=== PATIENT | female | born 1985 | race Hispanic/Latino ===

== ENCOUNTER → 2019-12-07 07:37 | Outpatient (CLI) | payer OTHER, SELFPAY ==
--- NOTE | 2019-12-07 | DI.MRI.S_ITS ---
PROCEDURE: MR FOOT RT WO/W CON INDICATIONS: Pain in right foot TECHNIQUE: Noncontrast sagittal T1 spin echo and T2 fast spin echo with fat saturation, long-axis T1 spin echo and T2 fast spin echo with fat saturation; short-axis T1 spin echo, proton density fast spin echo, and T2 fast spin echo with fat saturation through the forefoot. Post-contrast short axis, long axis, and sagittal T1 spin echo with fat saturation through the forefoot. COMPARISON: [facility] [place], CR, XR FOOT 3+ VIEWS RIGHT, 03/18/2019, 8:30. FINDINGS: Image quality: There is mild inhomogeneous fat saturation. Bones and joints: No bone marrow contusions or fractures. No evidence of metatarsal stress reaction or stress fractures. No definite intraosseous mass lesions or abnormal enhancement with evaluation slightly limited by inhomogeneous fat saturation. The sesamoid bones appear in expected positions, without internal edema. No metatarsophalangeal joint degeneration. Soft tissues: There is mild soft tissue swelling laterally in the great toe without definite associated abnormal enhancement. No corresponding discrete mass or fluid collection identified. The visualized plantar foot muscles demonstrate normal signal and bulk. Visualized flexor and extensor tendons appear intact, without tenosynovitis. The distal insertions of the peroneus brevis and longus tendons appear intact. The principal Lisfranc ligament appears intact. No soft tissue ganglion cysts. There is trace intermetatarsal bursal fluid within the 1st through 3rd metatarsal interspaces. Sagittal images demonstrate no evidence for plantar plate tears. IMPRESSION: 1. Soft tissue swelling demonstrated laterally in the great toe in the area of clinical concern without definite corresponding abnormal enhancement or discrete mass identified. Recommend clinical follow-up. Dictated by: Abdon Oliva M.D. on 12/07/2019 at 13:29 Approved by: Abdon Oliva M.D. on 12/07/2019 at 13:51
== END ==
PROVIDERS: Referring Provider Podiatrist; Visit Provider Podiatrist
DX: M79.671 Pain in right foot (principal); M79.89 Other specified soft tissue disorders
CPT/HCPCS: 73720; A9579

== ENCOUNTER → 2020-12-02 08:43 | Outpatient (CLI) | payer OTHER, SELFPAY ==
--- NOTE | 2020-12-02 | DI.MRI.S_ITS ---
PROCEDURE: MR PELVIS WO CON INDICATIONS: Pelvic and perineal pain TECHNIQUE: Noncontrast coronal and axial T1 spin echo and STIR through the bony pelvis. COMPARISON: None. FINDINGS: Image quality: Excellent. Bones: Bone marrow of the pelvic ring, sacrum, and proximal femurs show normal signal throughout. No intraosseous lesions or fractures identified. The visualized lower lumbar spine appears normally aligned. Tendons: The gluteus medius and minimus tendons appear intact, without associated muscle atrophy. The nearby proximal iliotibial band also appears intact. The iliopsoas tendon appears intact, without adjacent bursal fluid collections or evidence for impingement syndrome. The origin of the hamstring tendon is intact at the ischial tuberosity, as well as the associated sacrotuberous ligament. The straight and reflected heads of the rectus femoris muscle origin appear intact, as well as the conjoint tendon. Soft tissues: Visualized muscles demonstrate normal bulk and internal signal. No joint effusions. No free pelvic fluid. Bladder wall thickness is normal. Genitourinary structures and bowel loops appear normal where visualized. IMPRESSION: No visible explanation for pelvic and perineal pain. Dictated by: Marianne Stewart M.D. on 12/04/2020 at 10:08 Approved by: Marianne Stewart M.D. on 12/04/2020 at 10:12
== END ==
DX: M54.5 Low back pain (principal); R10.2 Pelvic and perineal pain
CPT/HCPCS: 72195

== ENCOUNTER → 2021-03-29 15:56 | Outpatient (CLI) | payer OTHER, SELFPAY ==
--- NOTE | 2021-03-29 | DI.MRI.S_ITS ---
PROCEDURE: MR HEAD/BRAIN WO/W CON INDICATIONS: STRUCTURAL CHANGE TECHNIQUE: Noncontrast axial T1 spin echo, axial T2 fast spin echo, sagittal and axial FLAIR, coronal T2 fast spin echo, axial gradient echo, axial diffusion and ADC through the brain. After the administration of contrast, axial and coronal 3D VIBE or T1 spin echo with fat saturation through the brain. COMPARISON: None. FINDINGS: Image quality: Excellent. CSF Spaces: Basal cisterns are patent. No extra-axial fluid collections. Ventricles are normal in size and shape. 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 Midline structures are otherwise normal in appearance. No brain parenchymal FLAIR signal abnormality. No abnormal intracranial susceptibility or enhancement. No restricted diffusion. The major intracranial vascular flow-related signal voids are maintained. No mass effect or midline shift. Skull and face: Calvarial marrow is normal in signal. Orbits appear normal. Sinuses: Sinuses and mastoids appear clear. IMPRESSION: Essentially unremarkable MRI of the brain with no significant intracranial abnormality. An approximately 7 millimeter pineal gland cyst is of highly unlikely clinical significance. Dictated by: Jeremy Tirado M.D. on 03/29/2021 at 18:47 Approved by: Jeremy Tirado M.D. on 03/29/2021 at 18:53
== END ==
DX: R41.3 Other amnesia (principal); E34.9 Endocrine disorder, unspecified
CPT/HCPCS: 70553; A9579

== ENCOUNTER → 2021-04-27 16:32 | Outpatient (CLI) | payer OTHER, SELFPAY ==
--- NOTE | 2021-04-27 16:33 | DI.MRI.S_ITS ---
PROCEDURE: MR LUMBAR SPINE WO CON INDICATIONS: Low back pain, unspecified TECHNIQUE: Noncontrast sagittal T1 spin echo and T2 fast echo, sagittal STIR, axial T1 and T2 fast spin echo through the lumbar spine. In cases with scoliosis, additional coronal T2 fast spin echo may be performed. COMPARISON: [facility] [place], CR, XR LUMBAR SPINE WITH OBLIQUES PLUS FLEXION EXTENSION, 04/10/2021, 13:03. FINDINGS: Image quality: This examination is limited by involuntary motion artifact. Alignment and Curvature: There is normal bony alignment. Bone Marrow: Marrow is of normal overall signal. Scattered foci are seen, which are hyperintense on T1-weighted and T2-weighted imaging, which are most consistent with benign vertebral body hemangiomas. No acute vertebral body compression fractures. Spinal Cord: Conus medullaris terminates at the L1 level. Visualized cord demonstrates normal signal and size. Paraspinous Soft Tissues: No paravertebral masses. T12-L1: Normal appearance. L1-L2: Normal appearance. L2-L3: Normal appearance. L3-L4: Normal appearance. L4-L5: Normal appearance. L5-S1: Mild loss of disc height is seen. Loss of disc signal is seen. Mild generalized disc bulge is seen. Mild facet joint hypertrophy is seen. There is mild left-sided and no right-sided neural foraminal narrowing. The central canal is widely patent. IMPRESSION: Mild focal L5-S1 degenerative change is seen, with mild left-sided neural foraminal narrowing. Dictated by: Farhat Coyle M.D. on 04/27/2021 at 16:48 Approved by: Farhat Coyle M.D. on 04/27/2021 at 16:50
== END ==
PROVIDERS: Referring Provider Physical Medicine & Rehabilitation Pain Medicine; Visit Provider Physical Medicine & Rehabilitation Pain Medicine
DX: M48.07 Spinal stenosis, lumbosacral region (principal); M47.817 Spondylosis without myelopathy or radiculopathy, lumbosacral region; M54.50 Low back pain, unspecified
CPT/HCPCS: 72148

== ENCOUNTER 2023-01-21 07:30 | Outpatient (RCR) | payer OTHER, SELFPAY ==
--- NOTE | 2021-11-15 18:29 | PT.OIE ---
Current Diagnoses Unspecified temporomandibular joint disorder, unspecified side (11/15/21) Cervicalgia (11/15/21) Muscle weakness (generalized) (11/15/21) Abnormal posture (11/15/21) Visit Care Team Role Provider Type Abdon Pickard MD Attending Provider Non-Staff Primary Care Provider Referring Provider Specialty: Medical Address: [facility] [address], [place], [address] Email: Physical Therapy Initial Evaluation PT-OP-A Visit Information Start: 11/14/21 17:51 Freq: Status: Active Protocol: Document 11/15/21 16:04 [facility] (Rec: 11/15/21 17:19 [facility] [id number]) Out-Patient Physical Therapy Visit Information Visit Information Visit Type Initial Evaluation Visit Start Time 16:06 Visit Stop Time 16:51 Total Visit Minutes 45 Visit Number 1 Number of TOOLROOM CHECKER Visits 0 PT-OP-B Current Condition Start: 11/14/21 17:51 Freq: Status: Active Protocol: Document 11/15/21 16:04 [facility] (Rec: 11/15/21 17:19 [facility] [id number]) Current Condition History of Current Condition Onset Date 6 months Current Complaints B jaw pain History of Current Condition Jaw pain started about 6 months ago. when it first started it felt like I had been chewing gum allt he day prior. thought she may be clenching. She got a mouthguard after a couple months for night but does not feel like it has made a difference. Neck pain has been crhornic, but no injury. Denies LEAVITT except occasionally and they go away. denies dizziness or lightheadness. Mouth xray done recently and everything looked fine. Pt saw specialist in [place] and she suspects this is just muscular. Denies clicking in jaw. Pt was told to avoid hard to chew and crunchy foods and is most of the time following this. She can feel it more w/ those foods. Tried heat and it feels good but doesn't give relief. Gets ringing in ears and feels like ear is stuffy ( thinks both but notices it more in R). Evry couple weeks she gets the ringing and it only lasts about 5-10 min. Ear feeling stuffy is more often than the ringing. Pt is going to PT for LB. She has tingling in upper back sometimes when just sitting down and with walking. Her neck pain has been persistant. She has had some cervical xray but does not recall anything on it. Pt does have referral for sleep study. Pt feels like she has to sleep okay. She wakes up 1- 2x/night and will get up to go to the bathroom. When seh wakes, she doesn't feel rested , feels exhausted by the end of the day, and feels tense when she awakes. Treatment Goals Patient/Caregiver Goals Dec tightness PT-OP-C Subjective Start: 11/14/21 17:51 Freq: Status: Active Protocol: Document 11/15/21 16:04 [facility] (Rec: 11/15/21 17:19 [facility] [id number]) OP-PT Pain Assessment Location jaw Pain Location Details B jaw Intensity 2 Scale Used Numeric (0 - 10) Description- Other tired; like i Just chewed on taffy for an hr all the time Frequency Constant Pain Aggravating Factors Chewing PT-OP-F Manual Assessment Start: 11/14/21 17:51 Freq: Status: Active Protocol: Document 11/15/21 16:04 [facility] (Rec: 11/15/21 17:19 [facility] [id number]) Manual Assessments Soft Tissue Assessment Soft Tissue Mobility Assessment tightness thoughout jaw, neck & tspine mm R>L w/tenderness Joint Mobility Assessment Joint Mobility Assessment Post shear on R w/closing, ant shear on L before R w/opeing PT-OP-J Posture/Palpation/Skin Start: 11/14/21 17:51 Freq: Status: Active Protocol: Document 11/15/21 16:04 [facility] (Rec: 11/15/21 17:19 [facility] [id number]) Posture Evaluation Comments Posture Comments slight head SB L, fwd rounded shoulders B, inc kyphosis, OA ext slight PT-OP-K Range of Motion Start: 11/14/21 17:51 Freq: Status: Active Protocol: Document 11/15/21 16:04 [facility] (Rec: 11/15/21 17:19 [facility] [id number]) Cervical Spine Range of Motion Cervical Spine Active Degrees Flexion 54 Extension 61 Rotation Left 42 Rotation Right 49 Lateral Flexion Left 40 Lateral Flexion Right 35 Comments pain w/ext & crepitis; tightness w/SB & rot TMJ Range of Motion Jaw Openning Jaw Openning (mm) 35 Comments Comments R side natan post w/close; WNL deviation, no pain PT-OP-L Special Tests Start: 11/14/21 17:51 Freq: Status: Active Protocol: Document 11/15/21 16:04 [facility] (Rec: 11/15/21 17:19 [facility] [id number]) Special Tests Cervical Spine Special Tests Vertebral Artery Test Results neg Spurling's Test Test Results neg Alar Ligament Test Results neg PT-OP-M Strength Start: 11/14/21 17:51 Freq: Status: Active Protocol: Document 11/15/21 16:04 [facility] (Rec: 11/15/21 17:19 [facility] [id number]) Cervical Spine Strength Cervical Spine Manual Muscle Testing Comments chin tuck hold supine:1 sec PT-OP-T Assessment and Plan Start: 11/14/21 17:51 Freq: Status: Active Protocol: Document 11/15/21 16:04 [facility] (Rec: 11/15/21 17:19 [facility] [id number]) Physical Therapy Assessment Rehab Potential Rehabilitation Potential Good Evaluation Complexity Number of Personal Factors/Comorbidities 3 or More Number of Body Systems Impaired 4 or More Clinical Presentation at Evaluation Evolving Impairments Impairments Activity Tolerance,Functional Activities,Functional Mobility ,Pain,Posture,ROM,Soft Tissue Mobility,Strength Goals ROM Short Term Goal (STG) Pt will have full cervical ROM w/o pain to dec pressure on jaw. STG Duration 01/15 Fpc Goal (LTG) Pt will have full jaw opening to 40mm w/o feeling of tightness LTG Duration 02/15 eating Fpc Goal (LTG) Pt will report no tightness or discomfort w/eating and be able to eat all foods. LTG Duration 02/15/22 jaw pain Short Term Goal (STG) Pt will report jaw pain being more intermittent rather than constant tightness STG Duration 01/04/22 Bottle Filler Goal (LTG) Pt will report no jaw tightness or discomfort more than 1x/week LTG Duration 02/15/22 Assessment Summary Assessment Pt presents w/B jaw pain w/ significant tightness of jaw closing mm and has cervical dysfunction along w/postural impairment and noted sleep difficulty. All these other issues are likely causing further jaw pain and making her jaw pain worse. Pt has improper resting position of jaw and tongue position in mouth. She has weak cervical stability and limited cervical ROM which will place tension onto the jaw and likely inc this pain. Pt would beneift from PT to work on cervical, upper thoracic and jaw mobility in order to dec jaw tightnes and discomfort. Physical Therapy Plan Frequency and Duration Frequency of Treatment 1-2x/week Duration of Treatment 3 months Plan of Care Start Date 11/15/21 Plan of Care End Date 02/15/22 Therapeutic Interventions Therapeutic Interventions Home Exercise Program,Joint Mobilizations,Manual Therapy, Neuromuscular Re-education, Orthotic/Prosthetic Management ,Patient/Caregiver Education, Self-Care/Home Management,Soft Tissue Mobilization,Taping, Therapeutic Activities, Therapeutic Exercises Modalities Cold Pack/Ice Massage,Hot Packs Next Visit Focus/Plan Next Note Type Treatment Note Next Visit Plan wall posture, rocabado exercises, manual to jaw & neck for mobility [id number]
--- NOTE | 2021-11-15 18:29 | PT.OPPOC ---
Physical, Occupational & Speech Therapy At [facility] Current Diagnoses Unspecified temporomandibular joint disorder, unspecified side (11/15/21) Cervicalgia (11/15/21) Muscle weakness (generalized) (11/15/21) Abnormal posture (11/15/21) Visit Care Team Role Provider Type Abdon Pickard MD Attending Provider Non-Staff Primary Care Provider Referring Provider Specialty: Medical Address: [facility] [address], [place], [address] Email: Plan Of Care PT-OP-T Assessment and Plan Start: 11/14/21 17:51 Freq: Status: Active Protocol: Document 11/15/21 16:04 [facility] (Rec: 11/15/21 17:19 [facility] [id number]) Physical Therapy Assessment Rehab Potential Rehabilitation Potential Good Evaluation Complexity Number of Personal Factors/Comorbidities 3 or More Number of Body Systems Impaired 4 or More Clinical Presentation at Evaluation Evolving Impairments Impairments Activity Tolerance,Functional Activities,Functional Mobility ,Pain,Posture,ROM,Soft Tissue Mobility,Strength Goals ROM Short Term Goal (STG) Pt will have full cervical ROM w/o pain to dec pressure on jaw. STG Duration 01/15 Early Childhood Education Worker Goal (LTG) Pt will have full jaw opening to 40mm w/o feeling of tightness LTG Duration 02/15 eating Prison Goal (LTG) Pt will report no tightness or discomfort w/eating and be able to eat all foods. LTG Duration 02/15/22 jaw pain Short Term Goal (STG) Pt will report jaw pain being more intermittent rather than constant tightness STG Duration 01/04/22 Early Childhood Education Worker Goal (LTG) Pt will report no jaw tightness or discomfort more than 1x/week LTG Duration 02/15/22 Assessment Summary Assessment Pt presents w/B jaw pain w/ significant tightness of jaw closing mm and has cervical dysfunction along w/postural impairment and noted sleep difficulty. All these other issues are likely causing further jaw pain and making her jaw pain worse. Pt has improper resting position of jaw and tongue position in mouth. She has weak cervical stability and limited cervical ROM which will place tension onto the jaw and likely inc this pain. Pt would beneift from PT to work on cervical, upper thoracic and jaw mobility in order to dec jaw tightnes and discomfort. Physical Therapy Plan Frequency and Duration Frequency of Treatment 1-2x/week Duration of Treatment 3 months Plan of Care Start Date 11/15/21 Plan of Care End Date 02/15/22 Therapeutic Interventions Therapeutic Interventions Home Exercise Program,Joint Mobilizations,Manual Therapy, Neuromuscular Re-education, Orthotic/Prosthetic Management ,Patient/Caregiver Education, Self-Care/Home Management,Soft Tissue Mobilization,Taping, Therapeutic Activities, Therapeutic Exercises Modalities Cold Pack/Ice Massage,Hot Packs Next Visit Focus/Plan Next Note Type Treatment Note Next Visit Plan wall posture, rocabado exercises, manual to jaw & neck for mobility Plan of Care Dates Plan of Care Start Date 11/15/21 Plan of Care End Date 02/15/22 Electronically Signed by: Grace Michel, PT 11/15/21 [id number] If you are in agreement with this Plan of Care, please return a signed and dated copy. I have reviewed this Plan of Care and certify that the skilled therapy services above are required to meet the patient?s needs. Physician Signature Date Printed Name and Credentials Clinical Instructor Signature Printed Name and Credentials
--- NOTE | 2021-11-22 17:42 | PT.OTN ---
Current Diagnoses Unspecified temporomandibular joint disorder, unspecified side (11/22/21) Cervicalgia (11/22/21) Muscle weakness (generalized) (11/22/21) Abnormal posture (11/22/21) Physical Therapy Treatment Note PT-OP-A Visit Information Start: 11/14/21 17:51 Freq: Status: Active Protocol: Document 11/22/21 16:03 [facility] (Rec: 11/22/21 17:42 [facility] [id number]) Out-Patient Physical Therapy Visit Information Visit Information Visit Type Treatment Note Visit Start Time 16:05 Visit Stop Time 16:55 Total Visit Minutes 50 Visit Number 2/ Number of TUNGSTEN TENDER Visits 0 PT-OP-B Current Condition Start: 11/14/21 17:51 Freq: Status: Active Protocol: Document 11/15/21 16:04 [facility] (Rec: 11/15/21 17:19 [facility] [id number]) Current Condition History of Current Condition Onset Date 6 months Current Complaints B jaw pain History of Current Condition Jaw pain started about 6 months ago. when it first started it felt like I had been chewing gum allt he day prior. MD thought she may be clenching. She got a mouthguard after a couple months for night but does not feel like it has made a difference. Neck pain has been crhornic, but no injury. Denies LEAVITT except occasionally and they go away. denies dizziness or lightheadness. Mouth xray done recently and everything looked fine. Pt saw specialist in [place] and she suspects this is just muscular. Denies clicking in jaw. Pt was told to avoid hard to chew and crunchy foods and is most of the time following this. She can feel it more w/ those foods. Tried heat and it feels good but doesn't give relief. Gets ringing in ears and feels like ear is stuffy ( thinks both but notices it more in R). Evry couple weeks she gets the ringing and it only lasts about 5-10 min. Ear feeling stuffy is more often than the ringing. Pt is going to PT for LB. She has tingling in upper back sometimes when just sitting down and with walking. Her neck pain has been persistant. She has had some cervical xray but does not recall anything on it. Pt does have referral for sleep study. Pt feels like she has to sleep okay. She wakes up 1- 2x/night and will get up to go to the bathroom. When seh wakes, she doesn't feel rested , feels exhausted by the end of the day, and feels tense when she awakes. Treatment Goals Patient/Caregiver Goals Dec tightness PT-OP-C Subjective Start: 11/14/21 17:51 Freq: Status: Active Protocol: Document 11/22/21 16:03 [facility] (Rec: 11/22/21 17:42 [facility] [id number]) OP-PT Subjective Patient Comments Patient Comments Pt reports a lot of upper back and neck and jaw discomfort startign friday afternoon and was every day but today. She did not work today where she did work the other days. PT-OP-F Manual Assessment Start: 11/14/21 17:51 Freq: Status: Active Protocol: Document 11/15/21 16:04 [facility] (Rec: 11/15/21 17:19 [facility] [id number]) Manual Assessments Soft Tissue Assessment Soft Tissue Mobility Assessment tightness thoughout jaw, neck & tspine mm R>L w/tenderness Joint Mobility Assessment Joint Mobility Assessment Post shear on R w/closing, ant shear on L before R w/opeing PT-OP-J Posture/Palpation/Skin Start: 11/14/21 17:51 Freq: Status: Active Protocol: Document 11/15/21 16:04 [facility] (Rec: 11/15/21 17:19 [facility] [id number]) Posture Evaluation Comments Posture Comments slight head SB L, fwd rounded shoulders B, inc kyphosis, OA ext slight PT-OP-K Range of Motion Start: 11/14/21 17:51 Freq: Status: Active Protocol: Document 11/15/21 16:04 [facility] (Rec: 11/15/21 17:19 [facility] [id number]) Cervical Spine Range of Motion Cervical Spine Active Degrees Flexion 54 Extension 61 Rotation Left 42 Rotation Right 49 Lateral Flexion Left 40 Lateral Flexion Right 35 Comments pain w/ext & crepitis; tightness w/SB & rot TMJ Range of Motion Jaw Openning Jaw Openning (mm) 35 Comments Comments R side natan post w/close; WNL deviation, no pain PT-OP-L Special Tests Start: 11/14/21 17:51 Freq: Status: Active Protocol: Document 11/15/21 16:04 [facility] (Rec: 11/15/21 17:19 [facility] [id number]) Special Tests Cervical Spine Special Tests Vertebral Artery Test Results neg Spurling's Test Test Results neg Alar Ligament Test Results neg PT-OP-M Strength Start: 11/14/21 17:51 Freq: Status: Active Protocol: Document 11/15/21 16:04 [facility] (Rec: 11/15/21 17:19 [facility] [id number]) Cervical Spine Strength Cervical Spine Manual Muscle Testing Comments chin tuck hold supine:1 sec PT-OP-Q Treatments Start: 11/14/21 17:51 Freq: Status: Active Protocol: Document 11/22/21 16:03 [facility] (Rec: 11/22/21 17:42 [facility] [id number]) Therapeutic Exercises Supine Exercises foam roll Supine Exercise Name //:shoulder flex, Habd, abd; perpendicular rolling under scap region Side bilateral Reps/Minutes 10 ea Sitting Exercises rocabado 6x6 Sitting Exercise Name per handout Side bilateral Standing Exercises wall posture Standing Exercise Name w/90/90 Habd Side bilateral Reps/Minutes 8 Manual Therapy Treatment Soft Tissue Mobilization cervical Body Location R SCM cranially Mobilization Type Rolling Intensity/Depth Moderate Body Position Supine jaw Body Location R>L masseter, temporalis Mobilization Type Rolling,Strumming Intensity/Depth Moderate Body Position Supine Joint Mobilizations cervical Comments C1 transverse L FM PT-OP-T Assessment and Plan Start: 11/14/21 17:51 Freq: Status: Active Protocol: Document 11/22/21 16:03 [facility] (Rec: 11/22/21 17:42 [facility] [id number]) Physical Therapy Assessment Goals ROM Short Term Goal (STG) Pt will have full cervical ROM w/o pain to dec pressure on jaw. STG Duration 01/15 Skilled Nursing Goal (LTG) Pt will have full jaw opening to 40mm w/o feeling of tightness LTG Duration 02/15 eating Tower Switch Operator Goal (LTG) Pt will report no tightness or discomfort w/eating and be able to eat all foods. LTG Duration 02/15/22 jaw pain Short Term Goal (STG) Pt will report jaw pain being more intermittent rather than constant tightness STG Duration 01/04/22 Tower Switch Operator Goal (LTG) Pt will report no jaw tightness or discomfort more than 1x/week LTG Duration 02/15/22 Assessment Summary Assessment Pt did well with exercises but does note LB tightness when doingw all roll ups. She has tightness B but R>L and likely creating a significant amount of her pain d/t mm tension. It did improve w/manual treatment. Physical Therapy Plan Frequency and Duration Frequency of Treatment 1-2x/week Duration of Treatment 3 months Plan of Care Start Date 11/15/21 Plan of Care End Date 02/15/22 Next Visit Focus/Plan Next Note Type Treatment Note Next Visit Plan review exercises & manual for jaw and neck mobility
--- NOTE | 2021-11-29 18:25 | PT.OTN ---
Current Diagnoses Unspecified temporomandibular joint disorder, unspecified side (11/29/21) Cervicalgia (11/29/21) Muscle weakness (generalized) (11/29/21) Abnormal posture (11/29/21) Physical Therapy Treatment Note PT-OP-A Visit Information Start: 11/14/21 17:51 Freq: Status: Active Protocol: Document 11/29/21 16:07 [facility] (Rec: 11/29/21 18:25 [facility] [id number]) Out-Patient Physical Therapy Visit Information Visit Information Visit Type Treatment Note Visit Start Time 16:05 Visit Stop Time 16:55 Total Visit Minutes 50 Visit Number 3/[address] ADMINISTRATIVE ENGINEER Vis[address] 0 PT-OP-B Current Condition Start: 11/14/21 17:51 Freq: Status: Active Protocol: Document 11/15/21 16:04 [facility] (Rec: 11/15/21 17:19 [facility] [id number]) Current Condition History of Current Condition Onset Date 6 months Current Complaints B jaw pain History of Current Condition Jaw pain started about 6 months ago. when it first started it felt like I had been chewing gum allt he day prior. MD thought she may be clenching. She got a mouthguard after a couple months for night but does not feel like it has made a difference. Neck pain has been crhornic, but no injury. Denies LEAVITT except occasionally and they go away. denies dizziness or lightheadness. Mouth xray done recently and everything looked fine. Pt saw specialist in [place] and she suspects this is just muscular. Denies clicking in jaw. Pt was told to avoid hard to chew and crunchy foods and is most of the time following this. She can feel it more w/ those foods. Tried heat and it feels good but doesn't give relief. Gets ringing in ears and feels like ear is stuffy ( thinks both but notices it more in R). Evry couple weeks she gets the ringing and it only lasts about 5-10 min. Ear feeling stuffy is more often than the ringing. Pt is going to PT for LB. She has tingling in upper back sometimes when just sitting down and with walking. Her neck pain has been persistant. She has had some cervical xray but does not recall anything on it. Pt does have referral for sleep study. Pt feels like she has to sleep okay. She wakes up 1- 2x/night and will get up to go to the bathroom. When seh wakes, she doesn't feel rested , feels exhausted by the end of the day, and feels tense when she awakes. Treatment Goals Patient/Caregiver Goals Dec tightness PT-OP-C Subjective Start: 11/14/21 17:51 Freq: Status: Active Protocol: Document 11/29/21 16:07 [facility] (Rec: 11/29/21 18:25 [facility] [id number]) OP-PT Subjective Patient Comments Patient Comments Pt reprots tension in head like she is about to get a LEAVITT but not getting a LEAVITT in past week. Unsure if it is the exercises. PT-OP-F Manual Assessment Start: 11/14/21 17:51 Freq: Status: Active Protocol: Document 11/15/21 16:04 [facility] (Rec: 11/15/21 17:19 [facility] [id number]) Manual Assessments Soft Tissue Assessment Soft Tissue Mobility Assessment tightness thoughout jaw, neck & tspine mm R>L w/tenderness Joint Mobility Assessment Joint Mobility Assessment Post shear on R w/closing, ant shear on L before R w/opeing PT-OP-J Posture/Palpation/Skin Start: 11/14/21 17:51 Freq: Status: Active Protocol: Document 11/15/21 16:04 [facility] (Rec: 11/15/21 17:19 [facility] [id number]) Posture Evaluation Comments Posture Comments slight head SB L, fwd rounded shoulders B, inc kyphosis, OA ext slight PT-OP-K Range of Motion Start: 11/14/21 17:51 Freq: Status: Active Protocol: Document 11/15/21 16:04 [facility] (Rec: 11/15/21 17:19 [facility] [id number]) Cervical Spine Range of Motion Cervical Spine Active Degrees Flexion 54 Extension 61 Rotation Left 42 Rotation Right 49 Lateral Flexion Left 40 Lateral Flexion Right 35 Comments pain w/ext & crepitis; tightness w/SB & rot TMJ Range of Motion Jaw Openning Jaw Openning (mm) 35 Comments Comments R side natan post w/close; WNL deviation, no pain PT-OP-L Special Tests Start: 11/14/21 17:51 Freq: Status: Active Protocol: Document 11/15/21 16:04 [facility] (Rec: 11/15/21 17:19 [facility] [id number]) Special Tests Cervical Spine Special Tests Vertebral Artery Test Results neg Spurling's Test Test Results neg Alar Ligament Test Results neg PT-OP-M Strength Start: 11/14/21 17:51 Freq: Status: Active Protocol: Document 11/15/21 16:04 [facility] (Rec: 11/15/21 17:19 [facility] [id number]) Cervical Spine Strength Cervical Spine Manual Muscle Testing Comments chin tuck hold supine:1 sec PT-OP-Q Treatments Start: 11/14/21 17:51 Freq: Status: Active Protocol: Document 11/29/21 16:07 [facility] (Rec: 11/29/21 18:25 [facility] [id number]) Therapeutic Exercises Supine Exercises foam roll Supine Exercise Name //:shoulder flex, Habd, abd; perpendicular rolling under scap region Side bilateral Reps/Minutes 8 ea Sitting Exercises rocabado 6x6 Sitting Exercise Name breathing, jaw opening w/ tongue on soft palette, scap retract, cervical ret Side bilateral Comments only those 4 exercises Standing Exercises wall posture Standing Exercise Name w/90/90 Habd Side bilateral Reps/Minutes 8 Manual Therapy Treatment Soft Tissue Mobilization cervical Body Location R SCM cranially Mobilization Type Rolling Intensity/Depth Moderate Body Position Supine jaw Body Location R>L masseter, temporalis Mobilization Type Rolling,Strumming Intensity/Depth Moderate Body Position Supine Joint Mobilizations cervical Comments C1 & 2 transverse R FM PT-OP-R Modalities Start: 11/14/21 17:51 Freq: Status: Active Protocol: Document 11/29/21 16:07 [facility] (Rec: 11/29/21 18:25 [facility] [id number]) Hot Pack/Cold Pack Treatment Cold Pack Location cervical and jaw Patient Position Hooklying Treatment Duration (minutes) 10 PT-OP-T Assessment and Plan Start: 11/14/21 17:51 Freq: Status: Active Protocol: Document 11/29/21 16:07 [facility] (Rec: 11/29/21 18:25 [facility] [id number]) Physical Therapy Assessment Goals ROM Short Term Goal (STG) Pt will have full cervical ROM w/o pain to dec pressure on jaw. STG Duration 01/15 Head Of Housekeeping Goal (LTG) Pt will have full jaw opening to 40mm w/o feeling of tightness LTG Duration 02/15 eating Residential Goal (LTG) Pt will report no tightness or discomfort w/eating and be able to eat all foods. LTG Duration 02/15/22 jaw pain Short Term Goal (STG) Pt will report jaw pain being more intermittent rather than constant tightness STG Duration 01/04/22 Residential Goal (LTG) Pt will report no jaw tightness or discomfort more than 1x/week LTG Duration 02/15/22 Assessment Summary Assessment Pt edu to slowly dec exercises one at a time to see if it is causing inc head tension if the paired down exercises still cause head pain. Pt had imrpoved upper cervical positioning after manual but has signficiant guarding and tension aroudn jaw and neck likely leading to her current pain/discomfort. Physical Therapy Plan Frequency and Duration Frequency of Treatment 1-2x/week Duration of Treatment 3 months Plan of Care Start Date 11/15/21 Plan of Care End Date 02/15/22 Next Visit Focus/Plan Next Note Type Treatment Note Next Visit Plan review exercises & manual for jaw and neck mobility
--- NOTE | 2021-12-06 17:36 | PT.OTN ---
Current Diagnoses Unspecified temporomandibular joint disorder, unspecified side (12/06/21) Cervicalgia (12/06/21) Muscle weakness (generalized) (12/06/21) Abnormal posture (12/06/21) Physical Therapy Treatment Note PT-OP-A Visit Information Start: 11/14/21 17:51 Freq: Status: Active Protocol: Document 12/06/21 14:31 [facility] (Rec: 12/06/21 17:35 [facility] [id number]) Out-Patient Physical Therapy Visit Information Visit Information Visit Type Treatment Note Visit Start Time 16:04 Visit Stop Time 16:49 Total Visit Minutes 45 Visit Number 4/ Number of WEARING APPAREL PRESSER Visits 0 PT-OP-B Current Condition Start: 11/14/21 17:51 Freq: Status: Active Protocol: Document 11/15/21 16:04 [facility] (Rec: 11/15/21 17:19 [facility] [id number]) Current Condition History of Current Condition Onset Date 6 months Current Complaints B jaw pain History of Current Condition Jaw pain started about 6 months ago. when it first started it felt like I had been chewing gum allt he day prior. MD thought she may be clenching. She got a mouthguard after a couple months for night but does not feel like it has made a difference. Neck pain has been crhornic, but no injury. Denies LEAVITT except occasionally and they go away. denies dizziness or lightheadness. Mouth xray done recently and everything looked fine. Pt saw specialist in [place] and she suspects this is just muscular. Denies clicking in jaw. Pt was told to avoid hard to chew and crunchy foods and is most of the time following this. She can feel it more w/ those foods. Tried heat and it feels good but doesn't give relief. Gets ringing in ears and feels like ear is stuffy ( thinks both but notices it more in R). Evry couple weeks she gets the ringing and it only lasts about 5-10 min. Ear feeling stuffy is more often than the ringing. Pt is going to PT for LB. She has tingling in upper back sometimes when just sitting down and with walking. Her neck pain has been persistant. She has had some cervical xray but does not recall anything on it. Pt does have referral for sleep study. Pt feels like she has to sleep okay. She wakes up 1- 2x/night and will get up to go to the bathroom. When seh wakes, she doesn't feel rested , feels exhausted by the end of the day, and feels tense when she awakes. Treatment Goals Patient/Caregiver Goals Dec tightness PT-OP-C Subjective Start: 11/14/21 17:51 Freq: Status: Active Protocol: Document 12/06/21 14:31 [facility] (Rec: 12/06/21 17:35 [facility] [id number]) OP-PT Subjective Patient Comments Patient Comments Pt reprots she feels like last session helped w/mobility PT-OP-F Manual Assessment Start: 11/14/21 17:51 Freq: Status: Active Protocol: Document 11/15/21 16:04 [facility] (Rec: 11/15/21 17:19 [facility] [id number]) Manual Assessments Soft Tissue Assessment Soft Tissue Mobility Assessment tightness thoughout jaw, neck & tspine mm R>L w/tenderness Joint Mobility Assessment Joint Mobility Assessment Post shear on R w/closing, ant shear on L before R w/opeing PT-OP-J Posture/Palpation/Skin Start: 11/14/21 17:51 Freq: Status: Active Protocol: Document 11/15/21 16:04 [facility] (Rec: 11/15/21 17:19 [facility] [id number]) Posture Evaluation Comments Posture Comments slight head SB L, fwd rounded shoulders B, inc kyphosis, OA ext slight PT-OP-K Range of Motion Start: 11/14/21 17:51 Freq: Status: Active Protocol: Document 11/15/21 16:04 [facility] (Rec: 11/15/21 17:19 [facility] [id number]) Cervical Spine Range of Motion Cervical Spine Active Degrees Flexion 54 Extension 61 Rotation Left 42 Rotation Right 49 Lateral Flexion Left 40 Lateral Flexion Right 35 Comments pain w/ext & crepitis; tightness w/SB & rot TMJ Range of Motion Jaw Openning Jaw Openning (mm) 35 Comments Comments R side natan post w/close; WNL deviation, no pain PT-OP-L Special Tests Start: 11/14/21 17:51 Freq: Status: Active Protocol: Document 11/15/21 16:04 [facility] (Rec: 11/15/21 17:19 [facility] [id number]) Special Tests Cervical Spine Special Tests Vertebral Artery Test Results neg Spurling's Test Test Results neg Alar Ligament Test Results neg PT-OP-M Strength Start: 11/14/21 17:51 Freq: Status: Active Protocol: Document 11/15/21 16:04 [facility] (Rec: 11/15/21 17:19 [facility] [id number]) Cervical Spine Strength Cervical Spine Manual Muscle Testing Comments chin tuck hold supine:1 sec PT-OP-Q Treatments Start: 11/14/21 17:51 Freq: Status: Active Protocol: Document 12/06/21 14:31 [facility] (Rec: 12/06/21 17:35 [facility] [id number]) Manual Therapy Treatment Soft Tissue Mobilization cervical Body Location R SCM & Scalenes Mobilization Type Rolling Intensity/Depth Moderate Body Position Supine jaw Body Location R>L masseter, temporalis, inf & post jaw Mobilization Type Rolling,Strumming Intensity/Depth Moderate Body Position Supine Joint Mobilizations thoracic Comments T1-2 transverse R FM jaw Joint B distraction FM Self-Care/Home Management Treatment Education Other Education discussed cont just limited rocabado exercises, foam roll and wall posture, discussed doorway pec stretcha nd edu on open book for tspine/pec mobility w/less pain PT-OP-R Modalities Start: 11/14/21 17:51 Freq: Status: Active Protocol: Document 11/29/21 16:07 [facility] (Rec: 11/29/21 18:25 [facility] [id number]) Hot Pack/Cold Pack Treatment Cold Pack Location cervical and jaw Patient Position Hooklying Treatment Duration (minutes) 10 PT-OP-T Assessment and Plan Start: 11/14/21 17:51 Freq: Status: Active Protocol: Document 12/06/21 14:31 [facility] (Rec: 12/06/21 17:35 [facility] [id number]) Physical Therapy Assessment Goals ROM Short Term Goal (STG) Pt will have full cervical ROM w/o pain to dec pressure on jaw. STG Duration 01/15 Penitentiary Goal (LTG) Pt will have full jaw opening to 40mm w/o feeling of tightness LTG Duration 02/15 eating Green Marketing Specialist Goal (LTG) Pt will report no tightness or discomfort w/eating and be able to eat all foods. LTG Duration 02/15/22 jaw pain Short Term Goal (STG) Pt will report jaw pain being more intermittent rather than constant tightness STG Duration 01/04/22 Penitentiary Goal (LTG) Pt will report no jaw tightness or discomfort more than 1x/week LTG Duration 02/15/22 Assessment Summary Assessment Dec pain w/left rotation after manual and improved jaw opening. Discussed alt ways to open up chest for improved posture for jaw as foam roll can be painful for pt. Physical Therapy Plan Frequency and Duration Frequency of Treatment 1-2x/week Duration of Treatment 3 months Plan of Care Start Date 11/15/21 Plan of Care End Date 02/15/22 Next Visit Focus/Plan Next Note Type Treatment Note Next Visit Plan advance cervical stability as able, manual for jaw/neck mobility
--- NOTE | 2021-12-12 17:47 | PT.OTN ---
Current Diagnoses Unspecified temporomandibular joint disorder, unspecified side (12/12/21) Cervicalgia (12/12/21) Muscle weakness (generalized) (12/12/21) Abnormal posture (12/12/21) Physical Therapy Treatment Note PT-OP-A Visit Information Start: 11/14/21 17:51 Freq: Status: Active Protocol: Document 12/12/21 16:02 [facility] (Rec: 12/12/21 17:47 [facility] [id number]) Out-Patient Physical Therapy Visit Information Visit Information Visit Type Treatment Note Visit Start Time 16:05 Visit Stop Time 16:55 Total Visit Minutes 50 Visit Number 08/17 Number of NEWSPAPER MANAGING EDITOR Visits 0 PT-OP-B Current Condition Start: 11/14/21 17:51 Freq: Status: Active Protocol: Document 11/15/21 16:04 [facility] (Rec: 11/15/21 17:19 [facility] [id number]) Current Condition History of Current Condition Onset Date 6 months Current Complaints B jaw pain History of Current Condition Jaw pain started about 6 months ago. when it first started it felt like I had been chewing gum allt he day prior. MD thought she may be clenching. She got a mouthguard after a couple months for night but does not feel like it has made a difference. Neck pain has been crhornic, but no injury. Denies LEAVITT except occasionally and they go away. denies dizziness or lightheadness. Mouth xray done recently and everything looked fine. Pt saw specialist in [place] and she suspects this is just muscular. Denies clicking in jaw. Pt was told to avoid hard to chew and crunchy foods and is most of the time following this. She can feel it more w/ those foods. Tried heat and it feels good but doesn't give relief. Gets ringing in ears and feels like ear is stuffy ( thinks both but notices it more in R). Evry couple weeks she gets the ringing and it only lasts about 5-10 min. Ear feeling stuffy is more often than the ringing. Pt is going to PT for LB. She has tingling in upper back sometimes when just sitting down and with walking. Her neck pain has been persistant. She has had some cervical xray but does not recall anything on it. Pt does have referral for sleep study. Pt feels like she has to sleep okay. She wakes up 1- 2x/night and will get up to go to the bathroom. When seh wakes, she doesn't feel rested , feels exhausted by the end of the day, and feels tense when she awakes. Treatment Goals Patient/Caregiver Goals Dec tightness PT-OP-C Subjective Start: 11/14/21 17:51 Freq: Status: Active Protocol: Document 12/12/21 16:02 [facility] (Rec: 12/12/21 17:47 [facility] [id number]) OP-PT Subjective Patient Comments Patient Comments Pt reprots she feels like she tries to get into good head position for her jaw and then gets tingling and pian in back PT-OP-F Manual Assessment Start: 11/14/21 17:51 Freq: Status: Active Protocol: Document 11/15/21 16:04 [facility] (Rec: 11/15/21 17:19 [facility] [id number]) Manual Assessments Soft Tissue Assessment Soft Tissue Mobility Assessment tightness thoughout jaw, neck & tspine mm R>L w/tenderness Joint Mobility Assessment Joint Mobility Assessment Post shear on R w/closing, ant shear on L before R w/opeing PT-OP-J Posture/Palpation/Skin Start: 11/14/21 17:51 Freq: Status: Active Protocol: Document 11/15/21 16:04 [facility] (Rec: 11/15/21 17:19 [facility] [id number]) Posture Evaluation Comments Posture Comments slight head SB L, fwd rounded shoulders B, inc kyphosis, OA ext slight PT-OP-K Range of Motion Start: 11/14/21 17:51 Freq: Status: Active Protocol: Document 11/15/21 16:04 [facility] (Rec: 11/15/21 17:19 [facility] [id number]) Cervical Spine Range of Motion Cervical Spine Active Degrees Flexion 54 Extension 61 Rotation Left 42 Rotation Right 49 Lateral Flexion Left 40 Lateral Flexion Right 35 Comments pain w/ext & crepitis; tightness w/SB & rot TMJ Range of Motion Jaw Openning Jaw Openning (mm) 35 Comments Comments R side natan post w/close; WNL deviation, no pain PT-OP-L Special Tests Start: 11/14/21 17:51 Freq: Status: Active Protocol: Document 11/15/21 16:04 [facility] (Rec: 11/15/21 17:19 [facility] [id number]) Special Tests Cervical Spine Special Tests Vertebral Artery Test Results neg Spurling's Test Test Results neg Alar Ligament Test Results neg PT-OP-M Strength Start: 11/14/21 17:51 Freq: Status: Active Protocol: Document 11/15/21 16:04 [facility] (Rec: 11/15/21 17:19 [facility] [id number]) Cervical Spine Strength Cervical Spine Manual Muscle Testing Comments chin tuck hold supine:1 sec PT-OP-Q Treatments Start: 11/14/21 17:51 Freq: Status: Active Protocol: Document 12/12/21 16:02 [facility] (Rec: 12/12/21 17:47 [facility] [id number]) Manual Therapy Treatment Soft Tissue Mobilization intraoral Body Location B ptyergoids Mobilization Type Sustained Pressure cervical Body Location R SCM & Scalenes Mobilization Type Rolling Intensity/Depth Moderate Body Position Supine jaw Body Location R>L masseter, temporalis, inf & post jaw Mobilization Type Rolling,Strumming Intensity/Depth Moderate Body Position Supine Joint Mobilizations thoracic Comments T1-3 transverse R FM PA T 5-8 FM PT-OP-R Modalities Start: 11/14/21 17:51 Freq: Status: Active Protocol: Document 12/12/21 16:02 [facility] (Rec: 12/12/21 17:47 [facility] [id number]) Hot Pack/Cold Pack Treatment Cold Pack Location cervical and jaw Patient Position Hooklying Treatment Duration (minutes) 10 PT-OP-T Assessment and Plan Start: 11/14/21 17:51 Freq: Status: Active Protocol: Document 12/12/21 16:02 [facility] (Rec: 12/12/21 17:47 [facility] [id number]) Physical Therapy Assessment Goals ROM Short Term Goal (STG) Pt will have full cervical ROM w/o pain to dec pressure on jaw. STG Duration 01/15 Halfway Goal (LTG) Pt will have full jaw opening to 40mm w/o feeling of tightness LTG Duration 02/15 eating Halfway Goal (LTG) Pt will report no tightness or discomfort w/eating and be able to eat all foods. LTG Duration 02/15/22 jaw pain Short Term Goal (STG) Pt will report jaw pain being more intermittent rather than constant tightness STG Duration 01/04/22 Halfway Goal (LTG) Pt will report no jaw tightness or discomfort more than 1x/week LTG Duration 02/15/22 Physical Therapy Plan Frequency and Duration Frequency of Treatment 1-2x/week Duration of Treatment 3 months Plan of Care Start Date 11/15/21 Plan of Care End Date 02/15/22 Next Visit Focus/Plan Next Note Type Treatment Note Next Visit Plan advance cervical stability as able, manual for jaw/neck mobility
--- NOTE | 2021-12-20 17:57 | PT.OTN ---
Current Diagnoses Unspecified temporomandibular joint disorder, unspecified side (12/20/21) Cervicalgia (12/20/21) Muscle weakness (generalized) (12/20/21) Abnormal posture (12/20/21) Physical Therapy Treatment Note PT-OP-A Visit Information Start: 11/14/21 17:51 Freq: Status: Active Protocol: Document 12/20/21 15:34 [facility] (Rec: 12/20/21 17:57 [facility] [id number]) Out-Patient Physical Therapy Visit Information Visit Information Visit Type Treatment Note Visit Start Time 16:54 Visit Stop Time 17:44 Total Visit Minutes 50 Visit Number 09/17 Number of HEAD OF DRAMA Visits 0 PT-OP-B Current Condition Start: 11/14/21 17:51 Freq: Status: Active Protocol: Document 11/15/21 16:04 [facility] (Rec: 11/15/21 17:19 [facility] [id number]) Current Condition History of Current Condition Onset Date 6 months Current Complaints B jaw pain History of Current Condition Jaw pain started about 6 months ago. when it first started it felt like I had been chewing gum allt he day prior. MD thought she may be clenching. She got a mouthguard after a couple months for night but does not feel like it has made a difference. Neck pain has been crhornic, but no injury. Denies LEAVITT except occasionally and they go away. denies dizziness or lightheadness. Mouth xray done recently and everything looked fine. Pt saw specialist in [place] and she suspects this is just muscular. Denies clicking in jaw. Pt was told to avoid hard to chew and crunchy foods and is most of the time following this. She can feel it more w/ those foods. Tried heat and it feels good but doesn't give relief. Gets ringing in ears and feels like ear is stuffy ( thinks both but notices it more in R). Evry couple weeks she gets the ringing and it only lasts about 5-10 min. Ear feeling stuffy is more often than the ringing. Pt is going to PT for LB. She has tingling in upper back sometimes when just sitting down and with walking. Her neck pain has been persistant. She has had some cervical xray but does not recall anything on it. Pt does have referral for sleep study. Pt feels like she has to sleep okay. She wakes up 1- 2x/night and will get up to go to the bathroom. When seh wakes, she doesn't feel rested , feels exhausted by the end of the day, and feels tense when she awakes. Treatment Goals Patient/Caregiver Goals Dec tightness PT-OP-C Subjective Start: 11/14/21 17:51 Freq: Status: Active Protocol: Document 12/20/21 15:34 [facility] (Rec: 12/20/21 17:57 [facility] [id number]) OP-PT Subjective Patient Comments Patient Comments Pt reports Jaw is feeling better. Points to behind her jaw on L noting pain there and neck PT-OP-F Manual Assessment Start: 11/14/21 17:51 Freq: Status: Active Protocol: Document 11/15/21 16:04 [facility] (Rec: 11/15/21 17:19 [facility] [id number]) Manual Assessments Soft Tissue Assessment Soft Tissue Mobility Assessment tightness thoughout jaw, neck & tspine mm R>L w/tenderness Joint Mobility Assessment Joint Mobility Assessment Post shear on R w/closing, ant shear on L before R w/opeing PT-OP-J Posture/Palpation/Skin Start: 11/14/21 17:51 Freq: Status: Active Protocol: Document 11/15/21 16:04 [facility] (Rec: 11/15/21 17:19 [facility] [id number]) Posture Evaluation Comments Posture Comments slight head SB L, fwd rounded shoulders B, inc kyphosis, OA ext slight PT-OP-K Range of Motion Start: 11/14/21 17:51 Freq: Status: Active Protocol: Document 11/15/21 16:04 [facility] (Rec: 11/15/21 17:19 [facility] [id number]) Cervical Spine Range of Motion Cervical Spine Active Degrees Flexion 54 Extension 61 Rotation Left 42 Rotation Right 49 Lateral Flexion Left 40 Lateral Flexion Right 35 Comments pain w/ext & crepitis; tightness w/SB & rot TMJ Range of Motion Jaw Openning Jaw Openning (mm) 35 Comments Comments R side natan post w/close; WNL deviation, no pain PT-OP-L Special Tests Start: 11/14/21 17:51 Freq: Status: Active Protocol: Document 11/15/21 16:04 [facility] (Rec: 11/15/21 17:19 [facility] [id number]) Special Tests Cervical Spine Special Tests Vertebral Artery Test Results neg Spurling's Test Test Results neg Alar Ligament Test Results neg PT-OP-M Strength Start: 11/14/21 17:51 Freq: Status: Active Protocol: Document 11/15/21 16:04 [facility] (Rec: 11/15/21 17:19 [facility] [id number]) Cervical Spine Strength Cervical Spine Manual Muscle Testing Comments chin tuck hold supine:1 sec PT-OP-Q Treatments Start: 11/14/21 17:51 Freq: Status: Active Protocol: Document 12/20/21 15:34 [facility] (Rec: 12/20/21 17:57 [facility] [id number]) Manual Therapy Treatment Soft Tissue Mobilization cervical Body Location R SCM & Scalenes, SO, paraspinals Mobilization Type Rolling Intensity/Depth Moderate Body Position Supine jaw Body Location R>L masseter, temporalis, inf & post jaw Mobilization Type Rolling,Strumming Intensity/Depth Moderate Body Position Supine Joint Mobilizations cervical Comments C2 transverse R and UAP L FM C3 transverse R PT-OP-R Modalities Start: 11/14/21 17:51 Freq: Status: Active Protocol: Document 12/20/21 15:34 [facility] (Rec: 12/20/21 17:57 [facility] [id number]) Hot Pack/Cold Pack Treatment Cold Pack Location cervical and jaw Patient Position Hooklying Treatment Duration (minutes) 10 PT-OP-T Assessment and Plan Start: 11/14/21 17:51 Freq: Status: Active Protocol: Document 12/20/21 15:34 [facility] (Rec: 12/20/21 17:57 [facility] [id number]) Physical Therapy Assessment Goals ROM Short Term Goal (STG) Pt will have full cervical ROM w/o pain to dec pressure on jaw. STG Duration 01/15 Longterm Goal (LTG) Pt will have full jaw opening to 40mm w/o feeling of tightness LTG Duration 02/15 eating Longterm Goal (LTG) Pt will report no tightness or discomfort w/eating and be able to eat all foods. LTG Duration 02/15/22 jaw pain Short Term Goal (STG) Pt will report jaw pain being more intermittent rather than constant tightness STG Duration 01/04/22 Longterm Goal (LTG) Pt will report no jaw tightness or discomfort more than 1x/week LTG Duration 02/15/22 Assessment Summary Assessment Pt had improved soft tissue mobility of jaw mm today but has signficiant C2 dysfunctiont hat improved partially w/treatment today. it is likely creating referral to her jaw pain. Physical Therapy Plan Frequency and Duration Frequency of Treatment 1-2x/week Duration of Treatment 3 months Plan of Care Start Date 11/15/21 Plan of Care End Date 02/15/22 Next Visit Focus/Plan Next Note Type Treatment Note Next Visit Plan advance postural stability as able to improve jaw position and imrove mm tension, manual for jaw/neck mobility
--- NOTE | 2021-12-25 17:07 | PT.OTN ---
Current Diagnoses Unspecified temporomandibular joint disorder, unspecified side (12/25/21) Cervicalgia (12/25/21) Muscle weakness (generalized) (12/25/21) Abnormal posture (12/25/21) Physical Therapy Treatment Note PT-OP-A Visit Information Start: 11/14/21 17:51 Freq: Status: Active Protocol: Document 12/25/21 10:07 [facility] (Rec: 12/25/21 17:07 [facility] [id number]) Out-Patient Physical Therapy Visit Information Visit Information Visit Type Treatment Note Visit Start Time 10:33 Visit Stop Time 11:14 Total Visit Minutes 41 Visit Number 10/17 Number of RN ENTEROSTOMAL Visits 0 PT-OP-B Current Condition Start: 11/14/21 17:51 Freq: Status: Active Protocol: Document 11/15/21 16:04 [facility] (Rec: 11/15/21 17:19 [facility] [id number]) Current Condition History of Current Condition Onset Date 6 months Current Complaints B jaw pain History of Current Condition Jaw pain started about 6 months ago. when it first started it felt like I had been chewing gum allt he day prior. MD thought she may be clenching. She got a mouthguard after a couple months for night but does not feel like it has made a difference. Neck pain has been crhornic, but no injury. Denies LEAVITT except occasionally and they go away. denies dizziness or lightheadness. Mouth xray done recently and everything looked fine. Pt saw specialist in [place] and she suspects this is just muscular. Denies clicking in jaw. Pt was told to avoid hard to chew and crunchy foods and is most of the time following this. She can feel it more w/ those foods. Tried heat and it feels good but doesn't give relief. Gets ringing in ears and feels like ear is stuffy ( thinks both but notices it more in R). Evry couple weeks she gets the ringing and it only lasts about 5-10 min. Ear feeling stuffy is more often than the ringing. Pt is going to PT for LB. She has tingling in upper back sometimes when just sitting down and with walking. Her neck pain has been persistant. She has had some cervical xray but does not recall anything on it. Pt does have referral for sleep study. Pt feels like she has to sleep okay. She wakes up 1- 2x/night and will get up to go to the bathroom. When seh wakes, she doesn't feel rested , feels exhausted by the end of the day, and feels tense when she awakes. Treatment Goals Patient/Caregiver Goals Dec tightness PT-OP-C Subjective Start: 11/14/21 17:51 Freq: Status: Active Protocol: Document 12/25/21 10:07 [facility] (Rec: 12/25/21 17:07 [facility] [id number]) OP-PT Subjective Patient Comments Patient Comments Pt reports jaw has been feeling less tight but she still does notice clenchinga nd tightness. PT-OP-F Manual Assessment Start: 11/14/21 17:51 Freq: Status: Active Protocol: Document 11/15/21 16:04 [facility] (Rec: 11/15/21 17:19 [facility] [id number]) Manual Assessments Soft Tissue Assessment Soft Tissue Mobility Assessment tightness thoughout jaw, neck & tspine mm R>L w/tenderness Joint Mobility Assessment Joint Mobility Assessment Post shear on R w/closing, ant shear on L before R w/opeing PT-OP-J Posture/Palpation/Skin Start: 11/14/21 17:51 Freq: Status: Active Protocol: Document 11/15/21 16:04 [facility] (Rec: 11/15/21 17:19 [facility] [id number]) Posture Evaluation Comments Posture Comments slight head SB L, fwd rounded shoulders B, inc kyphosis, OA ext slight PT-OP-K Range of Motion Start: 11/14/21 17:51 Freq: Status: Active Protocol: Document 11/15/21 16:04 [facility] (Rec: 11/15/21 17:19 [facility] [id number]) Cervical Spine Range of Motion Cervical Spine Active Degrees Flexion 54 Extension 61 Rotation Left 42 Rotation Right 49 Lateral Flexion Left 40 Lateral Flexion Right 35 Comments pain w/ext & crepitis; tightness w/SB & rot TMJ Range of Motion Jaw Openning Jaw Openning (mm) 35 Comments Comments R side natan post w/close; WNL deviation, no pain PT-OP-L Special Tests Start: 11/14/21 17:51 Freq: Status: Active Protocol: Document 11/15/21 16:04 [facility] (Rec: 11/15/21 17:19 [facility] [id number]) Special Tests Cervical Spine Special Tests Vertebral Artery Test Results neg Spurling's Test Test Results neg Alar Ligament Test Results neg PT-OP-M Strength Start: 11/14/21 17:51 Freq: Status: Active Protocol: Document 11/15/21 16:04 [facility] (Rec: 11/15/21 17:19 [facility] [id number]) Cervical Spine Strength Cervical Spine Manual Muscle Testing Comments chin tuck hold supine:1 sec PT-OP-Q Treatments Start: 11/14/21 17:51 Freq: Status: Active Protocol: Document 12/25/21 10:07 [facility] (Rec: 12/25/21 17:07 [facility] [id number]) Manual Therapy Treatment Soft Tissue Mobilization intraoral Body Location B ptyergoids &masseter Mobilization Type Sustained Pressure cervical Body Location R SCM & Scalenes, paraspinals Mobilization Type Rolling Intensity/Depth Moderate Body Position Supine jaw Body Location R>L masseter, temporalis, inf & post jaw Mobilization Type Rolling,Strumming Intensity/Depth Moderate Body Position Supine Joint Mobilizations thoracic Comments PA T1-3 transverse R T1-3 jaw Joint B distraction FM PT-OP-R Modalities Start: 11/14/21 17:51 Freq: Status: Active Protocol: Document 12/20/21 15:34 [facility] (Rec: 12/20/21 17:57 [facility] [id number]) Hot Pack/Cold Pack Treatment Cold Pack Location cervical and jaw Patient Position Hooklying Treatment Duration (minutes) 10 PT-OP-T Assessment and Plan Start: 11/14/21 17:51 Freq: Status: Active Protocol: Document 12/25/21 10:07 [facility] (Rec: 12/25/21 17:07 [facility] [id number]) Physical Therapy Assessment Goals ROM Short Term Goal (STG) Pt will have full cervical ROM w/o pain to dec pressure on jaw. STG Duration 01/15 Ict Project Manager Goal (LTG) Pt will have full jaw opening to 40mm w/o feeling of tightness LTG Duration 02/15 eating [facility] Goal (LTG) Pt will report no tightness or discomfort w/eating and be able to eat all foods. LTG Duration 02/15/22 jaw pain Short Term Goal (STG) Pt will report jaw pain being more intermittent rather than constant tightness STG Duration 01/04/22 [facility] Goal (LTG) Pt will report no jaw tightness or discomfort more than 1x/week LTG Duration 02/15/22 Assessment Summary Assessment Avoided upper cervical region d/t tenderness noted since last session. Improved cerivcal rotation to L after manual treatment and improved mobility to get head into more neutral position. Physical Therapy Plan Frequency and Duration Frequency of Treatment 1-2x/week Duration of Treatment 3 months Plan of Care Start Date 11/15/21 Plan of Care End Date 02/15/22 Next Visit Focus/Plan Next Note Type Treatment Note Next Visit Plan advance postural stability as able to improve jaw position and imrove mm tension, manual for jaw/neck mobility
--- NOTE | 2022-01-02 14:30 | PT.OTN ---
Current Diagnoses Unspecified temporomandibular joint disorder, unspecified side (01/02/22) Cervicalgia (01/02/22) Muscle weakness (generalized) (01/02/22) Abnormal posture (01/02/22) Physical Therapy Treatment Note PT-OP-A Visit Information Start: 11/14/21 17:51 Freq: Status: Active Protocol: Document 01/02/22 13:48 SP (Rec: 01/02/22 14:33 SP [id number]) Out-Patient Physical Therapy Visit Information Visit Information Visit Type Treatment Note Visit Start Time 13:48 Visit Stop Time 14:30 Total Visit Minutes 42 Visit Number 11/[address] TECHNOLOGIST Visits 1 PT-OP-B Current Condition Start: 11/14/21 17:51 Freq: Status: Active Protocol: Document 11/15/21 16:04 [facility] (Rec: 11/15/21 17:19 [facility] [id number]) Current Condition History of Current Condition Onset Date 6 months Current Complaints B jaw pain History of Current Condition Jaw pain started about 6 months ago. when it first started it felt like I had been chewing gum allt he day prior. MD thought she may be clenching. She got a mouthguard after a couple months for night but does not feel like it has made a difference. Neck pain has been crhornic, but no injury. Denies LEAVITT except occasionally and they go away. denies dizziness or lightheadness. Mouth xray done recently and everything looked fine. Pt saw specialist in [place] and she suspects this is just muscular. Denies clicking in jaw. Pt was told to avoid hard to chew and crunchy foods and is most of the time following this. She can feel it more w/ those foods. Tried heat and it feels good but doesn't give relief. Gets ringing in ears and feels like ear is stuffy ( thinks both but notices it more in R). Evry couple weeks she gets the ringing and it only lasts about 5-10 min. Ear feeling stuffy is more often than the ringing. Pt is going to PT for LB. She has tingling in upper back sometimes when just sitting down and with walking. Her neck pain has been persistant. She has had some cervical xray but does not recall anything on it. Pt does have referral for sleep study. Pt feels like she has to sleep okay. She wakes up 1- 2x/night and will get up to go to the bathroom. When seh wakes, she doesn't feel rested , feels exhausted by the end of the day, and feels tense when she awakes. Treatment Goals Patient/Caregiver Goals Dec tightness PT-OP-C Subjective Start: 11/14/21 17:51 Freq: Status: Active Protocol: Document 01/02/22 13:48 SP (Rec: 01/02/22 14:33 SP [id number]) OP-PT Subjective Patient Comments Patient Comments Pt reported just now recovering and just soreness in posterior L neck since manual 2 weeks ago. Jaw isn't as painful. Patient Reported Progress Improving PT-OP-F Manual Assessment Start: 11/14/21 17:51 Freq: Status: Active Protocol: Document 11/15/21 16:04 [facility] (Rec: 11/15/21 17:19 [facility] [id number]) Manual Assessments Soft Tissue Assessment Soft Tissue Mobility Assessment tightness thoughout jaw, neck & tspine mm R>L w/tenderness Joint Mobility Assessment Joint Mobility Assessment Post shear on R w/closing, ant shear on L before R w/opeing PT-OP-J Posture/Palpation/Skin Start: 11/14/21 17:51 Freq: Status: Active Protocol: Document 11/15/21 16:04 [facility] (Rec: 11/15/21 17:19 [facility] [id number]) Posture Evaluation Comments Posture Comments slight head SB L, fwd rounded shoulders B, inc kyphosis, OA ext slight PT-OP-K Range of Motion Start: 11/14/21 17:51 Freq: Status: Active Protocol: Document 11/15/21 16:04 [facility] (Rec: 11/15/21 17:19 [facility] [id number]) Cervical Spine Range of Motion Cervical Spine Active Degrees Flexion 54 Extension 61 Rotation Left 42 Rotation Right 49 Lateral Flexion Left 40 Lateral Flexion Right 35 Comments pain w/ext & crepitis; tightness w/SB & rot TMJ Range of Motion Jaw Openning Jaw Openning (mm) 35 Comments Comments R side natan post w/close; WNL deviation, no pain PT-OP-L Special Tests Start: 11/14/21 17:51 Freq: Status: Active Protocol: Document 11/15/21 16:04 [facility] (Rec: 11/15/21 17:19 [facility] [id number]) Special Tests Cervical Spine Special Tests Vertebral Artery Test Results neg Spurling's Test Test Results neg Alar Ligament Test Results neg PT-OP-M Strength Start: 11/14/21 17:51 Freq: Status: Active Protocol: Document 11/15/21 16:04 [facility] (Rec: 11/15/21 17:19 [facility] [id number]) Cervical Spine Strength Cervical Spine Manual Muscle Testing Comments chin tuck hold supine:1 sec PT-OP-Q Treatments Start: 11/14/21 17:51 Freq: Status: Active Protocol: Document 01/02/22 13:48 SP (Rec: 01/02/22 14:33 SP [id number]) Therapeutic Exercises Supine Exercises foam roll Supine Exercise Name //:shoulder flex, Habd, abd; perpendicular rolling under scap region Side bilateral Equipment Used discussed AROM, gentle fluid movement Reps/Minutes 8 ea Comments verbal discussion Sitting Exercises rocabado 6x6 Sitting Exercise Name breathing, jaw opening w/ tongue on soft palette, scap retract, cervical ret Side bilateral Resistance AROM and gentle pressure Equipment Used use mirror for self feedback Reps/Minutes cued touch tongue on roof mouth lightly Comments only those 4 exercises Standing Exercises wall posture Standing Exercise Name w/90/90 Habd, discussed continue Side bilateral Reps/Minutes 8 Manual Therapy Treatment Soft Tissue Mobilization intraoral Body Location R.L ptyergoids &masseter Mobilization Type Sustained Pressure Intensity/Depth Superficial Body Position Hooklying Comments manual and instruction on self application with fingers in/ outside cervical Body Location R>L SCM & Scalenes, paraspinals Mobilization Type Myofascial Release,Sustained Pressure Intensity/Depth Superficial Body Position Supine Comments manual jaw Body Location R>L masseter, temporalis, inf & post jaw Mobilization Type Rolling,Strumming Intensity/Depth Moderate Body Position Supine Comments manual and instruction self application PT-OP-R Modalities Start: 11/14/21 17:51 Freq: Status: Active Protocol: Document 12/20/21 15:34 [facility] (Rec: 12/20/21 17:57 [facility] [id number]) Hot Pack/Cold Pack Treatment Cold Pack Location cervical and jaw Patient Position Hooklying Treatment Duration (minutes) 10 PT-OP-T Assessment and Plan Start: 11/14/21 17:51 Freq: Status: Active Protocol: Document 01/02/22 13:48 SP (Rec: 01/02/22 14:33 SP [id number]) Physical Therapy Assessment Goals ROM Short Term Goal (STG) Pt will have full cervical ROM w/o pain to dec pressure on jaw. STG Duration 01/15 Nursing Home Goal (LTG) Pt will have full jaw opening to 40mm w/o feeling of tightness LTG Duration 02/15 eating Drywall Foreman Goal (LTG) Pt will report no tightness or discomfort w/eating and be able to eat all foods. LTG Duration 02/15/22 jaw pain Short Term Goal (STG) Pt will report jaw pain being more intermittent rather than constant tightness STG Duration 01/04/22 Nursing Home Goal (LTG) Pt will report no jaw tightness or discomfort more than 1x/week LTG Duration 02/15/22 Assessment Summary Assessment Pt good tolerance to gentle light pressure MFR and manual stretches over cervical this tx. Pt sensitive to intraoral STMs, adjusted pressure and sustained vs pincer knead and awareness of self application at home for carryover decrease tension. Use mirror for self corrections with HEP beneficial today. Discussed having partner view alignment neck with HEP for awareness of neutral spine/jaw, verbalized good strategy. Physical Therapy Plan Frequency and Duration Frequency of Treatment 1-2x/week Duration of treatment (weeks) 12 Plan of Care Start Date 11/15/21 Plan of Care End Date 02/15/22 Therapeutic Interventions Therapeutic Interventions Home Exercise Program,Joint Mobilizations,Manual Therapy, Neuromuscular Re-education, Orthotic/Prosthetic Management ,Patient/Caregiver Education, Self-Care/Home Management,Soft Tissue Mobilization,Taping, Therapeutic Activities, Therapeutic Exercises Modalities Cold Pack/Ice Massage,Hot Packs Next Visit Focus/Plan Next Note Type Treatment Note Next Visit Plan Review HEP, check if performing self STMs POC: advance postural stability as able to improve jaw position and imrove mm tension, manual for jaw/neck mobility
--- NOTE | 2022-01-23 15:18 | PT.OTRE ---
Current Diagnoses Unspecified temporomandibular joint disorder, unspecified side (01/23/22) Other specified dorsopathies, cervicothoracic region (01/23/22) Cervicalgia (01/23/22) Muscle weakness (generalized) (01/23/22) Abnormal posture (01/23/22) Visit Care Team Role Provider Type Abdon Pickard MD Attending Provider Non-Staff Primary Care Provider Referring Provider Specialty: Medical Address: [facility] [address], [place], [address] Email: Physical Therapy Re-Evaluation PT-OP-A Visit Information Start: 11/14/21 17:51 Freq: Status: Active Protocol: Document 01/23/22 13:50 [facility] (Rec: 01/23/22 15:18 [facility] [id number]) Out-Patient Physical Therapy Visit Information Visit Information Visit Type Re-Evaluation Visit Start Time 14:45 Visit Stop Time 15:15 Total Visit Minutes 30 Visit Number 9 Number of HEPATOLOGIST Visits 0 PT-OP-B Current Condition Start: 11/14/21 17:51 Freq: Status: Active Protocol: Document 01/23/22 13:50 [facility] (Rec: 01/23/22 15:18 [facility] [id number]) Current Condition History of Current Condition Onset Date 6 months/1 year Current Complaints B jaw pain/cervical& thoracic pain History of Current Condition Re-eval: Pt reports neck and thoracic pain started about 1 year ago and she would ntoice that 5-10 min into walking, she starts to get tingling in shoulder blades. Fwd flex stretch feels like it should help but it doesn't. Once it starts, there is no way ot stop it besides lay down. This has kept her from hiking. Neck pain is more feels so tight that she feels like her ROM is limited. ITs been better since started working on jaw. It always feels like she needs to move her neck but doing the motion doesn't really help. It feels like she wants to pop it but that doesn't really help either. She gets things that feels like golf balls along neck. IE:Jaw pain started about 6 months ago. when it first started it felt like I had been chewing gum allt he day prior. MD thought she may be clenching. She got a mouthguard after a couple months for night but does not feel like it has made a difference. Neck pain has been crhornic, but no injury. Denies LEAVITT except occasionally and they go away. denies dizziness or lightheadness. Mouth xray done recently and everything looked fine. Pt saw specialist in [place] and she suspects this is just muscular. Denies clicking in jaw. Pt was told to avoid hard to chew and crunchy foods and is most of the time following this. She can feel it more w/ those foods. Tried heat and it feels good but doesn't give relief. Gets ringing in ears and feels like ear is stuffy ( thinks both but notices it more in R). Evry couple weeks she gets the ringing and it only lasts about 5-10 min. Ear feeling stuffy is more often than the ringing. Pt is going to PT for LB. She has tingling in upper back sometimes when just sitting down and with walking. Her neck pain has been persistant. She has had some cervical xray but does not recall anything on it. Pt does have referral for sleep study. Pt feels like she has to sleep okay. She wakes up 1- 2x/night and will get up to go to the bathroom. When seh wakes, she doesn't feel rested , feels exhausted by the end of the day, and feels tense when she awakes. Treatment Goals Patient/Caregiver Goals get back to hiking and long walks w/o tingling pain in back, improve neck range and improve comfort, PT-OP-C Subjective Start: 11/14/21 17:51 Freq: Status: Active Protocol: Document 01/23/22 13:50 [facility] (Rec: 01/23/22 15:18 [facility] [id number]) OP-PT Pain Assessment Location upper back Pain Location Details between scaps and on scaps Intensity 6 Scale Used Numeric (0 - 10) Description Tingling Description- Other waves and patterns Frequency Intermittent Pain Duration lasts until lays or sits w/ back support Pain Aggravating Factors Standing,Walking Other Pain Alleviating Factors laying down or sitting w/back support neck Pain Location Details B post neck Description Tightness Description- Other golf ball on neck Frequency Intermittent Pain Duration constant tightness w/golf ball feeling intermittent and stays for days Other Pain Aggravating Factors stress, turning driving,unsure other Pain Alleviating Factors Cold,Heat PT-OP-F Manual Assessment Start: 11/14/21 17:51 Freq: Status: Active Protocol: Document 01/23/22 13:50 [facility] (Rec: 01/23/22 15:18 [facility] [id number]) Manual Assessments Soft Tissue Assessment Soft Tissue Mobility Assessment tightness thoughout jaw, neck & tspine mm L>R w/tenderness ( PT-OP-J Posture/Palpation/Skin Start: 11/14/21 17:51 Freq: Status: Active Protocol: Document 01/23/22 13:50 [facility] (Rec: 01/23/22 15:18 [facility] [id number]) Posture Evaluation [facility] Postural Classification System [place] Postural Classifications Posterior/Anterior Vertebral Compression Test 1 Elbow Flexion Test 2 Lumbar Protective Mechanism Left AP 0 Lumbar Protective Mechanism Right AP 1 Lumbar Protective Mechanism Left PA 1 Lumbar Protective Mechanism Right PA 0 Comments Posture Comments slight head SB L, fwd rounded shoulders B, inc kyphosis, OA ext slight; L scap further elevated & abd & fwd tilt PT-OP-K Range of Motion Start: 11/14/21 17:51 Freq: Status: Active Protocol: Document 01/23/22 13:50 [facility] (Rec: 01/23/22 15:18 [facility] [id number]) Cervical Spine Range of Motion Cervical Spine Active Degrees Flexion 55 Extension 70 Rotation Left 54 Rotation Right 56 Lateral Flexion Left 35 Lateral Flexion Right 41 Comments tightness w/SB R & flex; Thoraicc rotaiton R: 55 L: 60 TMJ Range of Motion Jaw Openning Jaw Openning (mm) 36 PT-OP-L Special Tests Start: 11/14/21 17:51 Freq: Status: Active Protocol: Document 11/15/21 16:04 [facility] (Rec: 11/15/21 17:19 [facility] [id number]) Special Tests Cervical Spine Special Tests Vertebral Artery Test Results neg Spurling's Test Test Results neg Alar Ligament Test Results neg PT-OP-M Strength Start: 11/14/21 17:51 Freq: Status: Active Protocol: Document 01/23/22 13:50 [facility] (Rec: 01/23/22 15:18 [facility] [id number]) Cervical Spine Strength Cervical Spine Manual Muscle Testing Flexion (C1-2) 3+ Fair+ Extension 5 Normal Rotation Left 4 Good Rotation Right 4+ Good+ Lateral Flexion Left (C3) 5 Normal Lateral Flexion Right (C3) 5 Normal Comments 3 sec in axial elongation hold Shoulder Strength Shoulder Manual Muscle Testing Right Flexion 5 Normal Extension 5 Normal Abduction (C5) 5 Normal External Rotation 5 Normal Internal Rotation 5 Normal Left Flexion 5 Normal Extension 5 Normal Abduction (C5) 5 Normal External Rotation 5 Normal Internal Rotation 5 Normal PT-OP-Q Treatments Start: 11/14/21 17:51 Freq: Status: Active Protocol: Document 01/23/22 13:50 [facility] (Rec: 01/23/22 15:18 [facility] [id number]) Manual Therapy Treatment Soft Tissue Mobilization cervical Body Location SO & SCM R>L Mobilization Type Sustained Pressure Intensity/Depth Moderate Body Position Supine PT-OP-R Modalities Start: 11/14/21 17:51 Freq: Status: Active Protocol: Document 12/20/21 15:34 [facility] (Rec: 12/20/21 17:57 [facility] [id number]) Hot Pack/Cold Pack Treatment Cold Pack Location cervical and jaw Patient Position Hooklying Treatment Duration (minutes) 10 PT-OP-T Assessment and Plan Start: 11/14/21 17:51 Freq: Status: Active Protocol: Document 01/23/22 13:50 [facility] (Rec: 01/23/22 15:18 [facility] [id number]) Physical Therapy Assessment Rehab Potential Rehabilitation Potential Good Goals activity Mcfp Goal (LTG) Pt will report being able to return to long walks w/no more than 1/10 pain in neck and/or thoraic region. LTG Duration 04/16/22 ROM Short Term Goal (STG) Pt will have full cervical ROM w/o pain to dec pressure on jaw. 01/23 STG Duration 03/07 Electrician Deck Goal (LTG) Pt will have full jaw opening to 40mm w/o feeling of tightness 01/23-tension LTG Duration 04/16 eating Mcfp Goal (LTG) Pt will report no tightness or discomfort w/eating and be able to eat all foods. 01/23-chewy and hard to break through things she feels tired LTG Duration 04/16/22 jaw pain Short Term Goal (STG) Pt will report jaw pain being more intermittent rather than constant tightness STG Duration achieved Electrician Deck Goal (LTG) Pt will report no jaw tightness or discomfort more than 1x/week 01/23-more intermittent now LTG Duration 04/16/22 Assessment Summary Assessment Pt presents w/new referral for cervicothoracic pain which has been chronic for her and affects her ability to do her typical activities including walking. Due her posture related to this pain, her head is more fwd and has some OA ext which creates inc tension on the jaw and likely inc that pain.S he would benefit from PT work on her jaw and cervicothoracic region. Physical Therapy Plan Frequency and Duration Frequency of Treatment 1-2x/week Duration of treatment (weeks) 12 Plan of Care Start Date 01/23/22 Plan of Care End Date 04/17/22 Therapeutic Interventions Therapeutic Interventions Home Exercise Program,Joint Mobilizations,Manual Therapy, Neuromuscular Re-education, Orthotic/Prosthetic Management ,Patient/Caregiver Education, Self-Care/Home Management,Soft Tissue Mobilization,Taping, Therapeutic Activities, Therapeutic Exercises Modalities Cold Pack/Ice Massage,Hot Packs,Traction- Mechanical, Ultrasound Next Visit Focus/Plan Next Note Type Treatment Note Next Visit Plan work on upper thoracic and cervical & ribacage mobility
--- NOTE | 2022-01-23 15:18 | PT.OPPOC ---
Physical, Occupational & Speech Therapy At [facility] Current Diagnoses Unspecified temporomandibular joint disorder, unspecified side (01/23/22) Other specified dorsopathies, cervicothoracic region (01/23/22) Cervicalgia (01/23/22) Muscle weakness (generalized) (01/23/22) Abnormal posture (01/23/22) Visit Care Team Role Provider Type Abdon Pickard MD Attending Provider Non-Staff Primary Care Provider Referring Provider Specialty: Medical Address: [facility] [address], [place], [address] Email: Plan Of Care PT-OP-T Assessment and Plan Start: 11/14/21 17:51 Freq: Status: Active Protocol: Document 01/23/22 13:50 [facility] (Rec: 01/23/22 15:18 [facility] [id number]) Physical Therapy Assessment Rehab Potential Rehabilitation Potential Good Goals activity Forder Operator Goal (LTG) Pt will report being able to return to long walks w/no more than 1/10 pain in neck and/or thoraic region. LTG Duration 04/16/22 ROM Short Term Goal (STG) Pt will have full cervical ROM w/o pain to dec pressure on jaw. 01/23 STG Duration 03/07 [facility] Goal (LTG) Pt will have full jaw opening to 40mm w/o feeling of tightness 01/23-tension LTG Duration 04/16 eating Forder Operator Goal (LTG) Pt will report no tightness or discomfort w/eating and be able to eat all foods. 01/23-chewy and hard to break through things she feels tired LTG Duration 04/16/22 jaw pain Short Term Goal (STG) Pt will report jaw pain being more intermittent rather than constant tightness STG Duration achieved Forder Operator Goal (LTG) Pt will report no jaw tightness or discomfort more than 1x/week 01/23-more intermittent now LTG Duration 04/16/22 Assessment Summary Assessment Pt presents w/new referral for cervicothoracic pain which has been chronic for her and affects her ability to do her typical activities including walking. Due her posture related to this pain, her head is more fwd and has some OA ext which creates inc tension on the jaw and likely inc that pain.S he would benefit from PT work on her jaw and cervicothoracic region. Physical Therapy Plan Frequency and Duration Frequency of Treatment 1-2x/week Duration of treatment (weeks) 12 Plan of Care Start Date 01/23/22 Plan of Care End Date 04/17/22 Therapeutic Interventions Therapeutic Interventions Home Exercise Program,Joint Mobilizations,Manual Therapy, Neuromuscular Re-education, Orthotic/Prosthetic Management ,Patient/Caregiver Education, Self-Care/Home Management,Soft Tissue Mobilization,Taping, Therapeutic Activities, Therapeutic Exercises Modalities Cold Pack/Ice Massage,Hot Packs,Traction- Mechanical, Ultrasound Next Visit Focus/Plan Next Note Type Treatment Note Next Visit Plan work on upper thoracic and cervical & ribacage mobility Plan of Care Dates Plan of Care Start Date 01/23/22 Plan of Care End Date 04/17/22 Electronically Signed by: Grace Michel, PT 01/23/22 6848 If you are in agreement with this Plan of Care, please return a signed and dated copy. I have reviewed this Plan of Care and certify that the skilled therapy services above are required to meet the patient?s needs. Physician Signature Date Printed Name and Credentials Clinical Instructor Signature Printed Name and Credentials
--- NOTE | 2022-01-31 18:01 | PT.OTN ---
Current Diagnoses Unspecified temporomandibular joint disorder, unspecified side (01/31/22) Other specified dorsopathies, cervicothoracic region (01/31/22) Cervicalgia (01/31/22) Muscle weakness (generalized) (01/31/22) Abnormal posture (01/31/22) Physical Therapy Treatment Note PT-OP-A Visit Information Start: 11/14/21 17:51 Freq: Status: Active Protocol: Document 01/31/22 18:00 [facility] (Rec: 01/31/22 18:00 [facility] [id number]) Out-Patient Physical Therapy Visit Information Visit Information Visit Type Treatment Note Visit Start Time 15:21 Visit Stop Time 16:11 Total Visit Minutes 50 Visit Number 10 Number of CULINARY ARTIST Visits 0 PT-OP-B Current Condition Start: 11/14/21 17:51 Freq: Status: Active Protocol: Document 01/23/22 13:50 [facility] (Rec: 01/23/22 15:18 [facility] [id number]) Current Condition History of Current Condition Onset Date 6 months/1 year Current Complaints B jaw pain/cervical& thoracic pain History of Current Condition Re-eval: Pt reports neck and thoracic pain started about 1 year ago and she would ntoice that 5-10 min into walking, she starts to get tingling in shoulder blades. Fwd flex stretch feels like it should help but it doesn't. Once it starts, there is no way ot stop it besides lay down. This has kept her from hiking. Neck pain is more feels so tight that she feels like her ROM is limited. ITs been better since started working on jaw. It always feels like she needs to move her neck but doing the motion doesn't really help. It feels like she wants to pop it but that doesn't really help either. She gets things that feels like golf balls along neck. IE:Jaw pain started about 6 months ago. when it first started it felt like I had been chewing gum allt he day prior. thought she may be clenching. She got a mouthguard after a couple months for night but does not feel like it has made a difference. Neck pain has been crhornic, but no injury. Denies LEAVITT except occasionally and they go away. denies dizziness or lightheadness. Mouth xray done recently and everything looked fine. Pt saw specialist in [place] and she suspects this is just muscular. Denies clicking in jaw. Pt was told to avoid hard to chew and crunchy foods and is most of the time following this. She can feel it more w/ those foods. Tried heat and it feels good but doesn't give relief. Gets ringing in ears and feels like ear is stuffy ( thinks both but notices it more in R). Evry couple weeks she gets the ringing and it only lasts about 5-10 min. Ear feeling stuffy is more often than the ringing. Pt is going to PT for LB. She has tingling in upper back sometimes when just sitting down and with walking. Her neck pain has been persistant. She has had some cervical xray but does not recall anything on it. Pt does have referral for sleep study. Pt feels like she has to sleep okay. She wakes up 1- 2x/night and will get up to go to the bathroom. When seh wakes, she doesn't feel rested , feels exhausted by the end of the day, and feels tense when she awakes. Treatment Goals Patient/Caregiver Goals get back to hiking and long walks w/o tingling pain in back, improve neck range and improve comfort, PT-OP-C Subjective Start: 11/14/21 17:51 Freq: Status: Active Protocol: Document 01/31/22 18:00 [facility] (Rec: 01/31/22 18:00 [facility] [id number]) OP-PT Subjective Patient Comments Patient Comments pt reports her LB PT gave her some postural exercises w/ tband that she started PT-OP-F Manual Assessment Start: 11/14/21 17:51 Freq: Status: Active Protocol: Document 01/23/22 13:50 [facility] (Rec: 01/23/22 15:18 [facility] [id number]) Manual Assessments Soft Tissue Assessment Soft Tissue Mobility Assessment tightness thoughout jaw, neck & tspine mm L>R w/tenderness ( PT-OP-J Posture/Palpation/Skin Start: 11/14/21 17:51 Freq: Status: Active Protocol: Document 01/23/22 13:50 [facility] (Rec: 01/23/22 15:18 [facility] [id number]) Posture Evaluation [place] Postural Classification System [facility] Postural Classifications Posterior/Anterior Vertebral Compression Test 1 Elbow Flexion Test 2 Lumbar Protective Mechanism Left AP 0 Lumbar Protective Mechanism Right AP 1 Lumbar Protective Mechanism Left PA 1 Lumbar Protective Mechanism Right PA 0 Comments Posture Comments slight head SB L, fwd rounded shoulders B, inc kyphosis, OA ext slight; L scap further elevated & abd & fwd tilt PT-OP-K Range of Motion Start: 11/14/21 17:51 Freq: Status: Active Protocol: Document 01/23/22 13:50 [facility] (Rec: 01/23/22 15:18 [facility] [id number]) Cervical Spine Range of Motion Cervical Spine Active Degrees Flexion 55 Extension 70 Rotation Left 54 Rotation Right 56 Lateral Flexion Left 35 Lateral Flexion Right 41 Comments tightness w/SB R & flex; Thoraicc rotaiton R: 55 L: 60 TMJ Range of Motion Jaw Openning Jaw Openning (mm) 36 PT-OP-L Special Tests Start: 11/14/21 17:51 Freq: Status: Active Protocol: Document 11/15/21 16:04 [facility] (Rec: 11/15/21 17:19 [facility] [id number]) Special Tests Cervical Spine Special Tests Vertebral Artery Test Results neg Spurling's Test Test Results neg Alar Ligament Test Results neg PT-OP-M Strength Start: 11/14/21 17:51 Freq: Status: Active Protocol: Document 01/23/22 13:50 [facility] (Rec: 01/23/22 15:18 [facility] [id number]) Cervical Spine Strength Cervical Spine Manual Muscle Testing Flexion (C1-2) 3+ Fair+ Extension 5 Normal Rotation Left 4 Good Rotation Right 4+ Good+ Lateral Flexion Left (C3) 5 Normal Lateral Flexion Right (C3) 5 Normal Comments 3 sec in axial elongation hold Shoulder Strength Shoulder Manual Muscle Testing Right Flexion 5 Normal Extension 5 Normal Abduction (C5) 5 Normal External Rotation 5 Normal Internal Rotation 5 Normal Left Flexion 5 Normal Extension 5 Normal Abduction (C5) 5 Normal External Rotation 5 Normal Internal Rotation 5 Normal PT-OP-Q Treatments Start: 11/14/21 17:51 Freq: Status: Active Protocol: Document 01/31/22 18:00 [facility] (Rec: 01/31/22 18:00 [facility] [id number]) Therapeutic Exercises Prone Exercises ER Prone Exercise Name 90/90 Side bilateral Reps/Minutes 8 Comments over tball scaption Side bilateral Reps/Minutes 5 Comments stopped d/t L unable to do well Habd Prone Exercise Name over ball Side bilateral Equipment Used 3lb Reps/Minutes 8 Sidelying Exercises open book Side bilateral Reps/Minutes 5 Comments tried arm circles but open book better Manual Therapy Treatment Soft Tissue Mobilization tspine Body Location L tspine paraspinals, rhomboids Mobilization Type Rolling,Strumming Intensity/Depth Moderate Body Position Sidelying cervical Body Location SO & UT, LS, scalenes L>R Mobilization Type Sustained Pressure Intensity/Depth Moderate Comments supine & R SL Joint Mobilizations rib Joint L first rib caudal ant FM AC Joint L gapping FM PT-OP-R Modalities Start: 11/14/21 17:51 Freq: Status: Active Protocol: Document 01/31/22 18:00 [facility] (Rec: 01/31/22 18:00 [facility] [id number]) Hot Pack/Cold Pack Treatment Cold Pack Location cervical & thoracic Patient Position Supine Treatment Duration (minutes) 10 PT-OP-T Assessment and Plan Start: 11/14/21 17:51 Freq: Status: Active Protocol: Document 01/31/22 18:00 [facility] (Rec: 01/31/22 18:00 [facility] [id number]) Physical Therapy Assessment Goals activity Usp Goal (LTG) Pt will report being able to return to long walks w/no more than 1/10 pain in neck and/or thoraic region. LTG Duration 04/16/22 ROM Short Term Goal (STG) Pt will have full cervical ROM w/o pain to dec pressure on jaw. 01/23 STG Duration 03/07 Usp Goal (LTG) Pt will have full jaw opening to 40mm w/o feeling of tightness 01/23-tension LTG Duration 04/16 eating Usp Goal (LTG) Pt will report no tightness or discomfort w/eating and be able to eat all foods. 01/23-chewy and hard to break through things she feels tired LTG Duration 04/16/22 jaw pain Short Term Goal (STG) Pt will report jaw pain being more intermittent rather than constant tightness STG Duration achieved Usp Goal (LTG) Pt will report no jaw tightness or discomfort more than 1x/week 01/23-more intermittent now LTG Duration 04/16/22 Assessment Summary Assessment Ptw as unable to do scaption w /o significant Ut activiation instead of use of LT and mid trap L>R so held. She has more L sided scap tightness which likely affects her thoracic and neck pain. Improved sacp mobility w/manual treatment. Physical Therapy Plan Frequency and Duration Frequency of Treatment 1-2x/week Duration of treatment (weeks) 12 Plan of Care Start Date 01/23/22 Plan of Care End Date 04/17/22 Next Visit Focus/Plan Next Note Type Treatment Note Next Visit Plan work on upper thoracic and cervical & ribacage mobility
--- NOTE | 2022-02-11 18:26 | PT.OTN ---
Current Diagnoses Unspecified temporomandibular joint disorder, unspecified side (02/11/22) Other specified dorsopathies, cervicothoracic region (02/11/22) Cervicalgia (02/11/22) Muscle weakness (generalized) (02/11/22) Abnormal posture (02/11/22) Physical Therapy Treatment Note PT-OP-A Visit Information Start: 11/14/21 17:51 Freq: Status: Active Protocol: Document 02/11/22 15:25 [facility] (Rec: 02/11/22 18:26 [facility] [id number]) Out-Patient Physical Therapy Visit Information Visit Information Visit Type Treatment Note Visit Start Time 15:24 Visit Stop Time 16:09 Total Visit Minutes 45 Visit Number 11 Number of BEEF SELECTOR Visits 0 PT-OP-B Current Condition Start: 11/14/21 17:51 Freq: Status: Active Protocol: Document 01/23/22 13:50 [facility] (Rec: 01/23/22 15:18 [facility] [id number]) Current Condition History of Current Condition Onset Date 6 months/1 year Current Complaints B jaw pain/cervical& thoracic pain History of Current Condition Re-eval: Pt reports neck and thoracic pain started about 1 year ago and she would ntoice that 5-10 min into walking, she starts to get tingling in shoulder blades. Fwd flex stretch feels like it should help but it doesn't. Once it starts, there is no way ot stop it besides lay down. This has kept her from hiking. Neck pain is more feels so tight that she feels like her ROM is limited. ITs been better since started working on jaw. It always feels like she needs to move her neck but doing the motion doesn't really help. It feels like she wants to pop it but that doesn't really help either. She gets things that feels like golf balls along neck. IE:Jaw pain started about 6 months ago. when it first started it felt like I had been chewing gum allt he day prior. thought she may be clenching. She got a mouthguard after a couple months for night but does not feel like it has made a difference. Neck pain has been crhornic, but no injury. Denies LEAVITT except occasionally and they go away. denies dizziness or lightheadness. Mouth xray done recently and everything looked fine. Pt saw specialist in [place] and she suspects this is just muscular. Denies clicking in jaw. Pt was told to avoid hard to chew and crunchy foods and is most of the time following this. She can feel it more w/ those foods. Tried heat and it feels good but doesn't give relief. Gets ringing in ears and feels like ear is stuffy ( thinks both but notices it more in R). Evry couple weeks she gets the ringing and it only lasts about 5-10 min. Ear feeling stuffy is more often than the ringing. Pt is going to PT for LB. She has tingling in upper back sometimes when just sitting down and with walking. Her neck pain has been persistant. She has had some cervical xray but does not recall anything on it. Pt does have referral for sleep study. Pt feels like she has to sleep okay. She wakes up 1- 2x/night and will get up to go to the bathroom. When seh wakes, she doesn't feel rested , feels exhausted by the end of the day, and feels tense when she awakes. Treatment Goals Patient/Caregiver Goals get back to hiking and long walks w/o tingling pain in back, improve neck range and improve comfort, PT-OP-C Subjective Start: 11/14/21 17:51 Freq: Status: Active Protocol: Document 02/11/22 15:25 [facility] (Rec: 02/11/22 18:26 [facility] [id number]) OP-PT Subjective Patient Comments Patient Comments Last couple days she has been getting more of the tingling and neck is feeling really sore. wonders if it is from the exercises, PT-OP-F Manual Assessment Start: 11/14/21 17:51 Freq: Status: Active Protocol: Document 01/23/22 13:50 [facility] (Rec: 01/23/22 15:18 [facility] [id number]) Manual Assessments Soft Tissue Assessment Soft Tissue Mobility Assessment tightness thoughout jaw, neck & tspine mm L>R w/tenderness ( PT-OP-J Posture/Palpation/Skin Start: 11/14/21 17:51 Freq: Status: Active Protocol: Document 01/23/22 13:50 [facility] (Rec: 01/23/22 15:18 [facility] [id number]) Posture Evaluation [facility] Postural Classification System [facility] Postural Classifications Posterior/Anterior Vertebral Compression Test 1 Elbow Flexion Test 2 Lumbar Protective Mechanism Left AP 0 Lumbar Protective Mechanism Right AP 1 Lumbar Protective Mechanism Left PA 1 Lumbar Protective Mechanism Right PA 0 Comments Posture Comments slight head SB L, fwd rounded shoulders B, inc kyphosis, OA ext slight; L scap further elevated & abd & fwd tilt PT-OP-K Range of Motion Start: 11/14/21 17:51 Freq: Status: Active Protocol: Document 01/23/22 13:50 [facility] (Rec: 01/23/22 15:18 [facility] [id number]) Cervical Spine Range of Motion Cervical Spine Active Degrees Flexion 55 Extension 70 Rotation Left 54 Rotation Right 56 Lateral Flexion Left 35 Lateral Flexion Right 41 Comments tightness w/SB R & flex; Thoraicc rotaiton R: 55 L: 60 TMJ Range of Motion Jaw Openning Jaw Openning (mm) 36 PT-OP-L Special Tests Start: 11/14/21 17:51 Freq: Status: Active Protocol: Document 11/15/21 16:04 [facility] (Rec: 11/15/21 17:19 [facility] [id number]) Special Tests Cervical Spine Special Tests Vertebral Artery Test Results neg Spurling's Test Test Results neg Alar Ligament Test Results neg PT-OP-M Strength Start: 11/14/21 17:51 Freq: Status: Active Protocol: Document 01/23/22 13:50 [facility] (Rec: 01/23/22 15:18 [facility] [id number]) Cervical Spine Strength Cervical Spine Manual Muscle Testing Flexion (C1-2) 3+ Fair+ Extension 5 Normal Rotation Left 4 Good Rotation Right 4+ Good+ Lateral Flexion Left (C3) 5 Normal Lateral Flexion Right (C3) 5 Normal Comments 3 sec in axial elongation hold Shoulder Strength Shoulder Manual Muscle Testing Right Flexion 5 Normal Extension 5 Normal Abduction (C5) 5 Normal External Rotation 5 Normal Internal Rotation 5 Normal Left Flexion 5 Normal Extension 5 Normal Abduction (C5) 5 Normal External Rotation 5 Normal Internal Rotation 5 Normal PT-OP-Q Treatments Start: 11/14/21 17:51 Freq: Status: Active Protocol: Document 02/11/22 15:25 [facility] (Rec: 02/11/22 18:26 [facility] [id number]) Therapeutic Exercises Supine Exercises axial elongation Side bilateral Reps/Minutes 5sec x4 reverse plank Side bilateral Reps/Minutes 15sec Comments dc d/t form Prone Exercises ER Prone Exercise Name 90/90 Side bilateral Reps/Minutes 8 Comments over tball scaption Side bilateral Reps/Minutes 5 Habd Prone Exercise Name over ball Side bilateral Reps/Minutes 12 Comments cues for L scap more than R Therapeutic Activity Therapeutic Activity posture Comments seated posture w/neutralizing LB and thoracic and setting scap -improved VCT from 04/11-08/09 Neuro Re-Education Treatment Other Activities PNF Comments 1. attempted working on exaggerated gait w/scap & pelvis motions but pt unable to balance and get good ant elevation of pelvis and work on scap 2. ant dep R scap rhythimic initiation progressed to sustained hold and COI 3.post dep R scap rhythimic initiation progressed to sustained hold and COI 4. mass flex R susatined holds progressed to COI PT-OP-R Modalities Start: 11/14/21 17:51 Freq: Status: Active Protocol: Document 01/31/22 18:00 [facility] (Rec: 01/31/22 18:00 [facility] [id number]) Hot Pack/Cold Pack Treatment Cold Pack Location cervical & thoracic Patient Position Supine Treatment Duration (minutes) 10 PT-OP-T Assessment and Plan Start: 11/14/21 17:51 Freq: Status: Active Protocol: Document 02/11/22 15:25 [facility] (Rec: 02/11/22 18:26 [facility] [id number]) Physical Therapy Assessment Goals activity Fund Director Goal (LTG) Pt will report being able to return to long walks w/no more than 1/10 pain in neck and/or thoraic region. LTG Duration 04/16/22 ROM Short Term Goal (STG) Pt will have full cervical ROM w/o pain to dec pressure on jaw. 01/23 STG Duration 03/07 Fund Director Goal (LTG) Pt will have full jaw opening to 40mm w/o feeling of tightness 01/23-tension LTG Duration 04/16 eating Fund Director Goal (LTG) Pt will report no tightness or discomfort w/eating and be able to eat all foods. 01/23-chewy and hard to break through things she feels tired LTG Duration 04/16/22 jaw pain Short Term Goal (STG) Pt will report jaw pain being more intermittent rather than constant tightness STG Duration achieved Halfway Goal (LTG) Pt will report no jaw tightness or discomfort more than 1x/week 01/23-more intermittent now LTG Duration 04/16/22 Assessment Summary Assessment Pt did well with excericses w/ cues but the reverse plank seh was doing for other PT, pt unable to keep neck neutral so DC that exercise. Pt does need more cues for L scap. Imporvd posture w/cues Physical Therapy Plan Frequency and Duration Frequency of Treatment 1-2x/week Duration of treatment (weeks) 12 Plan of Care Start Date 01/23/22 Plan of Care End Date 04/17/22 Next Visit Focus/Plan Next Note Type Treatment Note Next Visit Plan work on upper thoracic and cervical & ribacage mobility
--- NOTE | 2022-03-06 15:22 | PT.OTN ---
Current Diagnoses Unspecified temporomandibular joint disorder, unspecified side (03/06/22) Other specified dorsopathies, cervicothoracic region (03/06/22) Cervicalgia (03/06/22) Muscle weakness (generalized) (03/06/22) Abnormal posture (03/06/22) Physical Therapy Treatment Note PT-OP-A Visit Information Start: 11/14/21 17:51 Freq: Status: Active Protocol: Document 03/06/22 14:32 TS (Rec: 03/06/22 15:57 TS [id number]) Out-Patient Physical Therapy Visit Information Visit Information Visit Type Treatment Note Visit Note SPTA Turner lead treatment, under the supervision and direction of TRINITY Nova. Visit Start Time 14:32 Visit Stop Time 15:22 Total Visit Minutes 50 Visit Number 12 Number of DRIVER'S LICENSE EXAMINER Visits 1 PT-OP-B Current Condition Start: 11/14/21 17:51 Freq: Status: Active Protocol: Document 01/23/22 13:50 [facility] (Rec: 01/23/22 15:18 [facility] [id number]) Current Condition History of Current Condition Onset Date 6 months/1 year Current Complaints B jaw pain/cervical& thoracic pain History of Current Condition Re-eval: Pt reports neck and thoracic pain started about 1 year ago and she would ntoice that 5-10 min into walking, she starts to get tingling in shoulder blades. Fwd flex stretch feels like it should help but it doesn't. Once it starts, there is no way ot stop it besides lay down. This has kept her from hiking. Neck pain is more feels so tight that she feels like her ROM is limited. ITs been better since started working on jaw. It always feels like she needs to move her neck but doing the motion doesn't really help. It feels like she wants to pop it but that doesn't really help either. She gets things that feels like golf balls along neck. IE:Jaw pain started about 6 months ago. when it first started it felt like I had been chewing gum allt he day prior. thought she may be clenching. She got a mouthguard after a couple months for night but does not feel like it has made a difference. Neck pain has been crhornic, but no injury. Denies LEAVITT except occasionally and they go away. denies dizziness or lightheadness. Mouth xray done recently and everything looked fine. Pt saw specialist in [place] and she suspects this is just muscular. Denies clicking in jaw. Pt was told to avoid hard to chew and crunchy foods and is most of the time following this. She can feel it more w/ those foods. Tried heat and it feels good but doesn't give relief. Gets ringing in ears and feels like ear is stuffy ( thinks both but notices it more in R). Evry couple weeks she gets the ringing and it only lasts about 5-10 min. Ear feeling stuffy is more often than the ringing. Pt is going to PT for LB. She has tingling in upper back sometimes when just sitting down and with walking. Her neck pain has been persistant. She has had some cervical xray but does not recall anything on it. Pt does have referral for sleep study. Pt feels like she has to sleep okay. She wakes up 1- 2x/night and will get up to go to the bathroom. When seh wakes, she doesn't feel rested , feels exhausted by the end of the day, and feels tense when she awakes. Treatment Goals Patient/Caregiver Goals get back to hiking and long walks w/o tingling pain in back, improve neck range and improve comfort, PT-OP-C Subjective Start: 11/14/21 17:51 Freq: Status: Active Protocol: Document 03/06/22 14:32 TS (Rec: 03/06/22 15:57 TS [id number]) OP-PT Subjective Patient Comments Patient Comments Pt reports neck is stiff all the time, feels her ROM is fine. PT-OP-F Manual Assessment Start: 11/14/21 17:51 Freq: Status: Active Protocol: Document 01/23/22 13:50 [facility] (Rec: 01/23/22 15:18 [facility] [id number]) Manual Assessments Soft Tissue Assessment Soft Tissue Mobility Assessment tightness thoughout jaw, neck & tspine mm L>R w/tenderness ( PT-OP-J Posture/Palpation/Skin Start: 11/14/21 17:51 Freq: Status: Active Protocol: Document 01/23/22 13:50 [facility] (Rec: 01/23/22 15:18 [facility] [id number]) Posture Evaluation [facility] Postural Classification System [facility] Postural Classifications Posterior/Anterior Vertebral Compression Test 1 Elbow Flexion Test 2 Lumbar Protective Mechanism Left AP 0 Lumbar Protective Mechanism Right AP 1 Lumbar Protective Mechanism Left PA 1 Lumbar Protective Mechanism Right PA 0 Comments Posture Comments slight head SB L, fwd rounded shoulders B, inc kyphosis, OA ext slight; L scap further elevated & abd & fwd tilt PT-OP-K Range of Motion Start: 11/14/21 17:51 Freq: Status: Active Protocol: Document 01/23/22 13:50 [facility] (Rec: 01/23/22 15:18 [facility] [id number]) Cervical Spine Range of Motion Cervical Spine Active Degrees Flexion 55 Extension 70 Rotation Left 54 Rotation Right 56 Lateral Flexion Left 35 Lateral Flexion Right 41 Comments tightness w/SB R & flex; Thoraicc rotaiton R: 55 L: 60 TMJ Range of Motion Jaw Openning Jaw Openning (mm) 36 PT-OP-L Special Tests Start: 11/14/21 17:51 Freq: Status: Active Protocol: Document 11/15/21 16:04 [facility] (Rec: 11/15/21 17:19 [facility] [id number]) Special Tests Cervical Spine Special Tests Vertebral Artery Test Results neg Spurling's Test Test Results neg Alar Ligament Test Results neg PT-OP-M Strength Start: 11/14/21 17:51 Freq: Status: Active Protocol: Document 01/23/22 13:50 [facility] (Rec: 01/23/22 15:18 [facility] [id number]) Cervical Spine Strength Cervical Spine Manual Muscle Testing Flexion (C1-2) 3+ Fair+ Extension 5 Normal Rotation Left 4 Good Rotation Right 4+ Good+ Lateral Flexion Left (C3) 5 Normal Lateral Flexion Right (C3) 5 Normal Comments 3 sec in axial elongation hold Shoulder Strength Shoulder Manual Muscle Testing Right Flexion 5 Normal Extension 5 Normal Abduction (C5) 5 Normal External Rotation 5 Normal Internal Rotation 5 Normal Left Flexion 5 Normal Extension 5 Normal Abduction (C5) 5 Normal External Rotation 5 Normal Internal Rotation 5 Normal PT-OP-Q Treatments Start: 11/14/21 17:51 Freq: Status: Active Protocol: Document 03/06/22 14:32 TS (Rec: 03/06/22 15:57 TS [id number]) Therapeutic Exercises Supine Exercises Cervical Flex ISO Reps/Minutes 1x10 Comments ~4-6sec hold each Thoracic Ext Supine Exercise Name Foam roller Equipment Used Foam roller Reps/Minutes 1x30 Comments [place] good, good carryover from previous treatment Cervical rotation Supine Exercise Name AROM, Head nods Side bilateral Reps/Minutes 1x10 Comments Pt able to lift head off table during rotation Sidelying Exercises Side Plank Sidelying Exercise Name Modified, elbow and knee Side right Reps/Minutes 2x20 Comments Good L stretch with head lower to ground, isometric hold to neutral. Sitting Exercises Self STM Sitting Exercise Name Theracane, levator, UT, MWM: HTs, head nods Side right Equipment Used theracane Reps/Minutes 2' Comments Pt feels some relief Standing Exercises Cervical ISO Standing Exercise Name Added to HEP, cervical flex, sidebend Reps/Minutes 1x5 5sec hold Comments Cues for posture, feet positioning Manual Therapy Treatment Soft Tissue Mobilization cervical Body Location SO & UT, LS, scalenes L&R Mobilization Type Oscillations,Sustained Pressure Intensity/Depth Moderate Body Position Hooklying Comments Pt tight on R UT/levator, pt reports feeling some relief in tightness. Self-Care/Home Management Treatment Education Other Education Instructed pt in self-stm of R posterior neck with theracane , pin and stretch. PT-OP-R Modalities Start: 11/14/21 17:51 Freq: Status: Active Protocol: Document 01/31/22 18:00 [facility] (Rec: 01/31/22 18:00 [facility] [id number]) Hot Pack/Cold Pack Treatment Cold Pack Location cervical & thoracic Patient Position Supine Treatment Duration (minutes) 10 PT-OP-T Assessment and Plan Start: 11/14/21 17:51 Freq: Status: Active Protocol: Document 03/06/22 14:32 TS (Rec: 03/06/22 15:57 TS [id number]) Physical Therapy Assessment Goals activity Mule Developer Goal (LTG) Pt will report being able to return to long walks w/no more than 1/10 pain in neck and/or thoraic region. LTG Duration 04/16/22 ROM Short Term Goal (STG) Pt will have full cervical ROM w/o pain to dec pressure on jaw. 01/23 STG Duration 03/07 Group Home Goal (LTG) Pt will have full jaw opening to 40mm w/o feeling of tightness 01/23-tension LTG Duration 04/16 eating Mule Developer Goal (LTG) Pt will report no tightness or discomfort w/eating and be able to eat all foods. 01/23-chewy and hard to break through things she feels tired LTG Duration 04/16/22 jaw pain Short Term Goal (STG) Pt will report jaw pain being more intermittent rather than constant tightness STG Duration achieved Group Home Goal (LTG) Pt will report no jaw tightness or discomfort more than 1x/week 01/23-more intermittent now LTG Duration 04/16/22 Assessment Summary Assessment Pt reported some relief in posterior neck with STM but continues to have some tightness. Pt didn't report any tingling in hands with ex today but can occur at home with HEP. Pt maintained good neutral head posture throughout treatment, was able to maintain 4-6 secs during cervical flex iso off table. Pt will continue to benefit from continued intervention to improve tightness and strength in cervical and thoracic region for decreased pain during running and work activities. Physical Therapy Plan Frequency and Duration Frequency of Treatment 1-2x/week Duration of treatment (weeks) 12 Plan of Care Start Date 01/23/22 Plan of Care End Date 04/17/22 Therapeutic Interventions Therapeutic Interventions Home Exercise Program,Joint Mobilizations,Manual Therapy, Neuromuscular Re-education, Orthotic/Prosthetic Management ,Patient/Caregiver Education, Self-Care/Home Management,Soft Tissue Mobilization,Taping, Therapeutic Activities, Therapeutic Exercises Modalities Cold Pack/Ice Massage,Hot Packs,Traction- Mechanical, Ultrasound Next Visit Focus/Plan Next Note Type Treatment Note Next Visit Plan Look at condensing HEP. Assess cervical iso with ball, continue cervical strengthening, STM to reduce tighness in posterior neck.
--- NOTE | 2022-03-13 14:24 | PT.OTN ---
Current Diagnoses Unspecified temporomandibular joint disorder, unspecified side (03/13/22) Other specified dorsopathies, cervicothoracic region (03/13/22) Cervicalgia (03/13/22) Muscle weakness (generalized) (03/13/22) Abnormal posture (03/13/22) Physical Therapy Treatment Note PT-OP-A Visit Information Start: 11/14/21 17:51 Freq: Status: Active Protocol: Document 03/13/22 13:00 [facility] (Rec: 03/13/22 14:24 [facility] [id number]) Out-Patient Physical Therapy Visit Information Visit Information Visit Type Treatment Note Visit Start Time 13:01 Visit Stop Time 13:44 Total Visit Minutes 43 Visit Number 13 Number of CLINICAL EXERCISE PHYSIOLOGIST Visits 0 PT-OP-B Current Condition Start: 11/14/21 17:51 Freq: Status: Active Protocol: Document 01/23/22 13:50 [facility] (Rec: 01/23/22 15:18 [facility] [id number]) Current Condition History of Current Condition Onset Date 6 months/1 year Current Complaints B jaw pain/cervical& thoracic pain History of Current Condition Re-eval: Pt reports neck and thoracic pain started about 1 year ago and she would ntoice that 5-10 min into walking, she starts to get tingling in shoulder blades. Fwd flex stretch feels like it should help but it doesn't. Once it starts, there is no way ot stop it besides lay down. This has kept her from hiking. Neck pain is more feels so tight that she feels like her ROM is limited. ITs been better since started working on jaw. It always feels like she needs to move her neck but doing the motion doesn't really help. It feels like she wants to pop it but that doesn't really help either. She gets things that feels like golf balls along neck. IE:Jaw pain started about 6 months ago. when it first started it felt like I had been chewing gum allt he day prior. thought she may be clenching. She got a mouthguard after a couple months for night but does not feel like it has made a difference. Neck pain has been crhornic, but no injury. Denies LEAVITT except occasionally and they go away. denies dizziness or lightheadness. Mouth xray done recently and everything looked fine. Pt saw specialist in [place] and she suspects this is just muscular. Denies clicking in jaw. Pt was told to avoid hard to chew and crunchy foods and is most of the time following this. She can feel it more w/ those foods. Tried heat and it feels good but doesn't give relief. Gets ringing in ears and feels like ear is stuffy ( thinks both but notices it more in R). Evry couple weeks she gets the ringing and it only lasts about 5-10 min. Ear feeling stuffy is more often than the ringing. Pt is going to PT for LB. She has tingling in upper back sometimes when just sitting down and with walking. Her neck pain has been persistant. She has had some cervical xray but does not recall anything on it. Pt does have referral for sleep study. Pt feels like she has to sleep okay. She wakes up 1- 2x/night and will get up to go to the bathroom. When seh wakes, she doesn't feel rested , feels exhausted by the end of the day, and feels tense when she awakes. Treatment Goals Patient/Caregiver Goals get back to hiking and long walks w/o tingling pain in back, improve neck range and improve comfort, PT-OP-C Subjective Start: 11/14/21 17:51 Freq: Status: Active Protocol: Document 03/13/22 13:00 [facility] (Rec: 03/13/22 14:24 [facility] [id number]) OP-PT Subjective Patient Comments Patient Comments Pt reports jaw has been doing good. She wakes up occ clenching and has to relax her jaw but overall feels good. she did try to run a little and noted okay feeling in thoracic spine but gets a pain in L cervical region that she is concered about. Notes she isn't getting as much tingling in tspine. Wants to go over exercsies because seh is spending about 45 min a day on PT exercises. PT-OP-F Manual Assessment Start: 11/14/21 17:51 Freq: Status: Active Protocol: Document 01/23/22 13:50 [facility] (Rec: 01/23/22 15:18 [facility] [id number]) Manual Assessments Soft Tissue Assessment Soft Tissue Mobility Assessment tightness thoughout jaw, neck & tspine mm L>R w/tenderness ( PT-OP-J Posture/Palpation/Skin Start: 11/14/21 17:51 Freq: Status: Active Protocol: Document 01/23/22 13:50 [facility] (Rec: 01/23/22 15:18 [facility] [id number]) Posture Evaluation [facility] Postural Classification System [facility] Postural Classifications Posterior/Anterior Vertebral Compression Test 1 Elbow Flexion Test 2 Lumbar Protective Mechanism Left AP 0 Lumbar Protective Mechanism Right AP 1 Lumbar Protective Mechanism Left PA 1 Lumbar Protective Mechanism Right PA 0 Comments Posture Comments slight head SB L, fwd rounded shoulders B, inc kyphosis, OA ext slight; L scap further elevated & abd & fwd tilt PT-OP-K Range of Motion Start: 11/14/21 17:51 Freq: Status: Active Protocol: Document 01/23/22 13:50 [facility] (Rec: 01/23/22 15:18 [facility] [id number]) Cervical Spine Range of Motion Cervical Spine Active Degrees Flexion 55 Extension 70 Rotation Left 54 Rotation Right 56 Lateral Flexion Left 35 Lateral Flexion Right 41 Comments tightness w/SB R & flex; Thoraicc rotaiton R: 55 L: 60 TMJ Range of Motion Jaw Openning Jaw Openning (mm) 36 PT-OP-L Special Tests Start: 11/14/21 17:51 Freq: Status: Active Protocol: Document 11/15/21 16:04 [facility] (Rec: 11/15/21 17:19 [facility] [id number]) Special Tests Cervical Spine Special Tests Vertebral Artery Test Results neg Spurling's Test Test Results neg Alar Ligament Test Results neg PT-OP-M Strength Start: 11/14/21 17:51 Freq: Status: Active Protocol: Document 01/23/22 13:50 [facility] (Rec: 01/23/22 15:18 [facility] [id number]) Cervical Spine Strength Cervical Spine Manual Muscle Testing Flexion (C1-2) 3+ Fair+ Extension 5 Normal Rotation Left 4 Good Rotation Right 4+ Good+ Lateral Flexion Left (C3) 5 Normal Lateral Flexion Right (C3) 5 Normal Comments 3 sec in axial elongation hold Shoulder Strength Shoulder Manual Muscle Testing Right Flexion 5 Normal Extension 5 Normal Abduction (C5) 5 Normal External Rotation 5 Normal Internal Rotation 5 Normal Left Flexion 5 Normal Extension 5 Normal Abduction (C5) 5 Normal External Rotation 5 Normal Internal Rotation 5 Normal PT-OP-Q Treatments Start: 11/14/21 17:51 Freq: Status: Active Protocol: Document 03/13/22 13:00 [facility] (Rec: 03/13/22 14:24 [facility] [id number]) Manual Therapy Treatment Soft Tissue Mobilization tspine Body Location R thoracolumbar fascia & lats & ES Mobilization Type Rolling,Strumming Intensity/Depth Moderate Body Position Sidelying cervical Body Location post cervical Comments dycem pull w/flex Joint Mobilizations rib Comments 1st cadual fm thoracic Comments T7-11 transverse L FM [id number] L FM Self-Care/Home Management Treatment Education Other Education discussion of exercises: edu to cont foam roll and only do what is needed for reps to loosen up; cont wall posture, axial elongation, thread the needle and planks a couple times a week for this PT; discussion of progress and areas to still focus; edu she can do what she wants for workouts provided it doesn't inc pain. PT-OP-R Modalities Start: 11/14/21 17:51 Freq: Status: Active Protocol: Document 01/31/22 18:00 [facility] (Rec: 01/31/22 18:00 [facility] [id number]) Hot Pack/Cold Pack Treatment Cold Pack Location cervical & thoracic Patient Position Supine Treatment Duration (minutes) 10 PT-OP-T Assessment and Plan Start: 11/14/21 17:51 Freq: Status: Active Protocol: Document 03/13/22 13:00 [facility] (Rec: 03/13/22 14:24 [facility] [id number]) Physical Therapy Assessment Goals activity Career Placement Specialist Goal (LTG) Pt will report being able to return to long walks w/no more than 1/10 pain in neck and/or thoraic region. LTG Duration 04/16/22 ROM Short Term Goal (STG) Pt will have full cervical ROM w/o pain to dec pressure on jaw. 01/23 STG Duration 03/07 Career Placement Specialist Goal (LTG) Pt will have full jaw opening to 40mm w/o feeling of tightness 01/23-tension LTG Duration 04/16 eating Career Placement Specialist Goal (LTG) Pt will report no tightness or discomfort w/eating and be able to eat all foods. 01/23-chewy and hard to break through things she feels tired LTG Duration 04/16/22 jaw pain Short Term Goal (STG) Pt will report jaw pain being more intermittent rather than constant tightness STG Duration achieved Half-Way Goal (LTG) Pt will report no jaw tightness or discomfort more than 1x/week 01/23-more intermittent now LTG Duration 04/16/22 Assessment Summary Assessment Pt had improved R thoracic rotation w/manual treatment. She has significant thoracic stiffness still which likey affects cervical stiffness along w/mm tightness of cervical region which likely cont to give pt feeling of tightness. Physical Therapy Plan Frequency and Duration Frequency of Treatment 1-2x/week Duration of treatment (weeks) 12 Plan of Care Start Date 01/23/22 Plan of Care End Date 04/17/22 Next Visit Focus/Plan Next Note Type Treatment Note Next Visit Plan STM and joint mobs to thoracic and ribcage to imrpove neck tightness; work on diaphram and work on ant ribcage mobility
--- NOTE | 2022-03-19 17:15 | PT.OTN ---
Current Diagnoses Unspecified temporomandibular joint disorder, unspecified side (03/19/22) Other specified dorsopathies, cervicothoracic region (03/19/22) Cervicalgia (03/19/22) Muscle weakness (generalized) (03/19/22) Abnormal posture (03/19/22) Physical Therapy Treatment Note PT-OP-A Visit Information Start: 11/14/21 17:51 Freq: Status: Active Protocol: Document 03/19/22 15:12 [facility] (Rec: 03/19/22 15:32 [facility] [id number]) Out-Patient Physical Therapy Visit Information Visit Information Visit Type Treatment Note Visit Start Time 15:17 Visit Stop Time 16:15 Total Visit Minutes 58 Visit Number 14 Number of ASSET PROTECTION AGENT Visits 0 PT-OP-B Current Condition Start: 11/14/21 17:51 Freq: Status: Active Protocol: Document 01/23/22 13:50 [facility] (Rec: 01/23/22 15:18 [facility] [id number]) Current Condition History of Current Condition Onset Date 6 months/1 year Current Complaints B jaw pain/cervical& thoracic pain History of Current Condition Re-eval: Pt reports neck and thoracic pain started about 1 year ago and she would ntoice that 5-10 min into walking, she starts to get tingling in shoulder blades. Fwd flex stretch feels like it should help but it doesn't. Once it starts, there is no way ot stop it besides lay down. This has kept her from hiking. Neck pain is more feels so tight that she feels like her ROM is limited. ITs been better since started working on jaw. It always feels like she needs to move her neck but doing the motion doesn't really help. It feels like she wants to pop it but that doesn't really help either. She gets things that feels like golf balls along neck. IE:Jaw pain started about 6 months ago. when it first started it felt like I had been chewing gum allt he day prior. thought she may be clenching. She got a mouthguard after a couple months for night but does not feel like it has made a difference. Neck pain has been crhornic, but no injury. Denies LEAVITT except occasionally and they go away. denies dizziness or lightheadness. Mouth xray done recently and everything looked fine. Pt saw specialist in [place] and she suspects this is just muscular. Denies clicking in jaw. Pt was told to avoid hard to chew and crunchy foods and is most of the time following this. She can feel it more w/ those foods. Tried heat and it feels good but doesn't give relief. Gets ringing in ears and feels like ear is stuffy ( thinks both but notices it more in R). Evry couple weeks she gets the ringing and it only lasts about 5-10 min. Ear feeling stuffy is more often than the ringing. Pt is going to PT for LB. She has tingling in upper back sometimes when just sitting down and with walking. Her neck pain has been persistant. She has had some cervical xray but does not recall anything on it. Pt does have referral for sleep study. Pt feels like she has to sleep okay. She wakes up 1- 2x/night and will get up to go to the bathroom. When seh wakes, she doesn't feel rested , feels exhausted by the end of the day, and feels tense when she awakes. Treatment Goals Patient/Caregiver Goals get back to hiking and long walks w/o tingling pain in back, improve neck range and improve comfort, PT-OP-C Subjective Start: 11/14/21 17:51 Freq: Status: Active Protocol: Document 03/19/22 15:12 [facility] (Rec: 03/19/22 15:32 [facility] [id number]) OP-PT Subjective Patient Comments Patient Comments Pt reports tingling started the other day when walking w/ and stoppe dd/t this. LEAVITT started as she walked in in post and lat occiput PT-OP-F Manual Assessment Start: 11/14/21 17:51 Freq: Status: Active Protocol: Document 01/23/22 13:50 [facility] (Rec: 01/23/22 15:18 [facility] [id number]) Manual Assessments Soft Tissue Assessment Soft Tissue Mobility Assessment tightness thoughout jaw, neck & tspine mm L>R w/tenderness ( PT-OP-J Posture/Palpation/Skin Start: 11/14/21 17:51 Freq: Status: Active Protocol: Document 03/19/22 15:32 [facility] (Rec: 03/19/22 15:41 [facility] [id number]) Posture Evaluation [facility] Postural Classification System Vertebral Compression Test 2 Elbow Flexion Test 1 PT-OP-K Range of Motion Start: 11/14/21 17:51 Freq: Status: Active Protocol: Document 03/19/22 15:32 [facility] (Rec: 03/19/22 15:40 [facility] [id number]) Cervical Spine Range of Motion Cervical Spine Active Degrees Flexion 64 Extension 69 Rotation Left 57 Rotation Right 56 Lateral Flexion Left 28 Lateral Flexion Right 46 Comments stiff feeling w/L SB & L rot& ext, 35 R rotation tspine; L 61 TMJ Range of Motion Jaw Openning Jaw Openning (mm) 36 PT-OP-L Special Tests Start: 11/14/21 17:51 Freq: Status: Active Protocol: Document 11/15/21 16:04 [facility] (Rec: 11/15/21 17:19 [facility] [id number]) Special Tests Cervical Spine Special Tests Vertebral Artery Test Results neg Spurling's Test Test Results neg Alar Ligament Test Results neg PT-OP-M Strength Start: 11/14/21 17:51 Freq: Status: Active Protocol: Document 03/19/22 15:32 [facility] (Rec: 03/19/22 15:40 [facility] [id number]) Cervical Spine Strength Cervical Spine Manual Muscle Testing Flexion (C1-2) 4- Good- Extension 5 Normal Rotation Left 4+ Good+ Rotation Right 5 Normal Lateral Flexion Left (C3) 4 Good Lateral Flexion Right (C3) 5 Normal Comments 4 sec in axial elongation hold -feels it in her jaw Shoulder Strength Shoulder Manual Muscle Testing Right Flexion 5 Normal Extension 5 Normal Abduction (C5) 5 Normal Adduction 5 Normal External Rotation 5 Normal Internal Rotation 5 Normal Horizontal Abduction 5 Normal Horizontal Adduction 5 Normal Left Flexion 5 Normal Extension 5 Normal Abduction (C5) 5 Normal Adduction 5 Normal External Rotation 5 Normal Internal Rotation 5 Normal Horizontal Abduction 4+ Good+ Horizontal Adduction 5 Normal Comments pain Habd PT-OP-Q Treatments Start: 11/14/21 17:51 Freq: Status: Active Protocol: Document 03/19/22 15:12 [facility] (Rec: 03/19/22 15:32 [facility] [id number]) Manual Therapy Treatment Soft Tissue Mobilization cervical Body Location post cervical paraspinals & L> R UT & LS, SO Mobilization Type Rolling,Strumming Intensity/Depth Moderate Body Position Standing Joint Mobilizations rib Joint 1st caudal Self-Care/Home Management Treatment Education Other Education BP 102/64 PT-OP-R Modalities Start: 11/14/21 17:51 Freq: Status: Active Protocol: Document 03/19/22 15:32 [facility] (Rec: 03/19/22 17:07 [facility] [id number]) Hot Pack/Cold Pack Treatment Hot Pack Location cervical Patient Position Hooklying Treatment Duration (minutes) 15 PT-OP-T Assessment and Plan Start: 11/14/21 17:51 Freq: Status: Active Protocol: Document 03/19/22 15:12 [facility] (Rec: 03/19/22 15:32 [facility] [id number]) Physical Therapy Assessment Goals pain Impairment neck pain and tightness that is constant that is at a 2/10 at all the time w/o relief Psychiatric Nurse Practitioner Goal (LTG) Pt will report no constant neck pain or tightness at least 5/7 days a week LTG Duration 06/11/22 static activity Impairment pain starts after 10 min of standing -3/10 and if stand longer it can get to a 4/10- describes as really uncomfortable-standing at attention/parade rest Psychiatric Nurse Practitioner Goal (LTG) Pt will be able to stand at attention or parade rest and at home for extended tiem as needed without inc pain greater than 1/10 LTG Duration 06/11/22 activity Psychiatric Nurse Practitioner Goal (LTG) Pt will report being able to return to long walks w/no more than 1/10 pain in neck and/or thoraic region. 03/19-1.5-2 miles now LTG Duration 06/11/22 ROM Short Term Goal (STG) Pt will have full cervical ROM w/o pain to dec pressure on jaw and improve ability to drive and do typical activities requiring neck motion. 01/23 03/19*-improved ROM but still tight and causes neck pain STG Duration 05/08/22 Halfway Goal (LTG) Pt will have full jaw opening to 40mm w/o feeling of tightness 01/23-tension 03/19-feels okay but still limited LTG Duration 06/11 eating Halfway Goal (LTG) Pt will report no tightness or discomfort w/eating and be able to eat all foods. 01/23-chewy and hard to break through things she feels tired LTG Duration achieved jaw pain Short Term Goal (STG) Pt will report jaw pain being more intermittent rather than constant tightness STG Duration achieved Psychiatric Nurse Practitioner Goal (LTG) Pt will report no jaw tightness or discomfort more than 1x/week 01/23-more intermittent now LTG Duration achieved -occ gets tired or tight Assessment Summary Assessment Pt has made great progresss and is not noticing much tension or pain related to jaw anymore. She has dec pain in cervical and thoracic region and is resuming workouts and exercise but is still limited d/t pain. She still have signficiant restrictions in back and neck region that likely contribute to this and improves w/manual treatemnt. Cont PT to work on this and dec pain in neck and thoracic w/activity. pt noted some lightheadedness upon coming in and BP was 102/64 but improved w/drinking water and did not note lightheadedness at end of treatment Physical Therapy Plan Frequency and Duration Frequency of Treatment 1-2x/week Duration of treatment (weeks) 12 Plan of Care Start Date 03/19/22 Plan of Care End Date 06/11/22 Therapeutic Interventions Therapeutic Interventions Home Exercise Program,Joint Mobilizations,Manual Therapy, Neuromuscular Re-education, Orthotic/Prosthetic Management ,Patient/Caregiver Education, Self-Care/Home Management,Soft Tissue Mobilization,Taping, Therapeutic Activities, Therapeutic Exercises Modalities Cold Pack/Ice Massage,Electric Stimulation,Hot Packs, Infrared Therapy,Traction- Mechanical,Ultrasound Next Visit Focus/Plan Next Note Type Treatment Note Next Visit Plan STM and joint mobs to thoracic and ribcage to imrpove neck tightness; work on diaphram and work on ant ribcage mobility
--- NOTE | 2022-03-19 17:15 | PT.OPPOC ---
Physical, Occupational & Speech Therapy At [facility] Current Diagnoses Unspecified temporomandibular joint disorder, unspecified side (03/19/22) Other specified dorsopathies, cervicothoracic region (03/19/22) Cervicalgia (03/19/22) Muscle weakness (generalized) (03/19/22) Abnormal posture (03/19/22) Visit Care Team Role Provider Type Abdon Pickard MD Attending Provider Non-Staff Primary Care Provider Referring Provider Specialty: Medical Address: [facility] [address], [place], [address] Email: Plan Of Care PT-OP-T Assessment and Plan Start: 11/14/21 17:51 Freq: Status: Active Protocol: Document 03/19/22 15:12 [facility] (Rec: 03/19/22 15:32 [facility] [id number]) Physical Therapy Assessment Goals pain Impairment neck pain and tightness that is constant that is at a 2/10 at all the time w/o relief Long-Term Goal (LTG) Pt will report no constant neck pain or tightness at least 5/7 days a week LTG Duration 06/11/22 static activity Impairment pain starts after 10 min of standing -/10 and if stand longer it can get to a 4/10- describes as really uncomfortable-standing at attention/parade rest Psychiatry Physician Goal (LTG) Pt will be able to stand at attention or parade rest and at home for extended tiem as needed without inc pain greater than 1/10 LTG Duration 06/11/22 activity Psychiatry Physician Goal (LTG) Pt will report being able to return to long walks w/no more than 1/10 pain in neck and/or thoraic region. 03/19-1.5-2 miles now LTG Duration 06/11/22 ROM Short Term Goal (STG) Pt will have full cervical ROM w/o pain to dec pressure on jaw and improve ability to drive and do typical activities requiring neck motion. 01/23 03/19*-improved ROM but still tight and causes neck pain STG Duration 05/08/22 Psychiatry Physician Goal (LTG) Pt will have full jaw opening to 40mm w/o feeling of tightness 01/23-tension 03/19-feels okay but still limited LTG Duration 3/ eating Long-Term Goal (LTG) Pt will report no tightness or discomfort w/eating and be able to eat all foods. 01/23-chewy and hard to break through things she feels tired LTG Duration achieved jaw pain Short Term Goal (STG) Pt will report jaw pain being more intermittent rather than constant tightness STG Duration achieved Long-Term Goal (LTG) Pt will report no jaw tightness or discomfort more than 1x/week 01/23-more intermittent now LTG Duration achieved -occ gets tired or tight Assessment Summary Assessment Pt has made great progresss and is not noticing much tension or pain related to jaw anymore. She has dec pain in cervical and thoracic region and is resuming workouts and exercise but is still limited d/t pain. She still have signficiant restrictions in back and neck region that likely contribute to this and improves w/manual treatemnt. Cont PT to work on this and dec pain in neck and thoracic w/activity. pt noted some lightheadedness upon coming in and BP was 102/64 but improved w/drinking water and did not note lightheadedness at end of treatment Physical Therapy Plan Frequency and Duration Frequency of Treatment 1-2x/week Duration of treatment (weeks) 12 Plan of Care Start Date 03/19/22 Plan of Care End Date 06/11/22 Therapeutic Interventions Therapeutic Interventions Home Exercise Program,Joint Mobilizations,Manual Therapy, Neuromuscular Re-education, Orthotic/Prosthetic Management ,Patient/Caregiver Education, Self-Care/Home Management,Soft Tissue Mobilization,Taping, Therapeutic Activities, Therapeutic Exercises Modalities Cold Pack/Ice Massage,Electric Stimulation,Hot Packs, Infrared Therapy,Traction- Mechanical,Ultrasound Next Visit Focus/Plan Next Note Type Treatment Note Next Visit Plan STM and joint mobs to thoracic and ribcage to imrpove neck tightness; work on diaphram and work on ant ribcage mobility Plan of Care Dates Plan of Care Start Date 03/19/22 Plan of Care End Date 06/11/22 Electronically Signed by: Grace Michel, PT 03/19/22 8150 If you are in agreement with this Plan of Care, please return a signed and dated copy. I have reviewed this Plan of Care and certify that the skilled therapy services above are required to meet the patient?s needs. Physician Signature Date Printed Name and Credentials Clinical Instructor Signature Printed Name and Credentials
--- NOTE | 2022-03-28 13:12 | PT.OTN ---
Current Diagnoses Unspecified temporomandibular joint disorder, unspecified side (03/28/22) Other specified dorsopathies, cervicothoracic region (03/28/22) Cervicalgia (03/28/22) Muscle weakness (generalized) (03/28/22) Abnormal posture (03/28/22) Physical Therapy Treatment Note PT-OP-A Visit Information Start: 11/14/21 17:51 Freq: Status: Active Protocol: Document 03/28/22 08:23 [facility] (Rec: 03/28/22 13:12 [facility] [id number]) Out-Patient Physical Therapy Visit Information Visit Information Visit Type Treatment Note Visit Start Time 08:22 Visit Stop Time 09:01 Total Visit Minutes 39 Visit Number 15 Number of SERVICE OBSERVER CHIEF Visits 0 PT-OP-B Current Condition Start: 11/14/21 17:51 Freq: Status: Active Protocol: Document 01/23/22 13:50 [facility] (Rec: 01/23/22 15:18 [facility] [id number]) Current Condition History of Current Condition Onset Date 6 months/1 year Current Complaints B jaw pain/cervical& thoracic pain History of Current Condition Re-eval: Pt reports neck and thoracic pain started about 1 year ago and she would ntoice that 5-10 min into walking, she starts to get tingling in shoulder blades. Fwd flex stretch feels like it should help but it doesn't. Once it starts, there is no way ot stop it besides lay down. This has kept her from hiking. Neck pain is more feels so tight that she feels like her ROM is limited. ITs been better since started working on jaw. It always feels like she needs to move her neck but doing the motion doesn't really help. It feels like she wants to pop it but that doesn't really help either. She gets things that feels like golf balls along neck. IE:Jaw pain started about 6 months ago. when it first started it felt like I had been chewing gum allt he day prior. thought she may be clenching. She got a mouthguard after a couple months for night but does not feel like it has made a difference. Neck pain has been crhornic, but no injury. Denies LEAVITT except occasionally and they go away. denies dizziness or lightheadness. Mouth xray done recently and everything looked fine. Pt saw specialist in [place] and she suspects this is just muscular. Denies clicking in jaw. Pt was told to avoid hard to chew and crunchy foods and is most of the time following this. She can feel it more w/ those foods. Tried heat and it feels good but doesn't give relief. Gets ringing in ears and feels like ear is stuffy ( thinks both but notices it more in R). Evry couple weeks she gets the ringing and it only lasts about 5-10 min. Ear feeling stuffy is more often than the ringing. Pt is going to PT for LB. She has tingling in upper back sometimes when just sitting down and with walking. Her neck pain has been persistant. She has had some cervical xray but does not recall anything on it. Pt does have referral for sleep study. Pt feels like she has to sleep okay. She wakes up 1- 2x/night and will get up to go to the bathroom. When seh wakes, she doesn't feel rested , feels exhausted by the end of the day, and feels tense when she awakes. Treatment Goals Patient/Caregiver Goals get back to hiking and long walks w/o tingling pain in back, improve neck range and improve comfort, PT-OP-C Subjective Start: 11/14/21 17:51 Freq: Status: Active Protocol: Document 03/28/22 08:23 [facility] (Rec: 03/28/22 13:12 [facility] [id number]) OP-PT Subjective Patient Comments Patient Comments Pt reprots she is sore in her back. PT-OP-F Manual Assessment Start: 11/14/21 17:51 Freq: Status: Active Protocol: Document 01/23/22 13:50 [facility] (Rec: 01/23/22 15:18 [facility] [id number]) Manual Assessments Soft Tissue Assessment Soft Tissue Mobility Assessment tightness thoughout jaw, neck & tspine mm L>R w/tenderness ( PT-OP-J Posture/Palpation/Skin Start: 11/14/21 17:51 Freq: Status: Active Protocol: Document 03/19/22 15:32 [facility] (Rec: 03/19/22 15:41 [facility] [id number]) Posture Evaluation Tyler Postural Classification System Vertebral Compression Test 2 Elbow Flexion Test 1 PT-OP-K Range of Motion Start: 11/14/21 17:51 Freq: Status: Active Protocol: Document 03/19/22 15:32 [facility] (Rec: 03/19/22 15:40 [facility] [id number]) Cervical Spine Range of Motion Cervical Spine Active Degrees Flexion 64 Extension 69 Rotation Left 57 Rotation Right 56 Lateral Flexion Left 28 Lateral Flexion Right 46 Comments stiff feeling w/L SB & L rot& ext, 35 R rotation tspine; L 61 TMJ Range of Motion Jaw Openning Jaw Openning (mm) 36 PT-OP-L Special Tests Start: 11/14/21 17:51 Freq: Status: Active Protocol: Document 11/15/21 16:04 [facility] (Rec: 11/15/21 17:19 [facility] [id number]) Special Tests Cervical Spine Special Tests Vertebral Artery Test Results neg Spurling's Test Test Results neg Alar Ligament Test Results neg PT-OP-M Strength Start: 11/14/21 17:51 Freq: Status: Active Protocol: Document 03/19/22 15:32 [facility] (Rec: 03/19/22 15:40 [facility] [id number]) Cervical Spine Strength Cervical Spine Manual Muscle Testing Flexion (C1-2) 4- Good- Extension 5 Normal Rotation Left 4+ Good+ Rotation Right 5 Normal Lateral Flexion Left (C3) 4 Good Lateral Flexion Right (C3) 5 Normal Comments 4 sec in axial elongation hold -feels it in her jaw Shoulder Strength Shoulder Manual Muscle Testing Right Flexion 5 Normal Extension 5 Normal Abduction (C5) 5 Normal Adduction 5 Normal External Rotation 5 Normal Internal Rotation 5 Normal Horizontal Abduction 5 Normal Horizontal Adduction 5 Normal Left Flexion 5 Normal Extension 5 Normal Abduction (C5) 5 Normal Adduction 5 Normal External Rotation 5 Normal Internal Rotation 5 Normal Horizontal Abduction 4+ Good+ Horizontal Adduction 5 Normal Comments pain Habd PT-OP-Q Treatments Start: 11/14/21 17:51 Freq: Status: Active Protocol: Document 03/28/22 08:23 [facility] (Rec: 03/28/22 13:12 [facility] [id number]) Manual Therapy Treatment Soft Tissue Mobilization cervical Body Location post cervical paraspinals &B UT & LS,R scalenes & SCM Mobilization Type Rolling,Strumming Intensity/Depth Moderate Body Position Supine Joint Mobilizations rib Joint 1st caudal L thoracic Comments T 2 &3 transverse L FM; T1 transverse R FM; T 1& 2 PA FM cervical Comments C2, C6, C7 transverse R FM PT-OP-R Modalities Start: 11/14/21 17:51 Freq: Status: Active Protocol: Document 03/19/22 15:12 [facility] (Rec: 03/19/22 17:07 [facility] [id number]) Hot Pack/Cold Pack Treatment Hot Pack Location cervical Patient Position Hooklying Treatment Duration (minutes) 15 PT-OP-T Assessment and Plan Start: 11/14/21 17:51 Freq: Status: Active Protocol: Document 03/28/22 08:23 [facility] (Rec: 03/28/22 13:12 [facility] [id number]) Physical Therapy Assessment Goals pain Impairment neck pain and tightness that is constant that is at a 2/10 at all the time w/o relief Long-Term Goal (LTG) Pt will report no constant neck pain or tightness at least 5/7 days a week LTG Duration 06/11/22 static activity Impairment pain starts after 10 min of standing -3/10 and if stand longer it can get to a 4/10- describes as really uncomfortable-standing at attention/parade rest Long-Term Goal (LTG) Pt will be able to stand at attention or parade rest and at home for extended tiem as needed without inc pain greater than 1/10 LTG Duration 06/11/22 activity Long-Term Goal (LTG) Pt will report being able to return to long walks w/no more than 1/10 pain in neck and/or thoraic region. 03/19-1.5-2 miles now LTG Duration 06/11/22 ROM Short Term Goal (STG) Pt will have full cervical ROM w/o pain to dec pressure on jaw and improve ability to drive and do typical activities requiring neck motion. 01/23 03/19*-improved ROM but still tight and causes neck pain STG Duration 05/08/22 Long-Term Goal (LTG) Pt will have full jaw opening to 40mm w/o feeling of tightness 01/23-tension 03/19-feels okay but still limited LTG Duration 06/11 eating Hospitality Manager Goal (LTG) Pt will report no tightness or discomfort w/eating and be able to eat all foods. 01/23-chewy and hard to break through things she feels tired LTG Duration achieved jaw pain Short Term Goal (STG) Pt will report jaw pain being more intermittent rather than constant tightness STG Duration achieved Hospitality Manager Goal (LTG) Pt will report no jaw tightness or discomfort more than 1x/week 01/23-more intermittent now LTG Duration achieved -occ gets tired or tight Assessment Summary Assessment Pt did well with manual and had improved R thoracic rotation, L cervical SB and B cervical rotation w/less discomfort. Given to go ice pack as she is sore after manual Physical Therapy Plan Frequency and Duration Frequency of Treatment 1-2x/week Duration of treatment (weeks) 12 Plan of Care Start Date 03/19/22 Plan of Care End Date 06/11/22 Next Visit Focus/Plan Next Note Type Treatment Note Next Visit Plan STM and joint mobs to thoracic and ribcage to imrpove neck tightness; work on diaphram and work on ant ribcage mobility
--- NOTE | 2022-04-03 18:17 | PT.OTN ---
Current Diagnoses Unspecified temporomandibular joint disorder, unspecified side (04/03/22) Other specified dorsopathies, cervicothoracic region (04/03/22) Cervicalgia (04/03/22) Muscle weakness (generalized) (04/03/22) Abnormal posture (04/03/22) Physical Therapy Treatment Note PT-OP-A Visit Information Start: 11/14/21 17:51 Freq: Status: Active Protocol: Document 04/03/22 16:03 [facility] (Rec: 04/03/22 18:17 [facility] [id number]) Out-Patient Physical Therapy Visit Information Visit Information Visit Type Treatment Note Visit Start Time 16:06 Visit Stop Time 16:50 Total Visit Minutes 44 Visit Number 16 Number of DIRECTOR AGENCY & STRATEGIC PARTNERSHIPS Visits 0 PT-OP-B Current Condition Start: 11/14/21 17:51 Freq: Status: Active Protocol: Document 01/23/22 13:50 [facility] (Rec: 01/23/22 15:18 [facility] [id number]) Current Condition History of Current Condition Onset Date 6 months/1 year Current Complaints B jaw pain/cervical& thoracic pain History of Current Condition Re-eval: Pt reports neck and thoracic pain started about 1 year ago and she would ntoice that 5-10 min into walking, she starts to get tingling in shoulder blades. Fwd flex stretch feels like it should help but it doesn't. Once it starts, there is no way ot stop it besides lay down. This has kept her from hiking. Neck pain is more feels so tight that she feels like her ROM is limited. ITs been better since started working on jaw. It always feels like she needs to move her neck but doing the motion doesn't really help. It feels like she wants to pop it but that doesn't really help either. She gets things that feels like golf balls along neck. IE:Jaw pain started about 6 months ago. when it first started it felt like I had been chewing gum allt he day prior. thought she may be clenching. She got a mouthguard after a couple months for night but does not feel like it has made a difference. Neck pain has been crhornic, but no injury. Denies LEAVITT except occasionally and they go away. denies dizziness or lightheadness. Mouth xray done recently and everything looked fine. Pt saw specialist in [place] and she suspects this is just muscular. Denies clicking in jaw. Pt was told to avoid hard to chew and crunchy foods and is most of the time following this. She can feel it more w/ those foods. Tried heat and it feels good but doesn't give relief. Gets ringing in ears and feels like ear is stuffy ( thinks both but notices it more in R). Evry couple weeks she gets the ringing and it only lasts about 5-10 min. Ear feeling stuffy is more often than the ringing. Pt is going to PT for LB. She has tingling in upper back sometimes when just sitting down and with walking. Her neck pain has been persistant. She has had some cervical xray but does not recall anything on it. Pt does have referral for sleep study. Pt feels like she has to sleep okay. She wakes up 1- 2x/night and will get up to go to the bathroom. When seh wakes, she doesn't feel rested , feels exhausted by the end of the day, and feels tense when she awakes. Treatment Goals Patient/Caregiver Goals get back to hiking and long walks w/o tingling pain in back, improve neck range and improve comfort, PT-OP-C Subjective Start: 11/14/21 17:51 Freq: Status: Active Protocol: Document 04/03/22 16:03 [facility] (Rec: 04/03/22 18:17 [facility] [id number]) OP-PT Subjective Patient Comments Patient Comments Pt reports she feels like the buldge in her R post lat neck is back. Notes she has felt a tender bump under her breast R>L after a lot of planks. PT-OP-F Manual Assessment Start: 11/14/21 17:51 Freq: Status: Active Protocol: Document 01/23/22 13:50 [facility] (Rec: 01/23/22 15:18 [facility] [id number]) Manual Assessments Soft Tissue Assessment Soft Tissue Mobility Assessment tightness thoughout jaw, neck & tspine mm L>R w/tenderness ( PT-OP-J Posture/Palpation/Skin Start: 11/14/21 17:51 Freq: Status: Active Protocol: Document 03/19/22 15:32 [facility] (Rec: 03/19/22 15:41 [facility] [id number]) Posture Evaluation Tyler Postural Classification System Vertebral Compression Test 2 Elbow Flexion Test 1 PT-OP-K Range of Motion Start: 11/14/21 17:51 Freq: Status: Active Protocol: Document 03/19/22 15:32 [facility] (Rec: 03/19/22 15:40 [facility] [id number]) Cervical Spine Range of Motion Cervical Spine Active Degrees Flexion 64 Extension 69 Rotation Left 57 Rotation Right 56 Lateral Flexion Left 28 Lateral Flexion Right 46 Comments stiff feeling w/L SB & L rot& ext, 35 R rotation tspine; L 61 TMJ Range of Motion Jaw Openning Jaw Openning (mm) 36 PT-OP-L Special Tests Start: 11/14/21 17:51 Freq: Status: Active Protocol: Document 11/15/21 16:04 [facility] (Rec: 11/15/21 17:19 [facility] [id number]) Special Tests Cervical Spine Special Tests Vertebral Artery Test Results neg Spurling's Test Test Results neg Alar Ligament Test Results neg PT-OP-M Strength Start: 11/14/21 17:51 Freq: Status: Active Protocol: Document 03/19/22 15:32 [facility] (Rec: 03/19/22 15:40 [facility] [id number]) Cervical Spine Strength Cervical Spine Manual Muscle Testing Flexion (C1-2) 4- Good- Extension 5 Normal Rotation Left 4+ Good+ Rotation Right 5 Normal Lateral Flexion Left (C3) 4 Good Lateral Flexion Right (C3) 5 Normal Comments 4 sec in axial elongation hold -feels it in her jaw Shoulder Strength Shoulder Manual Muscle Testing Right Flexion 5 Normal Extension 5 Normal Abduction (C5) 5 Normal Adduction 5 Normal External Rotation 5 Normal Internal Rotation 5 Normal Horizontal Abduction 5 Normal Horizontal Adduction 5 Normal Left Flexion 5 Normal Extension 5 Normal Abduction (C5) 5 Normal Adduction 5 Normal External Rotation 5 Normal Internal Rotation 5 Normal Horizontal Abduction 4+ Good+ Horizontal Adduction 5 Normal Comments pain Habd PT-OP-Q Treatments Start: 11/14/21 17:51 Freq: Status: Active Protocol: Document 04/03/22 16:03 [facility] (Rec: 04/03/22 18:17 [facility] [id number]) Manual Therapy Treatment Soft Tissue Mobilization tspine Body Location R paraspinals of upper t spine Mobilization Type Rolling,Strumming Intensity/Depth Moderate Body Position Sitting cervical Body Location post cervical paraspinals &B UT & LS,R scalenes & SCM Mobilization Type Rolling,Strumming Intensity/Depth Moderate Body Position Supine Comments FM w/rotation & flex Joint Mobilizations rib Comments R med 5-7 FM thoracic Comments T 1&2 transverse L FM; T3 transverse R FM; T 1-4 PA FM w/facilitation manually at end range Self-Care/Home Management Treatment Education Other Education dicussion of exercises pt is performing PT-OP-R Modalities Start: 11/14/21 17:51 Freq: Status: Active Protocol: Document 03/19/22 15:12 [facility] (Rec: 03/19/22 17:07 [facility] [id number]) Hot Pack/Cold Pack Treatment Hot Pack Location cervical Patient Position Hooklying Treatment Duration (minutes) 15 PT-OP-T Assessment and Plan Start: 11/14/21 17:51 Freq: Status: Active Protocol: Document 04/03/22 16:03 [facility] (Rec: 04/03/22 18:17 [facility] [id number]) Physical Therapy Assessment Goals pain Impairment neck pain and tightness that is constant that is at a 2/10 at all the time w/o relief [facility] Goal (LTG) Pt will report no constant neck pain or tightness at least 5/7 days a week LTG Duration 06/11/22 static activity Impairment pain starts after 10 min of standing -3/10 and if stand longer it can get to a 4/10- describes as really uncomfortable-standing at attention/parade rest [facility] Goal (LTG) Pt will be able to stand at attention or parade rest and at home for extended tiem as needed without inc pain greater than 1/10 LTG Duration 06/11/22 activity [facility] Goal (LTG) Pt will report being able to return to long walks w/no more than 1/10 pain in neck and/or thoraic region. 03/19-1.5-2 miles now LTG Duration 06/11/22 ROM Short Term Goal (STG) Pt will have full cervical ROM w/o pain to dec pressure on jaw and improve ability to drive and do typical activities requiring neck motion. 01/23 03/19*-improved ROM but still tight and causes neck pain STG Duration 05/08/22 [facility] Goal (LTG) Pt will have full jaw opening to 40mm w/o feeling of tightness 01/23-tension 03/19-feels okay but still limited LTG Duration 3/7 eating [facility] Goal (LTG) Pt will report no tightness or discomfort w/eating and be able to eat all foods. 01/23-chewy and hard to break through things she feels tired LTG Duration achieved jaw pain Short Term Goal (STG) Pt will report jaw pain being more intermittent rather than constant tightness STG Duration achieved Diesel Dinkey Engineer Goal (LTG) Pt will report no jaw tightness or discomfort more than 1x/week 01/23-more intermittent now LTG Duration achieved -occ gets tired or tight Assessment Summary Assessment Pt had less protrusion ant just belwo breast w/manual treatment. She had significant R rib dysfuction whcih likely affects all of her spinal pain. She improved R SB and rotation after manual and was able to breath better at end range R rotation after manual. Physical Therapy Plan Frequency and Duration Frequency of Treatment 1-2x/week Duration of treatment (weeks) 12 Plan of Care Start Date 03/19/22 Plan of Care End Date 06/11/22 Next Visit Focus/Plan Next Note Type Treatment Note Next Visit Plan STM and joint mobs to thoracic and ribcage to imrpove neck tightness; work on diaphram and work on ant ribcage mobility
--- NOTE | 2022-04-09 08:59 | PT.OTN ---
Current Diagnoses Unspecified temporomandibular joint disorder, unspecified side (04/09/22) Other specified dorsopathies, cervicothoracic region (04/09/22) Cervicalgia (04/09/22) Muscle weakness (generalized) (04/09/22) Abnormal posture (04/09/22) Physical Therapy Treatment Note PT-OP-A Visit Information Start: 11/14/21 17:51 Freq: Status: Active Protocol: Document 04/09/22 07:31 [facility] (Rec: 04/09/22 08:59 [facility] [id number]) Out-Patient Physical Therapy Visit Information Visit Information Visit Type Treatment Note Visit Start Time 07:34 Visit Stop Time 08:15 Total Visit Minutes 41 Visit Number 17 Number of ENTRY LEVEL JAVA DEVELOPER Visits 0 PT-OP-B Current Condition Start: 11/14/21 17:51 Freq: Status: Active Protocol: Document 01/23/22 13:50 [facility] (Rec: 01/23/22 15:18 [facility] [id number]) Current Condition History of Current Condition Onset Date 6 months/1 year Current Complaints B jaw pain/cervical& thoracic pain History of Current Condition Re-eval: Pt reports neck and thoracic pain started about 1 year ago and she would ntoice that 5-10 min into walking, she starts to get tingling in shoulder blades. Fwd flex stretch feels like it should help but it doesn't. Once it starts, there is no way ot stop it besides lay down. This has kept her from hiking. Neck pain is more feels so tight that she feels like her ROM is limited. ITs been better since started working on jaw. It always feels like she needs to move her neck but doing the motion doesn't really help. It feels like she wants to pop it but that doesn't really help either. She gets things that feels like golf balls along neck. IE:Jaw pain started about 6 months ago. when it first started it felt like I had been chewing gum allt he day prior. thought she may be clenching. She got a mouthguard after a couple months for night but does not feel like it has made a difference. Neck pain has been crhornic, but no injury. Denies LEAVITT except occasionally and they go away. denies dizziness or lightheadness. Mouth xray done recently and everything looked fine. Pt saw specialist in [place] and she suspects this is just muscular. Denies clicking in jaw. Pt was told to avoid hard to chew and crunchy foods and is most of the time following this. She can feel it more w/ those foods. Tried heat and it feels good but doesn't give relief. Gets ringing in ears and feels like ear is stuffy ( thinks both but notices it more in R). Evry couple weeks she gets the ringing and it only lasts about 5-10 min. Ear feeling stuffy is more often than the ringing. Pt is going to PT for LB. She has tingling in upper back sometimes when just sitting down and with walking. Her neck pain has been persistant. She has had some cervical xray but does not recall anything on it. Pt does have referral for sleep study. Pt feels like she has to sleep okay. She wakes up 1- 2x/night and will get up to go to the bathroom. When seh wakes, she doesn't feel rested , feels exhausted by the end of the day, and feels tense when she awakes. Treatment Goals Patient/Caregiver Goals get back to hiking and long walks w/o tingling pain in back, improve neck range and improve comfort, PT-OP-C Subjective Start: 11/14/21 17:51 Freq: Status: Active Protocol: Document 04/09/22 07:31 [facility] (Rec: 04/09/22 08:59 [facility] [id number]) OP-PT Subjective Patient Comments Patient Comments Pt reports she is stiff today. She was sore after new years paty when she stayed up late and didn't sleep well. PT-OP-F Manual Assessment Start: 11/14/21 17:51 Freq: Status: Active Protocol: Document 01/23/22 13:50 [facility] (Rec: 01/23/22 15:18 [facility] [id number]) Manual Assessments Soft Tissue Assessment Soft Tissue Mobility Assessment tightness thoughout jaw, neck & tspine mm L>R w/tenderness ( PT-OP-J Posture/Palpation/Skin Start: 11/14/21 17:51 Freq: Status: Active Protocol: Document 03/19/22 15:32 [facility] (Rec: 03/19/22 15:41 [facility] [id number]) Posture Evaluation [facility] Postural Classification System Vertebral Compression Test 2 Elbow Flexion Test 1 PT-OP-K Range of Motion Start: 11/14/21 17:51 Freq: Status: Active Protocol: Document 03/19/22 15:32 [facility] (Rec: 03/19/22 15:40 [facility] [id number]) Cervical Spine Range of Motion Cervical Spine Active Degrees Flexion 64 Extension 69 Rotation Left 57 Rotation Right 56 Lateral Flexion Left 28 Lateral Flexion Right 46 Comments stiff feeling w/L SB & L rot& ext, 35 R rotation tspine; L 61 TMJ Range of Motion Jaw Openning Jaw Openning (mm) 36 PT-OP-L Special Tests Start: 11/14/21 17:51 Freq: Status: Active Protocol: Document 11/15/21 16:04 [facility] (Rec: 11/15/21 17:19 [facility] [id number]) Special Tests Cervical Spine Special Tests Vertebral Artery Test Results neg Spurling's Test Test Results neg Alar Ligament Test Results neg PT-OP-M Strength Start: 11/14/21 17:51 Freq: Status: Active Protocol: Document 03/19/22 15:32 [facility] (Rec: 03/19/22 15:40 [facility] [id number]) Cervical Spine Strength Cervical Spine Manual Muscle Testing Flexion (C1-2) 4- Good- Extension 5 Normal Rotation Left 4+ Good+ Rotation Right 5 Normal Lateral Flexion Left (C3) 4 Good Lateral Flexion Right (C3) 5 Normal Comments 4 sec in axial elongation hold -feels it in her jaw Shoulder Strength Shoulder Manual Muscle Testing Right Flexion 5 Normal Extension 5 Normal Abduction (C5) 5 Normal Adduction 5 Normal External Rotation 5 Normal Internal Rotation 5 Normal Horizontal Abduction 5 Normal Horizontal Adduction 5 Normal Left Flexion 5 Normal Extension 5 Normal Abduction (C5) 5 Normal Adduction 5 Normal External Rotation 5 Normal Internal Rotation 5 Normal Horizontal Abduction 4+ Good+ Horizontal Adduction 5 Normal Comments pain Habd PT-OP-Q Treatments Start: 11/14/21 17:51 Freq: Status: Active Protocol: Document 04/09/22 07:31 [facility] (Rec: 04/09/22 08:59 [facility] [id number]) Manual Therapy Treatment Soft Tissue Mobilization pec Body Location R>L Mobilization Type Sustained Pressure Intensity/Depth Moderate Body Position Supine tspine Body Location R lat Mobilization Type Rolling,Strumming Intensity/Depth Moderate Body Position Sidelying Joint Mobilizations sternum Joint L UPA FM rib Comments ribs 6 R caudal FM, rib 2 caudal FM thoracic Comments PA T2-3 FM w/facilitation at end range PT-OP-R Modalities Start: 11/14/21 17:51 Freq: Status: Active Protocol: Document 03/19/22 15:12 [facility] (Rec: 03/19/22 17:07 [facility] [id number]) Hot Pack/Cold Pack Treatment Hot Pack Location cervical Patient Position Hooklying Treatment Duration (minutes) 15 PT-OP-T Assessment and Plan Start: 11/14/21 17:51 Freq: Status: Active Protocol: Document 04/09/22 07:31 [facility] (Rec: 04/09/22 08:59 [facility] [id number]) Physical Therapy Assessment Goals pain Impairment neck pain and tightness that is constant that is at a 2/10 at all the time w/o relief Residential Goal (LTG) Pt will report no constant neck pain or tightness at least 5/7 days a week LTG Duration 06/11/22 static activity Impairment pain starts after 10 min of standing -3/10 and if stand longer it can get to a 4/10- describes as really uncomfortable-standing at attention/parade rest Residential Goal (LTG) Pt will be able to stand at attention or parade rest and at home for extended tiem as needed without inc pain greater than 1/10 LTG Duration 06/11/22 activity Personnel Representative Goal (LTG) Pt will report being able to return to long walks w/no more than 1/10 pain in neck and/or thoraic region. 03/19-1.5-2 miles now LTG Duration 06/11/22 ROM Short Term Goal (STG) Pt will have full cervical ROM w/o pain to dec pressure on jaw and improve ability to drive and do typical activities requiring neck motion. 01/23 03/19*-improved ROM but still tight and causes neck pain STG Duration 05/08/22 Personnel Representative Goal (LTG) Pt will have full jaw opening to 40mm w/o feeling of tightness 01/23-tension 03/19-feels okay but still limited LTG Duration 06/11 eating Residential Goal (LTG) Pt will report no tightness or discomfort w/eating and be able to eat all foods. 01/23-chewy and hard to break through things she feels tired LTG Duration achieved jaw pain Short Term Goal (STG) Pt will report jaw pain being more intermittent rather than constant tightness STG Duration achieved Residential Goal (LTG) Pt will report no jaw tightness or discomfort more than 1x/week 01/23-more intermittent now LTG Duration achieved -occ gets tired or tight Assessment Summary Assessment Pt had improved ease of B scap setting after manual therapy. Did edu pt not to squeeze shoulder blades to set as she is pulling too much. improved cervical ext and rotions. Physical Therapy Plan Frequency and Duration Frequency of Treatment 1-2x/week Duration of treatment (weeks) 12 Plan of Care Start Date 03/19/22 Plan of Care End Date 06/11/22 Next Visit Focus/Plan Next Note Type Treatment Note Next Visit Plan STM and joint mobs to thoracic and ribcage to imrpove neck tightness; work on diaphram and work on ant ribcage mobility
--- NOTE | 2022-04-15 12:24 | PT.OTN ---
Current Diagnoses Unspecified temporomandibular joint disorder, unspecified side (04/15/22) Other specified dorsopathies, cervicothoracic region (04/15/22) Cervicalgia (04/15/22) Muscle weakness (generalized) (04/15/22) Abnormal posture (04/15/22) Physical Therapy Treatment Note PT-OP-A Visit Information Start: 11/14/21 17:51 Freq: Status: Active Protocol: Document 04/15/22 07:30 [facility] (Rec: 04/15/22 12:23 [facility] [id number]) Out-Patient Physical Therapy Visit Information Visit Information Visit Type Treatment Note Visit Start Time 07:35 Visit Stop Time 08:25 Total Visit Minutes 50 Visit Number 18 Number of CEMENT SIDE LASTER Visits 0 PT-OP-B Current Condition Start: 11/14/21 17:51 Freq: Status: Active Protocol: Document 01/23/22 13:50 [facility] (Rec: 01/23/22 15:18 [facility] [id number]) Current Condition History of Current Condition Onset Date 6 months/1 year Current Complaints B jaw pain/cervical& thoracic pain History of Current Condition Re-eval: Pt reports neck and thoracic pain started about 1 year ago and she would ntoice that 5-10 min into walking, she starts to get tingling in shoulder blades. Fwd flex stretch feels like it should help but it doesn't. Once it starts, there is no way ot stop it besides lay down. This has kept her from hiking. Neck pain is more feels so tight that she feels like her ROM is limited. ITs been better since started working on jaw. It always feels like she needs to move her neck but doing the motion doesn't really help. It feels like she wants to pop it but that doesn't really help either. She gets things that feels like golf balls along neck. IE:Jaw pain started about 6 months ago. when it first started it felt like I had been chewing gum allt he day prior. thought she may be clenching. She got a mouthguard after a couple months for night but does not feel like it has made a difference. Neck pain has been crhornic, but no injury. Denies LEAVITT except occasionally and they go away. denies dizziness or lightheadness. Mouth xray done recently and everything looked fine. Pt saw specialist in [place] and she suspects this is just muscular. Denies clicking in jaw. Pt was told to avoid hard to chew and crunchy foods and is most of the time following this. She can feel it more w/ those foods. Tried heat and it feels good but doesn't give relief. Gets ringing in ears and feels like ear is stuffy ( thinks both but notices it more in R). Evry couple weeks she gets the ringing and it only lasts about 5-10 min. Ear feeling stuffy is more often than the ringing. Pt is going to PT for LB. She has tingling in upper back sometimes when just sitting down and with walking. Her neck pain has been persistant. She has had some cervical xray but does not recall anything on it. Pt does have referral for sleep study. Pt feels like she has to sleep okay. She wakes up 1- 2x/night and will get up to go to the bathroom. When seh wakes, she doesn't feel rested , feels exhausted by the end of the day, and feels tense when she awakes. Treatment Goals Patient/Caregiver Goals get back to hiking and long walks w/o tingling pain in back, improve neck range and improve comfort, PT-OP-C Subjective Start: 11/14/21 17:51 Freq: Status: Active Protocol: Document 04/15/22 07:30 [facility] (Rec: 04/15/22 12:23 [facility] [id number]) OP-PT Subjective Patient Comments Patient Comments Sat she worke [employer] work shed and friday did a workout and was really sore yesterday when she woke up from her lat flank and LB up to her head PT-OP-F Manual Assessment Start: 11/14/21 17:51 Freq: Status: Active Protocol: Document 01/23/22 13:50 [facility] (Rec: 01/23/22 15:18 [facility] [id number]) Manual Assessments Soft Tissue Assessment Soft Tissue Mobility Assessment tightness thoughout jaw, neck & tspine mm L>R w/tenderness ( PT-OP-J Posture/Palpation/Skin Start: 11/14/21 17:51 Freq: Status: Active Protocol: Document 03/19/22 15:32 [facility] (Rec: 03/19/22 15:41 [facility] [id number]) Posture Evaluation [facility] Postural Classification System Vertebral Compression Test 2 Elbow Flexion Test 1 PT-OP-K Range of Motion Start: 11/14/21 17:51 Freq: Status: Active Protocol: Document 03/19/22 15:32 [facility] (Rec: 03/19/22 15:40 [facility] [id number]) Cervical Spine Range of Motion Cervical Spine Active Degrees Flexion 64 Extension 69 Rotation Left 57 Rotation Right 56 Lateral Flexion Left 28 Lateral Flexion Right 46 Comments stiff feeling w/L SB & L rot& ext, 35 R rotation tspine; L 61 TMJ Range of Motion Jaw Openning Jaw Openning (mm) 36 PT-OP-L Special Tests Start: 11/14/21 17:51 Freq: Status: Active Protocol: Document 11/15/21 16:04 [facility] (Rec: 11/15/21 17:19 [facility] [id number]) Special Tests Cervical Spine Special Tests Vertebral Artery Test Results neg Spurling's Test Test Results neg Alar Ligament Test Results neg PT-OP-M Strength Start: 11/14/21 17:51 Freq: Status: Active Protocol: Document 03/19/22 15:32 [facility] (Rec: 03/19/22 15:40 [facility] [id number]) Cervical Spine Strength Cervical Spine Manual Muscle Testing Flexion (C1-2) 4- Good- Extension 5 Normal Rotation Left 4+ Good+ Rotation Right 5 Normal Lateral Flexion Left (C3) 4 Good Lateral Flexion Right (C3) 5 Normal Comments 4 sec in axial elongation hold -feels it in her jaw Shoulder Strength Shoulder Manual Muscle Testing Right Flexion 5 Normal Extension 5 Normal Abduction (C5) 5 Normal Adduction 5 Normal External Rotation 5 Normal Internal Rotation 5 Normal Horizontal Abduction 5 Normal Horizontal Adduction 5 Normal Left Flexion 5 Normal Extension 5 Normal Abduction (C5) 5 Normal Adduction 5 Normal External Rotation 5 Normal Internal Rotation 5 Normal Horizontal Abduction 4+ Good+ Horizontal Adduction 5 Normal Comments pain Habd PT-OP-Q Treatments Start: 11/14/21 17:51 Freq: Status: Active Protocol: Document 04/15/22 07:30 [facility] (Rec: 04/15/22 12:23 [facility] [id number]) Manual Therapy Treatment Soft Tissue Mobilization cervical Mobilization Type Rolling,Strumming Intensity/Depth Moderate Body Position Supine Comments 1. seated fwd flex w/cervical to lumbar STM 2. cervical parspinals w/ cervical flex Joint Mobilizations rib Comments rib 8 & 9 L med FM rib R elevation 6-8 FM thoracic Comments transverse R T5-8 L T8-12 FM PT-OP-R Modalities Start: 11/14/21 17:51 Freq: Status: Active Protocol: Document 04/15/22 07:30 [facility] (Rec: 04/15/22 12:24 [facility] [id number]) Hot Pack/Cold Pack Treatment Cold Pack Location cervical & thoracic Patient Position Supine Treatment Duration (minutes) 10 PT-OP-T Assessment and Plan Start: 11/14/21 17:51 Freq: Status: Active Protocol: Document 04/15/22 07:30 [facility] (Rec: 04/15/22 12:23 [facility] [id number]) Physical Therapy Assessment Goals pain Impairment neck pain and tightness that is constant that is at a 2/10 at all the time w/o relief [employer] Goal (LTG) Pt will report no constant neck pain or tightness at least 5/7 days a week LTG Duration 06/11/22 static activity Impairment pain starts after 10 min of standing -3/10 and if stand longer it can get to a 4/10- describes as really uncomfortable-standing at attention/parade rest [employer] Goal (LTG) Pt will be able to stand at attention or parade rest and at home for extended tiem as needed without inc pain greater than 1/10 LTG Duration 06/11/22 activity [facility] Goal (LTG) Pt will report being able to return to long walks w/no more than 1/10 pain in neck and/or thoraic region. 03/19-1.5-2 miles now LTG Duration 06/11/22 ROM Short Term Goal (STG) Pt will have full cervical ROM w/o pain to dec pressure on jaw and improve ability to drive and do typical activities requiring neck motion. 01/23 03/19*-improved ROM but still tight and causes neck pain STG Duration 05/08/22 [facility] Goal (LTG) Pt will have full jaw opening to 40mm w/o feeling of tightness 01/23-tension 03/19-feels okay but still limited LTG Duration 06/11 eating [facility] Goal (LTG) Pt will report no tightness or discomfort w/eating and be able to eat all foods. 01/23-chewy and hard to break through things she feels tired LTG Duration achieved jaw pain Short Term Goal (STG) Pt will report jaw pain being more intermittent rather than constant tightness STG Duration achieved [employer] Goal (LTG) Pt will report no jaw tightness or discomfort more than 1x/week 01/23-more intermittent now LTG Duration achieved -occ gets tired or tight Assessment Summary Assessment Pt had improved rotation B of trunk w/manual and greater ease of deep breaths. It appears like lumbar restrictions likely affect her ability to fully rotate B w/o discomfort. Improved ease of flex w/manual Physical Therapy Plan Next Visit Focus/Plan Next Note Type Treatment Note Next Visit Plan STM and joint mobs to thoracic and ribcage to imrpove neck tightness; work on diaphram and work on ant ribcage mobility
--- NOTE | 2022-04-23 09:23 | PT.OTN ---
Current Diagnoses Unspecified temporomandibular joint disorder, unspecified side (04/23/22) Other specified dorsopathies, cervicothoracic region (04/23/22) Cervicalgia (04/23/22) Muscle weakness (generalized) (04/23/22) Abnormal posture (04/23/22) Physical Therapy Treatment Note PT-OP-A Visit Information Start: 11/14/21 17:51 Freq: Status: Active Protocol: Document 04/23/22 07:29 [facility] (Rec: 04/23/22 09:21 [facility] [id number]) Out-Patient Physical Therapy Visit Information Visit Information Visit Type Treatment Note Visit Start Time 07:31 Visit Stop Time 08:13 Total Visit Minutes 42 Visit Number 19 Number of PEDIATRIC ANESTHESIOLOGIST Visits 0 PT-OP-B Current Condition Start: 11/14/21 17:51 Freq: Status: Active Protocol: Document 01/23/22 13:50 [facility] (Rec: 01/23/22 15:18 [facility] [id number]) Current Condition History of Current Condition Onset Date 6 months/1 year Current Complaints B jaw pain/cervical& thoracic pain History of Current Condition Re-eval: Pt reports neck and thoracic pain started about 1 year ago and she would ntoice that 5-10 min into walking, she starts to get tingling in shoulder blades. Fwd flex stretch feels like it should help but it doesn't. Once it starts, there is no way ot stop it besides lay down. This has kept her from hiking. Neck pain is more feels so tight that she feels like her ROM is limited. ITs been better since started working on jaw. It always feels like she needs to move her neck but doing the motion doesn't really help. It feels like she wants to pop it but that doesn't really help either. She gets things that feels like golf balls along neck. IE:Jaw pain started about 6 months ago. when it first started it felt like I had been chewing gum allt he day prior. thought she may be clenching. She got a mouthguard after a couple months for night but does not feel like it has made a difference. Neck pain has been crhornic, but no injury. Denies LEAVITT except occasionally and they go away. denies dizziness or lightheadness. Mouth xray done recently and everything looked fine. Pt saw specialist in [place] and she suspects this is just muscular. Denies clicking in jaw. Pt was told to avoid hard to chew and crunchy foods and is most of the time following this. She can feel it more w/ those foods. Tried heat and it feels good but doesn't give relief. Gets ringing in ears and feels like ear is stuffy ( thinks both but notices it more in R). Evry couple weeks she gets the ringing and it only lasts about 5-10 min. Ear feeling stuffy is more often than the ringing. Pt is going to PT for LB. She has tingling in upper back sometimes when just sitting down and with walking. Her neck pain has been persistant. She has had some cervical xray but does not recall anything on it. Pt does have referral for sleep study. Pt feels like she has to sleep okay. She wakes up 1- 2x/night and will get up to go to the bathroom. When seh wakes, she doesn't feel rested , feels exhausted by the end of the day, and feels tense when she awakes. Treatment Goals Patient/Caregiver Goals get back to hiking and long walks w/o tingling pain in back, improve neck range and improve comfort, PT-OP-C Subjective Start: 11/14/21 17:51 Freq: Status: Active Protocol: Document 04/23/22 07:29 [facility] (Rec: 04/23/22 09:21 [facility] [id number]) OP-PT Subjective Patient Comments Patient Comments Pt reports not working out d/t doing a lot of fun activities for birthday w/spouse PT-OP-F Manual Assessment Start: 11/14/21 17:51 Freq: Status: Active Protocol: Document 01/23/22 13:50 [facility] (Rec: 01/23/22 15:18 [facility] [id number]) Manual Assessments Soft Tissue Assessment Soft Tissue Mobility Assessment tightness thoughout jaw, neck & tspine mm L>R w/tenderness ( PT-OP-J Posture/Palpation/Skin Start: 11/14/21 17:51 Freq: Status: Active Protocol: Document 03/19/22 15:32 [facility] (Rec: 03/19/22 15:41 [facility] [id number]) Posture Evaluation Tyler Postural Classification System Vertebral Compression Test 2 Elbow Flexion Test 1 PT-OP-K Range of Motion Start: 11/14/21 17:51 Freq: Status: Active Protocol: Document 03/19/22 15:32 [facility] (Rec: 03/19/22 15:40 [facility] [id number]) Cervical Spine Range of Motion Cervical Spine Active Degrees Flexion 64 Extension 69 Rotation Left 57 Rotation Right 56 Lateral Flexion Left 28 Lateral Flexion Right 46 Comments stiff feeling w/L SB & L rot& ext, 35 R rotation tspine; L 61 TMJ Range of Motion Jaw Openning Jaw Openning (mm) 36 PT-OP-L Special Tests Start: 11/14/21 17:51 Freq: Status: Active Protocol: Document 11/15/21 16:04 [facility] (Rec: 11/15/21 17:19 [facility] [id number]) Special Tests Cervical Spine Special Tests Vertebral Artery Test Results neg Spurling's Test Test Results neg Alar Ligament Test Results neg PT-OP-M Strength Start: 11/14/21 17:51 Freq: Status: Active Protocol: Document 03/19/22 15:32 [facility] (Rec: 03/19/22 15:40 [facility] [id number]) Cervical Spine Strength Cervical Spine Manual Muscle Testing Flexion (C1-2) 4- Good- Extension 5 Normal Rotation Left 4+ Good+ Rotation Right 5 Normal Lateral Flexion Left (C3) 4 Good Lateral Flexion Right (C3) 5 Normal Comments 4 sec in axial elongation hold -feels it in her jaw Shoulder Strength Shoulder Manual Muscle Testing Right Flexion 5 Normal Extension 5 Normal Abduction (C5) 5 Normal Adduction 5 Normal External Rotation 5 Normal Internal Rotation 5 Normal Horizontal Abduction 5 Normal Horizontal Adduction 5 Normal Left Flexion 5 Normal Extension 5 Normal Abduction (C5) 5 Normal Adduction 5 Normal External Rotation 5 Normal Internal Rotation 5 Normal Horizontal Abduction 4+ Good+ Horizontal Adduction 5 Normal Comments pain Habd PT-OP-Q Treatments Start: 11/14/21 17:51 Freq: Status: Active Protocol: Document 04/23/22 07:29 [facility] (Rec: 04/23/22 09:21 [facility] [id number]) Manual Therapy Treatment Soft Tissue Mobilization UT/scalenes Body Location R>L Mobilization Type Rolling Body Position Sitting diaphram Body Location R Mobilization Type Sustained Pressure Comments w/LTr tspine Body Location R lat Mobilization Type Rolling,Strumming Intensity/Depth Moderate cervical Mobilization Type Rolling,Strumming Intensity/Depth Moderate Body Position Supine Comments cervical parspinals w/cervical flex w/and w/o dycem Joint Mobilizations rib Comments rib R elevation 6-8 FM thoracic Comments Transverse L T7-10 FM Transverse T2 &3 R FM PT-OP-R Modalities Start: 11/14/21 17:51 Freq: Status: Active Protocol: Document 04/15/22 07:30 [facility] (Rec: 04/15/22 12:24 [facility] [id number]) Hot Pack/Cold Pack Treatment Cold Pack Location cervical & thoracic Patient Position Supine Treatment Duration (minutes) 10 PT-OP-T Assessment and Plan Start: 11/14/21 17:51 Freq: Status: Active Protocol: Document 04/23/22 07:29 [facility] (Rec: 04/23/22 09:21 [facility] [id number]) Physical Therapy Assessment Goals pain Impairment neck pain and tightness that is constant that is at a 2/10 at all the time w/o relief [facility] Goal (LTG) Pt will report no constant neck pain or tightness at least 5/7 days a week LTG Duration 06/11/22 static activity Impairment pain starts after 10 min of standing -3/10 and if stand longer it can get to a 4/10- describes as really uncomfortable-standing at attention/parade rest [employer] Super[employer] Goal (LTG) Pt will be able to stand at attention or parade rest and at home for extended tiem as needed without inc pain greater than 1/10 LTG Duration 06/11/22 activity [facility] Goal (LTG) Pt will report being able to return to long walks w/no more than 1/10 pain in neck and/or thoraic region. 03/19-1.5-2 miles now LTG Duration 06/11/22 ROM Short Term Goal (STG) Pt will have full cervical ROM w/o pain to dec pressure on jaw and improve ability to drive and do typical activities requiring neck motion. 01/23 03/19*-improved ROM but still tight and causes neck pain STG Duration 05/08/22 [facility] Goal (LTG) Pt will have full jaw opening to 40mm w/o feeling of tightness 01/23-tension 03/19-feels okay but still limited LTG Duration 3/7 eating [employer] Super[employer] Goal (LTG) Pt will report no tightness or discomfort w/eating and be able to eat all foods. 01/23-chewy and hard to break through things she feels tired LTG Duration achieved jaw pain Short Term Goal (STG) Pt will report jaw pain being more intermittent rather than constant tightness STG Duration achieved [facility] Goal (LTG) Pt will report no jaw tightness or discomfort more than 1x/week 01/23-more intermittent now LTG Duration achieved -occ gets tired or tight Assessment Summary Assessment Pt has significant R ant restrictions that likely limit her abiltity to rotate. She did imrpove L cervical rotation and R thoracic rot w/ manual treatment. Pt does appear to have a lot of SI restriction also limiting rotaitons Physical Therapy Plan Frequency and Duration Frequency of Treatment 1-2x/week Duration of treatment (weeks) 12 Plan of Care Start Date 03/19/22 Plan of Care End Date 06/11/22 Next Visit Focus/Plan Next Note Type Treatment Note Next Visit Plan STM and joint mobs to thoracic and ribcage to imrpove neck tightness; work on diaphram and work on ant ribcage mobility
--- NOTE | 2022-05-13 18:15 | PT.OPPOC ---
Physical, Occupational & Speech Therapy At [facility] Current Diagnoses Pain in unspecified hip (05/13/22) Unspecified temporomandibular joint disorder, unspecified side (05/13/22) Other specified dorsopathies, cervicothoracic region (05/13/22) Cervicalgia (05/13/22) Low back pain, unspecified (05/13/22) Muscle weakness (generalized) (05/13/22) Abnormal posture (05/13/22) Visit Care Team Role Provider Type Christopher Quevedo MD Attending Provider Non-Staff Primary Care Provider Referring Provider Specialty: Family Practice Address: [facility], Fax: Email: Plan Of Care PT-OP-T Assessment and Plan Start: 11/14/21 17:51 Freq: Status: Active Protocol: Document 05/13/22 16:07 [facility] (Rec: 05/13/22 16:52 [facility] [id number]) Physical Therapy Assessment Goals pain Impairment neck pain and tightness that is constant that is at a 2/10 at all the time w/o relief [employer] Installer Goal (LTG) Pt will report no constant neck pain or tightness at least 5/7 days a week LTG Duration 08/05/22 static activity Impairment pain starts after 10 min of standing -3/10 and if stand longer it can get to a 4/10- describes as really uncomfortable-standing at attention/parade rest [facility] Goal (LTG) Pt will be able to stand at attention or parade rest and at home for extended tiem as needed without inc pain greater than 1/10 LTG Duration 08/05/22 activity Short Term Goal (STG) Pt will report being able to return to long walks w/no more than 1/10 pain in neck and/or thoraic and lumbar region. STG Duration 07/06/22 [employer] Top Installer Goal (LTG) Pt will be able to return to running and working out without pain in cervical, thoracic or lumbar region w/o pain greater than 2/10 LTG Duration 08/05/22 ROM Short Term Goal (STG) Pt will have full cervical and lumbar ROM w/o feeling of tension or pain to allow pt to do ADls w/o inc pain. STG Duration 06/24 [employer] Installer Goal (LTG) Pt will have full jaw opening to 40mm w/o feeling of tightness 01/23-tension 03/19-feels okay but still limited LTG Duration 08/05 Assessment Summary Assessment Pt presents w/new referral adding diagnoses of LBP and B hip pain that have been chronic and pt has received prior PT treatment that has helped some, but she still does complain of significant lumbar pain and discomfort. She is limited in ROM in all areas of the spine w/feeling of difficulty breathing w/R rotation.S he has poor core stabiltiy when doing MMT and LPM and EFT. She would benefit from skilled PT to work on her alignment, pain, and improving movement patterns. Physical Therapy Plan Frequency and Duration Duration of treatment (weeks) 12 Plan of Care Start Date 05/13/22 Plan of Care End Date 08/05/22 Therapeutic Interventions Therapeutic Interventions Balance Training,Gait Training ,Home Exercise Program,Joint Mobilizations,Manual Therapy, Neuromuscular Re-education, Orthotic/Prosthetic Management ,Patient/Caregiver Education, Self-Care/Home Management,Soft Tissue Mobilization,Taping, Therapeutic Activities, Therapeutic Exercises Modalities Cold Pack/Ice Massage,Electric Stimulation,Hot Packs, Infrared Therapy,Iontophoresis ,Traction- Mechanical, Ultrasound Other Therapeutic Interventions dexomethosone ionto Next Visit Focus/Plan Next Note Type Treatment Note Next Visit Plan work on soft tissue of hips and work on hip jt mobs along w/pelvis mobs to improve alignment. Give abdominal series Plan of Care Dates Plan of Care Start Date 05/13/22 Plan of Care End Date 08/05/22 Electronically Signed by: Grace Michel, PT 05/15/22 0915 If you are in agreement with this Plan of Care, please return a signed and dated copy. I have reviewed this Plan of Care and certify that the skilled therapy services above are required to meet the patient?s needs. Physician Signature Date Printed Name and Credentials Clinical Instructor Signature Printed Name and Credentials
--- NOTE | 2022-05-13 18:15 | PT.OTRE ---
Current Diagnoses Pain in unspecified hip (05/13/22) Unspecified temporomandibular joint disorder, unspecified side (05/13/22) Other specified dorsopathies, cervicothoracic region (05/13/22) Cervicalgia (05/13/22) Low back pain, unspecified (05/13/22) Muscle weakness (generalized) (05/13/22) Abnormal posture (05/13/22) Visit Care Team Role Provider Type Christopher Qeuvedo MD Attending Provider Non-Staff Primary Care Provider Referring Provider Specialty: Family Practice Address: [facility], Fax: Email: Physical Therapy Re-Evaluation PT-OP-A Visit Information Start: 11/14/21 17:51 Freq: Status: Active Protocol: Document 05/13/22 16:07 [facility] (Rec: 05/13/22 16:52 [facility] [id number]) Out-Patient Physical Therapy Visit Information Visit Information Visit Type Re-Evaluation Visit Note 20 Visit Start Time 16:06 Visit Stop Time 16:50 Total Visit Minutes 44 Visit Number 04/18 Number of SODA FOUNTAIN CLERK Visits 0 PT-OP-B Current Condition Start: 11/14/21 17:51 Freq: Status: Active Protocol: Document 05/13/22 16:07 [facility] (Rec: 05/13/22 16:52 [facility] [id number]) Current Condition History of Current Condition Onset Date 6 months/1 year Current Complaints B jaw pain/cervical& thoracic pain History of Current Condition 05/13-pt reports LBP and B hip pain has been going on for years. The only traumatic injury was in 2006 was doing a marla carry and stepped in a hole and caused a lot of pain at the time and the back and R hip. She does not really remember any signficiant before that. Since then it has been an off and on thing but it got pretty bad for the past year. She did do PT at another clinic for hips and back and hips are feeling better but she also hasn't been running and is only recently getting into more intense workouts again gradually and feels tight and tender after. Back and hips can feel really hot and burning. Pt notes pain in LB, thoracic and neck and B sides. She has felt like she was constipated today and felt like she had to go but couldn' t. She has worked on diet a lot. She has BM about 1x/week. She has had 3 xrays that have noted constipation. Rates type 1 and 2 mostly on bristol stool chart. She gets a lot fiber in her diet. Pt can cross her legs and get her back to pop and does it d/t feeling like it needs it. Pt reports she doesn't notice jaw during the day, she is clenching more at night w/ mouth guard. Neck still been feeling stiff, Tingling in mid back about 1x/day at least. It is not as prolonged and she feels like she can improve it if she adjusts her posture. She did do a 2 mile walk and felt pretty uncomfortable at 1 mile. Re-eval: Pt reports neck and thoracic pain started about 1 year ago and she would ntoice that 5-10 min into walking, she starts to get tingling in shoulder blades. Fwd flex stretch feels like it should help but it doesn't. Once it starts, there is no way ot stop it besides lay down. This has kept her from hiking. Neck pain is more feels so tight that she feels like her ROM is limited. ITs been better since started working on jaw. It always feels like she needs to move her neck but doing the motion doesn't really help. It feels like she wants to pop it but that doesn't really help either. She gets things that feels like golf balls along neck. IE:Jaw pain started about 6 months ago. when it first started it felt like I had been chewing gum allt he day prior. MD thought she may be clenching. She got a mouthguard after a couple months for night but does not feel like it has made a difference. Neck pain has been crhornic, but no injury. Denies LEAVITT except occasionally and they go away. denies dizziness or lightheadness. Mouth xray done recently and everything looked fine. Pt saw specialist in [place] and she suspects this is just muscular. Denies clicking in jaw. Pt was told to avoid hard to chew and crunchy foods and is most of the time following this. She can feel it more w/ those foods. Tried heat and it feels good but doesn't give relief. Gets ringing in ears and feels like ear is stuffy ( thinks both but notices it more in R). Evry couple weeks she gets the ringing and it only lasts about 5-10 min. Ear feeling stuffy is more often than the ringing. Pt is going to PT for LB. She has tingling in upper back sometimes when just sitting down and with walking. Her neck pain has been persistant. She has had some cervical xray but does not recall anything on it. Pt does have referral for sleep study. Pt feels like she has to sleep okay. She wakes up 1- 2x/night and will get up to go to the bathroom. When seh wakes, she doesn't feel rested , feels exhausted by the end of the day, and feels tense when she awakes. Treatment Goals Patient/Caregiver Goals get back to hiking and long walks, dec stiffness, back to running & workouts PT-OP-C Subjective Start: 11/14/21 17:51 Freq: Status: Active Protocol: Document 05/13/22 16:07 [facility] (Rec: 05/13/22 16:52 [facility] [id number]) OP-PT Subjective Patient Comments Patient Comments She feels exhausted after working out today. She jogged along [address] about 1mile (some hillls). LB feels compressed PT-OP-F Manual Assessment Start: 11/14/21 17:51 Freq: Status: Active Protocol: Document 05/13/22 16:07 [facility] (Rec: 05/13/22 16:52 [facility] [id number]) Manual Assessments Soft Tissue Assessment Soft Tissue Mobility Assessment tenderness throughout lumbar and gluteal region along w/ abdomenal wall Joint Mobility Assessment Joint Mobility Assessment R iliac crest is higher; equal greater trochanter; w/knee bending tibia track close to neutral; IR of B femurs w/knee bending PT-OP-J Posture/Palpation/Skin Start: 11/14/21 17:51 Freq: Status: Active Protocol: Document 05/13/22 16:07 [facility] (Rec: 05/13/22 16:52 [facility] [id number]) Posture Evaluation Tyler Postural Classification System Tyler Postural Classifications Posterior/Anterior Vertebral Compression Test 1 Elbow Flexion Test 3 Lumbar Protective Mechanism Left AP 1 Lumbar Protective Mechanism Right AP 1 Lumbar Protective Mechanism Left PA 1 PT-OP-K Range of Motion Start: 11/14/21 17:51 Freq: Status: Active Protocol: Document 05/13/22 16:07 [facility] (Rec: 05/13/22 16:52 [facility] [id number]) Lumbar Spine Range of Motion Lumbar Spine Active Percentage Flexion 50 Extension 75 Rotation Left 75 Rotation Right 65 Lateral Flexion Left 60 Lateral Flexion Right 75 Comments L SB dec folding L; R SB dec L lengthening; tight B rot, L 5 hinge w/ext; tight w/flex Hip Goniometric Range of Motion Hip Measured in Degrees Right Active Flexion w/Knee Flexed 108 Straight Leg Raise 90 Internal Rotation 30 External Rotation 29 Comments discomfort ant hip w/flex Left Active Flexion w/Knee Flexed 101 Straight Leg Raise 90 Internal Rotation 17 External Rotation 18 Comments pain in hip/back; discomfort in abdomen and rib and groin w /flex, SLR PROM tight in HS and lat hip PT-OP-L Special Tests Start: 11/14/21 17:51 Freq: Status: Active Protocol: Document 05/13/22 16:07 [facility] (Rec: 05/13/22 16:52 [facility] [id number]) Special Tests Lumbar Spine Special Tests Slump Test Results positive for tension B w/neck flex PT-OP-M Strength Start: 11/14/21 17:51 Freq: Status: Active Protocol: Document 05/13/22 16:07 [facility] (Rec: 05/13/22 16:52 [facility] [id number]) Hip Strength Hip Manual Muscle Testing Right Flexion (L2) 4 Good Extension (S1) 3+ Fair+ Abduction 4- Good- Adduction 4- Good- External Rotation 4 Good Internal Rotation 5 Normal Left Flexion (L2) 3+ Fair+ Extension (S1) 3+ Fair+ Abduction 4 Good Adduction 4- Good- External Rotation 4 Good Internal Rotation 4- Good- Comments 5/5 knee and ankle MMT B PT-OP-Q Treatments Start: 11/14/21 17:51 Freq: Status: Active Protocol: Document 04/23/22 07:29 [facility] (Rec: 04/23/22 09:21 [facility] [id number]) Manual Therapy Treatment Soft Tissue Mobilization UT/scalenes Body Location R>L Mobilization Type Rolling Body Position Sitting diaphram Body Location R Mobilization Type Sustained Pressure Comments w/LTr tspine Body Location R lat Mobilization Type Rolling,Strumming Intensity/Depth Moderate cervical Mobilization Type Rolling,Strumming Intensity/Depth Moderate Body Position Supine Comments cervical parspinals w/cervical flex w/and w/o dycem Joint Mobilizations rib Comments rib R elevation 6-8 FM thoracic Comments Transverse L T7-10 FM Transverse T2 &3 R FM PT-OP-R Modalities Start: 11/14/21 17:51 Freq: Status: Active Protocol: Document 04/15/22 07:30 [facility] (Rec: 04/15/22 12:24 [facility] [id number]) Hot Pack/Cold Pack Treatment Cold Pack Location cervical & thoracic Patient Position Supine Treatment Duration (minutes) 10 PT-OP-T Assessment and Plan Start: 11/14/21 17:51 Freq: Status: Active Protocol: Document 05/13/22 16:07 [facility] (Rec: 05/13/22 16:52 [facility] [id number]) Physical Therapy Assessment Goals pain Impairment neck pain and tightness that is constant that is at a 2/10 at all the time w/o relief Rn Hematology Goal (LTG) Pt will report no constant neck pain or tightness at least 5/7 days a week LTG Duration 08/05/22 static activity Impairment pain starts after 10 min of standing -3/10 and if stand longer it can get to a 4/10- describes as really uncomfortable-standing at attention/parade rest Rn Hematology Goal (LTG) Pt will be able to stand at attention or parade rest and at home for extended tiem as needed without inc pain greater than 1/10 LTG Duration 08/05/22 activity Short Term Goal (STG) Pt will report being able to return to long walks w/no more than 1/10 pain in neck and/or thoraic and lumbar region. STG Duration 07/06/22 [facility] Goal (LTG) Pt will be able to return to running and working out without pain in cervical, thoracic or lumbar region w/o pain greater than 2/10 LTG Duration 08/05/22 ROM Short Term Goal (STG) Pt will have full cervical and lumbar ROM w/o feeling of tension or pain to allow pt to do ADls w/o inc pain. STG Duration 06/24 [facility] Goal (LTG) Pt will have full jaw opening to 40mm w/o feeling of tightness 01/23-tension 03/19-feels okay but still limited LTG Duration 08/05 Assessment Summary Assessment Pt presents w/new referral adding diagnoses of LBP and B hip pain that have been chronic and pt has received prior PT treatment that has helped some, but she still does complain of significant lumbar pain and discomfort. She is limited in ROM in all areas of the spine w/feeling of difficulty breathing w/R rotation.S he has poor core stabiltiy when doing MMT and LPM and EFT. She would benefit from skilled PT to work on her alignment, pain, and improving movement patterns. Physical Therapy Plan Frequency and Duration Duration of treatment (weeks) 12 Plan of Care Start Date 05/13/22 Plan of Care End Date 08/05/22 Therapeutic Interventions Therapeutic Interventions Balance Training,Gait Training ,Home Exercise Program,Joint Mobilizations,Manual Therapy, Neuromuscular Re-education, Orthotic/Prosthetic Management ,Patient/Caregiver Education, Self-Care/Home Management,Soft Tissue Mobilization,Taping, Therapeutic Activities, Therapeutic Exercises Modalities Cold Pack/Ice Massage,Electric Stimulation,Hot Packs, Infrared Therapy,Iontophoresis ,Traction- Mechanical, Ultrasound Other Therapeutic Interventions dexomethosone ionto Next Visit Focus/Plan Next Note Type Treatment Note Next Visit Plan work on soft tissue of hips and work on hip jt mobs along w/pelvis mobs to improve alignment. Give abdominal series
--- NOTE | 2022-05-23 16:07 | PT.OTN ---
Current Diagnoses Pain in unspecified hip (05/23/22) Unspecified temporomandibular joint disorder, unspecified side (05/23/22) Other specified dorsopathies, cervicothoracic region (05/23/22) Cervicalgia (05/23/22) Low back pain, unspecified (05/23/22) Muscle weakness (generalized) (05/23/22) Abnormal posture (05/23/22) Physical Therapy Treatment Note PT-OP-A Visit Information Start: 11/14/21 17:51 Freq: Status: Active Protocol: Document 05/23/22 15:19 [facility] (Rec: 05/23/22 16:06 [facility] [id number]) Out-Patient Physical Therapy Visit Information Visit Information Visit Type Treatment Note Visit Note 21 Visit Start Time 15:20 Visit Stop Time 16:00 Total Visit Minutes 40 Visit Number 2 Number of CURER ACID DRUM Visits 0 PT-OP-B Current Condition Start: 11/14/21 17:51 Freq: Status: Active Protocol: Document 05/13/22 16:07 [facility] (Rec: 05/13/22 16:52 [facility] [id number]) Current Condition History of Current Condition Onset Date 6 months/1 year Current Complaints B jaw pain/cervical& thoracic pain History of Current Condition 05/13-pt reports LBP and B hip pain has been going on for years. The only traumatic injury was in 2006 was doing a marla carry and stepped in a hole and caused a lot of pain at the time and the back and R hip. She does not really remember any signficiant before that. Since then it has been an off and on thing but it got pretty bad for the past year. She did do PT at another clinic for hips and back and hips are feeling better but she also hasn't been running and is only recently getting into more intense workouts again gradually and feels tight and tender after. Back and hips can feel really hot and burning. Pt notes pain in LB, thoracic and neck and B sides. She has felt like she was constipated today and felt like she had to go but couldn' t. She has worked on diet a lot. She has BM about 1x/week. She has had 3 xrays that have noted constipation. Rates type 1 and 2 mostly on bristol stool chart. She gets a lot fiber in her diet. Pt can cross her legs and get her back to pop and does it d/t feeling like it needs it. Pt reports she doesn't notice jaw during the day, she is clenching more at night w/ mouth guard. Neck still been feeling stiff, Tingling in mid back about 1x/day at least. It is not as prolonged and she feels like she can improve it if she adjusts her posture. She did do a 2 mile walk and felt pretty uncomfortable at 1 mile. Re-eval: Pt reports neck and thoracic pain started about 1 year ago and she would ntoice that 5-10 min into walking, she starts to get tingling in shoulder blades. Fwd flex stretch feels like it should help but it doesn't. Once it starts, there is no way ot stop it besides lay down. This has kept her from hiking. Neck pain is more feels so tight that she feels like her ROM is limited. ITs been better since started working on jaw. It always feels like she needs to move her neck but doing the motion doesn't really help. It feels like she wants to pop it but that doesn't really help either. She gets things that feels like golf balls along neck. IE:Jaw pain started about 6 months ago. when it first started it felt like I had been chewing gum allt he day prior. thought she may be clenching. She got a mouthguard after a couple months for night but does not feel like it has made a difference. Neck pain has been crhornic, but no injury. Denies LEAVITT except occasionally and they go away. denies dizziness or lightheadness. Mouth xray done recently and everything looked fine. Pt saw specialist in [place] and she suspects this is just muscular. Denies clicking in jaw. Pt was told to avoid hard to chew and crunchy foods and is most of the time following this. She can feel it more w/ those foods. Tried heat and it feels good but doesn't give relief. Gets ringing in ears and feels like ear is stuffy ( thinks both but notices it more in R). Evry couple weeks she gets the ringing and it only lasts about 5-10 min. Ear feeling stuffy is more often than the ringing. Pt is going to PT for LB. She has tingling in upper back sometimes when just sitting down and with walking. Her neck pain has been persistant. She has had some cervical xray but does not recall anything on it. Pt does have referral for sleep study. Pt feels like she has to sleep okay. She wakes up 1- 2x/night and will get up to go to the bathroom. When seh wakes, she doesn't feel rested , feels exhausted by the end of the day, and feels tense when she awakes. Treatment Goals Patient/Caregiver Goals get back to hiking and long walks, dec stiffness, back to running & workouts PT-OP-C Subjective Start: 11/14/21 17:51 Freq: Status: Active Protocol: Document 05/23/22 15:19 [facility] (Rec: 05/23/22 16:06 [facility] [id number]) OP-PT Subjective Patient Comments Patient Comments Pt reprots starting yesterday some tenderness in temporalis and jaw. She started w/pain in buttocks that went down leg post to knee today when walking into work and took ibuprofen and that helped. Friday she did treadmill intervals and knee flex/ext and was exercise bike w/ strength and yesterday had a sleep med appt so couldn't go to the gym. She liked the sleep med doc. PT-OP-F Manual Assessment Start: 11/14/21 17:51 Freq: Status: Active Protocol: Document 05/13/22 16:07 [facility] (Rec: 05/13/22 16:52 [facility] [id number]) Manual Assessments Soft Tissue Assessment Soft Tissue Mobility Assessment tenderness throughout lumbar and gluteal region along w/ abdomenal wall Joint Mobility Assessment Joint Mobility Assessment R iliac crest is higher; equal greater trochanter; w/knee bending tibia track close to neutral; IR of B femurs w/knee bending PT-OP-J Posture/Palpation/Skin Start: 11/14/21 17:51 Freq: Status: Active Protocol: Document 05/13/22 16:07 [facility] (Rec: 05/13/22 16:52 [facility] [id number]) Posture Evaluation Tyler Postural Classification System Tyler Postural Classifications Posterior/Anterior Vertebral Compression Test 1 Elbow Flexion Test 3 Lumbar Protective Mechanism Left AP 1 Lumbar Protective Mechanism Right AP 1 Lumbar Protective Mechanism Left PA 1 PT-OP-K Range of Motion Start: 11/14/21 17:51 Freq: Status: Active Protocol: Document 05/13/22 16:07 [facility] (Rec: 05/13/22 16:52 [facility] [id number]) Lumbar Spine Range of Motion Lumbar Spine Active Percentage Flexion 50 Extension 75 Rotation Left 75 Rotation Right 65 Lateral Flexion Left 60 Lateral Flexion Right 75 Comments L SB dec folding L; R SB dec L lengthening; tight B rot, L 5 hinge w/ext; tight w/flex Hip Goniometric Range of Motion Hip Right Active Flexion w/Knee Flexed 108 Straight Leg Raise 90 Internal Rotation 30 External Rotation 29 Comments discomfort ant hip w/flex Left Active Flexion w/Knee Flexed 101 Straight Leg Raise 90 Internal Rotation 17 External Rotation 18 Comments pain in hip/back; discomfort in abdomen and rib and groin w /flex, SLR PROM tight in HS and lat hip PT-OP-L Special Tests Start: 11/14/21 17:51 Freq: Status: Active Protocol: Document 05/13/22 16:07 [facility] (Rec: 05/13/22 16:52 [facility] [id number]) Special Tests Lumbar Spine Special Tests Slump Test Results positive for tension B w/neck flex PT-OP-M Strength Start: 11/14/21 17:51 Freq: Status: Active Protocol: Document 05/13/22 16:07 [facility] (Rec: 05/13/22 16:52 [facility] [id number]) Hip Strength Hip Manual Muscle Testing Right Flexion (L2) 4 Good Extension (S1) 3+ Fair+ Abduction 4- Good- Adduction 4- Good- External Rotation 4 Good Internal Rotation 5 Normal Left Flexion (L2) 3+ Fair+ Extension (S1) 3+ Fair+ Abduction 4 Good Adduction 4- Good- External Rotation 4 Good Internal Rotation 4- Good- Comments 5/5 knee and ankle MMT B PT-OP-Q Treatments Start: 11/14/21 17:51 Freq: Status: Active Protocol: Document 05/23/22 15:19 [facility] (Rec: 05/23/22 16:06 [facility] [id number]) Therapeutic Exercises Supine Exercises abdominal Supine Exercise Name B flex and diagonal isometrics Side bilateral Reps/Minutes 30 sec ea Comments extra time for edu on set up Manual Therapy Treatment Soft Tissue Mobilization hip Body Location L glutes Mobilization Type Rolling Intensity/Depth Moderate Body Position Prone lumbar Body Location QL & ES B Mobilization Type Rolling Intensity/Depth Moderate Body Position Prone Joint Mobilizations sacrum Joint L caudal and AP FM innominate Joint L caudal FM & B ER FM hip Joint on axis IR L FM PT-OP-R Modalities Start: 11/14/21 17:51 Freq: Status: Active Protocol: Document 04/15/22 07:30 [facility] (Rec: 04/15/22 12:24 [facility] [id number]) Hot Pack/Cold Pack Treatment Cold Pack Location cervical & thoracic Patient Position Supine Treatment Duration (minutes) 10 PT-OP-T Assessment and Plan Start: 11/14/21 17:51 Freq: Status: Active Protocol: Document 05/23/22 15:19 [facility] (Rec: 05/23/22 16:06 [facility] [id number]) Physical Therapy Assessment Goals pain Impairment neck pain and tightness that is constant that is at a 2/10 at all the time w/o relief Nutritionalist Goal (LTG) Pt will report no constant neck pain or tightness at least 5/7 days a week LTG Duration 08/05/22 static activity Impairment pain starts after 10 min of standing -06/14 and if stand longer it can get to a 4/10- describes as really uncomfortable-standing at attention/parade rest Nutritionalist Goal (LTG) Pt will be able to stand at attention or parade rest and at home for extended tiem as needed without inc pain greater than 1/10 LTG Duration 08/05/22 activity Short Term Goal (STG) Pt will report being able to return to long walks w/no more than 1/10 pain in neck and/or thoraic and lumbar region. STG Duration 07/06/22 Shelter Goal (LTG) Pt will be able to return to running and working out without pain in cervical, thoracic or lumbar region w/o pain greater than 2/10 LTG Duration 08/05/22 ROM Short Term Goal (STG) Pt will have full cervical and lumbar ROM w/o feeling of tension or pain to allow pt to do ADls w/o inc pain. STG Duration 06/24 Shelter Goal (LTG) Pt will have full jaw opening to 40mm w/o feeling of tightness 01/23-tension 03/19-feels okay but still limited LTG Duration 08/05 Assessment Summary Assessment Pt had iproved hip mobility w/ manual treatment. maual faciliation of new end ranges. abdominal series given for core stability Physical Therapy Plan Frequency and Duration Duration of treatment (weeks) 12 Plan of Care Start Date 05/13/22 Plan of Care End Date 08/05/22 Next Visit Focus/Plan Next Note Type Treatment Note Next Visit Plan eval lumbar spine moblity, work on further hip and innominate mobility pnf
--- NOTE | 2022-05-28 18:00 | PT.OTN ---
Current Diagnoses Pain in unspecified hip (05/28/22) Unspecified temporomandibular joint disorder, unspecified side (05/28/22) Other specified dorsopathies, cervicothoracic region (05/28/22) Cervicalgia (05/28/22) Low back pain, unspecified (05/28/22) Muscle weakness (generalized) (05/28/22) Abnormal posture (05/28/22) Physical Therapy Treatment Note PT-OP-A Visit Information Start: 11/14/21 17:51 Freq: Status: Active Protocol: Document 05/28/22 16:05 [facility] (Rec: 05/28/22 18:00 [facility] [id number]) Out-Patient Physical Therapy Visit Information Visit Information Visit Type Treatment Note Visit Note 22 Visit Start Time 15:20 Visit Stop Time 16:01 Total Visit Minutes 41 Visit Number 3 Number of RECLAIMER Visits 0 PT-OP-B Current Condition Start: 11/14/21 17:51 Freq: Status: Active Protocol: Document 05/13/22 16:07 [facility] (Rec: 05/13/22 16:52 [facility] [id number]) Current Condition History of Current Condition Onset Date 6 months/1 year Current Complaints B jaw pain/cervical& thoracic pain History of Current Condition 05/13-pt reports LBP and B hip pain has been going on for years. The only traumatic injury was in 2006 was doing a marla carry and stepped in a hole and caused a lot of pain at the time and the back and R hip. She does not really remember any signficiant before that. Since then it has been an off and on thing but it got pretty bad for the past year. She did do PT at another clinic for hips and back and hips are feeling better but she also hasn't been running and is only recently getting into more intense workouts again gradually and feels tight and tender after. Back and hips can feel really hot and burning. Pt notes pain in LB, thoracic and neck and B sides. She has felt like she was constipated today and felt like she had to go but couldn' t. She has worked on diet a lot. She has BM about 1x/week. She has had 3 xrays that have noted constipation. Rates type 1 and 2 mostly on bristol stool chart. She gets a lot fiber in her diet. Pt can cross her legs and get her back to pop and does it d/t feeling like it needs it. Pt reports she doesn't notice jaw during the day, she is clenching more at night w/ mouth guard. Neck still been feeling stiff, Tingling in mid back about 1x/day at least. It is not as prolonged and she feels like she can improve it if she adjusts her posture. She did do a 2 mile walk and felt pretty uncomfortable at 1 mile. Re-eval: Pt reports neck and thoracic pain started about 1 year ago and she would ntoice that 5-10 min into walking, she starts to get tingling in shoulder blades. Fwd flex stretch feels like it should help but it doesn't. Once it starts, there is no way ot stop it besides lay down. This has kept her from hiking. Neck pain is more feels so tight that she feels like her ROM is limited. ITs been better since started working on jaw. It always feels like she needs to move her neck but doing the motion doesn't really help. It feels like she wants to pop it but that doesn't really help either. She gets things that feels like golf balls along neck. IE:Jaw pain started about 6 months ago. when it first started it felt like I had been chewing gum allt he day prior. thought she may be clenching. She got a mouthguard after a couple months for night but does not feel like it has made a difference. Neck pain has been crhornic, but no injury. Denies LEAVITT except occasionally and they go away. denies dizziness or lightheadness. Mouth xray done recently and everything looked fine. Pt saw specialist in [place] and she suspects this is just muscular. Denies clicking in jaw. Pt was told to avoid hard to chew and crunchy foods and is most of the time following this. She can feel it more w/ those foods. Tried heat and it feels good but doesn't give relief. Gets ringing in ears and feels like ear is stuffy ( thinks both but notices it more in R). Evry couple weeks she gets the ringing and it only lasts about 5-10 min. Ear feeling stuffy is more often than the ringing. Pt is going to PT for LB. She has tingling in upper back sometimes when just sitting down and with walking. Her neck pain has been persistant. She has had some cervical xray but does not recall anything on it. Pt does have referral for sleep study. Pt feels like she has to sleep okay. She wakes up 1- 2x/night and will get up to go to the bathroom. When seh wakes, she doesn't feel rested , feels exhausted by the end of the day, and feels tense when she awakes. Treatment Goals Patient/Caregiver Goals get back to hiking and long walks, dec stiffness, back to running & workouts PT-OP-C Subjective Start: 11/14/21 17:51 Freq: Status: Active Protocol: Document 05/28/22 16:05 [facility] (Rec: 05/28/22 18:00 [facility] [id number]) OP-PT Subjective Patient Comments Patient Comments Pt reports she has had company so she hasn't worked out as much. She will try this week. Pt reports she hasn't had any of the leg pain since last appt. PT-OP-F Manual Assessment Start: 11/14/21 17:51 Freq: Status: Active Protocol: Document 05/13/22 16:07 [facility] (Rec: 05/13/22 16:52 [facility] [id number]) Manual Assessments Soft Tissue Assessment Soft Tissue Mobility Assessment tenderness throughout lumbar and gluteal region along w/ abdomenal wall Joint Mobility Assessment Joint Mobility Assessment R iliac crest is higher; equal greater trochanter; w/knee bending tibia track close to neutral; IR of B femurs w/knee bending PT-OP-J Posture/Palpation/Skin Start: 11/14/21 17:51 Freq: Status: Active Protocol: Document 05/13/22 16:07 [facility] (Rec: 05/13/22 16:52 [facility] [id number]) Posture Evaluation Tyler Postural Classification System Tyler Postural Classifications Posterior/Anterior Vertebral Compression Test 1 Elbow Flexion Test 3 Lumbar Protective Mechanism Left AP 1 Lumbar Protective Mechanism Right AP 1 Lumbar Protective Mechanism Left PA 1 PT-OP-K Range of Motion Start: 11/14/21 17:51 Freq: Status: Active Protocol: Document 05/13/22 16:07 [facility] (Rec: 05/13/22 16:52 [facility] [id number]) Lumbar Spine Range of Motion Lumbar Spine Active Percentage Flexion 50 Extension 75 Rotation Left 75 Rotation Right 65 Lateral Flexion Left 60 Lateral Flexion Right 75 Comments L SB dec folding L; R SB dec L lengthening; tight B rot, L 5 hinge w/ext; tight w/flex Hip Goniometric Range of Motion Hip Right Active Flexion w/Knee Flexed 108 Straight Leg Raise 90 Internal Rotation 30 External Rotation 29 Comments discomfort ant hip w/flex Left Active Flexion w/Knee Flexed 101 Straight Leg Raise 90 Internal Rotation 17 External Rotation 18 Comments pain in hip/back; discomfort in abdomen and rib and groin w /flex, SLR PROM tight in HS and lat hip PT-OP-L Special Tests Start: 11/14/21 17:51 Freq: Status: Active Protocol: Document 05/13/22 16:07 [facility] (Rec: 05/13/22 16:52 [facility] [id number]) Special Tests Lumbar Spine Special Tests Slump Test Results positive for tension B w/neck flex PT-OP-M Strength Start: 11/14/21 17:51 Freq: Status: Active Protocol: Document 05/13/22 16:07 [facility] (Rec: 05/13/22 16:52 [facility] [id number]) Hip Strength Hip Manual Muscle Testing Right Flexion (L2) 4 Good Extension (S1) 3+ Fair+ Abduction 4- Good- Adduction 4- Good- External Rotation 4 Good Internal Rotation 5 Normal Left Flexion (L2) 3+ Fair+ Extension (S1) 3+ Fair+ Abduction 4 Good Adduction 4- Good- External Rotation 4 Good Internal Rotation 4- Good- Comments 5/5 knee and ankle MMT B PT-OP-Q Treatments Start: 11/14/21 17:51 Freq: Status: Active Protocol: Document 05/28/22 16:05 [facility] (Rec: 05/28/22 18:00 [facility] [id number]) Manual Therapy Treatment Soft Tissue Mobilization lumbar Body Location QL & ES L>R Mobilization Type Rolling Intensity/Depth Moderate Body Position Prone Joint Mobilizations sacrum Joint L caudal and AP FM innominate Joint L caudal FM & B IR FM; R ext FM, R abd FM hip Joint on axis IR L FM; R abd FM PT-OP-R Modalities Start: 11/14/21 17:51 Freq: Status: Active Protocol: Document 04/15/22 07:30 [facility] (Rec: 04/15/22 12:24 [facility] [id number]) Hot Pack/Cold Pack Treatment Cold Pack Location cervical & thoracic Patient Position Supine Treatment Duration (minutes) 10 PT-OP-T Assessment and Plan Start: 11/14/21 17:51 Freq: Status: Active Protocol: Document 05/28/22 16:05 [facility] (Rec: 05/28/22 18:00 [facility] [id number]) Physical Therapy Assessment Goals pain Impairment neck pain and tightness that is constant that is at a 2/10 at all the time w/o relief Superintendent Transmission Goal (LTG) Pt will report no constant neck pain or tightness at least 5/7 days a week LTG Duration 08/05/22 static activity Impairment pain starts after 10 min of standing -310 and if stand longer it can get to a 4/10- describes as really uncomfortable-standing at attention/parade rest Superintendent Transmission Goal (LTG) Pt will be able to stand at attention or parade rest and at home for extended tiem as needed without inc pain greater than 1/10 LTG Duration 08/05/22 activity Short Term Goal (STG) Pt will report being able to return to long walks w/no more than 1/10 pain in neck and/or thoraic and lumbar region. STG Duration 07/06/22 Superintendent Transmission Goal (LTG) Pt will be able to return to running and working out without pain in cervical, thoracic or lumbar region w/o pain greater than 2/10 LTG Duration 08/05/22 ROM Short Term Goal (STG) Pt will have full cervical and lumbar ROM w/o feeling of tension or pain to allow pt to do ADls w/o inc pain. STG Duration 06/24 Superintendent Transmission Goal (LTG) Pt will have full jaw opening to 40mm w/o feeling of tightness 01/23-tension 03/19-feels okay but still limited LTG Duration 08/05 Assessment Summary Assessment Pt had improved R hip IR and improved eveness of iliac crests. She also had imrpoved R leg swing w/improved innominate mobility. Physical Therapy Plan Frequency and Duration Duration of treatment (weeks) 12 Plan of Care Start Date 05/13/22 Plan of Care End Date 08/05/22 Next Visit Focus/Plan Next Note Type Treatment Note Next Visit Plan eval lumbar spine moblity, work on abdomen restrictions, PNF
--- NOTE | 2022-06-05 18:18 | PT.OTN ---
Current Diagnoses Pain in unspecified hip (06/05/22) Unspecified temporomandibular joint disorder, unspecified side (06/05/22) Other specified dorsopathies, cervicothoracic region (06/05/22) Cervicalgia (06/05/22) Low back pain, unspecified (06/05/22) Muscle weakness (generalized) (06/05/22) Abnormal posture (06/05/22) Physical Therapy Treatment Note PT-OP-A Visit Information Start: 11/14/21 17:51 Freq: Status: Active Protocol: Document 06/05/22 18:14 [facility] (Rec: 06/05/22 18:18 [facility] [id number]) Out-Patient Physical Therapy Visit Information Visit Information Visit Type Treatment Note Visit Note 23 Visit Start Time 16:05 Visit Stop Time 16:45 Total Visit Minutes 40 Visit Number 07/17 Number of SHAKE SAWYER Visits 0 PT-OP-B Current Condition Start: 11/14/21 17:51 Freq: Status: Active Protocol: Document 05/13/22 16:07 [facility] (Rec: 05/13/22 16:52 [facility] [id number]) Current Condition History of Current Condition Onset Date 6 months/1 year Current Complaints B jaw pain/cervical& thoracic pain History of Current Condition /-pt reports LBP and B hip pain has been going on for years. The only traumatic injury was in 2006 was doing a marla carry and stepped in a hole and caused a lot of pain at the time and the back and R hip. She does not really remember any signficiant before that. Since then it has been an off and on thing but it got pretty bad for the past year. She did do PT at another clinic for hips and back and hips are feeling better but she also hasn't been running and is only recently getting into more intense workouts again gradually and feels tight and tender after. Back and hips can feel really hot and burning. Pt notes pain in LB, thoracic and neck and B sides. She has felt like she was constipated today and felt like she had to go but couldn' t. She has worked on diet a lot. She has BM about 1x/week. She has had 3 xrays that have noted constipation. Rates type 1 and 2 mostly on bristol stool chart. She gets a lot fiber in her diet. Pt can cross her legs and get her back to pop and does it d/t feeling like it needs it. Pt reports she doesn't notice jaw during the day, she is clenching more at night w/ mouth guard. Neck still been feeling stiff, Tingling in mid back about 1x/day at least. It is not as prolonged and she feels like she can improve it if she adjusts her posture. She did do a 2 mile walk and felt pretty uncomfortable at 1 mile. Re-eval: Pt reports neck and thoracic pain started about 1 year ago and she would ntoice that 5-10 min into walking, she starts to get tingling in shoulder blades. Fwd flex stretch feels like it should help but it doesn't. Once it starts, there is no way ot stop it besides lay down. This has kept her from hiking. Neck pain is more feels so tight that she feels like her ROM is limited. ITs been better since started working on jaw. It always feels like she needs to move her neck but doing the motion doesn't really help. It feels like she wants to pop it but that doesn't really help either. She gets things that feels like golf balls along neck. IE:Jaw pain started about 6 months ago. when it first started it felt like I had been chewing gum allt he day prior. MD thought she may be clenching. She got a mouthguard after a couple months for night but does not feel like it has made a difference. Neck pain has been crhornic, but no injury. Denies LEAVITT except occasionally and they go away. denies dizziness or lightheadness. Mouth xray done recently and everything looked fine. Pt saw specialist in [place] and she suspects this is just muscular. Denies clicking in jaw. Pt was told to avoid hard to chew and crunchy foods and is most of the time following this. She can feel it more w/ those foods. Tried heat and it feels good but doesn't give relief. Gets ringing in ears and feels like ear is stuffy ( thinks both but notices it more in R). Evry couple weeks she gets the ringing and it only lasts about 5-10 min. Ear feeling stuffy is more often than the ringing. Pt is going to PT for LB. She has tingling in upper back sometimes when just sitting down and with walking. Her neck pain has been persistant. She has had some cervical xray but does not recall anything on it. Pt does have referral for sleep study. Pt feels like she has to sleep okay. She wakes up 1- 2x/night and will get up to go to the bathroom. When seh wakes, she doesn't feel rested , feels exhausted by the end of the day, and feels tense when she awakes. Treatment Goals Patient/Caregiver Goals get back to hiking and long walks, dec stiffness, back to running & workouts PT-OP-C Subjective Start: 11/14/21 17:51 Freq: Status: Active Protocol: Document 06/05/22 18:14 [facility] (Rec: 06/05/22 18:18 [facility] [id number]) OP-PT Subjective Patient Comments Patient Comments pt reports jaw has been sore recently but unsure if that is partly d/t stress. FEels like she is walking funny today PT-OP-F Manual Assessment Start: 11/14/21 17:51 Freq: Status: Active Protocol: Document 05/13/22 16:07 [facility] (Rec: 05/13/22 16:52 [facility] [id number]) Manual Assessments Soft Tissue Assessment Soft Tissue Mobility Assessment tenderness throughout lumbar and gluteal region along w/ abdomenal wall Joint Mobility Assessment Joint Mobility Assessment R iliac crest is higher; equal greater trochanter; w/knee bending tibia track close to neutral; IR of B femurs w/knee bending PT-OP-J Posture/Palpation/Skin Start: 11/14/21 17:51 Freq: Status: Active Protocol: Document 05/13/22 16:07 [facility] (Rec: 05/13/22 16:52 [facility] [id number]) Posture Evaluation Tyler Postural Classification System Tyler Postural Classifications Posterior/Anterior Vertebral Compression Test 1 Elbow Flexion Test 3 Lumbar Protective Mechanism Left AP 1 Lumbar Protective Mechanism Right AP 1 Lumbar Protective Mechanism Left PA 1 PT-OP-K Range of Motion Start: 11/14/21 17:51 Freq: Status: Active Protocol: Document 05/13/22 16:07 [facility] (Rec: 05/13/22 16:52 [facility] [id number]) Lumbar Spine Range of Motion Lumbar Spine Active Percentage Flexion 50 Extension 75 Rotation Left 75 Rotation Right 65 Lateral Flexion Left 60 Lateral Flexion Right 75 Comments L SB dec folding L; R SB dec L lengthening; tight B rot, L 5 hinge w/ext; tight w/flex Hip Goniometric Range of Motion Hip Right Active Flexion w/Knee Flexed 108 Straight Leg Raise 90 Internal Rotation 30 External Rotation 29 Comments discomfort ant hip w/flex Left Active Flexion w/Knee Flexed 101 Straight Leg Raise 90 Internal Rotation 17 External Rotation 18 Comments pain in hip/back; discomfort in abdomen and rib and groin w /flex, SLR PROM tight in HS and lat hip PT-OP-L Special Tests Start: 11/14/21 17:51 Freq: Status: Active Protocol: Document 05/13/22 16:07 [facility] (Rec: 05/13/22 16:52 [facility] [id number]) Special Tests Lumbar Spine Special Tests Slump Test Results positive for tension B w/neck flex PT-OP-M Strength Start: 11/14/21 17:51 Freq: Status: Active Protocol: Document 05/13/22 16:07 [facility] (Rec: 05/13/22 16:52 [facility] [id number]) Hip Strength Hip Manual Muscle Testing Right Flexion (L2) 4 Good Extension (S1) 3+ Fair+ Abduction 4- Good- Adduction 4- Good- External Rotation 4 Good Internal Rotation 5 Normal Left Flexion (L2) 3+ Fair+ Extension (S1) 3+ Fair+ Abduction 4 Good Adduction 4- Good- External Rotation 4 Good Internal Rotation 4- Good- Comments 5/5 knee and ankle MMT B PT-OP-Q Treatments Start: 11/14/21 17:51 Freq: Status: Active Protocol: Document 06/05/22 18:14 [facility] (Rec: 06/05/22 18:18 [facility] [id number]) Therapeutic Exercises Supine Exercises abdominal Supine Exercise Name B flex and diagonal isometrics Side bilateral Reps/Minutes 30 sec ea Comments extra time for edu on set up Prone Exercises ext Prone Exercise Name hip Side bilateral Reps/Minutes 5 Comments w/manual facilition on L side prolonge dholds Manual Therapy Treatment Soft Tissue Mobilization abdomen Comments R to L around RA & along L side around colon w/LTR lumbar Body Location QL & ES L Mobilization Type Rolling Intensity/Depth Moderate Body Position Sidelying jaw Body Location R>L masseter, temporalis, inf & post jaw Mobilization Type Rolling,Strumming Intensity/Depth Moderate Body Position Supine Joint Mobilizations innominate Joint R ext FM PT-OP-R Modalities Start: 11/14/21 17:51 Freq: Status: Active Protocol: Document 04/15/22 07:30 [facility] (Rec: 04/15/22 12:24 [facility] [id number]) Hot Pack/Cold Pack Treatment Cold Pack Location cervical & thoracic Patient Position Supine Treatment Duration (minutes) 10 PT-OP-T Assessment and Plan Start: 11/14/21 17:51 Freq: Status: Active Protocol: Document 06/05/22 18:14 [facility] (Rec: 06/05/22 18:18 [facility] [id number]) Physical Therapy Assessment Goals pain Impairment neck pain and tightness that is constant that is at a 2/10 at all the time w/o relief Intermediate Goal (LTG) Pt will report no constant neck pain or tightness at least 5/7 days a week LTG Duration 08/05/22 static activity Impairment pain starts after 10 min of standing -3/10 and if stand longer it can get to a 4/10- describes as really uncomfortable-standing at attention/parade rest Monitor Tech Goal (LTG) Pt will be able to stand at attention or parade rest and at home for extended tiem as needed without inc pain greater than 1/10 LTG Duration 08/05/22 activity Short Term Goal (STG) Pt will report being able to return to long walks w/no more than 1/10 pain in neck and/or thoraic and lumbar region. STG Duration 07/06/22 Monitor Tech Goal (LTG) Pt will be able to return to running and working out without pain in cervical, thoracic or lumbar region w/o pain greater than 2/10 LTG Duration 08/05/22 ROM Short Term Goal (STG) Pt will have full cervical and lumbar ROM w/o feeling of tension or pain to allow pt to do ADls w/o inc pain. STG Duration 06/24 Intermediate Goal (LTG) Pt will have full jaw opening to 40mm w/o feeling of tightness 01/23-tension 03/19-feels okay but still limited LTG Duration 08/05 Assessment Summary Assessment pt has signficant R sided abdomen restrictions that she would feel into her back pulling when doing LTR for release. She understood exercises and was given prone hip ext & abdomenal series for home. Improved L ant depression after manual but still some limit into R post dep and push off Physical Therapy Plan Frequency and Duration Duration of treatment (weeks) 12 Plan of Care Start Date 05/13/22 Plan of Care End Date 08/05/22 Next Visit Focus/Plan Next Note Type Treatment Note Next Visit Plan eval lumbar spine moblity, work on abdomen restrictions, PNF ; edison at R hip flexors
--- NOTE | 2022-06-12 18:07 | PT.OTN ---
Current Diagnoses Pain in unspecified hip (06/12/22) Unspecified temporomandibular joint disorder, unspecified side (06/12/22) Other specified dorsopathies, cervicothoracic region (06/12/22) Cervicalgia (06/12/22) Low back pain, unspecified (06/12/22) Muscle weakness (generalized) (06/12/22) Abnormal posture (06/12/22) Physical Therapy Treatment Note PT-OP-A Visit Information Start: 11/14/21 17:51 Freq: Status: Active Protocol: Document 06/12/22 17:51 [facility] (Rec: 06/12/22 18:07 [facility] [id number]) Out-Patient Physical Therapy Visit Information Visit Information Visit Type Treatment Note Visit Note 24 Visit Start Time 16:03 Visit Stop Time 16:45 Total Visit Minutes 42 Visit Number 08/16 Number of LINE CLEARANCE FOREMAN Visits 0 PT-OP-B Current Condition Start: 11/14/21 17:51 Freq: Status: Active Protocol: Document 05/13/22 16:07 [facility] (Rec: 05/13/22 16:52 [facility] [id number]) Current Condition History of Current Condition Onset Date 6 months/1 year Current Complaints B jaw pain/cervical& thoracic pain History of Current Condition /-pt reports LBP and B hip pain has been going on for years. The only traumatic injury was in 2006 was doing a marla carry and stepped in a hole and caused a lot of pain at the time and the back and R hip. She does not really remember any signficiant before that. Since then it has been an off and on thing but it got pretty bad for the past year. She did do PT at another clinic for hips and back and hips are feeling better but she also hasn't been running and is only recently getting into more intense workouts again gradually and feels tight and tender after. Back and hips can feel really hot and burning. Pt notes pain in LB, thoracic and neck and B sides. She has felt like she was constipated today and felt like she had to go but couldn' t. She has worked on diet a lot. She has BM about 1x/week. She has had 3 xrays that have noted constipation. Rates type 1 and 2 mostly on bristol stool chart. She gets a lot fiber in her diet. Pt can cross her legs and get her back to pop and does it d/t feeling like it needs it. Pt reports she doesn't notice jaw during the day, she is clenching more at night w/ mouth guard. Neck still been feeling stiff, Tingling in mid back about 1x/day at least. It is not as prolonged and she feels like she can improve it if she adjusts her posture. She did do a 2 mile walk and felt pretty uncomfortable at 1 mile. Re-eval: Pt reports neck and thoracic pain started about 1 year ago and she would ntoice that 5-10 min into walking, she starts to get tingling in shoulder blades. Fwd flex stretch feels like it should help but it doesn't. Once it starts, there is no way ot stop it besides lay down. This has kept her from hiking. Neck pain is more feels so tight that she feels like her ROM is limited. ITs been better since started working on jaw. It always feels like she needs to move her neck but doing the motion doesn't really help. It feels like she wants to pop it but that doesn't really help either. She gets things that feels like golf balls along neck. IE:Jaw pain started about 6 months ago. when it first started it felt like I had been chewing gum allt he day prior. thought she may be clenching. She got a mouthguard after a couple months for night but does not feel like it has made a difference. Neck pain has been crhornic, but no injury. Denies LEAVITT except occasionally and they go away. denies dizziness or lightheadness. Mouth xray done recently and everything looked fine. Pt saw specialist in [place] and she suspects this is just muscular. Denies clicking in jaw. Pt was told to avoid hard to chew and crunchy foods and is most of the time following this. She can feel it more w/ those foods. Tried heat and it feels good but doesn't give relief. Gets ringing in ears and feels like ear is stuffy ( thinks both but notices it more in R). Evry couple weeks she gets the ringing and it only lasts about 5-10 min. Ear feeling stuffy is more often than the ringing. Pt is going to PT for LB. She has tingling in upper back sometimes when just sitting down and with walking. Her neck pain has been persistant. She has had some cervical xray but does not recall anything on it. Pt does have referral for sleep study. Pt feels like she has to sleep okay. She wakes up 1- 2x/night and will get up to go to the bathroom. When seh wakes, she doesn't feel rested , feels exhausted by the end of the day, and feels tense when she awakes. Treatment Goals Patient/Caregiver Goals get back to hiking and long walks, dec stiffness, back to running & workouts PT-OP-C Subjective Start: 11/14/21 17:51 Freq: Status: Active Protocol: Document 06/12/22 17:51 [facility] (Rec: 06/12/22 18:07 [facility] [id number]) OP-PT Subjective Patient Comments Patient Comments Pt reports Sandhya Osborne is bothering her today agin. Compliance w/ self visceral wrok PT-OP-F Manual Assessment Start: 11/14/21 17:51 Freq: Status: Active Protocol: Document 05/13/22 16:07 [facility] (Rec: 05/13/22 16:52 [facility] [id number]) Manual Assessments Soft Tissue Assessment Soft Tissue Mobility Assessment tenderness throughout lumbar and gluteal region along w/ abdomenal wall Joint Mobility Assessment Joint Mobility Assessment R iliac crest is higher; equal greater trochanter; w/knee bending tibia track close to neutral; IR of B femurs w/knee bending PT-OP-J Posture/Palpation/Skin Start: 11/14/21 17:51 Freq: Status: Active Protocol: Document 05/13/22 16:07 [facility] (Rec: 05/13/22 16:52 [facility] [id number]) Posture Evaluation Tyler Postural Classification System Tyler Postural Classifications Posterior/Anterior Vertebral Compression Test 1 Elbow Flexion Test 3 Lumbar Protective Mechanism Left AP 1 Lumbar Protective Mechanism Right AP 1 Lumbar Protective Mechanism Left PA 1 PT-OP-K Range of Motion Start: 11/14/21 17:51 Freq: Status: Active Protocol: Document 05/13/22 16:07 [facility] (Rec: 05/13/22 16:52 [facility] [id number]) Lumbar Spine Range of Motion Lumbar Spine Active Percentage Flexion 50 Extension 75 Rotation Left 75 Rotation Right 65 Lateral Flexion Left 60 Lateral Flexion Right 75 Comments L SB dec folding L; R SB dec L lengthening; tight B rot, L 5 hinge w/ext; tight w/flex Hip Goniometric Range of Motion Hip Right Active Flexion w/Knee Flexed 108 Straight Leg Raise 90 Internal Rotation 30 External Rotation 29 Comments discomfort ant hip w/flex Left Active Flexion w/Knee Flexed 101 Straight Leg Raise 90 Internal Rotation 17 External Rotation 18 Comments pain in hip/back; discomfort in abdomen and rib and groin w /flex, SLR PROM tight in HS and lat hip PT-OP-L Special Tests Start: 11/14/21 17:51 Freq: Status: Active Protocol: Document 05/13/22 16:07 [facility] (Rec: 05/13/22 16:52 [facility] [id number]) Special Tests Lumbar Spine Special Tests Slump Test Results positive for tension B w/neck flex PT-OP-M Strength Start: 11/14/21 17:51 Freq: Status: Active Protocol: Document 05/13/22 16:07 [facility] (Rec: 05/13/22 16:52 [facility] [id number]) Hip Strength Hip Manual Muscle Testing Right Flexion (L2) 4 Good Extension (S1) 3+ Fair+ Abduction 4- Good- Adduction 4- Good- External Rotation 4 Good Internal Rotation 5 Normal Left Flexion (L2) 3+ Fair+ Extension (S1) 3+ Fair+ Abduction 4 Good Adduction 4- Good- External Rotation 4 Good Internal Rotation 4- Good- Comments 5/5 knee and ankle MMT B PT-OP-Q Treatments Start: 11/14/21 17:51 Freq: Status: Active Protocol: Document 06/12/22 17:51 [facility] (Rec: 06/12/22 18:07 [facility] [id number]) Manual Therapy Treatment Soft Tissue Mobilization abdomen Comments R to L around RA focus around scar; L Psoas w/heel slide Joint Mobilizations lumbar Comments AP L innominate FM seated AP R sacrum FM seated AP L L4&5 AP FM sacrum Joint L caudal and AP FM innominate Joint L IR, add FM hip Joint L on axis IR FM & L add FM PT-OP-R Modalities Start: 11/14/21 17:51 Freq: Status: Active Protocol: Document 04/15/22 07:30 [facility] (Rec: 04/15/22 12:24 [id number] Hot Pack/Cold Pack Treatment Cold Pack Location cervical & thoracic Patient Position Supine Treatment Duration (minutes) 10 PT-OP-T Assessment and Plan Start: 11/14/21 17:51 Freq: Status: Active Protocol: Document 06/12/22 17:51 [facility] (Rec: 06/12/22 18:07 [facility] [id number]) Physical Therapy Assessment Goals pain Impairment neck pain and tightness that is constant that is at a 2/10 at all the time w/o relief Longterm Goal (LTG) Pt will report no constant neck pain or tightness at least 5/7 days a week LTG Duration 08/05/22 static activity Impairment pain starts after 10 min of standing -/10 and if stand longer it can get to a 4/10- describes as really uncomfortable-standing at attention/parade rest Longterm Goal (LTG) Pt will be able to stand at attention or parade rest and at home for extended tiem as needed without inc pain greater than 1/10 LTG Duration 08/05/22 activity Short Term Goal (STG) Pt will report being able to return to long walks w/no more than 1/10 pain in neck and/or thoraic and lumbar region. STG Duration 07/06/22 Longterm Goal (LTG) Pt will be able to return to running and working out without pain in cervical, thoracic or lumbar region w/o pain greater than 2/10 LTG Duration 08/05/22 ROM Short Term Goal (STG) Pt will have full cervical and lumbar ROM w/o feeling of tension or pain to allow pt to do ADls w/o inc pain. STG Duration 06/24 Dental Appliance Mechanic Goal (LTG) Pt will have full jaw opening to 40mm w/o feeling of tightness 01/23-tension 03/19-feels okay but still limited LTG Duration 08/05 Assessment Summary Assessment Pt had improved level of iliac crest w/wt shifting after manual treatment.S he still has significant visceral restriction and is limted mostly around the scar. Very difficult to get to psoas which likely plays a significnat role in LBP Physical Therapy Plan Frequency and Duration Duration of treatment (weeks) 12 Plan of Care Start Date 05/13/22 Plan of Care End Date 08/05/22 Next Visit Focus/Plan Next Note Type Treatment Note Next Visit Plan lumbar spine moblity, work on abdomen restrictions, PNF ; edison at R hip flexors
--- NOTE | 2022-06-19 17:40 | PT.OTN ---
Current Diagnoses Pain in unspecified hip (06/19/22) Unspecified temporomandibular joint disorder, unspecified side (06/19/22) Other specified dorsopathies, cervicothoracic region (06/19/22) Cervicalgia (06/19/22) Low back pain, unspecified (06/19/22) Muscle weakness (generalized) (06/19/22) Abnormal posture (06/19/22) Physical Therapy Treatment Note PT-OP-A Visit Information Start: 11/14/21 17:51 Freq: Status: Active Protocol: Document 06/19/22 15:18 [facility] (Rec: 06/19/22 17:40 [facility] [id number]) Out-Patient Physical Therapy Visit Information Visit Information Visit Type Treatment Note Visit Note 24 Visit Start Time 15:22 Visit Stop Time 16:02 Total Visit Minutes 40 Visit Number 09/16 Number of ANGIOGRAPHY TECHNOLOGIST Visits 0 PT-OP-B Current Condition Start: 11/14/21 17:51 Freq: Status: Active Protocol: Document 05/13/22 16:07 [facility] (Rec: 05/13/22 16:52 [facility] [id number]) Current Condition History of Current Condition Onset Date 6 months/1 year Current Complaints B jaw pain/cervical& thoracic pain History of Current Condition 05/13-pt reports LBP and B hip pain has been going on for years. The only traumatic injury was in 2006 was doing a marla carry and stepped in a hole and caused a lot of pain at the time and the back and R hip. She does not really remember any signficiant before that. Since then it has been an off and on thing but it got pretty bad for the past year. She did do PT at another clinic for hips and back and hips are feeling better but she also hasn't been running and is only recently getting into more intense workouts again gradually and feels tight and tender after. Back and hips can feel really hot and burning. Pt notes pain in LB, thoracic and neck and B sides. She has felt like she was constipated today and felt like she had to go but couldn' t. She has worked on diet a lot. She has BM about 1x/week. She has had 3 xrays that have noted constipation. Rates type 1 and 2 mostly on bristol stool chart. She gets a lot fiber in her diet. Pt can cross her legs and get her back to pop and does it d/t feeling like it needs it. Pt reports she doesn't notice jaw during the day, she is clenching more at night w/ mouth guard. Neck still been feeling stiff, Tingling in mid back about 1x/day at least. It is not as prolonged and she feels like she can improve it if she adjusts her posture. She did do a 2 mile walk and felt pretty uncomfortable at 1 mile. Re-eval: Pt reports neck and thoracic pain started about 1 year ago and she would ntoice that 5-10 min into walking, she starts to get tingling in shoulder blades. Fwd flex stretch feels like it should help but it doesn't. Once it starts, there is no way ot stop it besides lay down. This has kept her from hiking. Neck pain is more feels so tight that she feels like her ROM is limited. ITs been better since started working on jaw. It always feels like she needs to move her neck but doing the motion doesn't really help. It feels like she wants to pop it but that doesn't really help either. She gets things that feels like golf balls along neck. IE:Jaw pain started about 6 months ago. when it first started it felt like I had been chewing gum allt he day prior. thought she may be clenching. She got a mouthguard after a couple months for night but does not feel like it has made a difference. Neck pain has been crhornic, but no injury. Denies LEAVITT except occasionally and they go away. denies dizziness or lightheadness. Mouth xray done recently and everything looked fine. Pt saw specialist in [place] and she suspects this is just muscular. Denies clicking in jaw. Pt was told to avoid hard to chew and crunchy foods and is most of the time following this. She can feel it more w/ those foods. Tried heat and it feels good but doesn't give relief. Gets ringing in ears and feels like ear is stuffy ( thinks both but notices it more in R). Evry couple weeks she gets the ringing and it only lasts about 5-10 min. Ear feeling stuffy is more often than the ringing. Pt is going to PT for LB. She has tingling in upper back sometimes when just sitting down and with walking. Her neck pain has been persistant. She has had some cervical xray but does not recall anything on it. Pt does have referral for sleep study. Pt feels like she has to sleep okay. She wakes up 1- 2x/night and will get up to go to the bathroom. When redd wakes, she doesn't feel rested , feels exhausted by the end of the day, and feels tense when she awakes. Treatment Goals Patient/Caregiver Goals get back to hiking and long walks, dec stiffness, back to running & workouts PT-OP-C Subjective Start: 11/14/21 17:51 Freq: Status: Active Protocol: Document 06/19/22 15:18 [facility] (Rec: 06/19/22 17:40 [facility] [id number]) OP-PT Subjective Patient Comments Patient Comments Pt reprots redd woke up more tense today. She hasn't done much of the manual work as she did have a abdomenal bruise. SHe doen'st know why. She did a lot of hot tubbing and yoga last so unsure. Did a 2 mile walk this past weekend and that felt good. PT-OP-F Manual Assessment Start: 11/14/21 17:51 Freq: Status: Active Protocol: Document 05/13/22 16:07 [facility] (Rec: 05/13/22 16:52 [facility] [id number]) Manual Assessments Soft Tissue Assessment Soft Tissue Mobility Assessment tenderness throughout lumbar and gluteal region along w/ abdomenal wall Joint Mobility Assessment Joint Mobility Assessment R iliac crest is higher; equal greater trochanter; w/knee bending tibia track close to neutral; IR of B femurs w/knee bending PT-OP-J Posture/Palpation/Skin Start: 11/14/21 17:51 Freq: Status: Active Protocol: Document 05/13/22 16:07 [facility] (Rec: 05/13/22 16:52 [facility] [id number]) Posture Evaluation Tyler Postural Classification System Tyler Postural Classifications Posterior/Anterior Vertebral Compression Test 1 Elbow Flexion Test 3 Lumbar Protective Mechanism Left AP 1 Lumbar Protective Mechanism Right AP 1 Lumbar Protective Mechanism Left PA 1 PT-OP-K Range of Motion Start: 08/10/22 17:51 Freq: Status: Active Protocol: Document 05/13/22 16:07 [facility] (Rec: 05/13/22 16:52 [facility] [id number]) Lumbar Spine Range of Motion Lumbar Spine Active Percentage Flexion 50 Extension 75 Rotation Left 75 Rotation Right 65 Lateral Flexion Left 60 Lateral Flexion Right 75 Comments L SB dec folding L; R SB dec L lengthening; tight B rot, L 5 hinge w/ext; tight w/flex Hip Goniometric Range of Motion Hip Right Active Flexion w/Knee Flexed 108 Straight Leg Raise 90 Internal Rotation 30 External Rotation 29 Comments discomfort ant hip w/flex Left Active Flexion w/Knee Flexed 101 Straight Leg Raise 90 Internal Rotation 17 External Rotation 18 Comments pain in hip/back; discomfort in abdomen and rib and groin w /flex, SLR PROM tight in HS and lat hip PT-OP-L Special Tests Start: 11/14/21 17:51 Freq: Status: Active Protocol: Document 05/13/22 16:07 [facility] (Rec: 05/13/22 16:52 [facility] [id number]) Special Tests Lumbar Spine Special Tests Slump Test Results positive for tension B w/neck flex PT-OP-M Strength Start: 11/14/21 17:51 Freq: Status: Active Protocol: Document 05/13/22 16:07 [facility] (Rec: 05/13/22 16:52 [facility] [id number]) Hip Strength Hip Manual Muscle Testing Right Flexion (L2) 4 Good Extension (S1) 3+ Fair+ Abduction 4- Good- Adduction 4- Good- External Rotation 4 Good Internal Rotation 5 Normal Left Flexion (L2) 3+ Fair+ Extension (S1) 3+ Fair+ Abduction 4 Good Adduction 4- Good- External Rotation 4 Good Internal Rotation 4- Good- Comments 5/5 knee and ankle MMT B PT-OP-Q Treatments Start: 11/14/21 17:51 Freq: Status: Active Protocol: Document 06/19/22 15:18 [facility] (Rec: 06/19/22 17:40 [facility] [id number]) Manual Therapy Treatment Soft Tissue Mobilization cranium Body Location R>L Mobilization Type Myofascial Release Comments w/LTR lumbar Comments C-T-L in seated w/flex fwd cervical Mobilization Type Rolling,Strumming Intensity/Depth Moderate Body Position Supine Comments R>L SCM, scalenes & SO w/LTR Joint Mobilizations cranium Joint R to L sphenoid FM w/LTR PT-OP-R Modalities Start: 11/14/21 17:51 Freq: Status: Active Protocol: Document 04/15/22 07:30 [facility] (Rec: 04/15/22 12:24 [facility] [id number]) Hot Pack/Cold Pack Treatment Cold Pack Location cervical & thoracic Patient Position Supine Treatment Duration (minutes) 10 PT-OP-T Assessment and Plan Start: 11/14/21 17:51 Freq: Status: Active Protocol: Document 06/19/22 15:18 [facility] (Rec: 06/19/22 17:40 [facility] [id number]) Physical Therapy Assessment Goals pain Impairment neck pain and tightness that is constant that is at a 2/10 at all the time w/o relief Associate Media Director Goal (LTG) Pt will report no constant neck pain or tightness at least 5/7 days a week LTG Duration 08/05/22 static activity Impairment pain starts after 10 min of standing -3/10 and if stand longer it can get to a 4/10- describes as really uncomfortable-standing at attention/parade rest Associate Media Director Goal (LTG) Pt will be able to stand at attention or parade rest and at home for extended tiem as needed without inc pain greater than 1/10 LTG Duration 08/05/22 activity Short Term Goal (STG) Pt will report being able to return to long walks w/no more than 1/10 pain in neck and/or thoraic and lumbar region. STG Duration 07/06/22 Longterm Goal (LTG) Pt will be able to return to running and working out without pain in cervical, thoracic or lumbar region w/o pain greater than 2/10 LTG Duration 08/05/22 ROM Short Term Goal (STG) Pt will have full cervical and lumbar ROM w/o feeling of tension or pain to allow pt to do ADls w/o inc pain. STG Duration 06/24 Associate Media Director Goal (LTG) Pt will have full jaw opening to 40mm w/o feeling of tightness 01/23-tension 03/19-feels okay but still limited LTG Duration 08/05 Assessment Summary Assessment Pt had neg SLump and ext sit for dural tension but positive w/neural tension/fascial tension. Turtle neck was positive for neural tension especially w/LTR to R. She did improve w/this by end of manual. Signficiant restrcitons found on R>L of entire chain. Physical Therapy Plan Frequency and Duration Duration of treatment (weeks) 12 Plan of Care Start Date 05/13/22 Plan of Care End Date 08/05/22 Next Visit Focus/Plan Next Note Type Treatment Note Next Visit Plan jaw & cranial mobility & ribcage mobility
--- NOTE | 2022-06-20 09:24 | PT.OTN ---
Current Diagnoses Pain in unspecified hip (06/20/22) Unspecified temporomandibular joint disorder, unspecified side (06/20/22) Other specified dorsopathies, cervicothoracic region (06/20/22) Cervicalgia (06/20/22) Low back pain, unspecified (06/20/22) Muscle weakness (generalized) (06/20/22) Abnormal posture (06/20/22) Physical Therapy Treatment Note PT-OP-A Visit Information Start: 11/14/21 17:51 Freq: Status: Active Protocol: Document 06/20/22 09:12 [facility] (Rec: 06/20/22 09:23 [facility] [id number]) Out-Patient Physical Therapy Visit Information Visit Information Visit Type Treatment Note Visit Note 26 Visit Start Time 08:18 Visit Stop Time 09:02 Total Visit Minutes 44 Visit Number 10/16 Number of LACQUER MAKER Visits 0 PT-OP-B Current Condition Start: 11/14/21 17:51 Freq: Status: Active Protocol: Document 05/13/22 16:07 [facility] (Rec: 05/13/22 16:52 [facility] [id number]) Current Condition History of Current Condition Onset Date 6 months/1 year Current Complaints B jaw pain/cervical& thoracic pain History of Current Condition 05/13-pt reports LBP and B hip pain has been going on for years. The only traumatic injury was in 2006 was doing a marla carry and stepped in a hole and caused a lot of pain at the time and the back and R hip. She does not really remember any signficiant before that. Since then it has been an off and on thing but it got pretty bad for the past year. She did do PT at another clinic for hips and back and hips are feeling better but she also hasn't been running and is only recently getting into more intense workouts again gradually and feels tight and tender after. Back and hips can feel really hot and burning. Pt notes pain in LB, thoracic and neck and B sides. She has felt like she was constipated today and felt like she had to go but couldn' t. She has worked on diet a lot. She has BM about 1x/week. She has had 3 xrays that have noted constipation. Rates type 1 and 2 mostly on bristol stool chart. She gets a lot fiber in her diet. Pt can cross her legs and get her back to pop and does it d/t feeling like it needs it. Pt reports she doesn't notice jaw during the day, she is clenching more at night w/ mouth guard. Neck still been feeling stiff, Tingling in mid back about 1x/day at least. It is not as prolonged and she feels like she can improve it if she adjusts her posture. She did do a 2 mile walk and felt pretty uncomfortable at 1 mile. Re-eval: Pt reports neck and thoracic pain started about 1 year ago and she would ntoice that 5-10 min into walking, she starts to get tingling in shoulder blades. Fwd flex stretch feels like it should help but it doesn't. Once it starts, there is no way ot stop it besides lay down. This has kept her from hiking. Neck pain is more feels so tight that she feels like her ROM is limited. ITs been better since started working on jaw. It always feels like she needs to move her neck but doing the motion doesn't really help. It feels like she wants to pop it but that doesn't really help either. She gets things that feels like golf balls along neck. IE:Jaw pain started about 6 months ago. when it first started it felt like I had been chewing gum allt he day prior. thought she may be clenching. She got a mouthguard after a couple months for night but does not feel like it has made a difference. Neck pain has been crhornic, but no injury. Denies LEAVITT except occasionally and they go away. denies dizziness or lightheadness. Mouth xray done recently and everything looked fine. Pt saw specialist in [place] and she suspects this is just muscular. Denies clicking in jaw. Pt was told to avoid hard to chew and crunchy foods and is most of the time following this. She can feel it more w/ those foods. Tried heat and it feels good but doesn't give relief. Gets ringing in ears and feels like ear is stuffy ( thinks both but notices it more in R). Evry couple weeks she gets the ringing and it only lasts about 5-10 min. Ear feeling stuffy is more often than the ringing. Pt is going to PT for LB. She has tingling in upper back sometimes when just sitting down and with walking. Her neck pain has been persistant. She has had some cervical xray but does not recall anything on it. Pt does have referral for sleep study. Pt feels like she has to sleep okay. She wakes up 1- 2x/night and will get up to go to the bathroom. When seh wakes, she doesn't feel rested , feels exhausted by the end of the day, and feels tense when she awakes. Treatment Goals Patient/Caregiver Goals get back to hiking and long walks, dec stiffness, back to running & workouts PT-OP-C Subjective Start: 11/14/21 17:51 Freq: Status: Active Protocol: Document 06/20/22 09:12 [facility] (Rec: 06/20/22 09:23 [facility] [id number]) OP-PT Subjective Patient Comments Patient Comments Pt reports she tried a different pillow and supported legs more. notes less overall neck to back tightness this AM but did note she woke up on her back w/pillow btwn knees PT-OP-F Manual Assessment Start: 11/14/21 17:51 Freq: Status: Active Protocol: Document 05/13/22 16:07 [facility] (Rec: 05/13/22 16:52 [facility] [id number]) Manual Assessments Soft Tissue Assessment Soft Tissue Mobility Assessment tenderness throughout lumbar and gluteal region along w/ abdomenal wall Joint Mobility Assessment Joint Mobility Assessment R iliac crest is higher; equal greater trochanter; w/knee bending tibia track close to neutral; IR of B femurs w/knee bending PT-OP-J Posture/Palpation/Skin Start: 11/14/21 17:51 Freq: Status: Active Protocol: Document 05/13/22 16:07 [facility] (Rec: 05/13/22 16:52 [facility] [id number]) Posture Evaluation Tyler Postural Classification System Tyler Postural Classifications Posterior/Anterior Vertebral Compression Test 1 Elbow Flexion Test 3 Lumbar Protective Mechanism Left AP 1 Lumbar Protective Mechanism Right AP 1 Lumbar Protective Mechanism Left PA 1 PT-OP-K Range of Motion Start: 11/14/21 17:51 Freq: Status: Active Protocol: Document 05/13/22 16:07 [facility] (Rec: 05/13/22 16:52 [facility] [id number]) Lumbar Spine Range of Motion Lumbar Spine Active Percentage Flexion 50 Extension 75 Rotation Left 75 Rotation Right 65 Lateral Flexion Left 60 Lateral Flexion Right 75 Comments L SB dec folding L; R SB dec L lengthening; tight B rot, L 5 hinge w/ext; tight w/flex Hip Goniometric Range of Motion Hip Right Active Flexion w/Knee Flexed 108 Straight Leg Raise 90 Internal Rotation 30 External Rotation 29 Comments discomfort ant hip w/flex Left Active Flexion w/Knee Flexed 101 Straight Leg Raise 90 Internal Rotation 17 External Rotation 18 Comments pain in hip/back; discomfort in abdomen and rib and groin w /flex, SLR PROM tight in HS and lat hip PT-OP-L Special Tests Start: 11/14/21 17:51 Freq: Status: Active Protocol: Document 05/13/22 16:07 [facility] (Rec: 05/13/22 16:52 [facility] [id number]) Special Tests Lumbar Spine Special Tests Slump Test Results positive for tension B w/neck flex PT-OP-M Strength Start: 11/14/21 17:51 Freq: Status: Active Protocol: Document 05/13/22 16:07 [facility] (Rec: 05/13/22 16:52 [facility] [id number]) Hip Strength Hip Manual Muscle Testing Right Flexion (L2) 4 Good Extension (S1) 3+ Fair+ Abduction 4- Good- Adduction 4- Good- External Rotation 4 Good Internal Rotation 5 Normal Left Flexion (L2) 3+ Fair+ Extension (S1) 3+ Fair+ Abduction 4 Good Adduction 4- Good- External Rotation 4 Good Internal Rotation 4- Good- Comments 5/5 knee and ankle MMT B PT-OP-Q Treatments Start: 11/14/21 17:51 Freq: Status: Active Protocol: Document 06/20/22 09:12 [facility] (Rec: 06/20/22 09:23 [facility] [id number]) Therapeutic Exercises Prone Exercises push up Prone Exercise Name full, on knees and on 18 in chair Side bilateral Reps/Minutes 5 min Comments working on form-found pt cannot keep form in full push up plank Prone Exercise Name started in straight leg progressed to bent lega s pt unable to get goodform Reps/Minutes 3 min working on form in different positions Manual Therapy Treatment Soft Tissue Mobilization intraoral Body Location R.L ptyergoids &masseter Mobilization Type Sustained Pressure Intensity/Depth Superficial Body Position Hooklying Comments manual and instruction on self application with fingers in/ outside cervical Mobilization Type Rolling,Strumming Intensity/Depth Moderate Body Position Supine Comments R>L SCM, scalenes FM jaw Body Location R>L masseter, temporalis, inf & post jaw Mobilization Type Rolling,Strumming Intensity/Depth Moderate Body Position Supine Joint Mobilizations rib Comments R inf glide FM 1st rib thoracic Comments transverse L FM T1 &2 jaw Joint B distraction FM cervical Comments transverse glide L C4-7 FM PT-OP-R Modalities Start: 11/14/21 17:51 Freq: Status: Active Protocol: Document 04/15/22 07:30 [facility] (Rec: 04/15/22 12:24 [facility] [id number]) Hot Pack/Cold Pack Treatment Cold Pack Location cervical & thoracic Patient Position Supine Treatment Duration (minutes) 10 PT-OP-T Assessment and Plan Start: 11/14/21 17:51 Freq: Status: Active Protocol: Document 06/20/22 09:12 [facility] (Rec: 06/20/22 09:23 [facility] [id number]) Physical Therapy Assessment Goals pain Impairment neck pain and tightness that is constant that is at a 2/10 at all the time w/o relief Concrete Mixing Truck Driver Goal (LTG) Pt will report no constant neck pain or tightness at least 5/7 days a week LTG Duration 08/05/22 static activity Impairment pain starts after 10 min of standing -3/10 and if stand longer it can get to a 4/10- describes as really uncomfortable-standing at attention/parade rest [facility] Goal (LTG) Pt will be able to stand at attention or parade rest and at home for extended tiem as needed without inc pain greater than 1/10 LTG Duration 08/05/22 activity Short Term Goal (STG) Pt will report being able to return to long walks w/no more than 1/10 pain in neck and/or thoraic and lumbar region. STG Duration 07/06/22 Concrete Mixing Truck Driver Goal (LTG) Pt will be able to return to running and working out without pain in cervical, thoracic or lumbar region w/o pain greater than 2/10 LTG Duration 08/05/22 ROM Short Term Goal (STG) Pt will have full cervical and lumbar ROM w/o feeling of tension or pain to allow pt to do ADls w/o inc pain. STG Duration 06/24 [facility] Goal (LTG) Pt will have full jaw opening to 40mm w/o feeling of tightness 01/23-tension 03/19-feels okay but still limited LTG Duration 08/05 Assessment Summary Assessment Pt had improved jaw opening w/ manual treatment with less fwd shear w/opening. She had improved cervical B SB and rotation w/manual. Pt required cues during plank and push up and required modification to do good form. Physical Therapy Plan Frequency and Duration Duration of treatment (weeks) 12 Plan of Care Start Date 05/13/22 Plan of Care End Date 08/05/22 Next Visit Focus/Plan Next Note Type Treatment Note Next Visit Plan re-check ribcage mobility
--- NOTE | 2022-06-25 11:21 | PT.OTN ---
Current Diagnoses Pain in unspecified hip (06/25/22) Unspecified temporomandibular joint disorder, unspecified side (06/25/22) Other specified dorsopathies, cervicothoracic region (06/25/22) Cervicalgia (06/25/22) Low back pain, unspecified (06/25/22) Muscle weakness (generalized) (06/25/22) Abnormal posture (06/25/22) Physical Therapy Treatment Note PT-OP-A Visit Information Start: 11/14/21 17:51 Freq: Status: Active Protocol: Document 06/25/22 08:13 [facility] (Rec: 06/25/22 09:48 [facility] [id number]) Out-Patient Physical Therapy Visit Information Visit Information Visit Type Treatment Note Visit Note 27 Visit Start Time 08:16 Visit Stop Time 09:00 Total Visit Minutes 44 Visit Number 11/16 Number of LEAD SOFTWARE DEVELOPER Visits 0 PT-OP-B Current Condition Start: 11/14/21 17:51 Freq: Status: Active Protocol: Document 05/13/22 16:07 [facility] (Rec: 05/13/22 16:52 [facility] [id number]) Current Condition History of Current Condition Onset Date 6 months/1 year Current Complaints B jaw pain/cervical& thoracic pain History of Current Condition 05/13-pt reports LBP and B hip pain has been going on for years. The only traumatic injury was in 2006 was doing a marla carry and stepped in a hole and caused a lot of pain at the time and the back and R hip. She does not really remember any signficiant before that. Since then it has been an off and on thing but it got pretty bad for the past year. She did do PT at another clinic for hips and back and hips are feeling better but she also hasn't been running and is only recently getting into more intense workouts again gradually and feels tight and tender after. Back and hips can feel really hot and burning. Pt notes pain in LB, thoracic and neck and B sides. She has felt like she was constipated today and felt like she had to go but couldn' t. She has worked on diet a lot. She has BM about 1x/week. She has had 3 xrays that have noted constipation. Rates type 1 and 2 mostly on bristol stool chart. She gets a lot fiber in her diet. Pt can cross her legs and get her back to pop and does it d/t feeling like it needs it. Pt reports she doesn't notice jaw during the day, she is clenching more at night w/ mouth guard. Neck still been feeling stiff, Tingling in mid back about 1x/day at least. It is not as prolonged and she feels like she can improve it if she adjusts her posture. She did do a 2 mile walk and felt pretty uncomfortable at 1 mile. Re-eval: Pt reports neck and thoracic pain started about 1 year ago and she would ntoice that 5-10 min into walking, she starts to get tingling in shoulder blades. Fwd flex stretch feels like it should help but it doesn't. Once it starts, there is no way ot stop it besides lay down. This has kept her from hiking. Neck pain is more feels so tight that she feels like her ROM is limited. ITs been better since started working on jaw. It always feels like she needs to move her neck but doing the motion doesn't really help. It feels like she wants to pop it but that doesn't really help either. She gets things that feels like golf balls along neck. IE:Jaw pain started about 6 months ago. when it first started it felt like I had been chewing gum allt he day prior. thought she may be clenching. She got a mouthguard after a couple months for night but does not feel like it has made a difference. Neck pain has been crhornic, but no injury. Denies LEAVITT except occasionally and they go away. denies dizziness or lightheadness. Mouth xray done recently and everything looked fine. Pt saw specialist in [place] and she suspects this is just muscular. Denies clicking in jaw. Pt was told to avoid hard to chew and crunchy foods and is most of the time following this. She can feel it more w/ those foods. Tried heat and it feels good but doesn't give relief. Gets ringing in ears and feels like ear is stuffy ( thinks both but notices it more in R). Evry couple weeks she gets the ringing and it only lasts about 5-10 min. Ear feeling stuffy is more often than the ringing. Pt is going to PT for LB. She has tingling in upper back sometimes when just sitting down and with walking. Her neck pain has been persistant. She has had some cervical xray but does not recall anything on it. Pt does have referral for sleep study. Pt feels like she has to sleep okay. She wakes up 1- 2x/night and will get up to go to the bathroom. When seh wakes, she doesn't feel rested , feels exhausted by the end of the day, and feels tense when she awakes. Treatment Goals Patient/Caregiver Goals get back to hiking and long walks, dec stiffness, back to running & workouts PT-OP-C Subjective Start: 11/14/21 17:51 Freq: Status: Active Protocol: Document 06/25/22 08:13 [facility] (Rec: 06/25/22 09:48 [facility] [id number]) OP-PT Subjective Patient Comments Patient Comments Pt reports she feels like her body feels okay. She had a really strong full body muscle fatigue the next day after last appt. pt plans to go to the gym after work today. Mm feel more drained. She has been trying to on her knees push ups.Jaw feels better. She did the exercises the day after the appt. PT-OP-F Manual Assessment Start: 11/14/21 17:51 Freq: Status: Active Protocol: Document 05/13/22 16:07 [facility] (Rec: 05/13/22 16:52 [facility] [id number]) Manual Assessments Soft Tissue Assessment Soft Tissue Mobility Assessment tenderness throughout lumbar and gluteal region along w/ abdomenal wall Joint Mobility Assessment Joint Mobility Assessment R iliac crest is higher; equal greater trochanter; w/knee bending tibia track close to neutral; IR of B femurs w/knee bending PT-OP-J Posture/Palpation/Skin Start: 11/14/21 17:51 Freq: Status: Active Protocol: Document 05/13/22 16:07 [facility] (Rec: 05/13/22 16:52 [facility] [id number]) Posture Evaluation Tyler Postural Classification System Tyler Postural Classifications Posterior/Anterior Vertebral Compression Test 1 Elbow Flexion Test 3 Lumbar Protective Mechanism Left AP 1 Lumbar Protective Mechanism Right AP 1 Lumbar Protective Mechanism Left PA 1 PT-OP-K Range of Motion Start: 11/14/21 17:51 Freq: Status: Active Protocol: Document 05/13/22 16:07 [facility] (Rec: 05/13/22 16:52 [facility] [id number]) Lumbar Spine Range of Motion Lumbar Spine Active Percentage Flexion 50 Extension 75 Rotation Left 75 Rotation Right 65 Lateral Flexion Left 60 Lateral Flexion Right 75 Comments L SB dec folding L; R SB dec L lengthening; tight B rot, L 5 hinge w/ext; tight w/flex Hip Goniometric Range of Motion Hip Right Active Flexion w/Knee Flexed 108 Straight Leg Raise 90 Internal Rotation 30 External Rotation 29 Comments discomfort ant hip w/flex Left Active Flexion w/Knee Flexed 101 Straight Leg Raise 90 Internal Rotation 17 External Rotation 18 Comments pain in hip/back; discomfort in abdomen and rib and groin w /flex, SLR PROM tight in HS and lat hip PT-OP-L Special Tests Start: 11/14/21 17:51 Freq: Status: Active Protocol: Document 05/13/22 16:07 [facility] (Rec: 05/13/22 16:52 [facility] [id number]) Special Tests Lumbar Spine Special Tests Slump Test Results positive for tension B w/neck flex PT-OP-M Strength Start: 11/14/21 17:51 Freq: Status: Active Protocol: Document 05/13/22 16:07 [facility] (Rec: 05/13/22 16:52 [facility] [id number]) Hip Strength Hip Manual Muscle Testing Right Flexion (L2) 4 Good Extension (S1) 3+ Fair+ Abduction 4- Good- Adduction 4- Good- External Rotation 4 Good Internal Rotation 5 Normal Left Flexion (L2) 3+ Fair+ Extension (S1) 3+ Fair+ Abduction 4 Good Adduction 4- Good- External Rotation 4 Good Internal Rotation 4- Good- Comments 5/5 knee and ankle MMT B PT-OP-Q Treatments Start: 11/14/21 17:51 Freq: Status: Active Protocol: Document 06/25/22 08:13 [facility] (Rec: 06/25/22 09:48 [facility] [id number]) Therapeutic Exercises Supine Exercises breathing Supine Exercise Name R diaphram w/facilitation-pt taught how to do self Reps/Minutes 4 min total Manual Therapy Treatment Soft Tissue Mobilization abdomen Comments R to L around RA focus around scar Fm w/LTR diaphram Body Location R Mobilization Type Sustained Pressure Comments w/LTr Joint Mobilizations innominate Comments R seated AP FM in flex and ext rib Comments 1.general R down glide w/open book & scap patterns FM 2. med glide w/SB rib 5-7 Fm thoracic Comments T5 transverse L FM PT-OP-R Modalities Start: 11/14/21 17:51 Freq: Status: Active Protocol: Document 04/15/22 07:30 [facility] (Rec: 04/15/22 12:24 [facility] [id number]) Hot Pack/Cold Pack Treatment Cold Pack Location cervical & thoracic Patient Position Supine Treatment Duration (minutes) 10 PT-OP-T Assessment and Plan Start: 11/14/21 17:51 Freq: Status: Active Protocol: Document 06/25/22 08:13 [facility] (Rec: 06/25/22 09:48 [facility] [id number]) Physical Therapy Assessment Goals pain Impairment neck pain and tightness that is constant that is at a 2/10 at all the time w/o relief Journeyman Pressman Goal (LTG) Pt will report no constant neck pain or tightness at least 5/7 days a week LTG Duration 08/05/22 static activity Impairment pain starts after 10 min of standing -10 and if stand longer it can get to a 4/10- describes as really uncomfortable-standing at attention/parade rest Alf Goal (LTG) Pt will be able to stand at attention or parade rest and at home for extended tiem as needed without inc pain greater than 1/10 LTG Duration 08/05/22 activity Short Term Goal (STG) Pt will report being able to return to long walks w/no more than 1/10 pain in neck and/or thoraic and lumbar region. STG Duration 07/06/22 Journeyman Pressman Goal (LTG) Pt will be able to return to running and working out without pain in cervical, thoracic or lumbar region w/o pain greater than 2/10 LTG Duration 08/05/22 ROM Short Term Goal (STG) Pt will have full cervical and lumbar ROM w/o feeling of tension or pain to allow pt to do ADls w/o inc pain. STG Duration 06/24 Journeyman Pressman Goal (LTG) Pt will have full jaw opening to 40mm w/o feeling of tightness 01/23-tension 03/19-feels okay but still limited LTG Duration 08/05 Assessment Summary Assessment Pt did well iwth manual and had improved R diaphram engagment after manualand inc R rotation. She has difficulty engaging R diaphram and requries manual facilitation. Is given this for HEP. Physical Therapy Plan Frequency and Duration Duration of treatment (weeks) 12 Plan of Care Start Date 05/13/22 Plan of Care End Date 08/05/22 Next Visit Focus/Plan Next Note Type Treatment Note Next Visit Plan re-check ribcage mobility
--- NOTE | 2022-07-04 18:43 | PT.OTN ---
Current Diagnoses Pain in unspecified hip (07/04/22) Unspecified temporomandibular joint disorder, unspecified side (07/04/22) Other specified dorsopathies, cervicothoracic region (07/04/22) Cervicalgia (07/04/22) Low back pain, unspecified (07/04/22) Muscle weakness (generalized) (07/04/22) Abnormal posture (07/04/22) Physical Therapy Treatment Note PT-OP-A Visit Information Start: 11/14/21 17:51 Freq: Status: Active Protocol: Document 07/04/22 07:25 [facility] (Rec: 07/04/22 18:43 [facility] [id number]) Out-Patient Physical Therapy Visit Information Visit Information Visit Type Treatment Note Visit Note 28 Visit Start Time 07:33 Visit Stop Time 08:13 Total Visit Minutes 40 Visit Number 12/29 Number of POSTAL SERVICE SECTIONAL CENTER MANAGER Visits 0 PT-OP-B Current Condition Start: 11/14/21 17:51 Freq: Status: Active Protocol: Document 05/13/22 16:07 [facility] (Rec: 05/13/22 16:52 [facility] [id number]) Current Condition History of Current Condition Onset Date 6 months/1 year Current Complaints B jaw pain/cervical& thoracic pain History of Current Condition 05/13-pt reports LBP and B hip pain has been going on for years. The only traumatic injury was in 2006 was doing a marla carry and stepped in a hole and caused a lot of pain at the time and the back and R hip. She does not really remember any signficiant before that. Since then it has been an off and on thing but it got pretty bad for the past year. She did do PT at another clinic for hips and back and hips are feeling better but she also hasn't been running and is only recently getting into more intense workouts again gradually and feels tight and tender after. Back and hips can feel really hot and burning. Pt notes pain in LB, thoracic and neck and B sides. She has felt like she was constipated today and felt like she had to go but couldn' t. She has worked on diet a lot. She has BM about 1x/week. She has had 3 xrays that have noted constipation. Rates type 1 and 2 mostly on bristol stool chart. She gets a lot fiber in her diet. Pt can cross her legs and get her back to pop and does it d/t feeling like it needs it. Pt reports she doesn't notice jaw during the day, she is clenching more at night w/ mouth guard. Neck still been feeling stiff, Tingling in mid back about 1x/day at least. It is not as prolonged and she feels like she can improve it if she adjusts her posture. She did do a 2 mile walk and felt pretty uncomfortable at 1 mile. Re-eval: Pt reports neck and thoracic pain started about 1 year ago and she would ntoice that 5-10 min into walking, she starts to get tingling in shoulder blades. Fwd flex stretch feels like it should help but it doesn't. Once it starts, there is no way ot stop it besides lay down. This has kept her from hiking. Neck pain is more feels so tight that she feels like her ROM is limited. ITs been better since started working on jaw. It always feels like she needs to move her neck but doing the motion doesn't really help. It feels like she wants to pop it but that doesn't really help either. She gets things that feels like golf balls along neck. IE:Jaw pain started about 6 months ago. when it first started it felt like I had been chewing gum allt he day prior. thought she may be clenching. She got a mouthguard after a couple months for night but does not feel like it has made a difference. Neck pain has been crhornic, but no injury. Denies LEAVITT except occasionally and they go away. denies dizziness or lightheadness. Mouth xray done recently and everything looked fine. Pt saw specialist in [place] and she suspects this is just muscular. Denies clicking in jaw. Pt was told to avoid hard to chew and crunchy foods and is most of the time following this. She can feel it more w/ those foods. Tried heat and it feels good but doesn't give relief. Gets ringing in ears and feels like ear is stuffy ( thinks both but notices it more in R). Evry couple weeks she gets the ringing and it only lasts about 5-10 min. Ear feeling stuffy is more often than the ringing. Pt is going to PT for LB. She has tingling in upper back sometimes when just sitting down and with walking. Her neck pain has been persistant. She has had some cervical xray but does not recall anything on it. Pt does have referral for sleep study. Pt feels like she has to sleep okay. She wakes up 1- 2x/night and will get up to go to the bathroom. When seh wakes, she doesn't feel rested , feels exhausted by the end of the day, and feels tense when she awakes. Treatment Goals Patient/Caregiver Goals get back to hiking and long walks, dec stiffness, back to running & workouts PT-OP-C Subjective Start: 11/14/21 17:51 Freq: Status: Active Protocol: Document 07/04/22 07:25 [facility] (Rec: 07/04/22 18:43 [facility] [id number]) OP-PT Subjective Patient Comments Patient Comments Pt reprots she felt something happen in her R back to abdomen when doing leg press and doens't know what happened . She was working on keeping back flat and doing light weight. This was tues PM PT-OP-F Manual Assessment Start: 11/14/21 17:51 Freq: Status: Active Protocol: Document 05/13/22 16:07 [facility] (Rec: 05/13/22 16:52 [facility] [id number]) Manual Assessments Soft Tissue Assessment Soft Tissue Mobility Assessment tenderness throughout lumbar and gluteal region along w/ abdomenal wall Joint Mobility Assessment Joint Mobility Assessment R iliac crest is higher; equal greater trochanter; w/knee bending tibia track close to neutral; IR of B femurs w/knee bending PT-OP-J Posture/Palpation/Skin Start: 11/14/21 17:51 Freq: Status: Active Protocol: Document 05/13/22 16:07 [facility] (Rec: 05/13/22 16:52 [facility] [id number]) Posture Evaluation Tyler Postural Classification System Tyler Postural Classifications Posterior/Anterior Vertebral Compression Test 1 Elbow Flexion Test 3 Lumbar Protective Mechanism Left AP 1 Lumbar Protective Mechanism Right AP 1 Lumbar Protective Mechanism Left PA 1 PT-OP-K Range of Motion Start: 11/14/21 17:51 Freq: Status: Active Protocol: Document 05/13/22 16:07 [facility] (Rec: 05/13/22 16:52 [facility] [id number]) Lumbar Spine Range of Motion Lumbar Spine Active Percentage Flexion 50 Extension 75 Rotation Left 75 Rotation Right 65 Lateral Flexion Left 60 Lateral Flexion Right 75 Comments L SB dec folding L; R SB dec L lengthening; tight B rot, L 5 hinge w/ext; tight w/flex Hip Goniometric Range of Motion Hip Right Active Flexion w/Knee Flexed 108 Straight Leg Raise 90 Internal Rotation 30 External Rotation 29 Comments discomfort ant hip w/flex Left Active Flexion w/Knee Flexed 101 Straight Leg Raise 90 Internal Rotation 17 External Rotation 18 Comments pain in hip/back; discomfort in abdomen and rib and groin w /flex, SLR PROM tight in HS and lat hip PT-OP-L Special Tests Start: 11/14/21 17:51 Freq: Status: Active Protocol: Document 05/13/22 16:07 [facility] (Rec: 05/13/22 16:52 [facility] [id number]) Special Tests Lumbar Spine Special Tests Slump Test Results positive for tension B w/neck flex PT-OP-M Strength Start: 11/14/21 17:51 Freq: Status: Active Protocol: Document 05/13/22 16:07 [facility] (Rec: 05/13/22 16:52 [facility] [id number]) Hip Strength Hip Manual Muscle Testing Right Flexion (L2) 4 Good Extension (S1) 3+ Fair+ Abduction 4- Good- Adduction 4- Good- External Rotation 4 Good Internal Rotation 5 Normal Left Flexion (L2) 3+ Fair+ Extension (S1) 3+ Fair+ Abduction 4 Good Adduction 4- Good- External Rotation 4 Good Internal Rotation 4- Good- Comments 5/5 knee and ankle MMT B PT-OP-Q Treatments Start: 11/14/21 17:51 Freq: Status: Active Protocol: Document 07/04/22 07:25 [facility] (Rec: 07/04/22 18:43 [facility] [id number]) Manual Therapy Treatment Soft Tissue Mobilization cranium Body Location R>L Mobilization Type Myofascial Release Comments w/LTR lumbar Comments T-L paraspinals & R QL in in s /l and jaw Body Location R>L masseter, temporalis Mobilization Type Rolling,Strumming Intensity/Depth Moderate Body Position Supine PT-OP-R Modalities Start: 11/14/21 17:51 Freq: Status: Active Protocol: Document 04/15/22 07:30 [facility] (Rec: 04/15/22 12:24 [facility] [id number]) Hot Pack/Cold Pack Treatment Cold Pack Location cervical & thoracic Patient Position Supine Treatment Duration (minutes) 10 PT-OP-T Assessment and Plan Start: 11/14/21 17:51 Freq: Status: Active Protocol: Document 07/04/22 07:25 [facility] (Rec: 07/04/22 18:43 [facility] [id number]) Physical Therapy Assessment Goals pain Impairment neck pain and tightness that is constant that is at a 2/10 at all the time w/o relief Car Rental Service Attendant Goal (LTG) Pt will report no constant neck pain or tightness at least 5/7 days a week LTG Duration 08/05/22 static activity Impairment pain starts after 10 min of standing -310 and if stand longer it can get to a 4/10- describes as really uncomfortable-standing at attention/parade rest Penitentiary Goal (LTG) Pt will be able to stand at attention or parade rest and at home for extended tiem as needed without inc pain greater than 1/10 LTG Duration 08/05/22 activity Short Term Goal (STG) Pt will report being able to return to long walks w/no more than 1/10 pain in neck and/or thoraic and lumbar region. STG Duration 07/06/22 Car Rental Service Attendant Goal (LTG) Pt will be able to return to running and working out without pain in cervical, thoracic or lumbar region w/o pain greater than 2/10 LTG Duration 08/05/22 ROM Short Term Goal (STG) Pt will have full cervical and lumbar ROM w/o feeling of tension or pain to allow pt to do ADls w/o inc pain. STG Duration 06/24 Penitentiary Goal (LTG) Pt will have full jaw opening to 40mm w/o feeling of tightness 01/23-tension 03/19-feels okay but still limited LTG Duration 08/05 Assessment Summary Assessment Pt had improved R rot and L SB w/manual treatment but pt still has significant tenderness throghout body. encouraged pt to ice w/flare ups Physical Therapy Plan Frequency and Duration Duration of treatment (weeks) 12 Plan of Care Start Date 05/13/22 Plan of Care End Date 08/05/22 Next Visit Focus/Plan Next Note Type Treatment Note Next Visit Plan cranial mobility & coccyx for neutral tension
--- NOTE | 2022-07-08 18:01 | PT.OTN ---
Current Diagnoses Pain in unspecified hip (07/08/22) Unspecified temporomandibular joint disorder, unspecified side (07/08/22) Other specified dorsopathies, cervicothoracic region (07/08/22) Cervicalgia (07/08/22) Low back pain, unspecified (07/08/22) Muscle weakness (generalized) (07/08/22) Abnormal posture (07/08/22) Physical Therapy Treatment Note PT-OP-A Visit Information Start: 11/14/21 17:51 Freq: Status: Active Protocol: Document 07/08/22 15:20 [facility] (Rec: 07/08/22 18:00 [facility] [id number]) Out-Patient Physical Therapy Visit Information Visit Information Visit Type Treatment Note Visit Note 29 Visit Start Time 15:20 Visit Stop Time 16:00 Total Visit Minutes 40 Visit Number 01/28 Number of TRAVEL DIRECTOR Visits 0 PT-OP-B Current Condition Start: 11/14/21 17:51 Freq: Status: Active Protocol: Document 05/13/22 16:07 [facility] (Rec: 05/13/22 16:52 [facility] [id number]) Current Condition History of Current Condition Onset Date 6 months/1 year Current Complaints B jaw pain/cervical& thoracic pain History of Current Condition 05/13-pt reports LBP and B hip pain has been going on for years. The only traumatic injury was in 2006 was doing a marla carry and stepped in a hole and caused a lot of pain at the time and the back and R hip. She does not really remember any signficiant before that. Since then it has been an off and on thing but it got pretty bad for the past year. She did do PT at another clinic for hips and back and hips are feeling better but she also hasn't been running and is only recently getting into more intense workouts again gradually and feels tight and tender after. Back and hips can feel really hot and burning. Pt notes pain in LB, thoracic and neck and B sides. She has felt like she was constipated today and felt like she had to go but couldn' t. She has worked on diet a lot. She has BM about 1x/week. She has had 3 xrays that have noted constipation. Rates type 1 and 2 mostly on bristol stool chart. She gets a lot fiber in her diet. Pt can cross her legs and get her back to pop and does it d/t feeling like it needs it. Pt reports she doesn't notice jaw during the day, she is clenching more at night w/ mouth guard. Neck still been feeling stiff, Tingling in mid back about 1x/day at least. It is not as prolonged and she feels like she can improve it if she adjusts her posture. She did do a 2 mile walk and felt pretty uncomfortable at 1 mile. Re-eval: Pt reports neck and thoracic pain started about 1 year ago and she would ntoice that 5-10 min into walking, she starts to get tingling in shoulder blades. Fwd flex stretch feels like it should help but it doesn't. Once it starts, there is no way ot stop it besides lay down. This has kept her from hiking. Neck pain is more feels so tight that she feels like her ROM is limited. ITs been better since started working on jaw. It always feels like she needs to move her neck but doing the motion doesn't really help. It feels like she wants to pop it but that doesn't really help either. She gets things that feels like golf balls along neck. IE:Jaw pain started about 6 months ago. when it first started it felt like I had been chewing gum allt he day prior. thought she may be clenching. She got a mouthguard after a couple months for night but does not feel like it has made a difference. Neck pain has been crhornic, but no injury. Denies LEAVITT except occasionally and they go away. denies dizziness or lightheadness. Mouth xray done recently and everything looked fine. Pt saw specialist in [place] and she suspects this is just muscular. Denies clicking in jaw. Pt was told to avoid hard to chew and crunchy foods and is most of the time following this. She can feel it more w/ those foods. Tried heat and it feels good but doesn't give relief. Gets ringing in ears and feels like ear is stuffy ( thinks both but notices it more in R). Evry couple weeks she gets the ringing and it only lasts about 5-10 min. Ear feeling stuffy is more often than the ringing. Pt is going to PT for LB. She has tingling in upper back sometimes when just sitting down and with walking. Her neck pain has been persistant. She has had some cervical xray but does not recall anything on it. Pt does have referral for sleep study. Pt feels like she has to sleep okay. She wakes up 1- 2x/night and will get up to go to the bathroom. When seh wakes, she doesn't feel rested , feels exhausted by the end of the day, and feels tense when she awakes. Treatment Goals Patient/Caregiver Goals get back to hiking and long walks, dec stiffness, back to running & workouts PT-OP-C Subjective Start: 11/14/21 17:51 Freq: Status: Active Protocol: Document 07/08/22 15:20 [facility] (Rec: 07/08/22 18:00 [facility] [id number]) OP-PT Subjective Patient Comments Patient Comments Pt reports jaw hasn't been as bad. Back is same as usual. Pt reports neck has been feeling stiff. She is exhausted today starting at 2 pm for no reason. PT-OP-F Manual Assessment Start: 11/14/21 17:51 Freq: Status: Active Protocol: Document 05/13/22 16:07 [facility] (Rec: 05/13/22 16:52 [facility] [id number]) Manual Assessments Soft Tissue Assessment Soft Tissue Mobility Assessment tenderness throughout lumbar and gluteal region along w/ abdomenal wall Joint Mobility Assessment Joint Mobility Assessment R iliac crest is higher; equal greater trochanter; w/knee bending tibia track close to neutral; IR of B femurs w/knee bending PT-OP-J Posture/Palpation/Skin Start: 11/14/21 17:51 Freq: Status: Active Protocol: Document 05/13/22 16:07 [facility] (Rec: 05/13/22 16:52 [facility] [id number]) Posture Evaluation Tyler Postural Classification System Tyler Postural Classifications Posterior/Anterior Vertebral Compression Test 1 Elbow Flexion Test 3 Lumbar Protective Mechanism Left AP 1 Lumbar Protective Mechanism Right AP 1 Lumbar Protective Mechanism Left PA 1 PT-OP-K Range of Motion Start: 11/14/21 17:51 Freq: Status: Active Protocol: Document 05/13/22 16:07 [facility] (Rec: 05/13/22 16:52 [facility] [id number]) Lumbar Spine Range of Motion Lumbar Spine Active Percentage Flexion 50 Extension 75 Rotation Left 75 Rotation Right 65 Lateral Flexion Left 60 Lateral Flexion Right 75 Comments L SB dec folding L; R SB dec L lengthening; tight B rot, L 5 hinge w/ext; tight w/flex Hip Goniometric Range of Motion Hip Right Active Flexion w/Knee Flexed 108 Straight Leg Raise 90 Internal Rotation 30 External Rotation 29 Comments discomfort ant hip w/flex Left Active Flexion w/Knee Flexed 101 Straight Leg Raise 90 Internal Rotation 17 External Rotation 18 Comments pain in hip/back; discomfort in abdomen and rib and groin w /flex, SLR PROM tight in HS and lat hip PT-OP-L Special Tests Start: 11/14/21 17:51 Freq: Status: Active Protocol: Document 05/13/22 16:07 [facility] (Rec: 05/13/22 16:52 [facility] [id number]) Special Tests Lumbar Spine Special Tests Slump Test Results positive for tension B w/neck flex PT-OP-M Strength Start: 11/14/21 17:51 Freq: Status: Active Protocol: Document 05/13/22 16:07 [facility] (Rec: 05/13/22 16:52 [facility] [id number]) Hip Strength Hip Manual Muscle Testing Right Flexion (L2) 4 Good Extension (S1) 3+ Fair+ Abduction 4- Good- Adduction 4- Good- External Rotation 4 Good Internal Rotation 5 Normal Left Flexion (L2) 3+ Fair+ Extension (S1) 3+ Fair+ Abduction 4 Good Adduction 4- Good- External Rotation 4 Good Internal Rotation 4- Good- Comments 5/5 knee and ankle MMT B PT-OP-Q Treatments Start: 11/14/21 17:51 Freq: Status: Active Protocol: Document 07/08/22 15:20 [facility] (Rec: 07/08/22 18:00 [facility] [id number]) Manual Therapy Treatment Soft Tissue Mobilization hip Body Location L TFL, RF Mobilization Type Rolling Intensity/Depth Moderate Body Position Supine Comments hip IR/ER cervical Body Location SO Mobilization Type Strumming,Sustained Pressure Comments w/LTR Joint Mobilizations tibfem Comments L IR tib FM cranium Comments temporal-occipital distraction B occiptial distraction from sphenoid B R lambdoid suture caudal coronal B PA temporoparietal inf/cudal B matoid R AP hip Joint L on axis IR FM w/neuro re edu manual facilitated at end range PT-OP-R Modalities Start: 11/14/21 17:51 Freq: Status: Active Protocol: Document 04/15/22 07:30 [facility] (Rec: 04/15/22 12:24 [facility] [id number]) Hot Pack/Cold Pack Treatment Cold Pack Location cervical & thoracic Patient Position Supine Treatment Duration (minutes) 10 PT-OP-T Assessment and Plan Start: 11/14/21 17:51 Freq: Status: Active Protocol: Document 07/08/22 15:20 [facility] (Rec: 07/08/22 18:00 [facility] [id number]) Physical Therapy Assessment Goals pain Impairment neck pain and tightness that is constant that is at a 2/10 at all the time w/o relief Prison Goal (LTG) Pt will report no constant neck pain or tightness at least 5/7 days a week LTG Duration 08/05/22 static activity Impairment pain starts after 10 min of standing -3/10 and if stand longer it can get to a 4/10- describes as really uncomfortable-standing at attention/parade rest Heliotherapist Goal (LTG) Pt will be able to stand at attention or parade rest and at home for extended tiem as needed without inc pain greater than 1/10 LTG Duration 08/05/22 activity Short Term Goal (STG) Pt will report being able to return to long walks w/no more than 1/10 pain in neck and/or thoraic and lumbar region. STG Duration 07/06/22 Prison Goal (LTG) Pt will be able to return to running and working out without pain in cervical, thoracic or lumbar region w/o pain greater than 2/10 LTG Duration 08/05/22 ROM Short Term Goal (STG) Pt will have full cervical and lumbar ROM w/o feeling of tension or pain to allow pt to do ADls w/o inc pain. STG Duration 06/24 Heliotherapist Goal (LTG) Pt will have full jaw opening to 40mm w/o feeling of tightness 01/23-tension 03/19-feels okay but still limited LTG Duration 08/05 Assessment Summary Assessment pt was visably exhausted today and showed difficulty w/all transitions d/t this. BP WNL and did not appear to be an issue. Pt had improved L hip IR w/manual and cervical rotations. Physical Therapy Plan Frequency and Duration Duration of treatment (weeks) 12 Plan of Care Start Date 05/13/22 Plan of Care End Date 08/05/22 Next Visit Focus/Plan Next Note Type Treatment Note Next Visit Plan cranial mobility & coccyx for neutral tension
--- NOTE | 2022-07-16 16:06 | PT.OTN ---
Current Diagnoses Pain in unspecified hip (07/16/22) Unspecified temporomandibular joint disorder, unspecified side (07/16/22) Other specified dorsopathies, cervicothoracic region (07/16/22) Cervicalgia (07/16/22) Low back pain, unspecified (07/16/22) Muscle weakness (generalized) (07/16/22) Abnormal posture (07/16/22) Physical Therapy Treatment Note PT-OP-A Visit Information Start: 11/14/21 17:51 Freq: Status: Active Protocol: Document 07/16/22 15:20 [facility] (Rec: 07/16/22 16:06 [facility] [id number]) Out-Patient Physical Therapy Visit Information Visit Information Visit Type Treatment Note Visit Note 30 Visit Start Time 15:19 Visit Stop Time 16:00 Total Visit Minutes 41 Visit Number 02/28 Number of RN COMPLEX CARE Visits 0 PT-OP-B Current Condition Start: 11/14/21 17:51 Freq: Status: Active Protocol: Document 05/13/22 16:07 [facility] (Rec: 05/13/22 16:52 [facility] [id number]) Current Condition History of Current Condition Onset Date 6 months/1 year Current Complaints B jaw pain/cervical& thoracic pain History of Current Condition 05/13-pt reports LBP and B hip pain has been going on for years. The only traumatic injury was in 2006 was doing a marla carry and stepped in a hole and caused a lot of pain at the time and the back and R hip. She does not really remember any signficiant before that. Since then it has been an off and on thing but it got pretty bad for the past year. She did do PT at another clinic for hips and back and hips are feeling better but she also hasn't been running and is only recently getting into more intense workouts again gradually and feels tight and tender after. Back and hips can feel really hot and burning. Pt notes pain in LB, thoracic and neck and B sides. She has felt like she was constipated today and felt like she had to go but couldn' t. She has worked on diet a lot. She has BM about 1x/week. She has had 3 xrays that have noted constipation. Rates type 1 and 2 mostly on bristol stool chart. She gets a lot fiber in her diet. Pt can cross her legs and get her back to pop and does it d/t feeling like it needs it. Pt reports she doesn't notice jaw during the day, she is clenching more at night w/ mouth guard. Neck still been feeling stiff, Tingling in mid back about 1x/day at least. It is not as prolonged and she feels like she can improve it if she adjusts her posture. She did do a 2 mile walk and felt pretty uncomfortable at 1 mile. Re-eval: Pt reports neck and thoracic pain started about 1 year ago and she would ntoice that 5-10 min into walking, she starts to get tingling in shoulder blades. Fwd flex stretch feels like it should help but it doesn't. Once it starts, there is no way ot stop it besides lay down. This has kept her from hiking. Neck pain is more feels so tight that she feels like her ROM is limited. ITs been better since started working on jaw. It always feels like she needs to move her neck but doing the motion doesn't really help. It feels like she wants to pop it but that doesn't really help either. She gets things that feels like golf balls along neck. IE:Jaw pain started about 6 months ago. when it first started it felt like I had been chewing gum allt he day prior. thought she may be clenching. She got a mouthguard after a couple months for night but does not feel like it has made a difference. Neck pain has been crhornic, but no injury. Denies LEAVITT except occasionally and they go away. denies dizziness or lightheadness. Mouth xray done recently and everything looked fine. Pt saw specialist in [place] and she suspects this is just muscular. Denies clicking in jaw. Pt was told to avoid hard to chew and crunchy foods and is most of the time following this. She can feel it more w/ those foods. Tried heat and it feels good but doesn't give relief. Gets ringing in ears and feels like ear is stuffy ( thinks both but notices it more in R). Evry couple weeks she gets the ringing and it only lasts about 5-10 min. Ear feeling stuffy is more often than the ringing. Pt is going to PT for LB. She has tingling in upper back sometimes when just sitting down and with walking. Her neck pain has been persistant. She has had some cervical xray but does not recall anything on it. Pt does have referral for sleep study. Pt feels like she has to sleep okay. She wakes up 1- 2x/night and will get up to go to the bathroom. When seh wakes, she doesn't feel rested , feels exhausted by the end of the day, and feels tense when she awakes. Treatment Goals Patient/Caregiver Goals get back to hiking and long walks, dec stiffness, back to running & workouts PT-OP-C Subjective Start: 11/14/21 17:51 Freq: Status: Active Protocol: Document 07/16/22 15:20 [facility] (Rec: 07/16/22 16:06 [facility] [id number]) OP-PT Subjective Patient Comments Patient Comments Back was pretty stiff for a couple days over the weekend. Jaw has been pretty sore when chewing but not as bad as it was a couple weeks ago. Biggest restriction recently has felt like stiffness in general. Neck has been pretty bad but she did put a hitch on herself. PT-OP-F Manual Assessment Start: 11/14/21 17:51 Freq: Status: Active Protocol: Document 05/13/22 16:07 [facility] (Rec: 05/13/22 16:52 [facility] [id number]) Manual Assessments Soft Tissue Assessment Soft Tissue Mobility Assessment tenderness throughout lumbar and gluteal region along w/ abdomenal wall Joint Mobility Assessment Joint Mobility Assessment R iliac crest is higher; equal greater trochanter; w/knee bending tibia track close to neutral; IR of B femurs w/knee bending PT-OP-J Posture/Palpation/Skin Start: 11/14/21 17:51 Freq: Status: Active Protocol: Document 05/13/22 16:07 [facility] (Rec: 05/13/22 16:52 [facility] [id number]) Posture Evaluation Tyler Postural Classification System Tyler Postural Classifications Posterior/Anterior Vertebral Compression Test 1 Elbow Flexion Test 3 Lumbar Protective Mechanism Left AP 1 Lumbar Protective Mechanism Right AP 1 Lumbar Protective Mechanism Left PA 1 PT-OP-K Range of Motion Start: 11/14/21 17:51 Freq: Status: Active Protocol: Document 05/13/22 16:07 [facility] (Rec: 05/13/22 16:52 [facility] [id number]) Lumbar Spine Range of Motion Lumbar Spine Active Percentage Flexion 50 Extension 75 Rotation Left 75 Rotation Right 65 Lateral Flexion Left 60 Lateral Flexion Right 75 Comments L SB dec folding L; R SB dec L lengthening; tight B rot, L 5 hinge w/ext; tight w/flex Hip Goniometric Range of Motion Hip Right Active Flexion w/Knee Flexed 108 Straight Leg Raise 90 Internal Rotation 30 External Rotation 29 Comments discomfort ant hip w/flex Left Active Flexion w/Knee Flexed 101 Straight Leg Raise 90 Internal Rotation 17 External Rotation 18 Comments pain in hip/back; discomfort in abdomen and rib and groin w /flex, SLR PROM tight in HS and lat hip PT-OP-L Special Tests Start: 11/14/21 17:51 Freq: Status: Active Protocol: Document 05/13/22 16:07 [facility] (Rec: 05/13/22 16:52 [facility] [id number]) Special Tests Lumbar Spine Special Tests Slump Test Results positive for tension B w/neck flex PT-OP-M Strength Start: 11/14/21 17:51 Freq: Status: Active Protocol: Document 05/13/22 16:07 [facility] (Rec: 05/13/22 16:52 [facility] [id number]) Hip Strength Hip Manual Muscle Testing Right Flexion (L2) 4 Good Extension (S1) 3+ Fair+ Abduction 4- Good- Adduction 4- Good- External Rotation 4 Good Internal Rotation 5 Normal Left Flexion (L2) 3+ Fair+ Extension (S1) 3+ Fair+ Abduction 4 Good Adduction 4- Good- External Rotation 4 Good Internal Rotation 4- Good- Comments 5/5 knee and ankle MMT B PT-OP-Q Treatments Start: 11/14/21 17:51 Freq: Status: Active Protocol: Document 07/16/22 15:20 [facility] (Rec: 07/16/22 16:06 [facility] [id number]) Therapeutic Exercises Prone Exercises push up Prone Exercise Name on knees & on table w/gradual dec height Side bilateral Reps/Minutes 5 min total Comments working on form-found pt cannot keep form in full push up plank Prone Exercise Name 1.forearm and knees 2. hands and feet on mult levl of plinth Reps/Minutes 3 min total Comments attemptd forarm and feet but pt unable w/o back pain Manual Therapy Treatment Soft Tissue Mobilization cervical Body Location SO Mobilization Type Strumming,Sustained Pressure Comments w/LTR Joint Mobilizations cranium Reps/Duration FM Comments temporal-occipital distraction B occiptial distraction from sphenoid B R lambdoid suture caudal coronal B PA temporoparietal inf/cudal B matoid R AP coronal R saggital suture sphenoid L To R PT-OP-R Modalities Start: 11/14/21 17:51 Freq: Status: Active Protocol: Document 04/15/22 07:30 [facility] (Rec: 04/15/22 12:24 [facility] [id number]) Hot Pack/Cold Pack Treatment Cold Pack Location cervical & thoracic Patient Position Supine Treatment Duration (minutes) 10 PT-OP-T Assessment and Plan Start: 11/14/21 17:51 Freq: Status: Active Protocol: Document 07/16/22 15:20 [facility] (Rec: 07/16/22 16:06 [facility] [id number]) Physical Therapy Assessment Goals pain Impairment neck pain and tightness that is constant that is at a 2/10 at all the time w/o relief Roundhouse Supervisor Goal (LTG) Pt will report no constant neck pain or tightness at least 5/7 days a week LTG Duration 08/05/22 static activity Impairment pain starts after 10 min of standing -3/10 and if stand longer it can get to a 4/10- describes as really uncomfortable-standing at attention/parade rest Group Home Goal (LTG) Pt will be able to stand at attention or parade rest and at home for extended tiem as needed without inc pain greater than 1/10 LTG Duration 08/05/22 activity Short Term Goal (STG) Pt will report being able to return to long walks w/no more than 1/10 pain in neck and/or thoraic and lumbar region. STG Duration 07/06/22 Roundhouse Supervisor Goal (LTG) Pt will be able to return to running and working out without pain in cervical, thoracic or lumbar region w/o pain greater than 2/10 LTG Duration 08/05/22 ROM Short Term Goal (STG) Pt will have full cervical and lumbar ROM w/o feeling of tension or pain to allow pt to do ADls w/o inc pain. STG Duration 06/24 Group Home Goal (LTG) Pt will have full jaw opening to 40mm w/o feeling of tightness 01/23-tension 03/19-feels okay but still limited LTG Duration 08/05 Assessment Summary Assessment Pt did well with manual and had dec dural tension w/L sided slump but still mild on R. Able to do elevated planks but not full forearm. Pt had full L rot after manual vs only 50% prior. Physical Therapy Plan Frequency and Duration Duration of treatment (weeks) 12 Plan of Care Start Date 05/13/22 Plan of Care End Date 08/05/22 Next Visit Focus/Plan Next Note Type Treatment Note Next Visit Plan cranial mobility & coccyx for neutral tension
--- NOTE | 2022-07-22 18:09 | PT.OTN ---
Current Diagnoses Pain in unspecified hip (07/22/22) Unspecified temporomandibular joint disorder, unspecified side (07/22/22) Other specified dorsopathies, cervicothoracic region (07/22/22) Cervicalgia (07/22/22) Low back pain, unspecified (07/22/22) Muscle weakness (generalized) (07/22/22) Abnormal posture (07/22/22) Physical Therapy Treatment Note PT-OP-A Visit Information Start: 11/14/21 17:51 Freq: Status: Active Protocol: Document 07/22/22 15:24 [facility] (Rec: 07/22/22 18:09 [facility] [id number]) Out-Patient Physical Therapy Visit Information Visit Information Visit Type Progress Note Visit Note 31 Visit Start Time 15:21 Visit Stop Time 16:00 Total Visit Minutes 39 Visit Number 03/30 Number of PHONOGRAPH NEEDLE TIP MAKER Visits 0 PT-OP-B Current Condition Start: 11/14/21 17:51 Freq: Status: Active Protocol: Document 05/13/22 16:07 [facility] (Rec: 05/13/22 16:52 [facility] [id number]) Current Condition History of Current Condition Onset Date 6 months/1 year Current Complaints B jaw pain/cervical& thoracic pain History of Current Condition /-pt reports LBP and B hip pain has been going on for years. The only traumatic injury was in 2006 was doing a marla carry and stepped in a hole and caused a lot of pain at the time and the back and R hip. She does not really remember any signficiant before that. Since then it has been an off and on thing but it got pretty bad for the past year. She did do PT at another clinic for hips and back and hips are feeling better but she also hasn't been running and is only recently getting into more intense workouts again gradually and feels tight and tender after. Back and hips can feel really hot and burning. Pt notes pain in LB, thoracic and neck and B sides. She has felt like she was constipated today and felt like she had to go but couldn' t. She has worked on diet a lot. She has BM about 1x/week. She has had 3 xrays that have noted constipation. Rates type 1 and 2 mostly on bristol stool chart. She gets a lot fiber in her diet. Pt can cross her legs and get her back to pop and does it d/t feeling like it needs it. Pt reports she doesn't notice jaw during the day, she is clenching more at night w/ mouth guard. Neck still been feeling stiff, Tingling in mid back about 1x/day at least. It is not as prolonged and she feels like she can improve it if she adjusts her posture. She did do a 2 mile walk and felt pretty uncomfortable at 1 mile. Re-eval: Pt reports neck and thoracic pain started about 1 year ago and she would ntoice that 5-10 min into walking, she starts to get tingling in shoulder blades. Fwd flex stretch feels like it should help but it doesn't. Once it starts, there is no way ot stop it besides lay down. This has kept her from hiking. Neck pain is more feels so tight that she feels like her ROM is limited. ITs been better since started working on jaw. It always feels like she needs to move her neck but doing the motion doesn't really help. It feels like she wants to pop it but that doesn't really help either. She gets things that feels like golf balls along neck. IE:Jaw pain started about 6 months ago. when it first started it felt like I had been chewing gum allt he day prior. thought she may be clenching. She got a mouthguard after a couple months for night but does not feel like it has made a difference. Neck pain has been crhornic, but no injury. Denies LEAVITT except occasionally and they go away. denies dizziness or lightheadness. Mouth xray done recently and everything looked fine. Pt saw specialist in [place] and she suspects this is just muscular. Denies clicking in jaw. Pt was told to avoid hard to chew and crunchy foods and is most of the time following this. She can feel it more w/ those foods. Tried heat and it feels good but doesn't give relief. Gets ringing in ears and feels like ear is stuffy ( thinks both but notices it more in R). Evry couple weeks she gets the ringing and it only lasts about 5-10 min. Ear feeling stuffy is more often than the ringing. Pt is going to PT for LB. She has tingling in upper back sometimes when just sitting down and with walking. Her neck pain has been persistant. She has had some cervical xray but does not recall anything on it. Pt does have referral for sleep study. Pt feels like she has to sleep okay. She wakes up 1- 2x/night and will get up to go to the bathroom. When seh wakes, she doesn't feel rested , feels exhausted by the end of the day, and feels tense when she awakes. Treatment Goals Patient/Caregiver Goals get back to hiking and long walks, dec stiffness, back to running & workouts PT-OP-C Subjective Start: 11/14/21 17:51 Freq: Status: Active Protocol: Document 07/22/22 15:24 [facility] (Rec: 07/22/22 18:09 [facility] [id number]) OP-PT Subjective Patient Comments Patient Comments Pt reports feels like a clicking in LB and reports neck just feels tight PT-OP-F Manual Assessment Start: 11/14/21 17:51 Freq: Status: Active Protocol: Document 05/13/22 16:07 [facility] (Rec: 05/13/22 16:52 [facility] [id number]) Manual Assessments Soft Tissue Assessment Soft Tissue Mobility Assessment tenderness throughout lumbar and gluteal region along w/ abdomenal wall Joint Mobility Assessment Joint Mobility Assessment R iliac crest is higher; equal greater trochanter; w/knee bending tibia track close to neutral; IR of B femurs w/knee bending PT-OP-J Posture/Palpation/Skin Start: 11/14/21 17:51 Freq: Status: Active Protocol: Document 07/22/22 15:24 [facility] (Rec: 07/22/22 18:09 [facility] [id number]) Posture Evaluation Tyler Postural Classification System Vertebral Compression Test 3 Elbow Flexion Test 3 Lumbar Protective Mechanism Left AP 1 Lumbar Protective Mechanism Right AP 1 Lumbar Protective Mechanism Left PA 1 Lumbar Protective Mechanism Right PA 1 PT-OP-K Range of Motion Start: 11/14/21 17:51 Freq: Status: Active Protocol: Document 07/22/22 15:24 [facility] (Rec: 07/22/22 18:09 [facility] [id number]) Cervical Spine Range of Motion Cervical Spine Active Degrees Flexion 69 Extension 50 Rotation Left 64 Rotation Right 65 Lateral Flexion Left 34 Lateral Flexion Right 46 Comments tight w/L SB & pain ext; 46 thoracic rotation L; 66 R Lumbar Spine Range of Motion Lumbar Spine Active Percentage Flexion 75 Extension 90 Rotation Left 75 Rotation Right 65 Lateral Flexion Left 60 Lateral Flexion Right 80 Comments L SB dec folding L; R SB dec L lengthening; tight B rot L>R; tight w/flex PT-OP-L Special Tests Start: 11/14/21 17:51 Freq: Status: Active Protocol: Document 05/13/22 16:07 [facility] (Rec: 05/13/22 16:52 [facility] [id number]) Special Tests Lumbar Spine Special Tests Slump Test Results positive for tension B w/neck flex PT-OP-M Strength Start: 11/14/21 17:51 Freq: Status: Active Protocol: Document 05/13/22 16:07 [facility] (Rec: 05/13/22 16:52 [facility] [id number]) Hip Strength Hip Manual Muscle Testing Right Flexion (L2) 4 Good Extension (S1) 3+ Fair+ Abduction 4- Good- Adduction 4- Good- External Rotation 4 Good Internal Rotation 5 Normal Left Flexion (L2) 3+ Fair+ Extension (S1) 3+ Fair+ Abduction 4 Good Adduction 4- Good- External Rotation 4 Good Internal Rotation 4- Good- Comments 5/5 knee and ankle MMT B PT-OP-Q Treatments Start: 11/14/21 17:51 Freq: Status: Active Protocol: Document 07/22/22 15:24 [facility] (Rec: 07/22/22 18:09 [facility] [id number]) Manual Therapy Treatment Soft Tissue Mobilization cervical Mobilization Type Strumming,Sustained Pressure Comments 1. scalnes w/rot 2. along vagus n path B w/neck ext and w/downward pressure on L ribcage & on R w/downward pull along R inf ribcage PT-OP-R Modalities Start: 11/14/21 17:51 Freq: Status: Active Protocol: Document 04/15/22 07:30 [facility] (Rec: 04/15/22 12:24 [facility] [id number]) Hot Pack/Cold Pack Treatment Cold Pack Location cervical & thoracic Patient Position Supine Treatment Duration (minutes) 10 PT-OP-T Assessment and Plan Start: 11/14/21 17:51 Freq: Status: Active Protocol: Document 07/22/22 15:24 [facility] (Rec: 07/22/22 18:09 [facility] [id number]) Physical Therapy Assessment Goals pain Impairment neck pain and tightness that is constant that is at a 2/10 at all the time w/o relief Longterm Goal (LTG) Pt will report no constant neck pain or tightness at least 5/7 days a week 07/22:no change LTG Duration 09/30 static activity Impairment pain starts after 10 min of standing -06/14 and if stand longer it can get to a 07/15- describes as really uncomfortable-standing at attention/parade rest Fruit Worker Goal (LTG) Pt will be able to stand at attention or parade rest and at home for extended tiem as needed without inc pain greater than 1/10 07/22-tingling in upper back - 07/15 LTG Duration 09/30/22 activity Short Term Goal (STG) Pt will report being able to return to long walks w/no more than 1/10 pain in neck and/or thoraic and lumbar region. 07/22-about 2 miles max recently but about 2-310-LB & mid back STG Duration 08/24/22 Fruit Worker Goal (LTG) Pt will be able to return to running and working out without pain in cervical, thoracic or lumbar region w/o pain greater than 2/10 07/22: short distance run ~3/10 ; after [id number]/10 LTG Duration 09/30 ROM Short Term Goal (STG) Pt will have full cervical and lumbar ROM w/o feeling of tension or pain to allow pt to do ADls w/o inc pain. 07/22-06/14 (L>R knee pain); back and neck are stiff and can't stand up straight; still limited ROM STG Duration 09/03 Longterm Goal (LTG) Pt will have full jaw opening to 40mm w/o feeling of tightness 01/23-tension 03/19-feels okay but still limited 07/22-38 mm tight LTG Duration 09/30/22 Assessment Summary Assessment Pt is making progerss w/ postural stability but is still limited by consistant pain and stiffness feeling along w/general feeling of fatigue and weakness. She has improved pelvis height but does demonstrate cont ribcage immobility despite manual and pt stretching exercises. Physical Therapy Plan Frequency and Duration Frequency of Treatment 1x/Week Duration of treatment (weeks) 10 Plan of Care Start Date 07/22/22 Plan of Care End Date 09/30/22 Therapeutic Interventions Therapeutic Interventions Balance Training,Gait Training ,Home Exercise Program,Joint Mobilizations,Manual Therapy, Neuromuscular Re-education, Orthotic/Prosthetic Management ,Patient/Caregiver Education, Self-Care/Home Management,Soft Tissue Mobilization,Taping, Therapeutic Activities, Therapeutic Exercises Modalities Cold Pack/Ice Massage,Electric Stimulation,Hot Packs, Infrared Therapy,Iontophoresis ,Traction- Mechanical, Ultrasound Other Therapeutic Interventions dexomethosone ionto Next Visit Focus/Plan Next Note Type Treatment Note Next Visit Plan cranial mobility & coccyx for neutral tension
--- NOTE | 2022-07-22 18:09 | PT.OPPOC ---
Physical, Occupational & Speech Therapy At Current Diagnoses Pain in unspecified hip (07/22/22) Unspecified temporomandibular joint disorder, unspecified side (07/22/22) Other specified dorsopathies, cervicothoracic region (07/22/22) Cervicalgia (07/22/22) Low back pain, unspecified (07/22/22) Muscle weakness (generalized) (07/22/22) Abnormal posture (07/22/22) Visit Care Team Role Provider Type Christopher Quevedo MD Attending Provider Non-Staff Primary Care Provider Referring Provider Specialty: Family Practice Address: [facility], Fax: Email: Plan Of Care PT-OP-T Assessment and Plan Start: 11/14/21 17:51 Freq: Status: Active Protocol: Document 07/22/22 15:24 [facility] (Rec: 07/22/22 18:09 [facility] [id number]) Physical Therapy Assessment Goals pain Impairment neck pain and tightness that is constant that is at a 2/10 at all the time w/o relief Curriculum Writer Goal (LTG) Pt will report no constant neck pain or tightness at least 5/7 days a week 07/22:no change LTG Duration 09/30 static activity Impairment pain starts after 10 min of standing -3/10 and if stand longer it can get to a 4/10- describes as really uncomfortable-standing at attention/parade rest Mcfp Goal (LTG) Pt will be able to stand at attention or parade rest and at home for extended tiem as needed without inc pain greater than 1/10 07/22-tingling in upper back 3- 410 LTG Duration 09/30/22 activity Short Term Goal (STG) Pt will report being able to return to long walks w/no more than 1/10 pain in neck and/or thoraic and lumbar region. 07/22-about 2 miles max recently but about 2-3/10-LB & mid back STG Duration 08/24/22 Mcfp Goal (LTG) Pt will be able to return to running and working out without pain in cervical, thoracic or lumbar region w/o pain greater than 2/10 4/17: short distance run ~3/10 ; after bjvlphhb-4-3/10 LTG Duration 09/30 ROM Short Term Goal (STG) Pt will have full cervical and lumbar ROM w/o feeling of tension or pain to allow pt to do ADls w/o inc pain. 07/22-06/14 (L>R knee pain); back and neck are stiff and can't stand up straight; still limited ROM STG Duration 09/03 Curriculum Writer Goal (LTG) Pt will have full jaw opening to 40mm w/o feeling of tightness 01/23-tension 03/19-feels okay but still limited 07/22-38 mm tight LTG Duration 09/30/22 Assessment Summary Assessment Pt is making progerss w/ postural stability but is still limited by consistant pain and stiffness feeling along w/general feeling of fatigue and weakness. She has improved pelvis height but does demonstrate cont ribcage immobility despite manual and pt stretching exercises. Physical Therapy Plan Frequency and Duration Frequency of Treatment 1x/Week Duration of treatment (weeks) 10 Plan of Care Start Date 07/22/22 Plan of Care End Date 09/30/22 Therapeutic Interventions Therapeutic Interventions Balance Training,Gait Training ,Home Exercise Program,Joint Mobilizations,Manual Therapy, Neuromuscular Re-education, Orthotic/Prosthetic Management ,Patient/Caregiver Education, Self-Care/Home Management,Soft Tissue Mobilization,Taping, Therapeutic Activities, Therapeutic Exercises Modalities Cold Pack/Ice Massage,Electric Stimulation,Hot Packs, Infrared Therapy,Iontophoresis ,Traction- Mechanical, Ultrasound Other Therapeutic Interventions dexomethosone ionto Next Visit Focus/Plan Next Note Type Treatment Note Next Visit Plan cranial mobility & coccyx for neutral tension Plan of Care Dates Plan of Care Start Date 07/22/22 Plan of Care End Date 09/30/22 Electronically Signed by: Grace Michel, PT 07/22/22 [id number] If you are in agreement with this Plan of Care, please return a signed and dated copy. I have reviewed this Plan of Care and certify that the skilled therapy services above are required to meet the patient?s needs. Physician Signature Date Printed Name and Credentials Clinical Instructor Signature Printed Name and Credentials
--- NOTE | 2022-07-30 18:16 | PT.OTN ---
Current Diagnoses Pain in unspecified hip (07/30/22) Unspecified temporomandibular joint disorder, unspecified side (07/30/22) Other specified dorsopathies, cervicothoracic region (07/30/22) Cervicalgia (07/30/22) Low back pain, unspecified (07/30/22) Muscle weakness (generalized) (07/30/22) Abnormal posture (07/30/22) Physical Therapy Treatment Note PT-OP-A Visit Information Start: 11/14/21 17:51 Freq: Status: Active Protocol: Document 07/30/22 15:21 [facility] (Rec: 07/30/22 18:16 [facility] [id number]) Out-Patient Physical Therapy Visit Information Visit Information Visit Type Treatment Note Visit Start Time 15:21 Visit Stop Time 16:01 Total Visit Minutes 40 Visit Number Number of PAIL BAILER Visits 0 PT-OP-B Current Condition Start: 11/14/21 17:51 Freq: Status: Active Protocol: Document 05/13/22 16:07 [facility] (Rec: 05/13/22 16:52 [facility] [id number]) Current Condition History of Current Condition Onset Date 6 months/1 year Current Complaints B jaw pain/cervical& thoracic pain History of Current Condition 05/13-pt reports LBP and B hip pain has been going on for years. The only traumatic injury was in 2006 was doing a marla carry and stepped in a hole and caused a lot of pain at the time and the back and R hip. She does not really remember any signficiant before that. Since then it has been an off and on thing but it got pretty bad for the past year. She did do PT at another clinic for hips and back and hips are feeling better but she also hasn't been running and is only recently getting into more intense workouts again gradually and feels tight and tender after. Back and hips can feel really hot and burning. Pt notes pain in LB, thoracic and neck and B sides. She has felt like she was constipated today and felt like she had to go but couldn' t. She has worked on diet a lot. She has BM about 1x/week. She has had 3 xrays that have noted constipation. Rates type 1 and 2 mostly on bristol stool chart. She gets a lot fiber in her diet. Pt can cross her legs and get her back to pop and does it d/t feeling like it needs it. Pt reports she doesn't notice jaw during the day, she is clenching more at night w/ mouth guard. Neck still been feeling stiff, Tingling in mid back about 1x/day at least. It is not as prolonged and she feels like she can improve it if she adjusts her posture. She did do a 2 mile walk and felt pretty uncomfortable at 1 mile. Re-eval: Pt reports neck and thoracic pain started about 1 year ago and she would ntoice that 5-10 min into walking, she starts to get tingling in shoulder blades. Fwd flex stretch feels like it should help but it doesn't. Once it starts, there is no way ot stop it besides lay down. This has kept her from hiking. Neck pain is more feels so tight that she feels like her ROM is limited. ITs been better since started working on jaw. It always feels like she needs to move her neck but doing the motion doesn't really help. It feels like she wants to pop it but that doesn't really help either. She gets things that feels like golf balls along neck. IE:Jaw pain started about 6 months ago. when it first started it felt like I had been chewing gum allt he day prior. MD thought she may be clenching. She got a mouthguard after a couple months for night but does not feel like it has made a difference. Neck pain has been crhornic, but no injury. Denies LEAVITT except occasionally and they go away. denies dizziness or lightheadness. Mouth xray done recently and everything looked fine. Pt saw specialist in [place] and she suspects this is just muscular. Denies clicking in jaw. Pt was told to avoid hard to chew and crunchy foods and is most of the time following this. She can feel it more w/ those foods. Tried heat and it feels good but doesn't give relief. Gets ringing in ears and feels like ear is stuffy ( thinks both but notices it more in R). Evry couple weeks she gets the ringing and it only lasts about 5-10 min. Ear feeling stuffy is more often than the ringing. Pt is going to PT for LB. She has tingling in upper back sometimes when just sitting down and with walking. Her neck pain has been persistant. She has had some cervical xray but does not recall anything on it. Pt does have referral for sleep study. Pt feels like she has to sleep okay. She wakes up 1- 2x/night and will get up to go to the bathroom. When seh wakes, she doesn't feel rested , feels exhausted by the end of the day, and feels tense when she awakes. Treatment Goals Patient/Caregiver Goals get back to hiking and long walks, dec stiffness, back to running & workouts PT-OP-C Subjective Start: 11/14/21 17:51 Freq: Status: Active Protocol: Document 07/30/22 15:21 [facility] (Rec: 07/30/22 18:16 [facility] [id number]) OP-PT Subjective Patient Comments Patient Comments pt reports end of day friday she felt like the L side was crunching or smashed down. Notes QL was sore and she tried to stretch it out, but could barely move to the side. She isn't sure what prompted it. Pt reports she was doing a lot of wood moving and LB tension is worse right now. Friday she had pretty bad tingling in upper back after just a 2 mile walk. Otherwise, hasn't had it much. Her B knees are bothering her. PT-OP-F Manual Assessment Start: 11/14/21 17:51 Freq: Status: Active Protocol: Document 05/13/22 16:07 [facility] (Rec: 05/13/22 16:52 [facility] [id number]) Manual Assessments Soft Tissue Assessment Soft Tissue Mobility Assessment tenderness throughout lumbar and gluteal region along w/ abdomenal wall Joint Mobility Assessment Joint Mobility Assessment R iliac crest is higher; equal greater trochanter; w/knee bending tibia track close to neutral; IR of B femurs w/knee bending PT-OP-J Posture/Palpation/Skin Start: 11/14/21 17:51 Freq: Status: Active Protocol: Document 07/22/22 15:24 [facility] (Rec: 07/22/22 18:09 [facility] [id number]) Posture Evaluation Tyler Postural Classification System Vertebral Compression Test 3 Elbow Flexion Test 3 Lumbar Protective Mechanism Left AP 1 Lumbar Protective Mechanism Right AP 1 Lumbar Protective Mechanism Left PA 1 Lumbar Protective Mechanism Right PA 1 PT-OP-K Range of Motion Start: 11/14/21 17:51 Freq: Status: Active Protocol: Document 07/22/22 15:24 [facility] (Rec: 07/22/22 18:09 [facility] [id number]) Cervical Spine Range of Motion Cervical Spine Active Degrees Flexion 69 Extension 50 Rotation Left 64 Rotation Right 65 Lateral Flexion Left 34 Lateral Flexion Right 46 Comments tight w/L SB & pain ext; 46 thoracic rotation L; 66 R Lumbar Spine Range of Motion Lumbar Spine Active Percentage Flexion 75 Extension 90 Rotation Left 75 Rotation Right 65 Lateral Flexion Left 60 Lateral Flexion Right 80 Comments L SB dec folding L; R SB dec L lengthening; tight B rot L>R; tight w/flex PT-OP-L Special Tests Start: 11/14/21 17:51 Freq: Status: Active Protocol: Document 05/13/22 16:07 [facility] (Rec: 05/13/22 16:52 [facility] [id number]) Special Tests Lumbar Spine Special Tests Slump Test Results positive for tension B w/neck flex PT-OP-M Strength Start: 11/14/21 17:51 Freq: Status: Active Protocol: Document 05/13/22 16:07 [facility] (Rec: 05/13/22 16:52 [facility] [id number]) Hip Strength Hip Manual Muscle Testing Right Flexion (L2) 4 Good Extension (S1) 3+ Fair+ Abduction 4- Good- Adduction 4- Good- External Rotation 4 Good Internal Rotation 5 Normal Left Flexion (L2) 3+ Fair+ Extension (S1) 3+ Fair+ Abduction 4 Good Adduction 4- Good- External Rotation 4 Good Internal Rotation 4- Good- Comments 5/5 knee and ankle MMT B PT-OP-Q Treatments Start: 11/14/21 17:51 Freq: Status: Active Protocol: Document 07/30/22 15:21 [facility] (Rec: 07/30/22 18:16 [facility] [id number]) Manual Therapy Treatment Joint Mobilizations coccyx Comments distraction, L UPA & L SB FM sacrum Comments caudal L w/percussion FM innominate Joint R flex FM Comments pubic bone inf FM hip Joint R inf FM & IR FM in hooklying PT-OP-R Modalities Start: 11/14/21 17:51 Freq: Status: Active Protocol: Document 04/15/22 07:30 [facility] (Rec: 04/15/22 12:24 [facility] [id number]) Hot Pack/Cold Pack Treatment Cold Pack Location cervical & thoracic Patient Position Supine Treatment Duration (minutes) 10 PT-OP-T Assessment and Plan Start: 11/14/21 17:51 Freq: Status: Active Protocol: Document 07/30/22 15:21 [facility] (Rec: 07/30/22 18:16 [facility] [id number]) Physical Therapy Assessment Goals pain Impairment neck pain and tightness that is constant that is at a 2/10 at all the time w/o relief Consignee Goal (LTG) Pt will report no constant neck pain or tightness at least 5/7 days a week 07/22:no change LTG Duration 09/30 static activity Impairment pain starts after 10 min of standing -06/14 and if stand longer it can get to a 07/15- describes as really uncomfortable-standing at attention/parade rest Mcfp Goal (LTG) Pt will be able to stand at attention or parade rest and at home for extended tiem as needed without inc pain greater than 1/10 07/22-tingling in upper back 3- 07/15 LTG Duration 09/30/22 activity Short Term Goal (STG) Pt will report being able to return to long walks w/no more than 1/10 pain in neck and/or thoraic and lumbar region. 07/22-about 2 miles max recently but about 2-3/10-LB & mid back STG Duration 08/24/22 Consignee Goal (LTG) Pt will be able to return to running and working out without pain in cervical, thoracic or lumbar region w/o pain greater than 2/10 07/22: short distance run ~3/10 ; after atufogls-5-8/10 LTG Duration 09/30 ROM Short Term Goal (STG) Pt will have full cervical and lumbar ROM w/o feeling of tension or pain to allow pt to do ADls w/o inc pain. 07/22-06/14 (L>R knee pain); back and neck are stiff and can't stand up straight; still limited ROM STG Duration 09/03 Consignee Goal (LTG) Pt will have full jaw opening to 40mm w/o feeling of tightness 01/23-tension 03/19-feels okay but still limited 07/22-38 mm tight LTG Duration 09/30/22 Assessment Summary Assessment Pt had improve evenness of iliac crest and L iliac crest was higher upon arrival and pt had imrpvoed abilityt o SB B and flex after manual treatment. Physical Therapy Plan Frequency and Duration Frequency of Treatment 1x/Week Duration of treatment (weeks) 10 Plan of Care Start Date 07/22/22 Plan of Care End Date 09/30/22 Next Visit Focus/Plan Next Note Type Treatment Note Next Visit Plan revisit thoracic mobility w/ breathing
--- NOTE | 2022-08-13 08:20 | PT.OTN ---
Current Diagnoses Pain in unspecified hip (08/13/22) Unspecified temporomandibular joint disorder, unspecified side (08/13/22) Other specified dorsopathies, cervicothoracic region (08/13/22) Cervicalgia (08/13/22) Low back pain, unspecified (08/13/22) Muscle weakness (generalized) (08/13/22) Abnormal posture (08/13/22) Physical Therapy Treatment Note PT-OP-A Visit Information Start: 11/14/21 17:51 Freq: Status: Active Protocol: Document 08/13/22 07:28 [facility] (Rec: 08/13/22 08:20 [facility] [id number]) Out-Patient Physical Therapy Visit Information Visit Information Visit Type Treatment Note Visit Start Time 07:32 Visit Stop Time 08:14 Total Visit Minutes 42 Visit Number Number of CONTROL ENGINEER Visits 0 PT-OP-B Current Condition Start: 11/14/21 17:51 Freq: Status: Active Protocol: Document 05/13/22 16:07 [facility] (Rec: 05/13/22 16:52 [facility] [id number]) Current Condition History of Current Condition Onset Date 6 months/1 year Current Complaints B jaw pain/cervical& thoracic pain History of Current Condition 05/13-pt reports LBP and B hip pain has been going on for years. The only traumatic injury was in 2006 was doing a marla carry and stepped in a hole and caused a lot of pain at the time and the back and R hip. She does not really remember any signficiant before that. Since then it has been an off and on thing but it got pretty bad for the past year. She did do PT at another clinic for hips and back and hips are feeling better but she also hasn't been running and is only recently getting into more intense workouts again gradually and feels tight and tender after. Back and hips can feel really hot and burning. Pt notes pain in LB, thoracic and neck and B sides. She has felt like she was constipated today and felt like she had to go but couldn' t. She has worked on diet a lot. She has BM about 1x/week. She has had 3 xrays that have noted constipation. Rates type 1 and 2 mostly on bristol stool chart. She gets a lot fiber in her diet. Pt can cross her legs and get her back to pop and does it d/t feeling like it needs it. Pt reports she doesn't notice jaw during the day, she is clenching more at night w/ mouth guard. Neck still been feeling stiff, Tingling in mid back about 1x/day at least. It is not as prolonged and she feels like she can improve it if she adjusts her posture. She did do a 2 mile walk and felt pretty uncomfortable at 1 mile. Re-eval: Pt reports neck and thoracic pain started about 1 year ago and she would ntoice that 5-10 min into walking, she starts to get tingling in shoulder blades. Fwd flex stretch feels like it should help but it doesn't. Once it starts, there is no way ot stop it besides lay down. This has kept her from hiking. Neck pain is more feels so tight that she feels like her ROM is limited. ITs been better since started working on jaw. It always feels like she needs to move her neck but doing the motion doesn't really help. It feels like she wants to pop it but that doesn't really help either. She gets things that feels like golf balls along neck. IE:Jaw pain started about 6 months ago. when it first started it felt like I had been chewing gum allt he day prior. MD thought she may be clenching. She got a mouthguard after a couple months for night but does not feel like it has made a difference. Neck pain has been crhornic, but no injury. Denies LEAVITT except occasionally and they go away. denies dizziness or lightheadness. Mouth xray done recently and everything looked fine. Pt saw specialist in [place] and she suspects this is just muscular. Denies clicking in jaw. Pt was told to avoid hard to chew and crunchy foods and is most of the time following this. She can feel it more w/ those foods. Tried heat and it feels good but doesn't give relief. Gets ringing in ears and feels like ear is stuffy ( thinks both but notices it more in R). Evry couple weeks she gets the ringing and it only lasts about 5-10 min. Ear feeling stuffy is more often than the ringing. Pt is going to PT for LB. She has tingling in upper back sometimes when just sitting down and with walking. Her neck pain has been persistant. She has had some cervical xray but does not recall anything on it. Pt does have referral for sleep study. Pt feels like she has to sleep okay. She wakes up 1- 2x/night and will get up to go to the bathroom. When seh wakes, she doesn't feel rested , feels exhausted by the end of the day, and feels tense when she awakes. Treatment Goals Patient/Caregiver Goals get back to hiking and long walks, dec stiffness, back to running & workouts PT-OP-C Subjective Start: 11/14/21 17:51 Freq: Status: Active Protocol: Document 08/13/22 07:28 [facility] (Rec: 08/13/22 08:20 [facility] [id number]) OP-PT Subjective Patient Comments Patient Comments Pt reports doing some interval running yesterday and her LB is sore and L SI.She was in the trails and did some walking /running. She did some hill workouts. It wasn't that bad at the time. She was was really feeling like she couldn 't get a full breath in. She reports this AM just more stiff. PT-OP-F Manual Assessment Start: 11/14/21 17:51 Freq: Status: Active Protocol: Document 05/13/22 16:07 [facility] (Rec: 05/13/22 16:52 [facility] [id number]) Manual Assessments Soft Tissue Assessment Soft Tissue Mobility Assessment tenderness throughout lumbar and gluteal region along w/ abdomenal wall Joint Mobility Assessment Joint Mobility Assessment R iliac crest is higher; equal greater trochanter; w/knee bending tibia track close to neutral; IR of B femurs w/knee bending PT-OP-J Posture/Palpation/Skin Start: 11/14/21 17:51 Freq: Status: Active Protocol: Document 07/22/22 15:24 [facility] (Rec: 07/22/22 18:09 [facility] [id number]) Posture Evaluation Tyler Postural Classification System Vertebral Compression Test 3 Elbow Flexion Test 3 Lumbar Protective Mechanism Left AP 1 Lumbar Protective Mechanism Right AP 1 Lumbar Protective Mechanism Left PA 1 Lumbar Protective Mechanism Right PA 1 PT-OP-K Range of Motion Start: 11/14/21 17:51 Freq: Status: Active Protocol: Document 07/22/22 15:24 [facility] (Rec: 07/22/22 18:09 [facility] [id number]) Cervical Spine Range of Motion Cervical Spine Active Degrees Flexion 69 Extension 50 Rotation Left 64 Rotation Right 65 Lateral Flexion Left 34 Lateral Flexion Right 46 Comments tight w/L SB & pain ext; 46 thoracic rotation L; 66 R Lumbar Spine Range of Motion Lumbar Spine Active Percentage Flexion 75 Extension 90 Rotation Left 75 Rotation Right 65 Lateral Flexion Left 60 Lateral Flexion Right 80 Comments L SB dec folding L; R SB dec L lengthening; tight B rot L>R; tight w/flex PT-OP-L Special Tests Start: 11/14/21 17:51 Freq: Status: Active Protocol: Document 05/13/22 16:07 [facility] (Rec: 05/13/22 16:52 [facility] [id number]) Special Tests Lumbar Spine Special Tests Slump Test Results positive for tension B w/neck flex PT-OP-M Strength Start: 11/14/21 17:51 Freq: Status: Active Protocol: Document 05/13/22 16:07 [facility] (Rec: 05/13/22 16:52 [facility] [id number]) Hip Strength Hip Manual Muscle Testing Right Flexion (L2) 4 Good Extension (S1) 3+ Fair+ Abduction 4- Good- Adduction 4- Good- External Rotation 4 Good Internal Rotation 5 Normal Left Flexion (L2) 3+ Fair+ Extension (S1) 3+ Fair+ Abduction 4 Good Adduction 4- Good- External Rotation 4 Good Internal Rotation 4- Good- Comments 5/5 knee and ankle MMT B PT-OP-Q Treatments Start: 11/14/21 17:51 Freq: Status: Active Protocol: Document 08/13/22 07:28 [facility] (Rec: 08/13/22 08:20 [facility] [id number]) Therapeutic Exercises Sidelying Exercises basking seal Side left Reps/Minutes 6 Manual Therapy Treatment Soft Tissue Mobilization abdomen Comments L to Rw/LTR diaphram Body Location L Mobilization Type Sustained Pressure Comments w/LTr tspine Body Location L rhomboids Mobilization Type Rolling,Strumming Intensity/Depth Moderate Body Position Sidelying Joint Mobilizations rib Comments general inhalation on L FM w/ scap patterns thoracic Comments transverse R T 3 FM Neuro Re-Education Treatment Other Activities facilitation Comments manual segmentally focus on L5 -S1 and L4-5 w/LTR w/traction into LEs PNF Comments mass flex COI PT-OP-R Modalities Start: 11/14/21 17:51 Freq: Status: Active Protocol: Document 04/15/22 07:30 [facility] (Rec: 04/15/22 12:24 [facility] [id number]) Hot Pack/Cold Pack Treatment Cold Pack Location cervical & thoracic Patient Position Supine Treatment Duration (minutes) 10 PT-OP-T Assessment and Plan Start: 11/14/21 17:51 Freq: Status: Active Protocol: Document 08/13/22 07:28 [facility] (Rec: 08/13/22 08:20 [facility] [id number]) Physical Therapy Assessment Goals pain Impairment neck pain and tightness that is constant that is at a 2/10 at all the time w/o relief [employer] Technician Goal (LTG) Pt will report no constant neck pain or tightness at least 5/7 days a week 07/22:no change LTG Duration 09/30 static activity Impairment pain starts after 10 min of standing -06/14 and if stand longer it can get to a 10- describes as really uncomfortable-standing at attention/parade rest [employer] Techn[employer] Goal (LTG) Pt will be able to stand at attention or parade rest and at home for extended tiem as needed without inc pain greater than 1/10 07/22-tingling in upper back 3- 07/15 LTG Duration 09/30/22 activity Short Term Goal (STG) Pt will report being able to return to long walks w/no more than 1/10 pain in neck and/or thoraic and lumbar region. 07/22-about 2 miles max recently but about 2-3/10-LB & mid back STG Duration 08/24/22 Shelter Goal (LTG) Pt will be able to return to running and working out without pain in cervical, thoracic or lumbar region w/o pain greater than 2/10 07/22: short distance run ~3/10 ; after [id number]/10 LTG Duration 09/30 ROM Short Term Goal (STG) Pt will have full cervical and lumbar ROM w/o feeling of tension or pain to allow pt to do ADls w/o inc pain. 07/22-06/14 (L>R knee pain); back and neck are stiff and can't stand up straight; still limited ROM STG Duration 09/03 [employer] [facility] Technician Goal (LTG) Pt will have full jaw opening to 40mm w/o feeling of tightness 01/23-tension 03/19-feels okay but still limited 07/22-38 mm tight LTG Duration 09/30/22 Assessment Summary Assessment Pt had imrpoved eveness of pelvis today at start and is improving w/ability to engage and stabilize w/core but is still challenged by activities today. Started w/limited L ribcage excursion and imprpoved w/manual Physical Therapy Plan Frequency and Duration Frequency of Treatment 1x/Week Duration of treatment (weeks) 10 Plan of Care Start Date 07/22/22 Plan of Care End Date 09/30/22 Next Visit Focus/Plan Next Note Type Treatment Note Next Visit Plan cont to work thoracic mobility w/breathing
--- NOTE | 2022-08-20 14:18 | PT.OTN ---
Current Diagnoses Pain in unspecified hip (08/20/22) Unspecified temporomandibular joint disorder, unspecified side (08/20/22) Other specified dorsopathies, cervicothoracic region (08/20/22) Cervicalgia (08/20/22) Low back pain, unspecified (08/20/22) Muscle weakness (generalized) (08/20/22) Abnormal posture (08/20/22) Physical Therapy Treatment Note PT-OP-A Visit Information Start: 11/14/21 17:51 Freq: Status: Active Protocol: Document 08/20/22 07:30 [facility] (Rec: 08/20/22 14:18 [facility] [id number]) Out-Patient Physical Therapy Visit Information Visit Information Visit Type Treatment Note Visit Start Time 07:31 Visit Stop Time 08:14 Total Visit Minutes 43 Visit Number Number of ENGRAVER MACHINE Visits 0 PT-OP-B Current Condition Start: 11/14/21 17:51 Freq: Status: Active Protocol: Document 05/13/22 16:07 [facility] (Rec: 05/13/22 16:52 [facility] [id number]) Current Condition History of Current Condition Onset Date 6 months/1 year Current Complaints B jaw pain/cervical& thoracic pain History of Current Condition 05/13-pt reports LBP and B hip pain has been going on for years. The only traumatic injury was in 2006 was doing a marla carry and stepped in a hole and caused a lot of pain at the time and the back and R hip. She does not really remember any signficiant before that. Since then it has been an off and on thing but it got pretty bad for the past year. She did do PT at another clinic for hips and back and hips are feeling better but she also hasn't been running and is only recently getting into more intense workouts again gradually and feels tight and tender after. Back and hips can feel really hot and burning. Pt notes pain in LB, thoracic and neck and B sides. She has felt like she was constipated today and felt like she had to go but couldn' t. She has worked on diet a lot. She has BM about 1x/week. She has had 3 xrays that have noted constipation. Rates type 1 and 2 mostly on bristol stool chart. She gets a lot fiber in her diet. Pt can cross her legs and get her back to pop and does it d/t feeling like it needs it. Pt reports she doesn't notice jaw during the day, she is clenching more at night w/ mouth guard. Neck still been feeling stiff, Tingling in mid back about 1x/day at least. It is not as prolonged and she feels like she can improve it if she adjusts her posture. She did do a 2 mile walk and felt pretty uncomfortable at 1 mile. Re-eval: Pt reports neck and thoracic pain started about 1 year ago and she would ntoice that 5-10 min into walking, she starts to get tingling in shoulder blades. Fwd flex stretch feels like it should help but it doesn't. Once it starts, there is no way ot stop it besides lay down. This has kept her from hiking. Neck pain is more feels so tight that she feels like her ROM is limited. ITs been better since started working on jaw. It always feels like she needs to move her neck but doing the motion doesn't really help. It feels like she wants to pop it but that doesn't really help either. She gets things that feels like golf balls along neck. IE:Jaw pain started about 6 months ago. when it first started it felt like I had been chewing gum allt he day prior. MD thought she may be clenching. She got a mouthguard after a couple months for night but does not feel like it has made a difference. Neck pain has been crhornic, but no injury. Denies LEAVITT except occasionally and they go away. denies dizziness or lightheadness. Mouth xray done recently and everything looked fine. Pt saw specialist in [place] and she suspects this is just muscular. Denies clicking in jaw. Pt was told to avoid hard to chew and crunchy foods and is most of the time following this. She can feel it more w/ those foods. Tried heat and it feels good but doesn't give relief. Gets ringing in ears and feels like ear is stuffy ( thinks both but notices it more in R). Evry couple weeks she gets the ringing and it only lasts about 5-10 min. Ear feeling stuffy is more often than the ringing. Pt is going to PT for LB. She has tingling in upper back sometimes when just sitting down and with walking. Her neck pain has been persistant. She has had some cervical xray but does not recall anything on it. Pt does have referral for sleep study. Pt feels like she has to sleep okay. She wakes up 1- 2x/night and will get up to go to the bathroom. When seh wakes, she doesn't feel rested , feels exhausted by the end of the day, and feels tense when she awakes. Treatment Goals Patient/Caregiver Goals get back to hiking and long walks, dec stiffness, back to running & workouts PT-OP-C Subjective Start: 11/14/21 17:51 Freq: Status: Active Protocol: Document 08/20/22 07:30 [facility] (Rec: 08/20/22 14:18 [facility] [id number]) OP-PT Subjective Patient Comments Patient Comments Pt reports she feels like she is doing better w/planks now. She is testing next week. RLB painful PT-OP-F Manual Assessment Start: 11/14/21 17:51 Freq: Status: Active Protocol: Document 05/13/22 16:07 [facility] (Rec: 05/13/22 16:52 [facility] [id number]) Manual Assessments Soft Tissue Assessment Soft Tissue Mobility Assessment tenderness throughout lumbar and gluteal region along w/ abdomenal wall Joint Mobility Assessment Joint Mobility Assessment R iliac crest is higher; equal greater trochanter; w/knee bending tibia track close to neutral; IR of B femurs w/knee bending PT-OP-J Posture/Palpation/Skin Start: 11/14/21 17:51 Freq: Status: Active Protocol: Document 07/22/22 15:24 [facility] (Rec: 07/22/22 18:09 [facility] [id number]) Posture Evaluation Tyler Postural Classification System Vertebral Compression Test 3 Elbow Flexion Test 3 Lumbar Protective Mechanism Left AP 1 Lumbar Protective Mechanism Right AP 1 Lumbar Protective Mechanism Left PA 1 Lumbar Protective Mechanism Right PA 1 PT-OP-K Range of Motion Start: 11/14/21 17:51 Freq: Status: Active Protocol: Document 07/22/22 15:24 [facility] (Rec: 07/22/22 18:09 [facility] [id number]) Cervical Spine Range of Motion Cervical Spine Active Degrees Flexion 69 Extension 50 Rotation Left 64 Rotation Right 65 Lateral Flexion Left 34 Lateral Flexion Right 46 Comments tight w/L SB & pain ext; 46 thoracic rotation L; 66 R Lumbar Spine Range of Motion Lumbar Spine Active Percentage Flexion 75 Extension 90 Rotation Left 75 Rotation Right 65 Lateral Flexion Left 60 Lateral Flexion Right 80 Comments L SB dec folding L; R SB dec L lengthening; tight B rot L>R; tight w/flex PT-OP-L Special Tests Start: 11/14/21 17:51 Freq: Status: Active Protocol: Document 05/13/22 16:07 [facility] (Rec: 05/13/22 16:52 [facility] [id number]) Special Tests Lumbar Spine Special Tests Slump Test Results positive for tension B w/neck flex PT-OP-M Strength Start: 11/14/21 17:51 Freq: Status: Active Protocol: Document 05/13/22 16:07 [facility] (Rec: 05/13/22 16:52 [facility] [id number]) Hip Strength Hip Manual Muscle Testing Right Flexion (L2) 4 Good Extension (S1) 3+ Fair+ Abduction 4- Good- Adduction 4- Good- External Rotation 4 Good Internal Rotation 5 Normal Left Flexion (L2) 3+ Fair+ Extension (S1) 3+ Fair+ Abduction 4 Good Adduction 4- Good- External Rotation 4 Good Internal Rotation 4- Good- Comments 5/5 knee and ankle MMT B PT-OP-Q Treatments Start: 11/14/21 17:51 Freq: Status: Active Protocol: Document 08/20/22 07:30 [facility] (Rec: 08/20/22 14:18 [facility] [id number]) Manual Therapy Treatment Soft Tissue Mobilization lumbar Comments R QL/ES in in s/l and Joint Mobilizations sacrum Comments R caudal FM innominate Comments R add & caudal FM hip Comments R add FM Neuro Re-Education Treatment Other Activities PNF Details R hip Comments 1. ant elevation sustained hold w/LE pattern progressed to COI 2. post dep sustained hold progressed to w/LE pattern w/ COI PT-OP-R Modalities Start: 11/14/21 17:51 Freq: Status: Active Protocol: Document 04/15/22 07:30 [facility] (Rec: 04/15/22 12:24 [facility] [id number]) Hot Pack/Cold Pack Treatment Cold Pack Location cervical & thoracic Patient Position Supine Treatment Duration (minutes) 10 PT-OP-T Assessment and Plan Start: 11/14/21 17:51 Freq: Status: Active Protocol: Document 08/20/22 07:30 [facility] (Rec: 08/20/22 14:18 [facility] [id number]) Physical Therapy Assessment Goals pain Impairment neck pain and tightness that is constant that is at a 2/10 at all the time w/o relief [facility] Goal (LTG) Pt will report no constant neck pain or tightness at least 5/7 days a week 07/22:no change LTG Duration 09/30 static activity Impairment pain starts after 10 min of standing -06/14 and if stand longer it can get to a /10- describes as really uncomfortable-standing at attention/parade rest [facility] Goal (LTG) Pt will be able to stand at attention or parade rest and at home for extended tiem as needed without inc pain greater than 1/10 07/22-tingling in upper back 3- 07/15 LTG Duration 09/30/22 activity Short Term Goal (STG) Pt will report being able to return to long walks w/no more than 1/10 pain in neck and/or thoraic and lumbar region. 07/22-about 2 miles max recently but about 2-3/10-LB & mid back STG Duration 08/24/22 Internet Programmer Goal (LTG) Pt will be able to return to running and working out without pain in cervical, thoracic or lumbar region w/o pain greater than 2/10 07/22: short distance run ~3/10 ; after [id number]/10 LTG Duration 09/30 ROM Short Term Goal (STG) Pt will have full cervical and lumbar ROM w/o feeling of tension or pain to allow pt to do ADls w/o inc pain. 07/22-06/14 (L>R knee pain); back and neck are stiff and can't stand up straight; still limited ROM STG Duration 09/03 Internet Programmer Goal (LTG) Pt will have full jaw opening to 40mm w/o feeling of tightness 01/23-tension 03/19-feels okay but still limited 07/22-38 mm tight LTG Duration 09/30/22 Assessment Summary Assessment Pt had improved gait after manual w/ improved post dep and wt acceptance on R side. Iproved pelvis level after manual (strated elevated and elevated w/B Wt shifts) Physical Therapy Plan Frequency and Duration Frequency of Treatment 1x/Week Duration of treatment (weeks) 10 Plan of Care Start Date 07/22/22 Plan of Care End Date 09/30/22 Next Visit Focus/Plan Next Note Type Treatment Note Next Visit Plan cont to work thoracic mobility w/breathing
--- NOTE | 2022-08-27 09:05 | PT.OTN ---
Current Diagnoses Pain in unspecified hip (08/27/22) Unspecified temporomandibular joint disorder, unspecified side (08/27/22) Other specified dorsopathies, cervicothoracic region (08/27/22) Cervicalgia (08/27/22) Low back pain, unspecified (08/27/22) Muscle weakness (generalized) (08/27/22) Abnormal posture (08/27/22) Physical Therapy Treatment Note PT-OP-A Visit Information Start: 11/14/21 17:51 Freq: Status: Active Protocol: Document 08/27/22 07:31 [facility] (Rec: 08/27/22 09:05 [facility] [id number]) Out-Patient Physical Therapy Visit Information Visit Information Visit Type Treatment Note Visit Start Time 07:31 Visit Stop Time 08:13 Total Visit Minutes 42 Visit Number Number of STRUCTURAL IRONWORKER Visits 0 PT-OP-B Current Condition Start: 11/14/21 17:51 Freq: Status: Active Protocol: Document 05/13/22 16:07 [facility] (Rec: 05/13/22 16:52 [facility] [id number]) Current Condition History of Current Condition Onset Date 6 months/1 year Current Complaints B jaw pain/cervical& thoracic pain History of Current Condition 05/13-pt reports LBP and B hip pain has been going on for years. The only traumatic injury was in 2006 was doing a marla carry and stepped in a hole and caused a lot of pain at the time and the back and R hip. She does not really remember any signficiant before that. Since then it has been an off and on thing but it got pretty bad for the past year. She did do PT at another clinic for hips and back and hips are feeling better but she also hasn't been running and is only recently getting into more intense workouts again gradually and feels tight and tender after. Back and hips can feel really hot and burning. Pt notes pain in LB, thoracic and neck and B sides. She has felt like she was constipated today and felt like she had to go but couldn' t. She has worked on diet a lot. She has BM about 1x/week. She has had 3 xrays that have noted constipation. Rates type 1 and 2 mostly on bristol stool chart. She gets a lot fiber in her diet. Pt can cross her legs and get her back to pop and does it d/t feeling like it needs it. Pt reports she doesn't notice jaw during the day, she is clenching more at night w/ mouth guard. Neck still been feeling stiff, Tingling in mid back about 1x/day at least. It is not as prolonged and she feels like she can improve it if she adjusts her posture. She did do a 2 mile walk and felt pretty uncomfortable at 1 mile. Re-eval: Pt reports neck and thoracic pain started about 1 year ago and she would ntoice that 5-10 min into walking, she starts to get tingling in shoulder blades. Fwd flex stretch feels like it should help but it doesn't. Once it starts, there is no way ot stop it besides lay down. This has kept her from hiking. Neck pain is more feels so tight that she feels like her ROM is limited. ITs been better since started working on jaw. It always feels like she needs to move her neck but doing the motion doesn't really help. It feels like she wants to pop it but that doesn't really help either. She gets things that feels like golf balls along neck. IE:Jaw pain started about 6 months ago. when it first started it felt like I had been chewing gum allt he day prior. MD thought she may be clenching. She got a mouthguard after a couple months for night but does not feel like it has made a difference. Neck pain has been crhornic, but no injury. Denies LEAVITT except occasionally and they go away. denies dizziness or lightheadness. Mouth xray done recently and everything looked fine. Pt saw specialist in [place] and she suspects this is just muscular. Denies clicking in jaw. Pt was told to avoid hard to chew and crunchy foods and is most of the time following this. She can feel it more w/ those foods. Tried heat and it feels good but doesn't give relief. Gets ringing in ears and feels like ear is stuffy ( thinks both but notices it more in R). Evry couple weeks she gets the ringing and it only lasts about 5-10 min. Ear feeling stuffy is more often than the ringing. Pt is going to PT for LB. She has tingling in upper back sometimes when just sitting down and with walking. Her neck pain has been persistant. She has had some cervical xray but does not recall anything on it. Pt does have referral for sleep study. Pt feels like she has to sleep okay. She wakes up 1- 2x/night and will get up to go to the bathroom. When seh wakes, she doesn't feel rested , feels exhausted by the end of the day, and feels tense when she awakes. Treatment Goals Patient/Caregiver Goals get back to hiking and long walks, dec stiffness, back to running & workouts PT-OP-C Subjective Start: 11/14/21 17:51 Freq: Status: Active Protocol: Document 08/27/22 07:31 [facility] (Rec: 08/27/22 09:05 [facility] [id number]) OP-PT Subjective Patient Comments Patient Comments Pt reports her upper back feels okay right now. She had some pain in R knee this AM but LB feels stiff. Her told her she was limping this AM PT-OP-F Manual Assessment Start: 11/14/21 17:51 Freq: Status: Active Protocol: Document 05/13/22 16:07 [facility] (Rec: 05/13/22 16:52 [facility] [id number]) Manual Assessments Soft Tissue Assessment Soft Tissue Mobility Assessment tenderness throughout lumbar and gluteal region along w/ abdomenal wall Joint Mobility Assessment Joint Mobility Assessment R iliac crest is higher; equal greater trochanter; w/knee bending tibia track close to neutral; IR of B femurs w/knee bending PT-OP-J Posture/Palpation/Skin Start: 11/14/21 17:51 Freq: Status: Active Protocol: Document 07/22/22 15:24 [facility] (Rec: 07/22/22 18:09 [facility] [id number]) Posture Evaluation Tyler Postural Classification System Vertebral Compression Test 3 Elbow Flexion Test 3 Lumbar Protective Mechanism Left AP 1 Lumbar Protective Mechanism Right AP 1 Lumbar Protective Mechanism Left PA 1 Lumbar Protective Mechanism Right PA 1 PT-OP-K Range of Motion Start: 11/14/21 17:51 Freq: Status: Active Protocol: Document 07/22/22 15:24 [facility] (Rec: 07/22/22 18:09 [facility] [id number]) Cervical Spine Range of Motion Cervical Spine Active Degrees Flexion 69 Extension 50 Rotation Left 64 Rotation Right 65 Lateral Flexion Left 34 Lateral Flexion Right 46 Comments tight w/L SB & pain ext; 46 thoracic rotation L; 66 R Lumbar Spine Range of Motion Lumbar Spine Active Percentage Flexion 75 Extension 90 Rotation Left 75 Rotation Right 65 Lateral Flexion Left 60 Lateral Flexion Right 80 Comments L SB dec folding L; R SB dec L lengthening; tight B rot L>R; tight w/flex PT-OP-L Special Tests Start: 11/14/21 17:51 Freq: Status: Active Protocol: Document 05/13/22 16:07 [facility] (Rec: 05/13/22 16:52 [facility] [id number]) Special Tests Lumbar Spine Special Tests Slump Test Results positive for tension B w/neck flex PT-OP-M Strength Start: 11/14/21 17:51 Freq: Status: Active Protocol: Document 05/13/22 16:07 [facility] (Rec: 05/13/22 16:52 [facility] [id number]) Hip Strength Hip Manual Muscle Testing Right Flexion (L2) 4 Good Extension (S1) 3+ Fair+ Abduction 4- Good- Adduction 4- Good- External Rotation 4 Good Internal Rotation 5 Normal Left Flexion (L2) 3+ Fair+ Extension (S1) 3+ Fair+ Abduction 4 Good Adduction 4- Good- External Rotation 4 Good Internal Rotation 4- Good- Comments 5/5 knee and ankle MMT B PT-OP-Q Treatments Start: 11/14/21 17:51 Freq: Status: Active Protocol: Document 08/27/22 07:31 [facility] (Rec: 08/27/22 09:05 [facility] [id number]) Manual Therapy Treatment Soft Tissue Mobilization lumbar Mobilization Type Myofascial Release,Rolling Comments superficail fascia into bony contors along lumbar and lower thoracic Joint Mobilizations sacrum Comments R caudal Neuro Re-Education Treatment Other Activities facilitation Comments DL L diagonal tonic spread x2 min PT-OP-R Modalities Start: 11/14/21 17:51 Freq: Status: Active Protocol: Document 04/15/22 07:30 [facility] (Rec: 04/15/22 12:24 [facility] [id number]) Hot Pack/Cold Pack Treatment Cold Pack Location cervical & thoracic Patient Position Supine Treatment Duration (minutes) 10 PT-OP-T Assessment and Plan Start: 11/14/21 17:51 Freq: Status: Active Protocol: Document 08/27/22 07:31 [facility] (Rec: 08/27/22 09:05 [facility] [id number]) Physical Therapy Assessment Goals pain Impairment neck pain and tightness that is constant that is at a 2/10 at all the time w/o relief Senior Care Goal (LTG) Pt will report no constant neck pain or tightness at least 5/7 days a week 07/22:no change LTG Duration 09/30 static activity Impairment pain starts after 10 min of standing -06/14 and if stand longer it can get to a 07/15- describes as really uncomfortable-standing at attention/parade rest Senior Care Goal (LTG) Pt will be able to stand at attention or parade rest and at home for extended tiem as needed without inc pain greater than 1/10 07/22-tingling in upper back 3- 07/15 LTG Duration 09/30/22 activity Short Term Goal (STG) Pt will report being able to return to long walks w/no more than 1/10 pain in neck and/or thoraic and lumbar region. 07/22-about 2 miles max recently but about 2-3/10-LB & mid back STG Duration 08/24/22 Senior Care Goal (LTG) Pt will be able to return to running and working out without pain in cervical, thoracic or lumbar region w/o pain greater than 2/10 07/22: short distance run ~3/10 ; after [id number]-1-3/10 LTG Duration 09/30 ROM Short Term Goal (STG) Pt will have full cervical and lumbar ROM w/o feeling of tension or pain to allow pt to do ADls w/o inc pain. 07/22-06/14 (L>R knee pain); back and neck are stiff and can't stand up straight; still limited ROM STG Duration 09/03 Ui Designer Goal (LTG) Pt will have full jaw opening to 40mm w/o feeling of tightness 01/23-tension 03/19-feels okay but still limited 07/22-38 mm tight LTG Duration 09/30/22 Assessment Summary Assessment Pt had improved fwd bend by 1. 5 in and had improved L SB ROM w/less pain after. Pt cont to feel improvement after her sessions of PT. Physical Therapy Plan Frequency and Duration Frequency of Treatment 1x/Week Duration of treatment (weeks) 10 Plan of Care Start Date 07/22/22 Plan of Care End Date 09/30/22 Next Visit Focus/Plan Next Note Type Treatment Note Next Visit Plan cont to work on overall spinal mobility
--- NOTE | 2022-09-03 18:16 | PT.OTN ---
Current Diagnoses Pain in unspecified hip (09/03/22) Unspecified temporomandibular joint disorder, unspecified side (09/03/22) Other specified dorsopathies, cervicothoracic region (09/03/22) Cervicalgia (09/03/22) Low back pain, unspecified (09/03/22) Muscle weakness (generalized) (09/03/22) Abnormal posture (09/03/22) Physical Therapy Treatment Note PT-OP-A Visit Information Start: 11/14/21 17:51 Freq: Status: Active Protocol: Document 09/03/22 07:33 [facility] (Rec: 09/03/22 18:16 [facility] [id number]) Out-Patient Physical Therapy Visit Information Visit Information Visit Type Treatment Note Visit Start Time 07:33 Visit Stop Time 08:15 Total Visit Minutes 42 Visit Number Number of TANNING SALON ATTENDANT Visits 0 PT-OP-B Current Condition Start: 11/14/21 17:51 Freq: Status: Active Protocol: Document 05/13/22 16:07 [facility] (Rec: 05/13/22 16:52 [facility] [id number]) Current Condition History of Current Condition Onset Date 6 months/1 year Current Complaints B jaw pain/cervical& thoracic pain History of Current Condition 05/13-pt reports LBP and B hip pain has been going on for years. The only traumatic injury was in 2006 was doing a marla carry and stepped in a hole and caused a lot of pain at the time and the back and R hip. She does not really remember any signficiant before that. Since then it has been an off and on thing but it got pretty bad for the past year. She did do PT at another clinic for hips and back and hips are feeling better but she also hasn't been running and is only recently getting into more intense workouts again gradually and feels tight and tender after. Back and hips can feel really hot and burning. Pt notes pain in LB, thoracic and neck and B sides. She has felt like she was constipated today and felt like she had to go but couldn' t. She has worked on diet a lot. She has BM about 1x/week. She has had 3 xrays that have noted constipation. Rates type 1 and 2 mostly on bristol stool chart. She gets a lot fiber in her diet. Pt can cross her legs and get her back to pop and does it d/t feeling like it needs it. Pt reports she doesn't notice jaw during the day, she is clenching more at night w/ mouth guard. Neck still been feeling stiff, Tingling in mid back about 1x/day at least. It is not as prolonged and she feels like she can improve it if she adjusts her posture. She did do a 2 mile walk and felt pretty uncomfortable at 1 mile. Re-eval: Pt reports neck and thoracic pain started about 1 year ago and she would ntoice that 5-10 min into walking, she starts to get tingling in shoulder blades. Fwd flex stretch feels like it should help but it doesn't. Once it starts, there is no way ot stop it besides lay down. This has kept her from hiking. Neck pain is more feels so tight that she feels like her ROM is limited. ITs been better since started working on jaw. It always feels like she needs to move her neck but doing the motion doesn't really help. It feels like she wants to pop it but that doesn't really help either. She gets things that feels like golf balls along neck. IE:Jaw pain started about 6 months ago. when it first started it felt like I had been chewing gum allt he day prior. MD thought she may be clenching. She got a mouthguard after a couple months for night but does not feel like it has made a difference. Neck pain has been crhornic, but no injury. Denies LEAVITT except occasionally and they go away. denies dizziness or lightheadness. Mouth xray done recently and everything looked fine. Pt saw specialist in [place] and she suspects this is just muscular. Denies clicking in jaw. Pt was told to avoid hard to chew and crunchy foods and is most of the time following this. She can feel it more w/ those foods. Tried heat and it feels good but doesn't give relief. Gets ringing in ears and feels like ear is stuffy ( thinks both but notices it more in R). Evry couple weeks she gets the ringing and it only lasts about 5-10 min. Ear feeling stuffy is more often than the ringing. Pt is going to PT for LB. She has tingling in upper back sometimes when just sitting down and with walking. Her neck pain has been persistant. She has had some cervical xray but does not recall anything on it. Pt does have referral for sleep study. Pt feels like she has to sleep okay. She wakes up 1- 2x/night and will get up to go to the bathroom. When seh wakes, she doesn't feel rested , feels exhausted by the end of the day, and feels tense when she awakes. Treatment Goals Patient/Caregiver Goals get back to hiking and long walks, dec stiffness, back to running & workouts PT-OP-C Subjective Start: 11/14/21 17:51 Freq: Status: Active Protocol: Document 09/03/22 07:33 [facility] (Rec: 09/03/22 18:16 [facility] [id number]) OP-PT Subjective Patient Comments Patient Comments Pt reports rheumatology appt was very thorough. The Support Representative ordered more bloodwork and wants her to get xrays and MRIs of knees and xrays of SI. She believes she has fibromyalga. She follows up in about 2 weeks. Pt did a 3 mile walk in [place] and notes thoracic was tingling and her low back felt compressed and grinding. PT-OP-F Manual Assessment Start: 11/14/21 17:51 Freq: Status: Active Protocol: Document 05/13/22 16:07 [facility] (Rec: 05/13/22 16:52 [facility] [id number]) Manual Assessments Soft Tissue Assessment Soft Tissue Mobility Assessment tenderness throughout lumbar and gluteal region along w/ abdomenal wall Joint Mobility Assessment Joint Mobility Assessment R iliac crest is higher; equal greater trochanter; w/knee bending tibia track close to neutral; IR of B femurs w/knee bending PT-OP-J Posture/Palpation/Skin Start: 11/14/21 17:51 Freq: Status: Active Protocol: Document 07/22/22 15:24 [facility] (Rec: 07/22/22 18:09 [facility] [id number]) Posture Evaluation Tyler Postural Classification System Vertebral Compression Test 3 Elbow Flexion Test 3 Lumbar Protective Mechanism Left AP 1 Lumbar Protective Mechanism Right AP 1 Lumbar Protective Mechanism Left PA 1 Lumbar Protective Mechanism Right PA 1 PT-OP-K Range of Motion Start: 11/14/21 17:51 Freq: Status: Active Protocol: Document 07/22/22 15:24 [facility] (Rec: 07/22/22 18:09 [facility] [id number]) Cervical Spine Range of Motion Cervical Spine Active Degrees Flexion 69 Extension 50 Rotation Left 64 Rotation Right 65 Lateral Flexion Left 34 Lateral Flexion Right 46 Comments tight w/L SB & pain ext; 46 thoracic rotation L; 66 R Lumbar Spine Range of Motion Lumbar Spine Active Percentage Flexion 75 Extension 90 Rotation Left 75 Rotation Right 65 Lateral Flexion Left 60 Lateral Flexion Right 80 Comments L SB dec folding L; R SB dec L lengthening; tight B rot L>R; tight w/flex PT-OP-L Special Tests Start: 11/14/21 17:51 Freq: Status: Active Protocol: Document 05/13/22 16:07 [facility] (Rec: 05/13/22 16:52 [facility] [id number]) Special Tests Lumbar Spine Special Tests Slump Test Results positive for tension B w/neck flex PT-OP-M Strength Start: 11/14/21 17:51 Freq: Status: Active Protocol: Document 05/13/22 16:07 [facility] (Rec: 05/13/22 16:52 [facility] [id number]) Hip Strength Hip Manual Muscle Testing Right Flexion (L2) 4 Good Extension (S1) 3+ Fair+ Abduction 4- Good- Adduction 4- Good- External Rotation 4 Good Internal Rotation 5 Normal Left Flexion (L2) 3+ Fair+ Extension (S1) 3+ Fair+ Abduction 4 Good Adduction 4- Good- External Rotation 4 Good Internal Rotation 4- Good- Comments 5/5 knee and ankle MMT B PT-OP-Q Treatments Start: 11/14/21 17:51 Freq: Status: Active Protocol: Document 09/03/22 07:33 [facility] (Rec: 09/03/22 18:16 [facility] [id number]) Manual Therapy Treatment Soft Tissue Mobilization lumbar Mobilization Type Myofascial Release,Rolling Comments R QL Joint Mobilizations rib Comments general elevation L mid and upper FM thoracic Comments transverse R T7-9 FM Self-Care/Home Management Treatment Education Other Education 8 min: discussion re: fibromyalgia diagnosis. Discussed walking, ramone chi, gentle continued exercise despite fatigue. Edu that some people progress w/symptoms while others who cont to do management for their symptoms w/diet and exercise tend to do better. PT-OP-R Modalities Start: 11/14/21 17:51 Freq: Status: Active Protocol: Document 04/15/22 07:30 [facility] (Rec: 04/15/22 12:24 [facility] [id number]) Hot Pack/Cold Pack Treatment Cold Pack Location cervical & thoracic Patient Position Supine Treatment Duration (minutes) 10 PT-OP-T Assessment and Plan Start: 11/14/21 17:51 Freq: Status: Active Protocol: Document 09/03/22 07:33 [facility] (Rec: 09/03/22 18:16 [facility] [id number]) Physical Therapy Assessment Goals pain Impairment neck pain and tightness that is constant that is at a 2/10 at all the time w/o relief Oil Fire Specialist Goal (LTG) Pt will report no constant neck pain or tightness at least 5/7 days a week 07/22:no change LTG Duration 09/30 static activity Impairment pain starts after 10 min of standing -06/14 and if stand longer it can get to a /10- describes as really uncomfortable-standing at attention/parade rest Oil Fire Specialist Goal (LTG) Pt will be able to stand at attention or parade rest and at home for extended tiem as needed without inc pain greater than 1/10 07/22-tingling in upper back 3- 07/15 LTG Duration 09/30/22 activity Short Term Goal (STG) Pt will report being able to return to long walks w/no more than 1/10 pain in neck and/or thoraic and lumbar region. 07/22-about 2 miles max recently but about 2-3/10-LB & mid back STG Duration 08/24/22 Residential Goal (LTG) Pt will be able to return to running and working out without pain in cervical, thoracic or lumbar region w/o pain greater than 2/10 07/22: short distance run ~3/10 ; after [id number]-9-0/10 LTG Duration 09/30 ROM Short Term Goal (STG) Pt will have full cervical and lumbar ROM w/o feeling of tension or pain to allow pt to do ADls w/o inc pain. 07/22-10 (L>R knee pain); back and neck are stiff and can't stand up straight; still limited ROM STG Duration 09/03 Oil Fire Specialist Goal (LTG) Pt will have full jaw opening to 40mm w/o feeling of tightness 01/23-tension 03/19-feels okay but still limited 07/22-38 mm tight LTG Duration 09/30/22 Assessment Summary Assessment Pt had improved SB and rotation w/manual treatment but does cont to be limited w/ ribcage mobility.S he idd show improved inhalation after manual too. Physical Therapy Plan Frequency and Duration Frequency of Treatment 1x/Week Duration of treatment (weeks) 10 Plan of Care Start Date 07/22/22 Plan of Care End Date 09/30/22 Next Visit Focus/Plan Next Note Type Treatment Note Next Visit Plan cont to work on overall spinal mobility
--- NOTE | 2022-09-10 10:03 | PT.OTN ---
Current Diagnoses Pain in unspecified hip (09/10/22) Unspecified temporomandibular joint disorder, unspecified side (09/10/22) Other specified dorsopathies, cervicothoracic region (09/10/22) Cervicalgia (09/10/22) Low back pain, unspecified (09/10/22) Muscle weakness (generalized) (09/10/22) Abnormal posture (09/10/22) Physical Therapy Treatment Note PT-OP-A Visit Information Start: 11/14/21 17:51 Freq: Status: Active Protocol: Document 09/10/22 07:29 [facility] (Rec: 09/10/22 10:03 [facility] [id number]) Out-Patient Physical Therapy Visit Information Visit Information Visit Type Treatment Note Visit Start Time 07:32 Visit Stop Time 08:15 Total Visit Minutes 43 Visit Number Number of FORMAL SERVICE WAITER Visits 0 PT-OP-B Current Condition Start: 11/14/21 17:51 Freq: Status: Active Protocol: Document 05/13/22 16:07 [facility] (Rec: 05/13/22 16:52 [facility] [id number]) Current Condition History of Current Condition Onset Date 6 months/1 year Current Complaints B jaw pain/cervical& thoracic pain History of Current Condition 05/13-pt reports LBP and B hip pain has been going on for years. The only traumatic injury was in 2006 was doing a marla carry and stepped in a hole and caused a lot of pain at the time and the back and R hip. She does not really remember any signficiant before that. Since then it has been an off and on thing but it got pretty bad for the past year. She did do PT at another clinic for hips and back and hips are feeling better but she also hasn't been running and is only recently getting into more intense workouts again gradually and feels tight and tender after. Back and hips can feel really hot and burning. Pt notes pain in LB, thoracic and neck and B sides. She has felt like she was constipated today and felt like she had to go but couldn' t. She has worked on diet a lot. She has BM about 1x/week. She has had 3 xrays that have noted constipation. Rates type 1 and 2 mostly on bristol stool chart. She gets a lot fiber in her diet. Pt can cross her legs and get her back to pop and does it d/t feeling like it needs it. Pt reports she doesn't notice jaw during the day, she is clenching more at night w/ mouth guard. Neck still been feeling stiff, Tingling in mid back about 1x/day at least. It is not as prolonged and she feels like she can improve it if she adjusts her posture. She did do a 2 mile walk and felt pretty uncomfortable at 1 mile. Re-eval: Pt reports neck and thoracic pain started about 1 year ago and she would ntoice that 5-10 min into walking, she starts to get tingling in shoulder blades. Fwd flex stretch feels like it should help but it doesn't. Once it starts, there is no way ot stop it besides lay down. This has kept her from hiking. Neck pain is more feels so tight that she feels like her ROM is limited. ITs been better since started working on jaw. It always feels like she needs to move her neck but doing the motion doesn't really help. It feels like she wants to pop it but that doesn't really help either. She gets things that feels like golf balls along neck. IE:Jaw pain started about 6 months ago. when it first started it felt like I had been chewing gum allt he day prior. MD thought she may be clenching. She got a mouthguard after a couple months for night but does not feel like it has made a difference. Neck pain has been crhornic, but no injury. Denies LEAVITT except occasionally and they go away. denies dizziness or lightheadness. Mouth xray done recently and everything looked fine. Pt saw specialist in [place] and she suspects this is just muscular. Denies clicking in jaw. Pt was told to avoid hard to chew and crunchy foods and is most of the time following this. She can feel it more w/ those foods. Tried heat and it feels good but doesn't give relief. Gets ringing in ears and feels like ear is stuffy ( thinks both but notices it more in R). Evry couple weeks she gets the ringing and it only lasts about 5-10 min. Ear feeling stuffy is more often than the ringing. Pt is going to PT for LB. She has tingling in upper back sometimes when just sitting down and with walking. Her neck pain has been persistant. She has had some cervical xray but does not recall anything on it. Pt does have referral for sleep study. Pt feels like she has to sleep okay. She wakes up 1- 2x/night and will get up to go to the bathroom. When seh wakes, she doesn't feel rested , feels exhausted by the end of the day, and feels tense when she awakes. Treatment Goals Patient/Caregiver Goals get back to hiking and long walks, dec stiffness, back to running & workouts PT-OP-C Subjective Start: 11/14/21 17:51 Freq: Status: Active Protocol: Document 09/10/22 07:29 [facility] (Rec: 09/10/22 10:03 [facility] [id number]) OP-PT Subjective Patient Comments Patient Comments Pt reports past week lumbar spine was really stiff. This AMs walk was difficult PT-OP-F Manual Assessment Start: 11/14/21 17:51 Freq: Status: Active Protocol: Document 05/13/22 16:07 [facility] (Rec: 05/13/22 16:52 [facility] [id number]) Manual Assessments Soft Tissue Assessment Soft Tissue Mobility Assessment tenderness throughout lumbar and gluteal region along w/ abdomenal wall Joint Mobility Assessment Joint Mobility Assessment R iliac crest is higher; equal greater trochanter; w/knee bending tibia track close to neutral; IR of B femurs w/knee bending PT-OP-J Posture/Palpation/Skin Start: 11/14/21 17:51 Freq: Status: Active Protocol: Document 07/22/22 15:24 [facility] (Rec: 07/22/22 18:09 [facility] [id number]) Posture Evaluation Tyler Postural Classification System Vertebral Compression Test 3 Elbow Flexion Test 3 Lumbar Protective Mechanism Left AP 1 Lumbar Protective Mechanism Right AP 1 Lumbar Protective Mechanism Left PA 1 Lumbar Protective Mechanism Right PA 1 PT-OP-K Range of Motion Start: 11/14/21 17:51 Freq: Status: Active Protocol: Document 07/22/22 15:24 [facility] (Rec: 07/22/22 18:09 [facility] [id number]) Cervical Spine Range of Motion Cervical Spine Active Degrees Flexion 69 Extension 50 Rotation Left 64 Rotation Right 65 Lateral Flexion Left 34 Lateral Flexion Right 46 Comments tight w/L SB & pain ext; 46 thoracic rotation L; 66 R Lumbar Spine Range of Motion Lumbar Spine Active Percentage Flexion 75 Extension 90 Rotation Left 75 Rotation Right 65 Lateral Flexion Left 60 Lateral Flexion Right 80 Comments L SB dec folding L; R SB dec L lengthening; tight B rot L>R; tight w/flex PT-OP-L Special Tests Start: 11/14/21 17:51 Freq: Status: Active Protocol: Document 05/13/22 16:07 [facility] (Rec: 05/13/22 16:52 [facility] [id number]) Special Tests Lumbar Spine Special Tests Slump Test Results positive for tension B w/neck flex PT-OP-M Strength Start: 11/14/21 17:51 Freq: Status: Active Protocol: Document 05/13/22 16:07 [facility] (Rec: 05/13/22 16:52 [facility] [id number]) Hip Strength Hip Manual Muscle Testing Right Flexion (L2) 4 Good Extension (S1) 3+ Fair+ Abduction 4- Good- Adduction 4- Good- External Rotation 4 Good Internal Rotation 5 Normal Left Flexion (L2) 3+ Fair+ Extension (S1) 3+ Fair+ Abduction 4 Good Adduction 4- Good- External Rotation 4 Good Internal Rotation 4- Good- Comments 5/5 knee and ankle MMT B PT-OP-Q Treatments Start: 11/14/21 17:51 Freq: Status: Active Protocol: Document 09/10/22 07:29 [facility] (Rec: 09/10/22 10:03 [facility] [id number]) Manual Therapy Treatment Joint Mobilizations innominate Comments L add FM hip Comments L add FM rib Comments L general downward glide lower FM; L upper glide 6 rib FM; R upper glide rib 7 FM thoracic Comments transverse R T7-10 FM w/ percussion also PT-OP-R Modalities Start: 11/14/21 17:51 Freq: Status: Active Protocol: Document 04/15/22 07:30 [facility] (Rec: 04/15/22 12:24 [facility] [id number]) Hot Pack/Cold Pack Treatment Cold Pack Location cervical & thoracic Patient Position Supine Treatment Duration (minutes) 10 PT-OP-T Assessment and Plan Start: 11/14/21 17:51 Freq: Status: Active Protocol: Document 09/10/22 07:29 [facility] (Rec: 09/10/22 10:03 [facility] [id number]) Physical Therapy Assessment Goals pain Impairment neck pain and tightness that is constant that is at a 2/10 at all the time w/o relief Shelter Goal (LTG) Pt will report no constant neck pain or tightness at least 5/7 days a week 07/22:no change LTG Duration 09/30 static activity Impairment pain starts after 10 min of standing -06/14 and if stand longer it can get to a 07/15- describes as really uncomfortable-standing at attention/parade rest Elder Counselor Goal (LTG) Pt will be able to stand at attention or parade rest and at home for extended tiem as needed without inc pain greater than 1/10 07/22-tingling in upper back 3- 07/15 LTG Duration 09/30/22 activity Short Term Goal (STG) Pt will report being able to return to long walks w/no more than 1/10 pain in neck and/or thoraic and lumbar region. 07/22-about 2 miles max recently but about 2-310-LB & mid back STG Duration 08/24/22 Shelter Goal (LTG) Pt will be able to return to running and working out without pain in cervical, thoracic or lumbar region w/o pain greater than 2/10 07/22: short distance run ~3/10 ; after cmascpdu-8-4/10 LTG Duration 09/30 ROM Short Term Goal (STG) Pt will have full cervical and lumbar ROM w/o feeling of tension or pain to allow pt to do ADls w/o inc pain. 07/22-06/14 (L>R knee pain); back and neck are stiff and can't stand up straight; still limited ROM STG Duration 09/03 Elder Counselor Goal (LTG) Pt will have full jaw opening to 40mm w/o feeling of tightness 01/23-tension 03/19-feels okay but still limited 07/22-38 mm tight LTG Duration 09/30/22 Assessment Summary Assessment Pt had improved rotation and SB w/less pain in L SB after manual treatment. She cont to be very limited in ribcage mobility. Physical Therapy Plan Frequency and Duration Frequency of Treatment 1x/Week Duration of treatment (weeks) 10 Plan of Care Start Date 07/22/22 Plan of Care End Date 09/30/22 Next Visit Focus/Plan Next Note Type Treatment Note Next Visit Plan cont to work on overall spinal mobility
--- NOTE | 2022-09-17 18:27 | PT.OTN ---
Current Diagnoses Pain in unspecified hip (09/17/22) Unspecified temporomandibular joint disorder, unspecified side (09/17/22) Other specified dorsopathies, cervicothoracic region (09/17/22) Cervicalgia (09/17/22) Low back pain, unspecified (09/17/22) Muscle weakness (generalized) (09/17/22) Abnormal posture (09/17/22) Physical Therapy Treatment Note PT-OP-A Visit Information Start: 11/14/21 17:51 Freq: Status: Active Protocol: Document 09/17/22 14:29 [facility] (Rec: 09/17/22 18:27 [facility] [id number]) Out-Patient Physical Therapy Visit Information Visit Information Visit Type Progress Note Visit Start Time 14:22 Visit Stop Time 15:02 Total Visit Minutes 40 Visit Number Number of ECHO TECHNICIAN Visits 0 PT-OP-B Current Condition Start: 11/14/21 17:51 Freq: Status: Active Protocol: Document 05/13/22 16:07 [facility] (Rec: 05/13/22 16:52 [facility] [id number]) Current Condition History of Current Condition Onset Date 6 months/1 year Current Complaints B jaw pain/cervical& thoracic pain History of Current Condition 05/13-pt reports LBP and B hip pain has been going on for years. The only traumatic injury was in 2006 was doing a marla carry and stepped in a hole and caused a lot of pain at the time and the back and R hip. She does not really remember any signficiant before that. Since then it has been an off and on thing but it got pretty bad for the past year. She did do PT at another clinic for hips and back and hips are feeling better but she also hasn't been running and is only recently getting into more intense workouts again gradually and feels tight and tender after. Back and hips can feel really hot and burning. Pt notes pain in LB, thoracic and neck and B sides. She has felt like she was constipated today and felt like she had to go but couldn' t. She has worked on diet a lot. She has BM about 1x/week. She has had 3 xrays that have noted constipation. Rates type 1 and 2 mostly on bristol stool chart. She gets a lot fiber in her diet. Pt can cross her legs and get her back to pop and does it d/t feeling like it needs it. Pt reports she doesn't notice jaw during the day, she is clenching more at night w/ mouth guard. Neck still been feeling stiff, Tingling in mid back about 1x/day at least. It is not as prolonged and she feels like she can improve it if she adjusts her posture. She did do a 2 mile walk and felt pretty uncomfortable at 1 mile. Re-eval: Pt reports neck and thoracic pain started about 1 year ago and she would ntoice that 5-10 min into walking, she starts to get tingling in shoulder blades. Fwd flex stretch feels like it should help but it doesn't. Once it starts, there is no way ot stop it besides lay down. This has kept her from hiking. Neck pain is more feels so tight that she feels like her ROM is limited. ITs been better since started working on jaw. It always feels like she needs to move her neck but doing the motion doesn't really help. It feels like she wants to pop it but that doesn't really help either. She gets things that feels like golf balls along neck. IE:Jaw pain started about 6 months ago. when it first started it felt like I had been chewing gum allt he day prior. MD thought she may be clenching. She got a mouthguard after a couple months for night but does not feel like it has made a difference. Neck pain has been crhornic, but no injury. Denies LEAVITT except occasionally and they go away. denies dizziness or lightheadness. Mouth xray done recently and everything looked fine. Pt saw specialist in [place] and she suspects this is just muscular. Denies clicking in jaw. Pt was told to avoid hard to chew and crunchy foods and is most of the time following this. She can feel it more w/ those foods. Tried heat and it feels good but doesn't give relief. Gets ringing in ears and feels like ear is stuffy ( thinks both but notices it more in R). Evry couple weeks she gets the ringing and it only lasts about 5-10 min. Ear feeling stuffy is more often than the ringing. Pt is going to PT for LB. She has tingling in upper back sometimes when just sitting down and with walking. Her neck pain has been persistant. She has had some cervical xray but does not recall anything on it. Pt does have referral for sleep study. Pt feels like she has to sleep okay. She wakes up 1- 2x/night and will get up to go to the bathroom. When seh wakes, she doesn't feel rested , feels exhausted by the end of the day, and feels tense when she awakes. Treatment Goals Patient/Caregiver Goals get back to hiking and long walks, dec stiffness, back to running & workouts PT-OP-C Subjective Start: 11/14/21 17:51 Freq: Status: Active Protocol: Document 09/17/22 14:29 [facility] (Rec: 09/17/22 18:27 [facility] [id number]) OP-PT Subjective Patient Comments Patient Comments Pt reports she feels like PT helps to manage pain, but doesn't feel significant improvement. PT-OP-F Manual Assessment Start: 11/14/21 17:51 Freq: Status: Active Protocol: Document 05/13/22 16:07 [facility] (Rec: 05/13/22 16:52 [facility] [id number]) Manual Assessments Soft Tissue Assessment Soft Tissue Mobility Assessment tenderness throughout lumbar and gluteal region along w/ abdomenal wall Joint Mobility Assessment Joint Mobility Assessment R iliac crest is higher; equal greater trochanter; w/knee bending tibia track close to neutral; IR of B femurs w/knee bending PT-OP-J Posture/Palpation/Skin Start: 11/14/21 17:51 Freq: Status: Active Protocol: Document 09/17/22 14:29 [facility] (Rec: 09/17/22 18:27 [facility] [id number]) Posture Evaluation Tyler Postural Classification System Tyler Postural Classifications Posterior/Posterior Vertebral Compression Test 3 Elbow Flexion Test 3 Lumbar Protective Mechanism Left AP 1 Lumbar Protective Mechanism Right AP 1 Lumbar Protective Mechanism Left PA 4 Lumbar Protective Mechanism Right PA 4 PT-OP-K Range of Motion Start: 11/14/21 17:51 Freq: Status: Active Protocol: Document 09/17/22 14:29 [facility] (Rec: 09/17/22 18:27 [facility] [id number]) Cervical Spine Range of Motion Cervical Spine Active Degrees Flexion 60 Extension 68 Rotation Left 71 Rotation Right 60 Lateral Flexion Left 40 Lateral Flexion Right 54 Comments tight w/B SB & pain ext; 46 thoracic rotation L; 66 R Lumbar Spine Range of Motion Lumbar Spine Active Percentage Flexion 75 Extension 90 Rotation Left 75 Rotation Right 75 Lateral Flexion Left 60 Lateral Flexion Right 60 Comments pain ext, PT-OP-L Special Tests Start: 11/14/21 17:51 Freq: Status: Active Protocol: Document 05/13/22 16:07 [facility] (Rec: 05/13/22 16:52 [facility] [id number]) Special Tests Lumbar Spine Special Tests Slump Test Results positive for tension B w/neck flex PT-OP-M Strength Start: 11/14/21 17:51 Freq: Status: Active Protocol: Document 05/13/22 16:07 [facility] (Rec: 05/13/22 16:52 [facility] [id number]) Hip Strength Hip Manual Muscle Testing Right Flexion (L2) 4 Good Extension (S1) 3+ Fair+ Abduction 4- Good- Adduction 4- Good- External Rotation 4 Good Internal Rotation 5 Normal Left Flexion (L2) 3+ Fair+ Extension (S1) 3+ Fair+ Abduction 4 Good Adduction 4- Good- External Rotation 4 Good Internal Rotation 4- Good- Comments 5/5 knee and ankle MMT B PT-OP-Q Treatments Start: 11/14/21 17:51 Freq: Status: Active Protocol: Document 09/17/22 14:29 [facility] (Rec: 09/17/22 18:27 [facility] [id number]) Manual Therapy Treatment Soft Tissue Mobilization lumbar Comments fwd flex from mid tspine to lumbar x2 w/flex slow Joint Mobilizations lumbar Comments gapping percussion L5-S1; L 4- 5, L3-4, L2-3 Fm quadruped innominate Comments R ext FM percussion PT-OP-R Modalities Start: 11/14/21 17:51 Freq: Status: Active Protocol: Document 04/15/22 07:30 [facility] (Rec: 04/15/22 12:24 [facility] [id number]) Hot Pack/Cold Pack Treatment Cold Pack Location cervical & thoracic Patient Position Supine Treatment Duration (minutes) 10 PT-OP-T Assessment and Plan Start: 11/14/21 17:51 Freq: Status: Active Protocol: Document 09/17/22 14:29 [facility] (Rec: 09/17/22 18:[id number] Physical Therapy Assessment Goals pain Impairment neck pain and tightness that is constant that is at a 2/10 at all the time w/o relief Detention Goal (LTG) Pt will report no constant neck pain or tightness at least 5/7 days a week 07/22:no change 09/17-mostly tightness daily but not pain LTG Duration 11/24 static activity Impairment pain starts after 10 min of standing -06/14 and if stand longer it can get to a 07/15- describes as really uncomfortable-standing at attention/parade rest Detention Goal (LTG) Pt will be able to stand at attention or parade rest and at home for extended tiem as needed without inc pain greater than 1/10 07/22-tingling in upper back - 07/15 09/17-pain still w/extended standing no chage LTG Duration 09/30/22 activity Short Term Goal (STG) Pt will report being able to return to long walks w/no more than 1/10 pain in neck and/or thoraic and lumbar region. 07/22-about 2 miles max recently but about 2-3-LB & mid back 09/17-2.5 miles max; average AM walk .5 mile (upper back and SI pain 3-07/15 STG Duration 10/14 Detention Goal (LTG) Pt will be able to return to running and working out without pain in cervical, thoracic or lumbar region w/o pain greater than 2/10 07/22: short distance run ~3/10 ; after ugnqrher-1-8/10 09/17-interval run about 1 mile (06/14); workouts no pain during mostly, occ crunching in back but sore for several days LTG Duration 11/24 ROM Short Term Goal (STG) Pt will have full cervical and lumbar ROM w/o feeling of tension or pain to allow pt to do ADls w/o inc pain. 07/22-06/14 (L>R knee pain); back and neck are stiff and can't stand up straight; still limited ROM 09/17-standing on one leg and knee is hurting; bending over for shoes and socks is still difficult STG Duration 10/14 Reverse Unit Operator Fisherman Goal (LTG) Pt will have full jaw opening to 40mm w/o feeling of tightness 01/23-tension 03/19-feels okay but still limited 07/22-38 mm tight LTG Duration achieved Assessment Summary Assessment Pt has started to return to more working out but does have inc symptoms. 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 She does gain range w/sesions and had imrpoved lumbar flex and abiltiyt o ext hip w/leg swing after manual teratment w/ less pain w/leg swing. She has made slow progress and does feel like PT helps to keep her pain under control and would benefit from cont to keep pt active. Physical Therapy Plan Frequency and Duration Frequency of Treatment 1x/Week Duration of treatment (weeks) 10 Plan of Care Start Date 09/17/22 Plan of Care End Date 11/26/22 Therapeutic Interventions Therapeutic Interventions Balance Training,Gait Training ,Home Exercise Program,Joint Mobilizations,Manual Therapy, Neuromuscular Re-education, Orthotic/Prosthetic Management ,Patient/Caregiver Education, Self-Care/Home Management,Soft Tissue Mobilization,Taping, Therapeutic Activities, Therapeutic Exercises Modalities Cold Pack/Ice Massage,Electric Stimulation,Hot Packs, Infrared Therapy,Iontophoresis ,Traction- Mechanical, Ultrasound Other Therapeutic Interventions dexomethosone ionto Next Visit Focus/Plan Next Note Type Treatment Note Next Visit Plan cont to work on overall spinal mobility
--- NOTE | 2022-09-17 18:27 | PT.OPPOC ---
Physical, Occupational & Speech Therapy At [facility] Current Diagnoses Pain in unspecified hip (09/17/22) Unspecified temporomandibular joint disorder, unspecified side (09/17/22) Other specified dorsopathies, cervicothoracic region (09/17/22) Cervicalgia (09/17/22) Low back pain, unspecified (09/17/22) Muscle weakness (generalized) (09/17/22) Abnormal posture (09/17/22) Visit Care Team Role Provider Type Christopher Quevedo MD Attending Provider Non-Staff Primary Care Provider Referring Provider Specialty: Family Practice Address: [facility], Fax: Email: Plan Of Care PT-OP-T Assessment and Plan Start: 11/14/21 17:51 Freq: Status: Active Protocol: Document 09/17/22 14:29 [facility] (Rec: 09/17/22 18:27 [facility] [id number]) Physical Therapy Assessment Goals pain Impairment neck pain and tightness that is constant that is at a 2/10 at all the time w/o relief Air Quality Technician Goal (LTG) Pt will report no constant neck pain or tightness at least 5/7 days a week 07/22:no change 09/17-mostly tightness daily but not pain LTG Duration 11/24 static activity Impairment pain starts after 10 min of standing -3/10 and if stand longer it can get to a 4/10- describes as really uncomfortable-standing at attention/parade rest Air Quality Technician Goal (LTG) Pt will be able to stand at attention or parade rest and at home for extended tiem as needed without inc pain greater than 1/10 07/22-tingling in upper back 3- 10 09/17-pain still w/extended standing no chage LTG Duration 09/30/22 activity Short Term Goal (STG) Pt will report being able to return to long walks w/no more than 1/10 pain in neck and/or thoraic and lumbar region. 07/22-about 2 miles max recently but about 2-3/10-LB & mid back 09/17-2.5 miles max; average AM walk .5 mile (upper back and SI pain 3-4 STG Duration 7/10 Air Quality Technician Goal (LTG) Pt will be able to return to running and working out without pain in cervical, thoracic or lumbar region w/o pain greater than 2/10 07/22: short distance run ~10 ; after [id number]/10 09/17-interval run about 1 mile (06/14); workouts no pain during mostly, occ crunching in back but sore for several days LTG Duration 11/24 ROM Short Term Goal (STG) Pt will have full cervical and lumbar ROM w/o feeling of tension or pain to allow pt to do ADls w/o inc pain. 07/22-06/14 (L>R knee pain); back and neck are stiff and can't stand up straight; still limited ROM 09/17-standing on one leg and knee is hurting; bending over for shoes and socks is still difficult STG Duration 10/14 Air Quality Technician Goal (LTG) Pt will have full jaw opening to 40mm w/o feeling of tightness 01/23-tension 03/19-feels okay but still limited 07/22-38 mm tight LTG Duration achieved Assessment Summary Assessment Pt has started to return to more working out but does have inc symptoms. She does have diagnosis of fibromyalgia from electro optics engineer but all other testing is negative. She does gain range w/sesions and had imrpoved lumbar flex and abiltiyt o ext hip w/leg swing after manual teratment w/ less pain w/leg swing. She has made slow progress and does feel like PT helps to keep her pain under control and would benefit from cont to keep pt active. Physical Therapy Plan Frequency and Duration Frequency of Treatment 1x/Week Duration of treatment (weeks) 10 Plan of Care Start Date 09/17/22 Plan of Care End Date 11/26/22 Therapeutic Interventions Therapeutic Interventions Balance Training,Gait Training ,Home Exercise Program,Joint Mobilizations,Manual Therapy, Neuromuscular Re-education, Orthotic/Prosthetic Management ,Patient/Caregiver Education, Self-Care/Home Management,Soft Tissue Mobilization,Taping, Therapeutic Activities, Therapeutic Exercises Modalities Cold Pack/Ice Massage,Electric Stimulation,Hot Packs, Infrared Therapy,Iontophoresis ,Traction- Mechanical, Ultrasound Other Therapeutic Interventions dexomethosone ionto Next Visit Focus/Plan Next Note Type Treatment Note Next Visit Plan cont to work on overall spinal mobility Plan of Care Dates Plan of Care Start Date 09/17/22 Plan of Care End Date 11/26/22 Electronically Signed by: Grace Michel, PT 09/17/22 [id number] If you are in agreement with this Plan of Care, please return a signed and dated copy. I have reviewed this Plan of Care and certify that the skilled therapy services above are required to meet the patient?s needs. Physician Signature Date Printed Name and Credentials Clinical Instructor Signature Printed Name and Credentials
--- NOTE | 2022-09-24 11:19 | PT.OTN ---
Current Diagnoses Pain in unspecified hip (09/24/22) Unspecified temporomandibular joint disorder, unspecified side (09/24/22) Other specified dorsopathies, cervicothoracic region (09/24/22) Cervicalgia (09/24/22) Low back pain, unspecified (09/24/22) Muscle weakness (generalized) (09/24/22) Abnormal posture (09/24/22) Physical Therapy Treatment Note PT-OP-A Visit Information Start: 11/14/21 17:51 Freq: Status: Active Protocol: Document 09/24/22 11:15 [facility] (Rec: 09/24/22 11:19 [facility] [id number]) Out-Patient Physical Therapy Visit Information Visit Information Visit Type Treatment Note Visit Start Time 07:34 Visit Stop Time 08:15 Total Visit Minutes 41 Visit Number 20 Number of NONPROFIT MANAGER Visits 0 PT-OP-B Current Condition Start: 11/14/21 17:51 Freq: Status: Active Protocol: Document 05/13/22 16:07 [facility] (Rec: 05/13/22 16:52 [facility] [id number]) Current Condition History of Current Condition Onset Date 6 months/1 year Current Complaints B jaw pain/cervical& thoracic pain History of Current Condition 05/13-pt reports LBP and B hip pain has been going on for years. The only traumatic injury was in 2006 was doing a marla carry and stepped in a hole and caused a lot of pain at the time and the back and R hip. She does not really remember any signficiant before that. Since then it has been an off and on thing but it got pretty bad for the past year. She did do PT at another clinic for hips and back and hips are feeling better but she also hasn't been running and is only recently getting into more intense workouts again gradually and feels tight and tender after. Back and hips can feel really hot and burning. Pt notes pain in LB, thoracic and neck and B sides. She has felt like she was constipated today and felt like she had to go but couldn' t. She has worked on diet a lot. She has BM about 1x/week. She has had 3 xrays that have noted constipation. Rates type 1 and 2 mostly on bristol stool chart. She gets a lot fiber in her diet. Pt can cross her legs and get her back to pop and does it d/t feeling like it needs it. Pt reports she doesn't notice jaw during the day, she is clenching more at night w/ mouth guard. Neck still been feeling stiff, Tingling in mid back about 1x/day at least. It is not as prolonged and she feels like she can improve it if she adjusts her posture. She did do a 2 mile walk and felt pretty uncomfortable at 1 mile. Re-eval: Pt reports neck and thoracic pain started about 1 year ago and she would ntoice that 5-10 min into walking, she starts to get tingling in shoulder blades. Fwd flex stretch feels like it should help but it doesn't. Once it starts, there is no way ot stop it besides lay down. This has kept her from hiking. Neck pain is more feels so tight that she feels like her ROM is limited. ITs been better since started working on jaw. It always feels like she needs to move her neck but doing the motion doesn't really help. It feels like she wants to pop it but that doesn't really help either. She gets things that feels like golf balls along neck. IE:Jaw pain started about 6 months ago. when it first started it felt like I had been chewing gum allt he day prior. MD thought she may be clenching. She got a mouthguard after a couple months for night but does not feel like it has made a difference. Neck pain has been crhornic, but no injury. Denies LEAVITT except occasionally and they go away. denies dizziness or lightheadness. Mouth xray done recently and everything looked fine. Pt saw specialist in [place] and she suspects this is just muscular. Denies clicking in jaw. Pt was told to avoid hard to chew and crunchy foods and is most of the time following this. She can feel it more w/ those foods. Tried heat and it feels good but doesn't give relief. Gets ringing in ears and feels like ear is stuffy ( thinks both but notices it more in R). Evry couple weeks she gets the ringing and it only lasts about 5-10 min. Ear feeling stuffy is more often than the ringing. Pt is going to PT for LB. She has tingling in upper back sometimes when just sitting down and with walking. Her neck pain has been persistant. She has had some cervical xray but does not recall anything on it. Pt does have referral for sleep study. Pt feels like she has to sleep okay. She wakes up 1- 2x/night and will get up to go to the bathroom. When seh wakes, she doesn't feel rested , feels exhausted by the end of the day, and feels tense when she awakes. Treatment Goals Patient/Caregiver Goals get back to hiking and long walks, dec stiffness, back to running & workouts PT-OP-C Subjective Start: 11/14/21 17:51 Freq: Status: Active Protocol: Document 09/24/22 11:15 [facility] (Rec: 09/24/22 11:19 [facility] [id number]) OP-PT Subjective Patient Comments Patient Comments Pt reports discomfort in TL junction. [place] bent fwd and still feels difficult to get upright PT-OP-F Manual Assessment Start: 11/14/21 17:51 Freq: Status: Active Protocol: Document 05/13/22 16:07 [facility] (Rec: 05/13/22 16:52 [facility] [id number]) Manual Assessments Soft Tissue Assessment Soft Tissue Mobility Assessment tenderness throughout lumbar and gluteal region along w/ abdomenal wall Joint Mobility Assessment Joint Mobility Assessment R iliac crest is higher; equal greater trochanter; w/knee bending tibia track close to neutral; IR of B femurs w/knee bending PT-OP-J Posture/Palpation/Skin Start: 11/14/21 17:51 Freq: Status: Active Protocol: Document 09/17/22 14:29 [facility] (Rec: 09/17/22 18:27 [facility] [id number]) Posture Evaluation Tyler Postural Classification System Tyler Postural Classifications Posterior/Posterior Vertebral Compression Test 3 Elbow Flexion Test 3 Lumbar Protective Mechanism Left AP 1 Lumbar Protective Mechanism Right AP 1 Lumbar Protective Mechanism Left PA 4 Lumbar Protective Mechanism Right PA 4 PT-OP-K Range of Motion Start: 11/14/21 17:51 Freq: Status: Active Protocol: Document 09/17/22 14:29 [facility] (Rec: 09/17/22 18:27 [facility] [id number]) Cervical Spine Range of Motion Cervical Spine Active Degrees Flexion 60 Extension 68 Rotation Left 71 Rotation Right 60 Lateral Flexion Left 40 Lateral Flexion Right 54 Comments tight w/B SB & pain ext; 46 thoracic rotation L; 66 R Lumbar Spine Range of Motion Lumbar Spine Active Percentage Flexion 75 Extension 90 Rotation Left 75 Rotation Right 75 Lateral Flexion Left 60 Lateral Flexion Right 60 Comments pain ext, PT-OP-L Special Tests Start: 11/14/21 17:51 Freq: Status: Active Protocol: Document 05/13/22 16:07 [facility] (Rec: 05/13/22 16:52 [facility] [id number]) Special Tests Lumbar Spine Special Tests Slump Test Results positive for tension B w/neck flex PT-OP-M Strength Start: 11/14/21 17:51 Freq: Status: Active Protocol: Document 05/13/22 16:07 [facility] (Rec: 05/13/22 16:52 [facility] [id number]) Hip Strength Hip Manual Muscle Testing Right Flexion (L2) 4 Good Extension (S1) 3+ Fair+ Abduction 4- Good- Adduction 4- Good- External Rotation 4 Good Internal Rotation 5 Normal Left Flexion (L2) 3+ Fair+ Extension (S1) 3+ Fair+ Abduction 4 Good Adduction 4- Good- External Rotation 4 Good Internal Rotation 4- Good- Comments 5/5 knee and ankle MMT B PT-OP-Q Treatments Start: 11/14/21 17:51 Freq: Status: Active Protocol: Document 09/24/22 11:15 [facility] (Rec: 09/24/22 11:19 [facility] [id number]) Therapeutic Activity Therapeutic Activity posture Reps/Minutes 9 min Comments seated unsupported and standing posture working on diaphram alignment over pelvis Manual Therapy Treatment Soft Tissue Mobilization lumbar Comments strumming L paraspinals prone pec Body Location L major and minor Mobilization Type Sustained Pressure Intensity/Depth Moderate Body Position Supine Comments w/ER & abd tspine Body Location L lat from TL fascia to inf border of scap and vs teres Mobilization Type Rolling,Strumming Joint Mobilizations GH Joint L post translation PT-OP-R Modalities Start: 11/14/21 17:51 Freq: Status: Active Protocol: Document 04/15/22 07:30 [facility] (Rec: 04/15/22 12:24 [facility] [id number]) Hot Pack/Cold Pack Treatment Cold Pack Location cervical & thoracic Patient Position Supine Treatment Duration (minutes) 10 PT-OP-T Assessment and Plan Start: 11/14/21 17:51 Freq: Status: Active Protocol: Document 09/24/22 11:15 [facility] (Rec: 09/24/22 11:19 [facility] [id number]) Physical Therapy Assessment Goals pain Impairment neck pain and tightness that is constant that is at a 2/10 at all the time w/o relief Director Recreation Center Goal (LTG) Pt will report no constant neck pain or tightness at least 5/7 days a week 07/22:no change 09/17-mostly tightness daily but not pain LTG Duration 11/24 static activity Impairment pain starts after 10 min of standing -06/14 and if stand longer it can get to a 07/15- describes as really uncomfortable-standing at attention/parade rest Halfway Goal (LTG) Pt will be able to stand at attention or parade rest and at home for extended tiem as needed without inc pain greater than 1/10 07/22-tingling in upper back - 07/15 09/17-pain still w/extended standing no chage LTG Duration 09/30/22 activity Short Term Goal (STG) Pt will report being able to return to long walks w/no more than 1/10 pain in neck and/or thoraic and lumbar region. 07/22-about 2 miles max recently but about 2-310-LB & mid back 09/17-2.5 miles max; average AM walk .5 mile (upper back and SI pain 3-07/15 STG Duration 10/14 Halfway Goal (LTG) Pt will be able to return to running and working out without pain in cervical, thoracic or lumbar region w/o pain greater than 2/10 07/22: short distance run ~3/10 ; after [id number]/10 09/17-interval run about 1 mile (10); workouts no pain during mostly, occ crunching in back but sore for several days LTG Duration 11/24 ROM Short Term Goal (STG) Pt will have full cervical and lumbar ROM w/o feeling of tension or pain to allow pt to do ADls w/o inc pain. 07/22-10 (L>R knee pain); back and neck are stiff and can't stand up straight; still limited ROM 09/17-standing on one leg and knee is hurting; bending over for shoes and socks is still difficult STG Duration 10/14 [employer] Goal (LTG) Pt will have full jaw opening to 40mm w/o feeling of tightness 01/23-tension 03/19-feels okay but still limited 07/22-38 mm tight LTG Duration achieved Assessment Summary Assessment Pt still tends to hinge at TL junction get upright and was able to improve ability to set scap w/o discomfort or a lot of tension or difficulty after manual to L shoulder. This allowed her to keep TL junction more neutral when working into posture Physical Therapy Plan Frequency and Duration Frequency of Treatment 1x/Week Duration of treatment (weeks) 10 Plan of Care Start Date 09/17/22 Plan of Care End Date 11/26/22 Next Visit Focus/Plan Next Note Type Treatment Note Next Visit Plan cont to work on overall spinal mobility & postural stability
--- NOTE | 2022-10-10 18:30 | PT.OTN ---
Current Diagnoses Pain in unspecified hip (10/10/22) Unspecified temporomandibular joint disorder, unspecified side (10/10/22) Other specified dorsopathies, cervicothoracic region (10/10/22) Cervicalgia (10/10/22) Low back pain, unspecified (10/10/22) Muscle weakness (generalized) (10/10/22) Abnormal posture (10/10/22) Physical Therapy Treatment Note PT-OP-A Visit Information Start: 11/14/21 17:51 Freq: Status: Active Protocol: Document 10/10/22 07:33 [facility] (Rec: 10/10/22 18:30 [facility] [id number]) Out-Patient Physical Therapy Visit Information Visit Information Visit Type Treatment Note Visit Start Time 07:33 Visit Stop Time 08:15 Total Visit Minutes 42 Visit Number 21 Number of HOSPICE RN Visits 0 PT-OP-B Current Condition Start: 11/14/21 17:51 Freq: Status: Active Protocol: Document 05/13/22 16:07 [facility] (Rec: 05/13/22 16:52 [facility] [id number]) Current Condition History of Current Condition Onset Date 6 months/1 year Current Complaints B jaw pain/cervical& thoracic pain History of Current Condition 05/13-pt reports LBP and B hip pain has been going on for years. The only traumatic injury was in 2006 was doing a marla carry and stepped in a hole and caused a lot of pain at the time and the back and R hip. She does not really remember any signficiant before that. Since then it has been an off and on thing but it got pretty bad for the past year. She did do PT at another clinic for hips and back and hips are feeling better but she also hasn't been running and is only recently getting into more intense workouts again gradually and feels tight and tender after. Back and hips can feel really hot and burning. Pt notes pain in LB, thoracic and neck and B sides. She has felt like she was constipated today and felt like she had to go but couldn' t. She has worked on diet a lot. She has BM about 1x/week. She has had 3 xrays that have noted constipation. Rates type 1 and 2 mostly on bristol stool chart. She gets a lot fiber in her diet. Pt can cross her legs and get her back to pop and does it d/t feeling like it needs it. Pt reports she doesn't notice jaw during the day, she is clenching more at night w/ mouth guard. Neck still been feeling stiff, Tingling in mid back about 1x/day at least. It is not as prolonged and she feels like she can improve it if she adjusts her posture. She did do a 2 mile walk and felt pretty uncomfortable at 1 mile. Re-eval: Pt reports neck and thoracic pain started about 1 year ago and she would ntoice that 5-10 min into walking, she starts to get tingling in shoulder blades. Fwd flex stretch feels like it should help but it doesn't. Once it starts, there is no way ot stop it besides lay down. This has kept her from hiking. Neck pain is more feels so tight that she feels like her ROM is limited. ITs been better since started working on jaw. It always feels like she needs to move her neck but doing the motion doesn't really help. It feels like she wants to pop it but that doesn't really help either. She gets things that feels like golf balls along neck. IE:Jaw pain started about 6 months ago. when it first started it felt like I had been chewing gum allt he day prior. MD thought she may be clenching. She got a mouthguard after a couple months for night but does not feel like it has made a difference. Neck pain has been crhornic, but no injury. Denies LEAVITT except occasionally and they go away. denies dizziness or lightheadness. Mouth xray done recently and everything looked fine. Pt saw specialist in [place] and she suspects this is just muscular. Denies clicking in jaw. Pt was told to avoid hard to chew and crunchy foods and is most of the time following this. She can feel it more w/ those foods. Tried heat and it feels good but doesn't give relief. Gets ringing in ears and feels like ear is stuffy ( thinks both but notices it more in R). Evry couple weeks she gets the ringing and it only lasts about 5-10 min. Ear feeling stuffy is more often than the ringing. Pt is going to PT for LB. She has tingling in upper back sometimes when just sitting down and with walking. Her neck pain has been persistant. She has had some cervical xray but does not recall anything on it. Pt does have referral for sleep study. Pt feels like she has to sleep okay. She wakes up 1- 2x/night and will get up to go to the bathroom. When seh wakes, she doesn't feel rested , feels exhausted by the end of the day, and feels tense when she awakes. Treatment Goals Patient/Caregiver Goals get back to hiking and long walks, dec stiffness, back to running & workouts PT-OP-C Subjective Start: 11/14/21 17:51 Freq: Status: Active Protocol: Document 10/10/22 07:33 [facility] (Rec: 10/10/22 18:30 [facility] [id number]) OP-PT Subjective Patient Comments Patient Comments Pt reports knees and hips doing better recently but L back and down LLE has been painful recently. Still getting tingling in thoracic region. PT-OP-F Manual Assessment Start: 11/14/21 17:51 Freq: Status: Active Protocol: Document 05/13/22 16:07 [facility] (Rec: 05/13/22 16:52 [facility] [id number]) Manual Assessments Soft Tissue Assessment Soft Tissue Mobility Assessment tenderness throughout lumbar and gluteal region along w/ abdomenal wall Joint Mobility Assessment Joint Mobility Assessment R iliac crest is higher; equal greater trochanter; w/knee bending tibia track close to neutral; IR of B femurs w/knee bending PT-OP-J Posture/Palpation/Skin Start: 11/14/21 17:51 Freq: Status: Active Protocol: Document 09/17/22 14:29 [facility] (Rec: 09/17/22 18:27 [facility] [id number]) Posture Evaluation Tyler Postural Classification System Tyler Postural Classifications Posterior/Posterior Vertebral Compression Test 3 Elbow Flexion Test 3 Lumbar Protective Mechanism Left AP 1 Lumbar Protective Mechanism Right AP 1 Lumbar Protective Mechanism Left PA 4 Lumbar Protective Mechanism Right PA 4 PT-OP-K Range of Motion Start: 11/14/21 17:51 Freq: Status: Active Protocol: Document 09/17/22 14:29 [facility] (Rec: 09/17/22 18:27 [facility] [id number]) Cervical Spine Range of Motion Cervical Spine Active Degrees Flexion 60 Extension 68 Rotation Left 71 Rotation Right 60 Lateral Flexion Left 40 Lateral Flexion Right 54 Comments tight w/B SB & pain ext; 46 thoracic rotation L; 66 R Lumbar Spine Range of Motion Lumbar Spine Active Percentage Flexion 75 Extension 90 Rotation Left 75 Rotation Right 75 Lateral Flexion Left 60 Lateral Flexion Right 60 Comments pain ext, PT-OP-L Special Tests Start: 11/14/21 17:51 Freq: Status: Active Protocol: Document 05/13/22 16:07 [facility] (Rec: 05/13/22 16:52 [facility] [id number]) Special Tests Lumbar Spine Special Tests Slump Test Results positive for tension B w/neck flex PT-OP-M Strength Start: 11/14/21 17:51 Freq: Status: Active Protocol: Document 05/13/22 16:07 [facility] (Rec: 05/13/22 16:52 [facility] [id number]) Hip Strength Hip Manual Muscle Testing Right Flexion (L2) 4 Good Extension (S1) 3+ Fair+ Abduction 4- Good- Adduction 4- Good- External Rotation 4 Good Internal Rotation 5 Normal Left Flexion (L2) 3+ Fair+ Extension (S1) 3+ Fair+ Abduction 4 Good Adduction 4- Good- External Rotation 4 Good Internal Rotation 4- Good- Comments 5/5 knee and ankle MMT B PT-OP-Q Treatments Start: 11/14/21 17:51 Freq: Status: Active Protocol: Document 10/10/22 07:33 [facility] (Rec: 10/10/22 18:30 [facility] [id number]) Manual Therapy Treatment Soft Tissue Mobilization LE Body Location L Mobilization Type Myofascial Release,Rolling Intensity/Depth Moderate Body Position Hooklying Comments circumfrential w/hip IR/ER and flex hip Body Location L iliacus Mobilization Type Sustained Pressure Intensity/Depth Moderate Comments FM w/hip flex Joint Mobilizations lumbar Joint L4 and 5 transvers R FM w/ant elevation hip Joint L free the ball ER & IR FM & abd FM Neuro Re-Education Treatment Other Activities PNF Details R pelvic ant elevation Reps/Duration 8 min Comments 1. irradiation from LE to prolonged hold mult reps 2. COI of LE on pelvis and pelvis on LE and together PT-OP-R Modalities Start: 11/14/21 17:51 Freq: Status: Active Protocol: Document 04/15/22 07:30 [facility] (Rec: 04/15/22 12:24 [facility] [id number]) Hot Pack/Cold Pack Treatment Cold Pack Location cervical & thoracic Patient Position Supine Treatment Duration (minutes) 10 PT-OP-T Assessment and Plan Start: 11/14/21 17:51 Freq: Status: Active Protocol: Document 10/10/22 07:33 [facility] (Rec: 10/10/22 18:30 [facility] [id number]) Physical Therapy Assessment Goals pain Impairment neck pain and tightness that is constant that is at a 2/10 at all the time w/o relief Custodial Goal (LTG) Pt will report no constant neck pain or tightness at least 5/7 days a week 07/22:no change 09/17-mostly tightness daily but not pain LTG Duration 11/24 static activity Impairment pain starts after 10 min of standing -06/14 and if stand longer it can get to a 07/15- describes as really uncomfortable-standing at attention/parade rest [employer] Goal (LTG) Pt will be able to stand at attention or parade rest and at home for extended tiem as needed without inc pain greater than 1/10 07/22-tingling in upper back - 07/15 09/17-pain still w/extended standing no chage LTG Duration 09/30/22 activity Short Term Goal (STG) Pt will report being able to return to long walks w/no more than 1/10 pain in neck and/or thoraic and lumbar region. 07/22-about 2 miles max recently but about 2-3/10-LB & mid back 09/17-2.5 miles max; average AM walk .5 mile (upper back and SI pain 3-4 STG Duration 10/14 Custodial Goal (LTG) Pt will be able to return to running and working out without pain in cervical, thoracic or lumbar region w/o pain greater than 2/10 07/22: short distance run ~3/10 ; after oeknavfr-0-2/10 09/17-interval run about 1 mile (310); workouts no pain during mostly, occ crunching in back but sore for several days LTG Duration 11/24 ROM Short Term Goal (STG) Pt will have full cervical and lumbar ROM w/o feeling of tension or pain to allow pt to do ADls w/o inc pain. 07/22-06/14 (L>R knee pain); back and neck are stiff and can't stand up straight; still limited ROM 09/17-standing on one leg and knee is hurting; bending over for shoes and socks is still difficult STG Duration 10/14 Custodial Goal (LTG) Pt will have full jaw opening to 40mm w/o feeling of tightness 01/23-tension 03/19-feels okay but still limited 07/22-38 mm tight LTG Duration achieved Assessment Summary Assessment Pt had much improved RLE ROM after manual treatment along w /improved pelvis mobility in s /l for improved ant elevation. w/PNF, she showed improved core engagment Physical Therapy Plan Frequency and Duration Frequency of Treatment 1x/Week Duration of treatment (weeks) 10 Plan of Care Start Date 09/17/22 Plan of Care End Date 11/26/22 Next Visit Focus/Plan Next Note Type Treatment Note Next Visit Plan cont to work on overall spinal mobility & postural stability
--- NOTE | 2022-10-14 17:42 | PT.OTN ---
Current Diagnoses Pain in unspecified hip (10/14/22) Unspecified temporomandibular joint disorder, unspecified side (10/14/22) Other specified dorsopathies, cervicothoracic region (10/14/22) Cervicalgia (10/14/22) Low back pain, unspecified (10/14/22) Muscle weakness (generalized) (10/14/22) Abnormal posture (10/14/22) Physical Therapy Treatment Note PT-OP-A Visit Information Start: 11/14/21 17:51 Freq: Status: Active Protocol: Document 10/14/22 16:06 [facility] (Rec: 10/14/22 17:42 [facility] [id number]) Out-Patient Physical Therapy Visit Information Visit Information Visit Type Treatment Note Visit Start Time 16:06 Visit Stop Time 16:46 Total Visit Minutes 40 Visit Number 22 Number of [place] Visits 0 PT-OP-B Current Condition Start: 11/14/21 17:51 Freq: Status: Active Protocol: Document 05/13/22 16:07 [facility] (Rec: 05/13/22 16:52 [facility] [id number]) Current Condition History of Current Condition Onset Date 6 months/1 year Current Complaints B jaw pain/cervical& thoracic pain History of Current Condition 05/13-pt reports LBP and B hip pain has been going on for years. The only traumatic injury was in 2006 was doing a marla carry and stepped in a hole and caused a lot of pain at the time and the back and R hip. She does not really remember any signficiant before that. Since then it has been an off and on thing but it got pretty bad for the past year. She did do PT at another clinic for hips and back and hips are feeling better but she also hasn't been running and is only recently getting into more intense workouts again gradually and feels tight and tender after. Back and hips can feel really hot and burning. Pt notes pain in LB, thoracic and neck and B sides. She has felt like she was constipated today and felt like she had to go but couldn' t. She has worked on diet a lot. She has BM about 1x/week. She has had 3 xrays that have noted constipation. Rates type 1 and 2 mostly on bristol stool chart. She gets a lot fiber in her diet. Pt can cross her legs and get her back to pop and does it d/t feeling like it needs it. Pt reports she doesn't notice jaw during the day, she is clenching more at night w/ mouth guard. Neck still been feeling stiff, Tingling in mid back about 1x/day at least. It is not as prolonged and she feels like she can improve it if she adjusts her posture. She did do a 2 mile walk and felt pretty uncomfortable at 1 mile. Re-eval: Pt reports neck and thoracic pain started about 1 year ago and she would ntoice that 5-10 min into walking, she starts to get tingling in shoulder blades. Fwd flex stretch feels like it should help but it doesn't. Once it starts, there is no way ot stop it besides lay down. This has kept her from hiking. Neck pain is more feels so tight that she feels like her ROM is limited. ITs been better since started working on jaw. It always feels like she needs to move her neck but doing the motion doesn't really help. It feels like she wants to pop it but that doesn't really help either. She gets things that feels like golf balls along neck. IE:Jaw pain started about 6 months ago. when it first started it felt like I had been chewing gum allt he day prior. MD thought she may be clenching. She got a mouthguard after a couple months for night but does not feel like it has made a difference. Neck pain has been crhornic, but no injury. Denies LEAVITT except occasionally and they go away. denies dizziness or lightheadness. Mouth xray done recently and everything looked fine. Pt saw specialist in [place] and she suspects this is just muscular. Denies clicking in jaw. Pt was told to avoid hard to chew and crunchy foods and is most of the time following this. She can feel it more w/ those foods. Tried heat and it feels good but doesn't give relief. Gets ringing in ears and feels like ear is stuffy ( thinks both but notices it more in R). Evry couple weeks she gets the ringing and it only lasts about 5-10 min. Ear feeling stuffy is more often than the ringing. Pt is going to PT for LB. She has tingling in upper back sometimes when just sitting down and with walking. Her neck pain has been persistant. She has had some cervical xray but does not recall anything on it. Pt does have referral for sleep study. Pt feels like she has to sleep okay. She wakes up 1- 2x/night and will get up to go to the bathroom. When seh wakes, she doesn't feel rested , feels exhausted by the end of the day, and feels tense when she awakes. Treatment Goals Patient/Caregiver Goals get back to hiking and long walks, dec stiffness, back to running & workouts PT-OP-C Subjective Start: 11/14/21 17:51 Freq: Status: Active Protocol: Document 10/14/22 16:06 [facility] (Rec: 10/14/22 17:42 [facility] [id number]) OP-PT Subjective Patient Comments Patient Comments Pt reports LB was pretty painful after that appt for the same day. No leg pain since then. Pt feels pretty tense in upper back and ribs w /walking here. R knee is bugging her mostly med. PT-OP-F Manual Assessment Start: 11/14/21 17:51 Freq: Status: Active Protocol: Document 05/13/22 16:07 [facility] (Rec: 05/13/22 16:52 [facility] [id number]) Manual Assessments Soft Tissue Assessment Soft Tissue Mobility Assessment tenderness throughout lumbar and gluteal region along w/ abdomenal wall Joint Mobility Assessment Joint Mobility Assessment R iliac crest is higher; equal greater trochanter; w/knee bending tibia track close to neutral; IR of B femurs w/knee bending PT-OP-J Posture/Palpation/Skin Start: 11/14/21 17:51 Freq: Status: Active Protocol: Document 09/17/22 14:29 [facility] (Rec: 09/17/22 18:27 [facility] [id number]) Posture Evaluation Tyler Postural Classification System Tyler Postural Classifications Posterior/Posterior Vertebral Compression Test 3 Elbow Flexion Test 3 Lumbar Protective Mechanism Left AP 1 Lumbar Protective Mechanism Right AP 1 Lumbar Protective Mechanism Left PA 4 Lumbar Protective Mechanism Right PA 4 PT-OP-K Range of Motion Start: 11/14/21 17:51 Freq: Status: Active Protocol: Document 09/17/22 14:29 [facility] (Rec: 09/17/22 18:27 [facility] [id number]) Cervical Spine Range of Motion Cervical Spine Active Degrees Flexion 60 Extension 68 Rotation Left 71 Rotation Right 60 Lateral Flexion Left 40 Lateral Flexion Right 54 Comments tight w/B SB & pain ext; 46 thoracic rotation L; 66 R Lumbar Spine Range of Motion Lumbar Spine Active Percentage Flexion 75 Extension 90 Rotation Left 75 Rotation Right 75 Lateral Flexion Left 60 Lateral Flexion Right 60 Comments pain ext, PT-OP-L Special Tests Start: 11/14/21 17:51 Freq: Status: Active Protocol: Document 05/13/22 16:07 [facility] (Rec: 05/13/22 16:52 [facility] [id number]) Special Tests Lumbar Spine Special Tests Slump Test Results positive for tension B w/neck flex PT-OP-M Strength Start: 11/14/21 17:51 Freq: Status: Active Protocol: Document 05/13/22 16:07 [facility] (Rec: 05/13/22 16:52 [facility] [id number]) Hip Strength Hip Manual Muscle Testing Right Flexion (L2) 4 Good Extension (S1) 3+ Fair+ Abduction 4- Good- Adduction 4- Good- External Rotation 4 Good Internal Rotation 5 Normal Left Flexion (L2) 3+ Fair+ Extension (S1) 3+ Fair+ Abduction 4 Good Adduction 4- Good- External Rotation 4 Good Internal Rotation 4- Good- Comments 5/5 knee and ankle MMT B PT-OP-Q Treatments Start: 11/14/21 17:51 Freq: Status: Active Protocol: Document 10/14/22 16:06 [facility] (Rec: 10/14/22 17:42 [facility] [id number]) Manual Therapy Treatment Soft Tissue Mobilization abdomen Comments B obliques w/LTR FM supine Joint Mobilizations lumbar Comments L1 L upglide FM innominate Comments B gapping FM supine w/LTR & flex rib Comments up glide & internal torsion L rib 9 and 7 FM thoracic Reps/Duration FM Comments T12 downglide L and upglide R FM T11 upglide L T10 down glideL T9 upglide R T8 upglide and down glide L PT-OP-R Modalities Start: 11/14/21 17:51 Freq: Status: Active Protocol: Document 04/15/22 07:30 [facility] (Rec: 04/15/22 12:24 [facility] [id number]) Hot Pack/Cold Pack Treatment Cold Pack Location cervical & thoracic Patient Position Supine Treatment Duration (minutes) 10 PT-OP-T Assessment and Plan Start: 11/14/21 17:51 Freq: Status: Active Protocol: Document 10/14/22 16:06 [facility] (Rec: 10/14/22 17:42 [facility] [id number]) Physical Therapy Assessment Goals pain Impairment neck pain and tightness that is constant that is at a 2/10 at all the time w/o relief Alf Goal (LTG) Pt will report no constant neck pain or tightness at least 5/7 days a week 07/22:no change 09/17-mostly tightness daily but not pain LTG Duration 11/24 static activity Impairment pain starts after 10 min of standing -06/14 and if stand longer it can get to a 07/15- describes as really uncomfortable-standing at attention/parade rest [employer] Goal (LTG) Pt will be able to stand at attention or parade rest and at home for extended tiem as needed without inc pain greater than 1/10 07/22-tingling in upper back 3- 07/15 09/17-pain still w/extended standing no chage LTG Duration 09/30/22 activity Short Term Goal (STG) Pt will report being able to return to long walks w/no more than 1/10 pain in neck and/or thoraic and lumbar region. 07/22-about 2 miles max recently but about 2-3/10-LB & mid back 09/17-2.5 miles max; average AM walk .5 mile (upper back and SI pain 3-4 STG Duration 10/14 Alf Goal (LTG) Pt will be able to return to running and working out without pain in cervical, thoracic or lumbar region w/o pain greater than 2/10 07/22: short distance run ~3/10 ; after aftqhtfg-1-8/10 09/17-interval run about 1 mile (10); workouts no pain during mostly, occ crunching in back but sore for several days LTG Duration 11/24 ROM Short Term Goal (STG) Pt will have full cervical and lumbar ROM w/o feeling of tension or pain to allow pt to do ADls w/o inc pain. 07/22-06/14 (L>R knee pain); back and neck are stiff and can't stand up straight; still limited ROM 09/17-standing on one leg and knee is hurting; bending over for shoes and socks is still difficult STG Duration 10/14 [employer] Goal (LTG) Pt will have full jaw opening to 40mm w/o feeling of tightness 01/23-tension 03/19-feels okay but still limited 07/22-38 mm tight LTG Duration achieved Assessment Summary Assessment Pt had improved B rotation after manual treatment and improved ext of spine. She was very limited in thoracic and abdomenal mm which liekly affect her gait to inc pain w/ walking to session. Physical Therapy Plan Frequency and Duration Frequency of Treatment 1x/Week Duration of treatment (weeks) 10 Plan of Care Start Date 09/17/22 Plan of Care End Date 11/26/22 Next Visit Focus/Plan Next Note Type Treatment Note Next Visit Plan cont to work on overall spinal mobility & postural stability
--- NOTE | 2022-10-21 18:44 | PT.OTN ---
Current Diagnoses Pain in unspecified hip (10/21/22) Unspecified temporomandibular joint disorder, unspecified side (10/21/22) Other specified dorsopathies, cervicothoracic region (10/21/22) Cervicalgia (10/21/22) Low back pain, unspecified (10/21/22) Muscle weakness (generalized) (10/21/22) Abnormal posture (10/21/22) Physical Therapy Treatment Note PT-OP-A Visit Information Start: 11/14/21 17:51 Freq: Status: Active Protocol: Document 10/21/22 18:36 [facility] (Rec: 10/21/22 18:44 [facility] [id number]) Out-Patient Physical Therapy Visit Information Visit Information Visit Type Treatment Note Visit Start Time 14:18 Visit Stop Time 15:02 Total Visit Minutes 44 Visit Number 23 Number of ROUTE SERVICE MANAGER Visits 0 PT-OP-B Current Condition Start: 11/14/21 17:51 Freq: Status: Active Protocol: Document 05/13/22 16:07 [facility] (Rec: 05/13/22 16:52 [facility] [id number]) Current Condition History of Current Condition Onset Date 6 months/1 year Current Complaints B jaw pain/cervical& thoracic pain History of Current Condition 05/13-pt reports LBP and B hip pain has been going on for years. The only traumatic injury was in 2006 was doing a marla carry and stepped in a hole and caused a lot of pain at the time and the back and R hip. She does not really remember any signficiant before that. Since then it has been an off and on thing but it got pretty bad for the past year. She did do PT at another clinic for hips and back and hips are feeling better but she also hasn't been running and is only recently getting into more intense workouts again gradually and feels tight and tender after. Back and hips can feel really hot and burning. Pt notes pain in LB, thoracic and neck and B sides. She has felt like she was constipated today and felt like she had to go but couldn' t. She has worked on diet a lot. She has BM about 1x/week. She has had 3 xrays that have noted constipation. Rates type 1 and 2 mostly on bristol stool chart. She gets a lot fiber in her diet. Pt can cross her legs and get her back to pop and does it d/t feeling like it needs it. Pt reports she doesn't notice jaw during the day, she is clenching more at night w/ mouth guard. Neck still been feeling stiff, Tingling in mid back about 1x/day at least. It is not as prolonged and she feels like she can improve it if she adjusts her posture. She did do a 2 mile walk and felt pretty uncomfortable at 1 mile. Re-eval: Pt reports neck and thoracic pain started about 1 year ago and she would ntoice that 5-10 min into walking, she starts to get tingling in shoulder blades. Fwd flex stretch feels like it should help but it doesn't. Once it starts, there is no way ot stop it besides lay down. This has kept her from hiking. Neck pain is more feels so tight that she feels like her ROM is limited. ITs been better since started working on jaw. It always feels like she needs to move her neck but doing the motion doesn't really help. It feels like she wants to pop it but that doesn't really help either. She gets things that feels like golf balls along neck. IE:Jaw pain started about 6 months ago. when it first started it felt like I had been chewing gum allt he day prior. MD thought she may be clenching. She got a mouthguard after a couple months for night but does not feel like it has made a difference. Neck pain has been crhornic, but no injury. Denies LEAVITT except occasionally and they go away. denies dizziness or lightheadness. Mouth xray done recently and everything looked fine. Pt saw specialist in [place] and she suspects this is just muscular. Denies clicking in jaw. Pt was told to avoid hard to chew and crunchy foods and is most of the time following this. She can feel it more w/ those foods. Tried heat and it feels good but doesn't give relief. Gets ringing in ears and feels like ear is stuffy ( thinks both but notices it more in R). Evry couple weeks she gets the ringing and it only lasts about 5-10 min. Ear feeling stuffy is more often than the ringing. Pt is going to PT for LB. She has tingling in upper back sometimes when just sitting down and with walking. Her neck pain has been persistant. She has had some cervical xray but does not recall anything on it. Pt does have referral for sleep study. Pt feels like she has to sleep okay. She wakes up 1- 2x/night and will get up to go to the bathroom. When seh wakes, she doesn't feel rested , feels exhausted by the end of the day, and feels tense when she awakes. Treatment Goals Patient/Caregiver Goals get back to hiking and long walks, dec stiffness, back to running & workouts PT-OP-C Subjective Start: 11/14/21 17:51 Freq: Status: Active Protocol: Document 10/21/22 18:36 [facility] (Rec: 10/21/22 18:44 [facility] [id number]) OP-PT Subjective Patient Comments Patient Comments Pt reports fatigue was a little better this weekend except when she got exhausted by the heat yesterday PT-OP-F Manual Assessment Start: 11/14/21 17:51 Freq: Status: Active Protocol: Document 05/13/22 16:07 [facility] (Rec: 05/13/22 16:52 [facility] [id number]) Manual Assessments Soft Tissue Assessment Soft Tissue Mobility Assessment tenderness throughout lumbar and gluteal region along w/ abdomenal wall Joint Mobility Assessment Joint Mobility Assessment R iliac crest is higher; equal greater trochanter; w/knee bending tibia track close to neutral; IR of B femurs w/knee bending PT-OP-J Posture/Palpation/Skin Start: 11/14/21 17:51 Freq: Status: Active Protocol: Document 09/17/22 14:29 [facility] (Rec: 09/17/22 18:27 [facility] [id number]) Posture Evaluation Tyler Postural Classification System Tyler Postural Classifications Posterior/Posterior Vertebral Compression Test 3 Elbow Flexion Test 3 Lumbar Protective Mechanism Left AP 1 Lumbar Protective Mechanism Right AP 1 Lumbar Protective Mechanism Left PA 4 Lumbar Protective Mechanism Right PA 4 PT-OP-K Range of Motion Start: 11/14/21 17:51 Freq: Status: Active Protocol: Document 09/17/22 14:29 [facility] (Rec: 09/17/22 18:27 [facility] [id number]) Cervical Spine Range of Motion Cervical Spine Active Degrees Flexion 60 Extension 68 Rotation Left 71 Rotation Right 60 Lateral Flexion Left 40 Lateral Flexion Right 54 Comments tight w/B SB & pain ext; 46 thoracic rotation L; 66 R Lumbar Spine Range of Motion Lumbar Spine Active Percentage Flexion 75 Extension 90 Rotation Left 75 Rotation Right 75 Lateral Flexion Left 60 Lateral Flexion Right 60 Comments pain ext, PT-OP-L Special Tests Start: 11/14/21 17:51 Freq: Status: Active Protocol: Document 05/13/22 16:07 [facility] (Rec: 05/13/22 16:52 [facility] [id number]) Special Tests Lumbar Spine Special Tests Slump Test Results positive for tension B w/neck flex PT-OP-M Strength Start: 11/14/21 17:51 Freq: Status: Active Protocol: Document 05/13/22 16:07 [facility] (Rec: 05/13/22 16:52 [facility] [id number]) Hip Strength Hip Manual Muscle Testing Right Flexion (L2) 4 Good Extension (S1) 3+ Fair+ Abduction 4- Good- Adduction 4- Good- External Rotation 4 Good Internal Rotation 5 Normal Left Flexion (L2) 3+ Fair+ Extension (S1) 3+ Fair+ Abduction 4 Good Adduction 4- Good- External Rotation 4 Good Internal Rotation 4- Good- Comments 5/5 knee and ankle MMT B PT-OP-Q Treatments Start: 11/14/21 17:51 Freq: Status: Active Protocol: Document 10/21/22 18:36 [facility] (Rec: 10/21/22 18:44 [facility] [id number]) Manual Therapy Treatment Soft Tissue Mobilization LE Body Location L calf & thigh Mobilization Type Myofascial Release,Rolling Intensity/Depth Moderate Body Position Hooklying Comments circumfrential w/knee tracking Joint Mobilizations hip Joint L on axis IR FM supine thoracic Comments T9 R down glide T8 L upglide transverse L T7-10 FM PT-OP-R Modalities Start: 11/14/21 17:51 Freq: Status: Active Protocol: Document 04/15/22 07:30 [facility] (Rec: 04/15/22 12:24 [facility] [id number]) Hot Pack/Cold Pack Treatment Cold Pack Location cervical & thoracic Patient Position Supine Treatment Duration (minutes) 10 PT-OP-T Assessment and Plan Start: 11/14/21 17:51 Freq: Status: Active Protocol: Document 10/21/22 18:36 [facility] (Rec: 10/21/22 18:44 [facility] [id number]) Physical Therapy Assessment Goals pain Impairment neck pain and tightness that is constant that is at a 2/10 at all the time w/o relief Usp Goal (LTG) Pt will report no constant neck pain or tightness at least 5/7 days a week 07/22:no change 09/17-mostly tightness daily but not pain LTG Duration 11/24 static activity Impairment pain starts after 10 min of standing -06/14 and if stand longer it can get to a 07/15- describes as really uncomfortable-standing at attention/parade rest Director [employer] Goal (LTG) Pt will be able to stand at attention or parade rest and at home for extended tiem as needed without inc pain greater than 1/10 07/22-tingling in upper back - 07/15 09/17-pain still w/extended standing no chage LTG Duration 09/30/22 activity Short Term Goal (STG) Pt will report being able to return to long walks w/no more than 1/10 pain in neck and/or thoraic and lumbar region. 07/22-about 2 miles max recently but about 2-06/14-LB & mid back 09/17-2.5 miles max; average AM walk .5 mile (upper back and SI pain 3-07/15 STG Duration 10/14 Usp Goal (LTG) Pt will be able to return to running and working out without pain in cervical, thoracic or lumbar region w/o pain greater than 2/10 07/22: short distance run ~3/10 ; after oukfwqpt-1-3/10 09/17-interval run about 1 mile (06/14); workouts no pain during mostly, occ crunching in back but sore for several days LTG Duration 11/24 ROM Short Term Goal (STG) Pt will have full cervical and lumbar ROM w/o feeling of tension or pain to allow pt to do ADls w/o inc pain. 07/22-06/14 (L>R knee pain); back and neck are stiff and can't stand up straight; still limited ROM 09/17-standing on one leg and knee is hurting; bending over for shoes and socks is still difficult STG Duration 7/10 Director [employer] Goal (LTG) Pt will have full jaw opening to 40mm w/o feeling of tightness 01/23-tension 03/19-feels okay but still limited 07/22-38 mm tight LTG Duration achieved Assessment Summary Assessment Pt had improved B rotation after manual and imrpvoed ability for knee tracking and LLE alignment after manual to LLE. lower leg tightness may be affecting pt hip pain and back pain as it is creating rotation up the system Physical Therapy Plan Frequency and Duration Frequency of Treatment 1x/Week Duration of treatment (weeks) 10 Plan of Care Start Date 09/17/22 Plan of Care End Date 11/26/22 Next Visit Focus/Plan Next Note Type Treatment Note Next Visit Plan cont to work on overall spinal mobility & postural stability
--- NOTE | 2022-10-29 13:20 | PT.OTN ---
Current Diagnoses Pain in unspecified hip (10/29/22) Unspecified temporomandibular joint disorder, unspecified side (10/29/22) Other specified dorsopathies, cervicothoracic region (10/29/22) Cervicalgia (10/29/22) Low back pain, unspecified (10/29/22) Muscle weakness (generalized) (10/29/22) Abnormal posture (10/29/22) Physical Therapy Treatment Note PT-OP-A Visit Information Start: 11/14/21 17:51 Freq: Status: Active Protocol: Document 10/29/22 08:24 [facility] (Rec: 10/29/22 13:20 [facility] [id number]) Out-Patient Physical Therapy Visit Information Visit Information Visit Type Treatment Note Visit Start Time 08:24 Visit Stop Time 09:02 Total Visit Minutes 38 Visit Number 24 Number of FRACTIONATION PLANT SUPERVISOR Visits 0 PT-OP-B Current Condition Start: 11/14/21 17:51 Freq: Status: Active Protocol: Document 05/13/22 16:07 [facility] (Rec: 05/13/22 16:52 [facility] [id number]) Current Condition History of Current Condition Onset Date 6 months/1 year Current Complaints B jaw pain/cervical& thoracic pain History of Current Condition 05/13-pt reports LBP and B hip pain has been going on for years. The only traumatic injury was in 2006 was doing a marla carry and stepped in a hole and caused a lot of pain at the time and the back and R hip. She does not really remember any signficiant before that. Since then it has been an off and on thing but it got pretty bad for the past year. She did do PT at another clinic for hips and back and hips are feeling better but she also hasn't been running and is only recently getting into more intense workouts again gradually and feels tight and tender after. Back and hips can feel really hot and burning. Pt notes pain in LB, thoracic and neck and B sides. She has felt like she was constipated today and felt like she had to go but couldn' t. She has worked on diet a lot. She has BM about 1x/week. She has had 3 xrays that have noted constipation. Rates type 1 and 2 mostly on bristol stool chart. She gets a lot fiber in her diet. Pt can cross her legs and get her back to pop and does it d/t feeling like it needs it. Pt reports she doesn't notice jaw during the day, she is clenching more at night w/ mouth guard. Neck still been feeling stiff, Tingling in mid back about 1x/day at least. It is not as prolonged and she feels like she can improve it if she adjusts her posture. She did do a 2 mile walk and felt pretty uncomfortable at 1 mile. Re-eval: Pt reports neck and thoracic pain started about 1 year ago and she would ntoice that 5-10 min into walking, she starts to get tingling in shoulder blades. Fwd flex stretch feels like it should help but it doesn't. Once it starts, there is no way ot stop it besides lay down. This has kept her from hiking. Neck pain is more feels so tight that she feels like her ROM is limited. ITs been better since started working on jaw. It always feels like she needs to move her neck but doing the motion doesn't really help. It feels like she wants to pop it but that doesn't really help either. She gets things that feels like golf balls along neck. IE:Jaw pain started about 6 months ago. when it first started it felt like I had been chewing gum allt he day prior. MD thought she may be clenching. She got a mouthguard after a couple months for night but does not feel like it has made a difference. Neck pain has been crhornic, but no injury. Denies LEAVITT except occasionally and they go away. denies dizziness or lightheadness. Mouth xray done recently and everything looked fine. Pt saw specialist in [place] and she suspects this is just muscular. Denies clicking in jaw. Pt was told to avoid hard to chew and crunchy foods and is most of the time following this. She can feel it more w/ those foods. Tried heat and it feels good but doesn't give relief. Gets ringing in ears and feels like ear is stuffy ( thinks both but notices it more in R). Evry couple weeks she gets the ringing and it only lasts about 5-10 min. Ear feeling stuffy is more often than the ringing. Pt is going to PT for LB. She has tingling in upper back sometimes when just sitting down and with walking. Her neck pain has been persistant. She has had some cervical xray but does not recall anything on it. Pt does have referral for sleep study. Pt feels like she has to sleep okay. She wakes up 1- 2x/night and will get up to go to the bathroom. When seh wakes, she doesn't feel rested , feels exhausted by the end of the day, and feels tense when she awakes. Treatment Goals Patient/Caregiver Goals get back to hiking and long walks, dec stiffness, back to running & workouts PT-OP-C Subjective Start: 11/14/21 17:51 Freq: Status: Active Protocol: Document 10/29/22 08:24 [facility] (Rec: 10/29/22 13:20 [facility] [id number]) OP-PT Subjective Patient Comments Patient Comments Pt reports pain has been okay. but as she was stepping up she was getting some shooting pain from SI to L post leg PT-OP-F Manual Assessment Start: 11/14/21 17:51 Freq: Status: Active Protocol: Document 05/13/22 16:07 [facility] (Rec: 05/13/22 16:52 [facility] [id number]) Manual Assessments Soft Tissue Assessment Soft Tissue Mobility Assessment tenderness throughout lumbar and gluteal region along w/ abdomenal wall Joint Mobility Assessment Joint Mobility Assessment R iliac crest is higher; equal greater trochanter; w/knee bending tibia track close to neutral; IR of B femurs w/knee bending PT-OP-J Posture/Palpation/Skin Start: 11/14/21 17:51 Freq: Status: Active Protocol: Document 09/17/22 14:29 [facility] (Rec: 09/17/22 18:27 [facility] [id number]) Posture Evaluation Tyler Postural Classification System Tyler Postural Classifications Posterior/Posterior Vertebral Compression Test 3 Elbow Flexion Test 3 Lumbar Protective Mechanism Left AP 1 Lumbar Protective Mechanism Right AP 1 Lumbar Protective Mechanism Left PA 4 Lumbar Protective Mechanism Right PA 4 PT-OP-K Range of Motion Start: 11/14/21 17:51 Freq: Status: Active Protocol: Document 09/17/22 14:29 [facility] (Rec: 09/17/22 18:27 [facility] [id number]) Cervical Spine Range of Motion Cervical Spine Active Degrees Flexion 60 Extension 68 Rotation Left 71 Rotation Right 60 Lateral Flexion Left 40 Lateral Flexion Right 54 Comments tight w/B SB & pain ext; 46 thoracic rotation L; 66 R Lumbar Spine Range of Motion Lumbar Spine Active Percentage Flexion 75 Extension 90 Rotation Left 75 Rotation Right 75 Lateral Flexion Left 60 Lateral Flexion Right 60 Comments pain ext, PT-OP-L Special Tests Start: 11/14/21 17:51 Freq: Status: Active Protocol: Document 05/13/22 16:07 [facility] (Rec: 05/13/22 16:52 [facility] [id number]) Special Tests Lumbar Spine Special Tests Slump Test Results positive for tension B w/neck flex PT-OP-M Strength Start: 11/14/21 17:51 Freq: Status: Active Protocol: Document 05/13/22 16:07 [facility] (Rec: 05/13/22 16:52 [facility] [id number]) Hip Strength Hip Manual Muscle Testing Right Flexion (L2) 4 Good Extension (S1) 3+ Fair+ Abduction 4- Good- Adduction 4- Good- External Rotation 4 Good Internal Rotation 5 Normal Left Flexion (L2) 3+ Fair+ Extension (S1) 3+ Fair+ Abduction 4 Good Adduction 4- Good- External Rotation 4 Good Internal Rotation 4- Good- Comments 5/5 knee and ankle MMT B PT-OP-Q Treatments Start: 11/14/21 17:51 Freq: Status: Active Protocol: Document 10/29/22 08:24 [facility] (Rec: 10/29/22 13:20 [facility] [id number]) Manual Therapy Treatment Soft Tissue Mobilization hip Body Location B glute and piriformis Mobilization Type Sustained Pressure Intensity/Depth Moderate Body Position Prone Comments w/IR/ER Joint Mobilizations sacrum Joint L caudal & UPA FM innominate Comments B IR FM, L ER FM; L add FM hip Joint B IR FM Neuro Re-Education Treatment Other Activities facilitation Reps/Duration 8 min total Comments 1. diagonal faciltation DL B prolonged holds w/chin tucks and chop pattern -2x prolonged hold each side 2. SL flex, add, ER, DF, knee flex w/self chop & chin tuck to facilitate B PT-OP-R Modalities Start: 11/14/21 17:51 Freq: Status: Active Protocol: Document 04/15/22 07:30 [facility] (Rec: 04/15/22 12:24 [facility] [id number]) Hot Pack/Cold Pack Treatment Cold Pack Location cervical & thoracic Patient Position Supine Treatment Duration (minutes) 10 PT-OP-T Assessment and Plan Start: 11/14/21 17:51 Freq: Status: Active Protocol: Document 10/29/22 08:24 [facility] (Rec: 10/29/22 13:20 [facility] [id number]) Physical Therapy Assessment Goals pain Impairment neck pain and tightness that is constant that is at a 2/10 at all the time w/o relief Cloth Tester Quality Goal (LTG) Pt will report no constant neck pain or tightness at least 5/7 days a week 07/22:no change 09/17-mostly tightness daily but not pain LTG Duration 11/24 static activity Impairment pain starts after 10 min of standing -06/14 and if stand longer it can get to a 07/15- describes as really uncomfortable-standing at attention/parade rest Cloth Tester Quality Goal (LTG) Pt will be able to stand at attention or parade rest and at home for extended tiem as needed without inc pain greater than 1/10 07/22-tingling in upper back 3- 07/15 09/17-pain still w/extended standing no chage LTG Duration 09/30/22 activity Short Term Goal (STG) Pt will report being able to return to long walks w/no more than 1/10 pain in neck and/or thoraic and lumbar region. 07/22-about 2 miles max recently but about 2-3/10-LB & mid back 09/17-2.5 miles max; average AM walk .5 mile (upper back and SI pain 3-07/15 STG Duration 10/14 Group Home Goal (LTG) Pt will be able to return to running and working out without pain in cervical, thoracic or lumbar region w/o pain greater than 2/10 07/22: short distance run ~3/10 ; after acccvagz-9-3/10 09/17-interval run about 1 mile (10); workouts no pain during mostly, occ crunching in back but sore for several days LTG Duration 11/24 ROM Short Term Goal (STG) Pt will have full cervical and lumbar ROM w/o feeling of tension or pain to allow pt to do ADls w/o inc pain. 07/22-06/14 (L>R knee pain); back and neck are stiff and can't stand up straight; still limited ROM 09/17-standing on one leg and knee is hurting; bending over for shoes and socks is still difficult STG Duration 10/14 Cloth Tester Quality Goal (LTG) Pt will have full jaw opening to 40mm w/o feeling of tightness 01/23-tension 03/19-feels okay but still limited 07/22-38 mm tight LTG Duration achieved Assessment Summary Assessment Pt has improved core response after PNF facilitation techniques. Improved pelvis height after manual to equal height w/o elevation w/wt shifts. She started session w/ elevated R side that inc w/wt shifts R, whcih may have contributed to her symptoms. Physical Therapy Plan Frequency and Duration Frequency of Treatment 1x/Week Duration of treatment (weeks) 10 Plan of Care Start Date 09/17/22 Plan of Care End Date 11/26/22 Next Visit Focus/Plan Next Note Type Treatment Note Next Visit Plan cont to work on overall spinal mobility & postural stability
--- NOTE | 2022-11-21 17:59 | PT.OTN ---
Current Diagnoses Pain in unspecified hip (11/21/22) Unspecified temporomandibular joint disorder, unspecified side (11/21/22) Other specified dorsopathies, cervicothoracic region (11/21/22) Cervicalgia (11/21/22) Low back pain, unspecified (11/21/22) Muscle weakness (generalized) (11/21/22) Abnormal posture (11/21/22) Physical Therapy Treatment Note PT-OP-A Visit Information Start: 11/14/21 17:51 Freq: Status: Active Protocol: Document 11/21/22 16:07 [facility] (Rec: 11/21/22 17:59 [facility] [id number]) Out-Patient Physical Therapy Visit Information Visit Information Visit Type Treatment Note Visit Start Time 16:06 Visit Stop Time 16:46 Total Visit Minutes 40 Visit Number 25 Number of CUSTOMER SPECIALIST Visits 0 PT-OP-B Current Condition Start: 11/14/21 17:51 Freq: Status: Active Protocol: Document 05/13/22 16:07 [facility] (Rec: 05/13/22 16:52 [facility] [id number]) Current Condition History of Current Condition Onset Date 6 months/1 year Current Complaints B jaw pain/cervical& thoracic pain History of Current Condition 05/13-pt reports LBP and B hip pain has been going on for years. The only traumatic injury was in 2006 was doing a marla carry and stepped in a hole and caused a lot of pain at the time and the back and R hip. She does not really remember any signficiant before that. Since then it has been an off and on thing but it got pretty bad for the past year. She did do PT at another clinic for hips and back and hips are feeling better but she also hasn't been running and is only recently getting into more intense workouts again gradually and feels tight and tender after. Back and hips can feel really hot and burning. Pt notes pain in LB, thoracic and neck and B sides. She has felt like she was constipated today and felt like she had to go but couldn' t. She has worked on diet a lot. She has BM about 1x/week. She has had 3 xrays that have noted constipation. Rates type 1 and 2 mostly on bristol stool chart. She gets a lot fiber in her diet. Pt can cross her legs and get her back to pop and does it d/t feeling like it needs it. Pt reports she doesn't notice jaw during the day, she is clenching more at night w/ mouth guard. Neck still been feeling stiff, Tingling in mid back about 1x/day at least. It is not as prolonged and she feels like she can improve it if she adjusts her posture. She did do a 2 mile walk and felt pretty uncomfortable at 1 mile. Re-eval: Pt reports neck and thoracic pain started about 1 year ago and she would ntoice that 5-10 min into walking, she starts to get tingling in shoulder blades. Fwd flex stretch feels like it should help but it doesn't. Once it starts, there is no way ot stop it besides lay down. This has kept her from hiking. Neck pain is more feels so tight that she feels like her ROM is limited. ITs been better since started working on jaw. It always feels like she needs to move her neck but doing the motion doesn't really help. It feels like she wants to pop it but that doesn't really help either. She gets things that feels like golf balls along neck. IE:Jaw pain started about 6 months ago. when it first started it felt like I had been chewing gum allt he day prior. MD thought she may be clenching. She got a mouthguard after a couple months for night but does not feel like it has made a difference. Neck pain has been crhornic, but no injury. Denies LEAVITT except occasionally and they go away. denies dizziness or lightheadness. Mouth xray done recently and everything looked fine. Pt saw specialist in [place] and she suspects this is just muscular. Denies clicking in jaw. Pt was told to avoid hard to chew and crunchy foods and is most of the time following this. She can feel it more w/ those foods. Tried heat and it feels good but doesn't give relief. Gets ringing in ears and feels like ear is stuffy ( thinks both but notices it more in R). Evry couple weeks she gets the ringing and it only lasts about 5-10 min. Ear feeling stuffy is more often than the ringing. Pt is going to PT for LB. She has tingling in upper back sometimes when just sitting down and with walking. Her neck pain has been persistant. She has had some cervical xray but does not recall anything on it. Pt does have referral for sleep study. Pt feels like she has to sleep okay. She wakes up 1- 2x/night and will get up to go to the bathroom. When seh wakes, she doesn't feel rested , feels exhausted by the end of the day, and feels tense when she awakes. Treatment Goals Patient/Caregiver Goals get back to hiking and long walks, dec stiffness, back to running & workouts PT-OP-C Subjective Start: 11/14/21 17:51 Freq: Status: Active Protocol: Document 11/21/22 16:07 [facility] (Rec: 11/21/22 17:59 [facility] [id number]) OP-PT Subjective Patient Comments Patient Comments Pt reports she worked out really hard a few days ago and is sore all over. She has mild sleep apnea. She is going to start an arousal med for the daytime. PT-OP-F Manual Assessment Start: 11/14/21 17:51 Freq: Status: Active Protocol: Document 05/13/22 16:07 [facility] (Rec: 05/13/22 16:52 [facility] [id number]) Manual Assessments Soft Tissue Assessment Soft Tissue Mobility Assessment tenderness throughout lumbar and gluteal region along w/ abdomenal wall Joint Mobility Assessment Joint Mobility Assessment R iliac crest is higher; equal greater trochanter; w/knee bending tibia track close to neutral; IR of B femurs w/knee bending PT-OP-J Posture/Palpation/Skin Start: 11/14/21 17:51 Freq: Status: Active Protocol: Document 09/17/22 14:29 [facility] (Rec: 09/17/22 18:27 [facility] [id number]) Posture Evaluation Tyler Postural Classification System Tyler Postural Classifications Posterior/Posterior Vertebral Compression Test 3 Elbow Flexion Test 3 Lumbar Protective Mechanism Left AP 1 Lumbar Protective Mechanism Right AP 1 Lumbar Protective Mechanism Left PA 4 Lumbar Protective Mechanism Right PA 4 PT-OP-K Range of Motion Start: 11/14/21 17:51 Freq: Status: Active Protocol: Document 11/21/22 16:07 [facility] (Rec: 11/21/22 17:59 [facility] [id number]) Cervical Spine Range of Motion Cervical Spine Active Degrees Rotation Left 65 Rotation Right 69 Lumbar Spine Range of Motion Lumbar Spine Active Percentage Flexion 50 Extension 90 Rotation Left 80 Rotation Right 80 Lateral Flexion Left 75 Lateral Flexion Right 75 Comments pain flex, pain w/SB B on L ; rot pain B PT-OP-L Special Tests Start: 11/14/21 17:51 Freq: Status: Active Protocol: Document 05/13/22 16:07 [facility] (Rec: 05/13/22 16:52 [facility] [id number]) Special Tests Lumbar Spine Special Tests Slump Test Results positive for tension B w/neck flex PT-OP-M Strength Start: 11/14/21 17:51 Freq: Status: Active Protocol: Document 05/13/22 16:07 [facility] (Rec: 05/13/22 16:52 [facility] [id number]) Hip Strength Hip Manual Muscle Testing Right Flexion (L2) 4 Good Extension (S1) 3+ Fair+ Abduction 4- Good- Adduction 4- Good- External Rotation 4 Good Internal Rotation 5 Normal Left Flexion (L2) 3+ Fair+ Extension (S1) 3+ Fair+ Abduction 4 Good Adduction 4- Good- External Rotation 4 Good Internal Rotation 4- Good- Comments 5/5 knee and ankle MMT B PT-OP-Q Treatments Start: 11/14/21 17:51 Freq: Status: Active Protocol: Document 11/21/22 16:07 [facility] (Rec: 11/21/22 17:59 [facility] [id number]) Manual Therapy Treatment Soft Tissue Mobilization lumbar Comments strumming L>R paraspinals s/l T-L Joint Mobilizations lumbar Comments R downglide L1&2 FM thoracic Comments transverse glide T8-12 L FM in s/l arm circles; down glide T9-10 FM R PT-OP-R Modalities Start: 11/14/21 17:51 Freq: Status: Active Protocol: Document 04/15/22 07:30 [facility] (Rec: 04/15/22 12:24 [facility] [id number]) Hot Pack/Cold Pack Treatment Cold Pack Location cervical & thoracic Patient Position Supine Treatment Duration (minutes) 10 PT-OP-T Assessment and Plan Start: 11/14/21 17:51 Freq: Status: Active Protocol: Document 11/21/22 16:07 [facility] (Rec: 11/21/22 17:59 [facility] [id number]) Physical Therapy Assessment Goals pain Impairment neck pain and tightness that is constant that is at a 2/10 at all the time w/o relief Copping Machine Operator Goal (LTG) Pt will report no constant neck pain or tightness at least 5/7 days a week 07/22:no change 09/17-mostly tightness daily but not pain 11/21-was doing good for a while; just past 2 days a little worse again LTG Duration 01/24 static activity Impairment pain starts after 10 min of standing -06/14 and if stand longer it can get to a 07/15- describes as really uncomfortable-standing at attention/parade rest Copping Machine Operator Goal (LTG) Pt will be able to stand at attention or parade rest and at home for extended tiem as needed without inc pain greater than 1/10 07/22-tingling in upper back - 07/15 09/17-pain still w/extended standing no chage 11/21-has not had to recently LTG Duration 01/30 activity Short Term Goal (STG) Pt will report being able to return to long walks w/no more than 1/10 pain in neck and/or thoraic and lumbar region. 07/22-about 2 miles max recently but about 2-06/14-LB & mid back 09/17-2.5 miles max; average AM walk .5 mile (upper back and SI pain 3-07/15 11/21- she has been doing 3.5 mph w/good incline but gets tingling up/down back but not as signfiicant; did do 4 mile hike and about 1/2way through is when neck and back tightned up STG Duration 12/20 Copping Machine Operator Goal (LTG) Pt will be able to return to running and working out without pain in cervical, thoracic or lumbar region w/o pain greater than 2/10 07/22: short distance run ~3/10 ; after [id number]/10 09/17-interval run about 1 mile (10); workouts no pain during mostly, occ crunching in back but sore for several days 11/21-burning and zapping in LB - doing treadmill and some strengthening 3-/07/15 LTG Duration 02/01 ROM Short Term Goal (STG) Pt will have full jaw opening to 40mm w/o feeling of tightness 01/23-tension 03/19-feels okay but still limited 07/22-38 mm tight STG Duration achieved Copping Machine Operator Goal (LTG) Pt will have full cervical and lumbar ROM w/o feeling of tension or pain to allow pt to do ADls w/o inc pain. 07/22-06/14 (L>R knee pain); back and neck are stiff and can't stand up straight; still limited ROM 09/17-standing on one leg and knee is hurting; bending over for shoes and socks is still difficult 11/21-more tightness today compared to recent days LTG Duration 01/30 Assessment Summary Assessment Pt is making progress by doing more activity although there is still pain present. She is avoiding activities that do inc pain like standing long periods but is returning to more rigerous workouts, but does have pain after. Cont PT to dec pain level w/housework, ADLs and workouts. Pt does improve rotation ROM of spine w/less discomfort w/manual Physical Therapy Plan Frequency and Duration Frequency of Treatment 1x/Week Duration of treatment (weeks) 10 Plan of Care Start Date 11/21/22 Plan of Care End Date 01/30/23 Therapeutic Interventions Therapeutic Interventions Balance Training,Gait Training ,Home Exercise Program,Joint Mobilizations,Manual Therapy, Neuromuscular Re-education, Orthotic/Prosthetic Management ,Patient/Caregiver Education, Self-Care/Home Management,Soft Tissue Mobilization,Taping, Therapeutic Activities, Therapeutic Exercises Modalities Cold Pack/Ice Massage,Electric Stimulation,Hot Packs, Infrared Therapy,Iontophoresis ,Traction- Mechanical, Ultrasound Other Therapeutic Interventions dexomethosone ionto Next Visit Focus/Plan Next Note Type Treatment Note Next Visit Plan cont to work on overall spinal mobility & postural stability
--- NOTE | 2022-11-21 17:59 | PT.OPPOC ---
Physical, Occupational & Speech Therapy At [facility] Current Diagnoses Pain in unspecified hip (11/21/22) Unspecified temporomandibular joint disorder, unspecified side (11/21/22) Other specified dorsopathies, cervicothoracic region (11/21/22) Cervicalgia (11/21/22) Low back pain, unspecified (11/21/22) Muscle weakness (generalized) (11/21/22) Abnormal posture (11/21/22) Visit Care Team Role Provider Type Christopher Quevedo MD Attending Provider Non-Staff Primary Care Provider Referring Provider Specialty: Family Practice Address: [facility], Fax: Email: Plan Of Care PT-OP-T Assessment and Plan Start: 11/14/21 17:51 Freq: Status: Active Protocol: Document 11/21/22 16:07 [facility] (Rec: 11/21/22 17:59 [facility] [id number]) Physical Therapy Assessment Goals pain Impairment neck pain and tightness that is constant that is at a 2/10 at all the time w/o relief Sled Maker Goal (LTG) Pt will report no constant neck pain or tightness at least 5/7 days a week 07/22:no change 09/17-mostly tightness daily but not pain 11/21-was doing good for a while; just past 2 days a little worse again LTG Duration 01/24 static activity Impairment pain starts after 10 min of standing -10 and if stand longer it can get to a 10- describes as really uncomfortable-standing at attention/parade rest [facility] Goal (LTG) Pt will be able to stand at attention or parade rest and at home for extended tiem as needed without inc pain greater than 1/10 07/22-tingling in upper back 3- 07/15 09/17-pain still w/extended standing no chage 11/21-has not had to recently LTG Duration 01/30 activity Short Term Goal (STG) Pt will report being able to return to long walks w/no more than 1/10 pain in neck and/or thoraic and lumbar region. 07/22-about 2 miles max recently but about 2-3/10-LB & mid back 09/17-2.5 miles max; average AM walk .5 mile (upper back and SI pain 3-07/15 11/21- she has been doing 3.5 mph w/good incline but gets tingling up/down back but not as signfiicant; did do 4 mile hike and about 1/2way through is when neck and back tightned up STG Duration 12/20 Sled Maker Goal (LTG) Pt will be able to return to running and working out without pain in cervical, thoracic or lumbar region w/o pain greater than 2/10 07/22: short distance run ~06/14 ; after [id number]-6-3/10 09/17-interval run about 1 mile (06/14); workouts no pain during mostly, occ crunching in back but sore for several days 11/21-burning and zapping in LB - doing treadmill and some strengthening /07/15 LTG Duration 02/01 ROM Short Term Goal (STG) Pt will have full jaw opening to 40mm w/o feeling of tightness 01/23-tension 03/19-feels okay but still limited 07/22-38 mm tight STG Duration achieved [facility] Goal (LTG) Pt will have full cervical and lumbar ROM w/o feeling of tension or pain to allow pt to do ADls w/o inc pain. 07/22-06/14 (L>R knee pain); back and neck are stiff and can't stand up straight; still limited ROM 09/17-standing on one leg and knee is hurting; bending over for shoes and socks is still difficult 11/21-more tightness today compared to recent days LTG Duration 01/30 Assessment Summary Assessment Pt is making progress by doing more activity although there is still pain present. She is avoiding activities that do inc pain like standing long periods but is returning to more rigerous workouts, but does have pain after. Cont PT to dec pain level w/housework, ADLs and workouts. Pt does improve rotation ROM of spine w/less discomfort w/manual Physical Therapy Plan Frequency and Duration Frequency of Treatment 1x/Week Duration of treatment (weeks) 10 Plan of Care Start Date 11/21/22 Plan of Care End Date 01/30/23 Therapeutic Interventions Therapeutic Interventions Balance Training,Gait Training ,Home Exercise Program,Joint Mobilizations,Manual Therapy, Neuromuscular Re-education, Orthotic/Prosthetic Management ,Patient/Caregiver Education, Self-Care/Home Management,Soft Tissue Mobilization,Taping, Therapeutic Activities, Therapeutic Exercises Modalities Cold Pack/Ice Massage,Electric Stimulation,Hot Packs, Infrared Therapy,Iontophoresis ,Traction- Mechanical, Ultrasound Other Therapeutic Interventions dexomethosone ionto Next Visit Focus/Plan Next Note Type Treatment Note Next Visit Plan cont to work on overall spinal mobility & postural stability Plan of Care Dates Plan of Care Start Date 11/21/22 Plan of Care End Date 01/30/23 Electronically Signed by: Grace Michel, PT 11/21/22 [id number] If you are in agreement with this Plan of Care, please return a signed and dated copy. I have reviewed this Plan of Care and certify that the skilled therapy services above are required to meet the patient?s needs. Physician Signature Date Printed Name and Credentials Clinical Instructor Signature Printed Name and Credentials
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
--- NOTE | 2022-12-19 10:05 | PT.OTN ---
Current Diagnoses Pain in unspecified hip (12/19/22) Unspecified temporomandibular joint disorder, unspecified side (12/19/22) Other specified dorsopathies, cervicothoracic region (12/19/22) Cervicalgia (12/19/22) Low back pain, unspecified (12/19/22) Muscle weakness (generalized) (12/19/22) Abnormal posture (12/19/22) Physical Therapy Treatment Note PT-OP-A Visit Information Start: 11/14/21 17:51 Freq: Status: Active Protocol: Document 12/19/22 07:32 [facility] (Rec: 12/19/22 10:05 [facility] [id number]) Out-Patient Physical Therapy Visit Information Visit Information Visit Type Treatment Note Visit Start Time 07:34 Visit Stop Time 08:15 Total Visit Minutes 41 Visit Number 28 Number of MEDICAL COORDINATOR PESTICIDE USE Visits 0 PT-OP-B Current Condition Start: 11/14/21 17:51 Freq: Status: Active Protocol: Document 05/13/22 16:07 [facility] (Rec: 05/13/22 16:52 [facility] [id number]) Current Condition History of Current Condition Onset Date 6 months/1 year Current Complaints B jaw pain/cervical& thoracic pain History of Current Condition 05/13-pt reports LBP and B hip pain has been going on for years. The only traumatic injury was in 2006 was doing a marla carry and stepped in a hole and caused a lot of pain at the time and the back and R hip. She does not really remember any signficiant before that. Since then it has been an off and on thing but it got pretty bad for the past year. She did do PT at another clinic for hips and back and hips are feeling better but she also hasn't been running and is only recently getting into more intense workouts again gradually and feels tight and tender after. Back and hips can feel really hot and burning. Pt notes pain in LB, thoracic and neck and B sides. She has felt like she was constipated today and felt like she had to go but couldn' t. She has worked on diet a lot. She has BM about 1x/week. She has had 3 xrays that have noted constipation. Rates type 1 and 2 mostly on bristol stool chart. She gets a lot fiber in her diet. Pt can cross her legs and get her back to pop and does it d/t feeling like it needs it. Pt reports she doesn't notice jaw during the day, she is clenching more at night w/ mouth guard. Neck still been feeling stiff, Tingling in mid back about 1x/day at least. It is not as prolonged and she feels like she can improve it if she adjusts her posture. She did do a 2 mile walk and felt pretty uncomfortable at 1 mile. Re-eval: Pt reports neck and thoracic pain started about 1 year ago and she would ntoice that 5-10 min into walking, she starts to get tingling in shoulder blades. Fwd flex stretch feels like it should help but it doesn't. Once it starts, there is no way ot stop it besides lay down. This has kept her from hiking. Neck pain is more feels so tight that she feels like her ROM is limited. ITs been better since started working on jaw. It always feels like she needs to move her neck but doing the motion doesn't really help. It feels like she wants to pop it but that doesn't really help either. She gets things that feels like golf balls along neck. IE:Jaw pain started about 6 months ago. when it first started it felt like I had been chewing gum allt he day prior. MD thought she may be clenching. She got a mouthguard after a couple months for night but does not feel like it has made a difference. Neck pain has been crhornic, but no injury. Denies LEAVITT except occasionally and they go away. denies dizziness or lightheadness. Mouth xray done recently and everything looked fine. Pt saw specialist in [place] and she suspects this is just muscular. Denies clicking in jaw. Pt was told to avoid hard to chew and crunchy foods and is most of the time following this. She can feel it more w/ those foods. Tried heat and it feels good but doesn't give relief. Gets ringing in ears and feels like ear is stuffy ( thinks both but notices it more in R). Evry couple weeks she gets the ringing and it only lasts about 5-10 min. Ear feeling stuffy is more often than the ringing. Pt is going to PT for LB. She has tingling in upper back sometimes when just sitting down and with walking. Her neck pain has been persistant. She has had some cervical xray but does not recall anything on it. Pt does have referral for sleep study. Pt feels like she has to sleep okay. She wakes up 1- 2x/night and will get up to go to the bathroom. When seh wakes, she doesn't feel rested , feels exhausted by the end of the day, and feels tense when she awakes. Treatment Goals Patient/Caregiver Goals get back to hiking and long walks, dec stiffness, back to running & workouts PT-OP-C Subjective Start: 11/14/21 17:51 Freq: Status: Active Protocol: Document 12/19/22 07:32 [facility] (Rec: 12/19/22 10:05 [facility] [id number]) OP-PT Subjective Patient Comments Patient Comments Pt reports L SI region is sore today. she was doing thread the needle and felt like it was caudght. She did some weights and squats rosita the day before yesterday and planks. Seh has some R side and B shoulder discomfort which may be from that. jaw has been painful recently. Has been doing massage. Noticed eating apple the other day PT-OP-F Manual Assessment Start: 11/14/21 17:51 Freq: Status: Active Protocol: Document 05/13/22 16:07 [facility] (Rec: 05/13/22 16:52 [facility] [id number]) Manual Assessments Soft Tissue Assessment Soft Tissue Mobility Assessment tenderness throughout lumbar and gluteal region along w/ abdomenal wall Joint Mobility Assessment Joint Mobility Assessment R iliac crest is higher; equal greater trochanter; w/knee bending tibia track close to neutral; IR of B femurs w/knee bending PT-OP-J Posture/Palpation/Skin Start: 11/14/21 17:51 Freq: Status: Active Protocol: Document 09/17/22 14:29 [facility] (Rec: 09/17/22 18:27 [facility] [id number]) Posture Evaluation Tyler Postural Classification System Tyler Postural Classifications Posterior/Posterior Vertebral Compression Test 3 Elbow Flexion Test 3 Lumbar Protective Mechanism Left AP 1 Lumbar Protective Mechanism Right AP 1 Lumbar Protective Mechanism Left PA 4 Lumbar Protective Mechanism Right PA 4 PT-OP-K Range of Motion Start: 11/14/21 17:51 Freq: Status: Active Protocol: Document 11/21/22 16:07 [facility] (Rec: 11/21/22 17:59 [facility] [id number]) Cervical Spine Range of Motion Cervical Spine Active Degrees Rotation Left 65 Rotation Right 69 Lumbar Spine Range of Motion Lumbar Spine Active Percentage Flexion 50 Extension 90 Rotation Left 80 Rotation Right 80 Lateral Flexion Left 75 Lateral Flexion Right 75 Comments pain flex, pain w/SB B on L ; rot pain B PT-OP-L Special Tests Start: 11/14/21 17:51 Freq: Status: Active Protocol: Document 05/13/22 16:07 [facility] (Rec: 05/13/22 16:52 [facility] [id number]) Special Tests Lumbar Spine Special Tests Slump Test Results positive for tension B w/neck flex PT-OP-M Strength Start: 11/14/21 17:51 Freq: Status: Active Protocol: Document 05/13/22 16:07 [facility] (Rec: 05/13/22 16:52 [facility] [id number]) Hip Strength Hip Manual Muscle Testing Right Flexion (L2) 4 Good Extension (S1) 3+ Fair+ Abduction 4- Good- Adduction 4- Good- External Rotation 4 Good Internal Rotation 5 Normal Left Flexion (L2) 3+ Fair+ Extension (S1) 3+ Fair+ Abduction 4 Good Adduction 4- Good- External Rotation 4 Good Internal Rotation 4- Good- Comments 5/5 knee and ankle MMT B PT-OP-Q Treatments Start: 11/14/21 17:51 Freq: Status: Active Protocol: Document 12/19/22 07:32 [facility] (Rec: 12/19/22 10:05 [facility] [id number]) Manual Therapy Treatment Soft Tissue Mobilization cervical Mobilization Type Strumming,Sustained Pressure Comments R scalenes, SCM Joint Mobilizations cranium Comments R post rot temporal FM innominate Comments L caudal & add FM hip Comments L add FM jaw Comments AP B FM and B distractioN FM cervical Comments C1 transverse L & Ap R FM PT-OP-R Modalities Start: 11/14/21 17:51 Freq: Status: Active Protocol: Document 04/15/22 07:30 [facility] (Rec: 04/15/22 12:24 [facility] [id number]) Hot Pack/Cold Pack Treatment Cold Pack Location cervical & thoracic Patient Position Supine Treatment Duration (minutes) 10 PT-OP-T Assessment and Plan Start: 11/14/21 17:51 Freq: Status: Active Protocol: Document 12/19/22 07:32 [facility] (Rec: 12/19/22 10:05 [facility] [id number]) Physical Therapy Assessment Goals pain Impairment neck pain and tightness that is constant that is at a 2/10 at all the time w/o relief Rehab Therapy Manager Goal (LTG) Pt will report no constant neck pain or tightness at least 5/7 days a week 07/22:no change 09/17-mostly tightness daily but not pain 11/21-was doing good for a while; just past 2 days a little worse again LTG Duration 01/24 static activity Impairment pain starts after 10 min of standing -06/14 and if stand longer it can get to a 07/15- describes as really uncomfortable-standing at attention/parade rest Rehab Therapy Manager Goal (LTG) Pt will be able to stand at attention or parade rest and at home for extended tiem as needed without inc pain greater than 1/10 07/22-tingling in upper back - 07/15 09/17-pain still w/extended standing no chage 11/21-has not had to recently LTG Duration 01/30 activity Short Term Goal (STG) Pt will report being able to return to long walks w/no more than 1/10 pain in neck and/or thoraic and lumbar region. 07/22-about 2 miles max recently but about 2-3/10-LB & mid back 09/17-2.5 miles max; average AM walk .5 mile (upper back and SI pain 3-07/15 11/21- she has been doing 3.5 mph w/good incline but gets tingling up/down back but not as signfiicant; did do 4 mile hike and about 1/2way through is when neck and back tightned up STG Duration 12/20 Mcfp Goal (LTG) Pt will be able to return to running and working out without pain in cervical, thoracic or lumbar region w/o pain greater than 2/10 07/22: short distance run ~3/10 ; after [id number]/10 09/17-interval run about 1 mile (3/10); workouts no pain during mostly, occ crunching in back but sore for several days 11/21-burning and zapping in LB - doing treadmill and some strengthening /07/15 LTG Duration 02/01 ROM Short Term Goal (STG) Pt will have full jaw opening to 40mm w/o feeling of tightness 01/23-tension 03/19-feels okay but still limited 07/22-38 mm tight STG Duration achieved Rehab Therapy Manager Goal (LTG) Pt will have full cervical and lumbar ROM w/o feeling of tension or pain to allow pt to do ADls w/o inc pain. 07/22-06/14 (L>R knee pain); back and neck are stiff and can't stand up straight; still limited ROM 09/17-standing on one leg and knee is hurting; bending over for shoes and socks is still difficult 11/21-more tightness today compared to recent days LTG Duration 01/30 Assessment Summary Assessment Pt had improved pelvis height w/level pelvis after manuala nd improved rot B. Improved jaw opening w/elss deviation ant and to the side after manual Physical Therapy Plan Frequency and Duration Frequency of Treatment 1x/Week Duration of treatment (weeks) 10 Plan of Care Start Date 11/21/22 Plan of Care End Date 01/30/23 Next Visit Focus/Plan Next Note Type Treatment Note Next Visit Plan cont to work on overall spinal mobility & postural stability
--- NOTE | 2022-12-25 11:11 | PT.OTN ---
Current Diagnoses Pain in unspecified hip (12/25/22) Unspecified temporomandibular joint disorder, unspecified side (12/25/22) Other specified dorsopathies, cervicothoracic region (12/25/22) Cervicalgia (12/25/22) Low back pain, unspecified (12/25/22) Muscle weakness (generalized) (12/25/22) Abnormal posture (12/25/22) Physical Therapy Treatment Note PT-OP-A Visit Information Start: 11/14/21 17:51 Freq: Status: Active Protocol: Document 12/25/22 07:30 [facility] (Rec: 12/25/22 11:11 [facility] [id number]) Out-Patient Physical Therapy Visit Information Visit Information Visit Type Treatment Note Visit Start Time 07:35 Visit Stop Time 08:15 Total Visit Minutes 40 Visit Number 29 Number of LOCK MAINTENANCE SUPERVISOR Visits 0 PT-OP-B Current Condition Start: 11/14/21 17:51 Freq: Status: Active Protocol: Document 05/13/22 16:07 [facility] (Rec: 05/13/22 16:52 [facility] [id number]) Current Condition History of Current Condition Onset Date 6 months/1 year Current Complaints B jaw pain/cervical& thoracic pain History of Current Condition 05/13-pt reports LBP and B hip pain has been going on for years. The only traumatic injury was in 2006 was doing a marla carry and stepped in a hole and caused a lot of pain at the time and the back and R hip. She does not really remember any signficiant before that. Since then it has been an off and on thing but it got pretty bad for the past year. She did do PT at another clinic for hips and back and hips are feeling better but she also hasn't been running and is only recently getting into more intense workouts again gradually and feels tight and tender after. Back and hips can feel really hot and burning. Pt notes pain in LB, thoracic and neck and B sides. She has felt like she was constipated today and felt like she had to go but couldn' t. She has worked on diet a lot. She has BM about 1x/week. She has had 3 xrays that have noted constipation. Rates type 1 and 2 mostly on bristol stool chart. She gets a lot fiber in her diet. Pt can cross her legs and get her back to pop and does it d/t feeling like it needs it. Pt reports she doesn't notice jaw during the day, she is clenching more at night w/ mouth guard. Neck still been feeling stiff, Tingling in mid back about 1x/day at least. It is not as prolonged and she feels like she can improve it if she adjusts her posture. She did do a 2 mile walk and felt pretty uncomfortable at 1 mile. Re-eval: Pt reports neck and thoracic pain started about 1 year ago and she would ntoice that 5-10 min into walking, she starts to get tingling in shoulder blades. Fwd flex stretch feels like it should help but it doesn't. Once it starts, there is no way ot stop it besides lay down. This has kept her from hiking. Neck pain is more feels so tight that she feels like her ROM is limited. ITs been better since started working on jaw. It always feels like she needs to move her neck but doing the motion doesn't really help. It feels like she wants to pop it but that doesn't really help either. She gets things that feels like golf balls along neck. IE:Jaw pain started about 6 months ago. when it first started it felt like I had been chewing gum allt he day prior. MD thought she may be clenching. She got a mouthguard after a couple months for night but does not feel like it has made a difference. Neck pain has been crhornic, but no injury. Denies LEAVITT except occasionally and they go away. denies dizziness or lightheadness. Mouth xray done recently and everything looked fine. Pt saw specialist in [place] and she suspects this is just muscular. Denies clicking in jaw. Pt was told to avoid hard to chew and crunchy foods and is most of the time following this. She can feel it more w/ those foods. Tried heat and it feels good but doesn't give relief. Gets ringing in ears and feels like ear is stuffy ( thinks both but notices it more in R). Evry couple weeks she gets the ringing and it only lasts about 5-10 min. Ear feeling stuffy is more often than the ringing. Pt is going to PT for LB. She has tingling in upper back sometimes when just sitting down and with walking. Her neck pain has been persistant. She has had some cervical xray but does not recall anything on it. Pt does have referral for sleep study. Pt feels like she has to sleep okay. She wakes up 1- 2x/night and will get up to go to the bathroom. When redd wakes, she doesn't feel rested , feels exhausted by the end of the day, and feels tense when she awakes. Treatment Goals Patient/Caregiver Goals get back to hiking and long walks, dec stiffness, back to running & workouts PT-OP-C Subjective Start: 11/14/21 17:51 Freq: Status: Active Protocol: Document 12/25/22 07:30 [facility] (Rec: 12/25/22 11:11 [facility] [id number]) OP-PT Subjective Patient Comments Patient Comments Pt had a lymphatic drain massage but doesn't think it felt different. Her knees were achey almost immediately. Her neck was sore initially this AM but it went away. Coming back from her walk today, redd fell. Seh thinks redd stepped on a big rock, ankle started to roll and knee kind of gave out. She is fine. Caught w/ hand and rolled onto her back. PT-OP-F Manual Assessment Start: 11/14/21 17:51 Freq: Status: Active Protocol: Document 05/13/22 16:07 [facility] (Rec: 05/13/22 16:52 [facility] [id number]) Manual Assessments Soft Tissue Assessment Soft Tissue Mobility Assessment tenderness throughout lumbar and gluteal region along w/ abdomenal wall Joint Mobility Assessment Joint Mobility Assessment R iliac crest is higher; equal greater trochanter; w/knee bending tibia track close to neutral; IR of B femurs w/knee bending PT-OP-J Posture/Palpation/Skin Start: 11/14/21 17:51 Freq: Status: Active Protocol: Document 09/17/22 14:29 [facility] (Rec: 09/17/22 18:27 [facility] [id number]) Posture Evaluation Tyler Postural Classification System Tyler Postural Classifications Posterior/Posterior Vertebral Compression Test 3 Elbow Flexion Test 3 Lumbar Protective Mechanism Left AP 1 Lumbar Protective Mechanism Right AP 1 Lumbar Protective Mechanism Left PA 4 Lumbar Protective Mechanism Right PA 4 PT-OP-K Range of Motion Start: 11/14/21 17:51 Freq: Status: Active Protocol: Document 11/21/22 16:07 [facility] (Rec: 11/21/22 17:59 [facility] [id number]) Cervical Spine Range of Motion Cervical Spine Active Degrees Rotation Left 65 Rotation Right 69 Lumbar Spine Range of Motion Lumbar Spine Active Percentage Flexion 50 Extension 90 Rotation Left 80 Rotation Right 80 Lateral Flexion Left 75 Lateral Flexion Right 75 Comments pain flex, pain w/SB B on L ; rot pain B PT-OP-L Special Tests Start: 11/14/21 17:51 Freq: Status: Active Protocol: Document 05/13/22 16:07 [facility] (Rec: 05/13/22 16:52 [facility] [id number]) Special Tests Lumbar Spine Special Tests Slump Test Results positive for tension B w/neck flex PT-OP-M Strength Start: 11/14/21 17:51 Freq: Status: Active Protocol: Document 05/13/22 16:07 [facility] (Rec: 05/13/22 16:52 [facility] [id number]) Hip Strength Hip Manual Muscle Testing Right Flexion (L2) 4 Good Extension (S1) 3+ Fair+ Abduction 4- Good- Adduction 4- Good- External Rotation 4 Good Internal Rotation 5 Normal Left Flexion (L2) 3+ Fair+ Extension (S1) 3+ Fair+ Abduction 4 Good Adduction 4- Good- External Rotation 4 Good Internal Rotation 4- Good- Comments 5/5 knee and ankle MMT B PT-OP-Q Treatments Start: 11/14/21 17:51 Freq: Status: Active Protocol: Document 12/25/22 07:30 [facility] (Rec: 12/25/22 11:11 [facility] [id number]) Manual Therapy Treatment Joint Mobilizations innominate Comments R add FM rib Comments R ribs 9-12 sup ant FM w/ pelvic patterns FM thoracic Comments Transverse L T4-10 FMw / cervical and thoracic rot Neuro Re-Education Treatment Other Activities PNF Reps/Duration 8 min Comments 1. post dep R scap w/ irradiation of pivot prone 2. mass flex w/irradiation from scap to pelvis progressed to COI of individual segments then of entire pattern 3. post dep R pelvis prolonged hold PT-OP-R Modalities Start: 11/14/21 17:51 Freq: Status: Active Protocol: Document 04/15/22 07:30 [facility] (Rec: 04/15/22 12:24 [facility] [id number]) Hot Pack/Cold Pack Treatment Cold Pack Location cervical & thoracic Patient Position Supine Treatment Duration (minutes) 10 PT-OP-T Assessment and Plan Start: 11/14/21 17:51 Freq: Status: Active Protocol: Document 12/25/22 07:30 [facility] (Rec: 12/25/22 11:11 [facility] [id number]) Physical Therapy Assessment Goals pain Impairment neck pain and tightness that is constant that is at a 2/10 at all the time w/o relief Usp Goal (LTG) Pt will report no constant neck pain or tightness at least 5/7 days a week 07/22:no change 09/17-mostly tightness daily but not pain 11/21-was doing good for a while; just past 2 days a little worse again LTG Duration 01/24 static activity Impairment pain starts after 10 min of standing -310 and if stand longer it can get to a /10- describes as really uncomfortable-standing at attention/parade rest Usp Goal (LTG) Pt will be able to stand at attention or parade rest and at home for extended tiem as needed without inc pain greater than 1/10 07/22-tingling in upper back - 07/15 09/17-pain still w/extended standing no chage 11/21-has not had to recently LTG Duration 01/30 activity Short Term Goal (STG) Pt will report being able to return to long walks w/no more than 1/10 pain in neck and/or thoraic and lumbar region. 07/22-about 2 miles max recently but about 2-3/10-LB & mid back 09/17-2.5 miles max; average AM walk .5 mile (upper back and SI pain 3-07/15 11/21- she has been doing 3.5 mph w/good incline but gets tingling up/down back but not as signfiicant; did do 4 mile hike and about 1/2way through is when neck and back tightned up STG Duration 12/20 Usp Goal (LTG) Pt will be able to return to running and working out without pain in cervical, thoracic or lumbar region w/o pain greater than 2/10 07/22: short distance run ~3/10 ; after [id number]/10 09/17-interval run about 1 mile (06/14); workouts no pain during mostly, occ crunching in back but sore for several days 11/21-burning and zapping in LB - doing treadmill and some strengthening /07/15 LTG Duration 02/01 ROM Short Term Goal (STG) Pt will have full jaw opening to 40mm w/o feeling of tightness 01/23-tension 03/19-feels okay but still limited 07/22-38 mm tight STG Duration achieved Manager Farm Goal (LTG) Pt will have full cervical and lumbar ROM w/o feeling of tension or pain to allow pt to do ADls w/o inc pain. 07/22-06/14 (L>R knee pain); back and neck are stiff and can't stand up straight; still limited ROM 09/17-standing on one leg and knee is hurting; bending over for shoes and socks is still difficult 11/21-more tightness today compared to recent days LTG Duration 01/30 Assessment Summary Assessment Pt had improved abilityto rotate TL spine from about 25% B to about 80% B and imrpoved L cervical rotation from about 60% to 90%. She also improved R SB by about 1 in. Physical Therapy Plan Frequency and Duration Frequency of Treatment 1x/Week Duration of treatment (weeks) 10 Plan of Care Start Date 11/21/22 Plan of Care End Date 01/30/23 Next Visit Focus/Plan Next Note Type Treatment Note Next Visit Plan cont to work on overall spinal mobility & postural stability
--- NOTE | 2023-01-09 08:21 | PT.OTN ---
Current Diagnoses Pain in unspecified hip (01/09/23) Unspecified temporomandibular joint disorder, unspecified side (01/09/23) Other specified dorsopathies, cervicothoracic region (01/09/23) Cervicalgia (01/09/23) Low back pain, unspecified (01/09/23) Muscle weakness (generalized) (01/09/23) Abnormal posture (01/09/23) Physical Therapy Treatment Note PT-OP-A Visit Information Start: 11/14/21 17:51 Freq: Status: Active Protocol: Document 01/09/23 07:30 [facility] (Rec: 01/09/23 08:21 [facility] [id number]) Out-Patient Physical Therapy Visit Information Visit Information Visit Type Treatment Note Visit Start Time 07:13 Visit Stop Time 08:13 Total Visit Minutes 40 Visit Number 30 Number of SOFTWARE ENGINEER MOBILE Visits 0 PT-OP-B Current Condition Start: 11/14/21 17:51 Freq: Status: Active Protocol: Document 05/13/22 16:07 [facility] (Rec: 05/13/22 16:52 [facility] [id number]) Current Condition History of Current Condition Onset Date 6 months/1 year Current Complaints B jaw pain/cervical& thoracic pain History of Current Condition 05/13-pt reports LBP and B hip pain has been going on for years. The only traumatic injury was in 2006 was doing a marla carry and stepped in a hole and caused a lot of pain at the time and the back and R hip. She does not really remember any signficiant before that. Since then it has been an off and on thing but it got pretty bad for the past year. She did do PT at another clinic for hips and back and hips are feeling better but she also hasn't been running and is only recently getting into more intense workouts again gradually and feels tight and tender after. Back and hips can feel really hot and burning. Pt notes pain in LB, thoracic and neck and B sides. She has felt like she was constipated today and felt like she had to go but couldn' t. She has worked on diet a lot. She has BM about 1x/week. She has had 3 xrays that have noted constipation. Rates type 1 and 2 mostly on bristol stool chart. She gets a lot fiber in her diet. Pt can cross her legs and get her back to pop and does it d/t feeling like it needs it. Pt reports she doesn't notice jaw during the day, she is clenching more at night w/ mouth guard. Neck still been feeling stiff, Tingling in mid back about 1x/day at least. It is not as prolonged and she feels like she can improve it if she adjusts her posture. She did do a 2 mile walk and felt pretty uncomfortable at 1 mile. Re-eval: Pt reports neck and thoracic pain started about 1 year ago and she would ntoice that 5-10 min into walking, she starts to get tingling in shoulder blades. Fwd flex stretch feels like it should help but it doesn't. Once it starts, there is no way ot stop it besides lay down. This has kept her from hiking. Neck pain is more feels so tight that she feels like her ROM is limited. ITs been better since started working on jaw. It always feels like she needs to move her neck but doing the motion doesn't really help. It feels like she wants to pop it but that doesn't really help either. She gets things that feels like golf balls along neck. IE:Jaw pain started about 6 months ago. when it first started it felt like I had been chewing gum allt he day prior. MD thought she may be clenching. She got a mouthguard after a couple months for night but does not feel like it has made a difference. Neck pain has been crhornic, but no injury. Denies LEAVITT except occasionally and they go away. denies dizziness or lightheadness. Mouth xray done recently and everything looked fine. Pt saw specialist in [place] and she suspects this is just muscular. Denies clicking in jaw. Pt was told to avoid hard to chew and crunchy foods and is most of the time following this. She can feel it more w/ those foods. Tried heat and it feels good but doesn't give relief. Gets ringing in ears and feels like ear is stuffy ( thinks both but notices it more in R). Evry couple weeks she gets the ringing and it only lasts about 5-10 min. Ear feeling stuffy is more often than the ringing. Pt is going to PT for LB. She has tingling in upper back sometimes when just sitting down and with walking. Her neck pain has been persistant. She has had some cervical xray but does not recall anything on it. Pt does have referral for sleep study. Pt feels like she has to sleep okay. She wakes up 1- 2x/night and will get up to go to the bathroom. When seh wakes, she doesn't feel rested , feels exhausted by the end of the day, and feels tense when she awakes. Treatment Goals Patient/Caregiver Goals get back to hiking and long walks, dec stiffness, back to running & workouts PT-OP-C Subjective Start: 11/14/21 17:51 Freq: Status: Active Protocol: Document 01/09/23 07:30 [facility] (Rec: 01/09/23 08:21 [facility] [id number]) OP-PT Subjective Patient Comments Patient Comments Pt reports she just overall feels stiff PT-OP-F Manual Assessment Start: 11/14/21 17:51 Freq: Status: Active Protocol: Document 05/13/22 16:07 [facility] (Rec: 05/13/22 16:52 [facility] [id number]) Manual Assessments Soft Tissue Assessment Soft Tissue Mobility Assessment tenderness throughout lumbar and gluteal region along w/ abdomenal wall Joint Mobility Assessment Joint Mobility Assessment R iliac crest is higher; equal greater trochanter; w/knee bending tibia track close to neutral; IR of B femurs w/knee bending PT-OP-J Posture/Palpation/Skin Start: 11/14/21 17:51 Freq: Status: Active Protocol: Document 09/17/22 14:29 [facility] (Rec: 09/17/22 18:27 [facility] [id number]) Posture Evaluation Tyler Postural Classification System Tyler Postural Classifications Posterior/Posterior Vertebral Compression Test 3 Elbow Flexion Test 3 Lumbar Protective Mechanism Left AP 1 Lumbar Protective Mechanism Right AP 1 Lumbar Protective Mechanism Left PA 4 Lumbar Protective Mechanism Right PA 4 PT-OP-K Range of Motion Start: 11/14/21 17:51 Freq: Status: Active Protocol: Document 11/21/22 16:07 [facility] (Rec: 11/21/22 17:59 [facility] [id number]) Cervical Spine Range of Motion Cervical Spine Active Degrees Rotation Left 65 Rotation Right 69 Lumbar Spine Range of Motion Lumbar Spine Active Percentage Flexion 50 Extension 90 Rotation Left 80 Rotation Right 80 Lateral Flexion Left 75 Lateral Flexion Right 75 Comments pain flex, pain w/SB B on L ; rot pain B PT-OP-L Special Tests Start: 11/14/21 17:51 Freq: Status: Active Protocol: Document 05/13/22 16:07 [facility] (Rec: 05/13/22 16:52 [facility] [id number]) Special Tests Lumbar Spine Special Tests Slump Test Results positive for tension B w/neck flex PT-OP-M Strength Start: 11/14/21 17:51 Freq: Status: Active Protocol: Document 05/13/22 16:07 [facility] (Rec: 05/13/22 16:52 [facility] [id number]) Hip Strength Hip Manual Muscle Testing Right Flexion (L2) 4 Good Extension (S1) 3+ Fair+ Abduction 4- Good- Adduction 4- Good- External Rotation 4 Good Internal Rotation 5 Normal Left Flexion (L2) 3+ Fair+ Extension (S1) 3+ Fair+ Abduction 4 Good Adduction 4- Good- External Rotation 4 Good Internal Rotation 4- Good- Comments 5/5 knee and ankle MMT B PT-OP-Q Treatments Start: 11/14/21 17:51 Freq: Status: Active Protocol: Document 01/09/23 07:30 [facility] (Rec: 01/09/23 08:21 [facility] [id number]) Manual Therapy Treatment Soft Tissue Mobilization tspine Body Location LRlat from TL fascia to inf border of scap Mobilization Type Rolling,Strumming Body Position Prone Joint Mobilizations lumbar Comments L1 & 5 upglide L; upglide L2, 3 and 4 R FM seated sacrum Comments R PA seated FM innominate Comments B AP seated FM rib Comments upward torsion rib 8-10 on L FM thoracic Comments PA and transverse glide L seated and prone T6-10 FM PT-OP-R Modalities Start: 11/14/21 17:51 Freq: Status: Active Protocol: Document 04/15/22 07:30 [facility] (Rec: 04/15/22 12:24 [facility] [id number]) Hot Pack/Cold Pack Treatment Cold Pack Location cervical & thoracic Patient Position Supine Treatment Duration (minutes) 10 PT-OP-T Assessment and Plan Start: 11/14/21 17:51 Freq: Status: Active Protocol: Document 01/09/23 07:30 [facility] (Rec: 01/09/23 08:21 [facility] [id number]) Physical Therapy Assessment Goals pain Impairment neck pain and tightness that is constant that is at a 2/10 at all the time w/o relief [facility] Goal (LTG) Pt will report no constant neck pain or tightness at least 5/7 days a week 07/22:no change 09/17-mostly tightness daily but not pain 11/21-was doing good for a while; just past 2 days a little worse again LTG Duration 01/24 static activity Impairment pain starts after 10 min of standing -06/14 and if stand longer it can get to a 07/15- describes as really uncomfortable-standing at attention/parade rest [facility] Goal (LTG) Pt will be able to stand at attention or parade rest and at home for extended tiem as needed without inc pain greater than 1/10 07/22-tingling in upper back - 07/15 09/17-pain still w/extended standing no chage 11/21-has not had to recently LTG Duration 01/30 activity Short Term Goal (STG) Pt will report being able to return to long walks w/no more than 1/10 pain in neck and/or thoraic and lumbar region. 07/22-about 2 miles max recently but about 2-06/14-LB & mid back 09/17-2.5 miles max; average AM walk .5 mile (upper back and SI pain -07/15 11/21- she has been doing 3.5 mph w/good incline but gets tingling up/down back but not as signfiicant; did do 4 mile hike and about 1/2way through is when neck and back tightned up STG Duration 12/20 [employer] Network [employer] Goal (LTG) Pt will be able to return to running and working out without pain in cervical, thoracic or lumbar region w/o pain greater than 2/10 07/22: short distance run ~10 ; after [id number]/10 09/17-interval run about 1 mile (06/14); workouts no pain during mostly, occ crunching in back but sore for several days 11/21-burning and zapping in LB - doing treadmill and some strengthening -/07/15 LTG Duration 10/28 ROM Short Term Goal (STG) Pt will have full jaw opening to 40mm w/o feeling of tightness 01/23-tension 03/19-feels okay but still limited 07/22-38 mm tight STG Duration achieved [facility] Goal (LTG) Pt will have full cervical and lumbar ROM w/o feeling of tension or pain to allow pt to do ADls w/o inc pain. 07/22-06/14 (L>R knee pain); back and neck are stiff and can't stand up straight; still limited ROM 09/17-standing on one leg and knee is hurting; bending over for shoes and socks is still difficult 11/21-more tightness today compared to recent days LTG Duration 01/30 Assessment Summary Assessment Pt had improvement of B thoracic rot from about 40% to 80% B. Pt encouraged to cont to stretch over foam roll. She has lumbar to thoracic restrictions that limit her ability. Physical Therapy Plan Frequency and Duration Frequency of Treatment 1x/Week Duration of treatment (weeks) 10 Plan of Care Start Date 11/21/22 Plan of Care End Date 01/30/23 Next Visit Focus/Plan Next Note Type Treatment Note Next Visit Plan cont to work on overall spinal mobility & postural stability
--- NOTE | 2023-01-14 12:18 | PT.OTN ---
Current Diagnoses Pain in unspecified hip (01/14/23) Unspecified temporomandibular joint disorder, unspecified side (01/14/23) Other specified dorsopathies, cervicothoracic region (01/14/23) Cervicalgia (01/14/23) Low back pain, unspecified (01/14/23) Muscle weakness (generalized) (01/14/23) Abnormal posture (01/14/23) Physical Therapy Treatment Note PT-OP-A Visit Information Start: 11/14/21 17:51 Freq: Status: Active Protocol: Document 01/14/23 07:35 [facility] (Rec: 01/14/23 12:18 [facility] [id number]) Out-Patient Physical Therapy Visit Information Visit Information Visit Type Treatment Note Visit Start Time 07:35 Visit Stop Time 08:16 Total Visit Minutes 41 Visit Number 31 Number of COOKER MEAL Visits 0 PT-OP-B Current Condition Start: 11/14/21 17:51 Freq: Status: Active Protocol: Document 05/13/22 16:07 [facility] (Rec: 05/13/22 16:52 [facility] [id number]) Current Condition History of Current Condition Onset Date 6 months/1 year Current Complaints B jaw pain/cervical& thoracic pain History of Current Condition 05/13-pt reports LBP and B hip pain has been going on for years. The only traumatic injury was in 2006 was doing a marla carry and stepped in a hole and caused a lot of pain at the time and the back and R hip. She does not really remember any signficiant before that. Since then it has been an off and on thing but it got pretty bad for the past year. She did do PT at another clinic for hips and back and hips are feeling better but she also hasn't been running and is only recently getting into more intense workouts again gradually and feels tight and tender after. Back and hips can feel really hot and burning. Pt notes pain in LB, thoracic and neck and B sides. She has felt like she was constipated today and felt like she had to go but couldn' t. She has worked on diet a lot. She has BM about 1x/week. She has had 3 xrays that have noted constipation. Rates type 1 and 2 mostly on bristol stool chart. She gets a lot fiber in her diet. Pt can cross her legs and get her back to pop and does it d/t feeling like it needs it. Pt reports she doesn't notice jaw during the day, she is clenching more at night w/ mouth guard. Neck still been feeling stiff, Tingling in mid back about 1x/day at least. It is not as prolonged and she feels like she can improve it if she adjusts her posture. She did do a 2 mile walk and felt pretty uncomfortable at 1 mile. Re-eval: Pt reports neck and thoracic pain started about 1 year ago and she would ntoice that 5-10 min into walking, she starts to get tingling in shoulder blades. Fwd flex stretch feels like it should help but it doesn't. Once it starts, there is no way ot stop it besides lay down. This has kept her from hiking. Neck pain is more feels so tight that she feels like her ROM is limited. ITs been better since started working on jaw. It always feels like she needs to move her neck but doing the motion doesn't really help. It feels like she wants to pop it but that doesn't really help either. She gets things that feels like golf balls along neck. IE:Jaw pain started about 6 months ago. when it first started it felt like I had been chewing gum allt he day prior. MD thought she may be clenching. She got a mouthguard after a couple months for night but does not feel like it has made a difference. Neck pain has been crhornic, but no injury. Denies LEAVITT except occasionally and they go away. denies dizziness or lightheadness. Mouth xray done recently and everything looked fine. Pt saw specialist in [place] and she suspects this is just muscular. Denies clicking in jaw. Pt was told to avoid hard to chew and crunchy foods and is most of the time following this. She can feel it more w/ those foods. Tried heat and it feels good but doesn't give relief. Gets ringing in ears and feels like ear is stuffy ( thinks both but notices it more in R). Evry couple weeks she gets the ringing and it only lasts about 5-10 min. Ear feeling stuffy is more often than the ringing. Pt is going to PT for LB. She has tingling in upper back sometimes when just sitting down and with walking. Her neck pain has been persistant. She has had some cervical xray but does not recall anything on it. Pt does have referral for sleep study. Pt feels like she has to sleep okay. She wakes up 1- 2x/night and will get up to go to the bathroom. When seh wakes, she doesn't feel rested , feels exhausted by the end of the day, and feels tense when she awakes. Treatment Goals Patient/Caregiver Goals get back to hiking and long walks, dec stiffness, back to running & workouts PT-OP-C Subjective Start: 11/14/21 17:51 Freq: Status: Active Protocol: Document 01/14/23 07:35 [facility] (Rec: 01/14/23 12:18 [facility] [id number]) OP-PT Subjective Patient Comments Patient Comments Pt reports tightness in LB and neck after doing a lot of lifting and moving things this weekend. Pt reports instance of knee givign out and notes B hands have been sore recently . PT-OP-F Manual Assessment Start: 11/14/21 17:51 Freq: Status: Active Protocol: Document 05/13/22 16:07 [facility] (Rec: 05/13/22 16:52 [facility] [id number]) Manual Assessments Soft Tissue Assessment Soft Tissue Mobility Assessment tenderness throughout lumbar and gluteal region along w/ abdomenal wall Joint Mobility Assessment Joint Mobility Assessment R iliac crest is higher; equal greater trochanter; w/knee bending tibia track close to neutral; IR of B femurs w/knee bending PT-OP-J Posture/Palpation/Skin Start: 11/14/21 17:51 Freq: Status: Active Protocol: Document 09/17/22 14:29 [facility] (Rec: 09/17/22 18:27 [facility] [id number]) Posture Evaluation Tyler Postural Classification System Tyler Postural Classifications Posterior/Posterior Vertebral Compression Test 3 Elbow Flexion Test 3 Lumbar Protective Mechanism Left AP 1 Lumbar Protective Mechanism Right AP 1 Lumbar Protective Mechanism Left PA 4 Lumbar Protective Mechanism Right PA 4 PT-OP-K Range of Motion Start: 11/14/21 17:51 Freq: Status: Active Protocol: Document 11/21/22 16:07 [facility] (Rec: 11/21/22 17:59 [facility] [id number]) Cervical Spine Range of Motion Cervical Spine Active Degrees Rotation Left 65 Rotation Right 69 Lumbar Spine Range of Motion Lumbar Spine Active Percentage Flexion 50 Extension 90 Rotation Left 80 Rotation Right 80 Lateral Flexion Left 75 Lateral Flexion Right 75 Comments pain flex, pain w/SB B on L ; rot pain B PT-OP-L Special Tests Start: 11/14/21 17:51 Freq: Status: Active Protocol: Document 05/13/22 16:07 [facility] (Rec: 05/13/22 16:52 [facility] [id number]) Special Tests Lumbar Spine Special Tests Slump Test Results positive for tension B w/neck flex PT-OP-M Strength Start: 11/14/21 17:51 Freq: Status: Active Protocol: Document 05/13/22 16:07 [facility] (Rec: 05/13/22 16:52 [facility] [id number]) Hip Strength Hip Manual Muscle Testing Right Flexion (L2) 4 Good Extension (S1) 3+ Fair+ Abduction 4- Good- Adduction 4- Good- External Rotation 4 Good Internal Rotation 5 Normal Left Flexion (L2) 3+ Fair+ Extension (S1) 3+ Fair+ Abduction 4 Good Adduction 4- Good- External Rotation 4 Good Internal Rotation 4- Good- Comments 5/5 knee and ankle MMT B PT-OP-Q Treatments Start: 11/14/21 17:51 Freq: Status: Active Protocol: Document 01/14/23 07:35 [facility] (Rec: 01/14/23 12:18 [facility] [id number]) Therapeutic Activity Therapeutic Activity lifting Reps/Minutes 30 min Comments 1. hip hinging working on back straight x10 2. squats 2x10 working on back straight rhgouhout 3. PT seated facilitation through each LE 2x prolonged hold R and1x L 4. PT facilitated hip hinge w/ PT drive into LEs x4 5. lifting bolster off mat at lowest 2x5 6. lifing bolster off ground w /cues for close and back position 2x5 Manual Therapy Treatment Soft Tissue Mobilization lumbar Body Location L>R paraspinals & L QL Mobilization Type Rolling,Strumming,Sustained Pressure Joint Mobilizations innominate Comments L add FM s/l PT-OP-R Modalities Start: 11/14/21 17:51 Freq: Status: Active Protocol: Document 04/15/22 07:30 [facility] (Rec: 04/15/22 12:24 [facility] [id number]) Hot Pack/Cold Pack Treatment Cold Pack Location cervical & thoracic Patient Position Supine Treatment Duration (minutes) 10 PT-OP-T Assessment and Plan Start: 11/14/21 17:51 Freq: Status: Active Protocol: Document 01/14/23 07:35 [facility] (Rec: 01/14/23 12:18 [facility] [id number]) Physical Therapy Assessment Goals pain Impairment neck pain and tightness that is constant that is at a 2/10 at all the time w/o relief [employer] Knife [employer]ing Cutter Goal (LTG) Pt will report no constant neck pain or tightness at least 5/7 days a week 07/22:no change 09/17-mostly tightness daily but not pain 11/21-was doing good for a while; just past 2 days a little worse again LTG Duration 01/24 static activity Impairment pain starts after 10 min of standing -3/10 and if stand longer it can get to a 10- describes as really uncomfortable-standing at attention/parade rest [employer] Kn[employer]ing Cutter Goal (LTG) Pt will be able to stand at attention or parade rest and at home for extended tiem as needed without inc pain greater than 1/10 07/22-tingling in upper back 3- 07/15 09/17-pain still w/extended standing no chage 11/21-has not had to recently LTG Duration 01/30 activity Short Term Goal (STG) Pt will report being able to return to long walks w/no more than 1/10 pain in neck and/or thoraic and lumbar region. 07/22-about 2 miles max recently but about 2-3/10-LB & mid back 09/17-2.5 miles max; average AM walk .5 mile (upper back and SI pain 3-411/21- she has been doing 3.5 mph w/good incline but gets tingling up/down back but not as signfiicant; did do 4 mile hike and about 1/2way through is when neck and back tightned up STG Duration 12/20 [facility] Goal (LTG) Pt will be able to return to running and working out without pain in cervical, thoracic or lumbar region w/o pain greater than 2/10 07/22: short distance run ~3/10 ; after [id number]/10 09/17-interval run about 1 mile (06/14); workouts no pain during mostly, occ crunching in back but sore for several days 11/21-burning and zapping in LB - doing treadmill and some strengthening LTG Duration 02/01 ROM Short Term Goal (STG) Pt will have full jaw opening to 40mm w/o feeling of tightness 01/23-tension 03/19-feels okay but still limited 07/22-38 mm tight STG Duration achieved [employer] Knife [employer]ing Cutter Goal (LTG) Pt will have full cervical and lumbar ROM w/o feeling of tension or pain to allow pt to do ADls w/o inc pain. 07/22-06/14 (L>R knee pain); back and neck are stiff and can't stand up straight; still limited ROM 09/17-standing on one leg and knee is hurting; bending over for shoes and socks is still difficult 11/21-more tightness today compared to recent days LTG Duration 01/30 Assessment Summary Assessment Pt needed cues throughout lifting activities for back position and working on neutral alignment. She tends to flex slightly at end range of squat and extend to stand up. Pt educated to use a 2nd person when lifting awkard objects. Improved L dep of pelvis after manual. Physical Therapy Plan Frequency and Duration Frequency of Treatment 1x/Week Duration of treatment (weeks) 10 Plan of Care Start Date 11/21/22 Plan of Care End Date 01/30/23 Next Visit Focus/Plan Next Note Type Treatment Note Next Visit Plan cont to work on overall spinal mobility & postural stability
--- NOTE | 2023-01-21 08:27 | PT.OTN ---
Current Diagnoses Pain in unspecified hip (01/21/23) Unspecified temporomandibular joint disorder, unspecified side (01/21/23) Other specified dorsopathies, cervicothoracic region (01/21/23) Cervicalgia (01/21/23) Low back pain, unspecified (01/21/23) Muscle weakness (generalized) (01/21/23) Abnormal posture (01/21/23) Physical Therapy Treatment Note PT-OP-A Visit Information Start: 11/14/21 17:51 Freq: Status: Active Protocol: Document 01/21/23 07:33 [facility] (Rec: 01/21/23 08:27 [facility] [id number]) Out-Patient Physical Therapy Visit Information Visit Information Visit Type Discharge Summary Visit Start Time 07:36 Visit Stop Time 08:16 Total Visit Minutes 40 Visit Number 32 Number of BOTTOM BRUSHER Visits 0 PT-OP-B Current Condition Start: 11/14/21 17:51 Freq: Status: Active Protocol: Document 05/13/22 16:07 [facility] (Rec: 05/13/22 16:52 [facility] [id number]) Current Condition History of Current Condition Onset Date 6 months/1 year Current Complaints B jaw pain/cervical& thoracic pain History of Current Condition 05/13-pt reports LBP and B hip pain has been going on for years. The only traumatic injury was in 2006 was doing a marla carry and stepped in a hole and caused a lot of pain at the time and the back and R hip. She does not really remember any signficiant before that. Since then it has been an off and on thing but it got pretty bad for the past year. She did do PT at another clinic for hips and back and hips are feeling better but she also hasn't been running and is only recently getting into more intense workouts again gradually and feels tight and tender after. Back and hips can feel really hot and burning. Pt notes pain in LB, thoracic and neck and B sides. She has felt like she was constipated today and felt like she had to go but couldn' t. She has worked on diet a lot. She has BM about 1x/week. She has had 3 xrays that have noted constipation. Rates type 1 and 2 mostly on bristol stool chart. She gets a lot fiber in her diet. Pt can cross her legs and get her back to pop and does it d/t feeling like it needs it. Pt reports she doesn't notice jaw during the day, she is clenching more at night w/ mouth guard. Neck still been feeling stiff, Tingling in mid back about 1x/day at least. It is not as prolonged and she feels like she can improve it if she adjusts her posture. She did do a 2 mile walk and felt pretty uncomfortable at 1 mile. Re-eval: Pt reports neck and thoracic pain started about 1 year ago and she would ntoice that 5-10 min into walking, she starts to get tingling in shoulder blades. Fwd flex stretch feels like it should help but it doesn't. Once it starts, there is no way ot stop it besides lay down. This has kept her from hiking. Neck pain is more feels so tight that she feels like her ROM is limited. ITs been better since started working on jaw. It always feels like she needs to move her neck but doing the motion doesn't really help. It feels like she wants to pop it but that doesn't really help either. She gets things that feels like golf balls along neck. IE:Jaw pain started about 6 months ago. when it first started it felt like I had been chewing gum allt he day prior. MD thought she may be clenching. She got a mouthguard after a couple months for night but does not feel like it has made a difference. Neck pain has been crhornic, but no injury. Denies LEAVITT except occasionally and they go away. denies dizziness or lightheadness. Mouth xray done recently and everything looked fine. Pt saw specialist in [place] and she suspects this is just muscular. Denies clicking in jaw. Pt was told to avoid hard to chew and crunchy foods and is most of the time following this. She can feel it more w/ those foods. Tried heat and it feels good but doesn't give relief. Gets ringing in ears and feels like ear is stuffy ( thinks both but notices it more in R). Evry couple weeks she gets the ringing and it only lasts about 5-10 min. Ear feeling stuffy is more often than the ringing. Pt is going to PT for LB. She has tingling in upper back sometimes when just sitting down and with walking. Her neck pain has been persistant. She has had some cervical xray but does not recall anything on it. Pt does have referral for sleep study. Pt feels like she has to sleep okay. She wakes up 1- 2x/night and will get up to go to the bathroom. When seh wakes, she doesn't feel rested , feels exhausted by the end of the day, and feels tense when she awakes. Treatment Goals Patient/Caregiver Goals get back to hiking and long walks, dec stiffness, back to running & workouts PT-OP-C Subjective Start: 11/14/21 17:51 Freq: Status: Active Protocol: Document 01/21/23 07:33 [facility] (Rec: 01/21/23 08:27 [facility] [id number]) OP-PT Subjective Patient Comments Patient Comments neck is bothering her the most right now. Feels like there is a knot on the R side that she can't stretch or can't get rid of PT-OP-F Manual Assessment Start: 11/14/21 17:51 Freq: Status: Active Protocol: Document 05/13/22 16:07 [facility] (Rec: 05/13/22 16:52 [facility] [id number]) Manual Assessments Soft Tissue Assessment Soft Tissue Mobility Assessment tenderness throughout lumbar and gluteal region along w/ abdomenal wall Joint Mobility Assessment Joint Mobility Assessment R iliac crest is higher; equal greater trochanter; w/knee bending tibia track close to neutral; IR of B femurs w/knee bending PT-OP-J Posture/Palpation/Skin Start: 11/14/21 17:51 Freq: Status: Active Protocol: Document 09/17/22 14:29 [facility] (Rec: 09/17/22 18:27 [facility] [id number]) Posture Evaluation Tyler Postural Classification System Tyler Postural Classifications Posterior/Posterior Vertebral Compression Test 3 Elbow Flexion Test 3 Lumbar Protective Mechanism Left AP 1 Lumbar Protective Mechanism Right AP 1 Lumbar Protective Mechanism Left PA 4 Lumbar Protective Mechanism Right PA 4 PT-OP-K Range of Motion Start: 11/14/21 17:51 Freq: Status: Active Protocol: Document 01/21/23 07:33 [facility] (Rec: 01/21/23 08:27 [facility] [id number]) Cervical Spine Range of Motion Cervical Spine Active Degrees Flexion 55 Extension 59 Rotation Left 60 Rotation Right 64 Lateral Flexion Left 35 Lateral Flexion Right 50 Comments stiff w/ext; pain in L w/tilt L Lumbar Spine Range of Motion Lumbar Spine Active Percentage Flexion 50 Extension 65 Rotation Left 70 Rotation Right 70 Lateral Flexion Left 60 Lateral Flexion Right 60 Comments tight w/flex/ext, pain w/SB contra lat,L ; rot feels like can't breath B PT-OP-L Special Tests Start: 11/14/21 17:51 Freq: Status: Active Protocol: Document 05/13/22 16:07 [facility] (Rec: 05/13/22 16:52 [facility] [id number]) Special Tests Lumbar Spine Special Tests Slump Test Results positive for tension B w/neck flex PT-OP-M Strength Start: 11/14/21 17:51 Freq: Status: Active Protocol: Document 05/13/22 16:07 [facility] (Rec: 05/13/22 16:52 [facility] [id number]) Hip Strength Hip Manual Muscle Testing Right Flexion (L2) 4 Good Extension (S1) 3+ Fair+ Abduction 4- Good- Adduction 4- Good- External Rotation 4 Good Internal Rotation 5 Normal Left Flexion (L2) 3+ Fair+ Extension (S1) 3+ Fair+ Abduction 4 Good Adduction 4- Good- External Rotation 4 Good Internal Rotation 4- Good- Comments 5/5 knee and ankle MMT B PT-OP-Q Treatments Start: 11/14/21 17:51 Freq: Status: Active Protocol: Document 01/21/23 07:33 [facility] (Rec: 01/21/23 08:27 [facility] [id number]) Therapeutic Exercises Sitting Exercises 1st rib mob Sitting Exercise Name self Side left Reps/Minutes 10 PT-OP-R Modalities Start: 11/14/21 17:51 Freq: Status: Active Protocol: Document 04/15/22 07:30 [facility] (Rec: 04/15/22 12:24 [facility] [id number]) Hot Pack/Cold Pack Treatment Cold Pack Location cervical & thoracic Patient Position Supine Treatment Duration (minutes) 10 PT-OP-T Assessment and Plan Start: 11/14/21 17:51 Freq: Status: Active Protocol: Document 01/21/23 07:33 [facility] (Rec: 01/21/23 08:27 [facility] [id number]) Physical Therapy Assessment Goals pain Impairment neck pain and tightness that is constant that is at a 2/10 at all the time w/o relief Sales Forecast Analyst Goal (LTG) Pt will report no constant neck pain or tightness at least 5/7 days a week 07/22:no change 09/17-mostly tightness daily but not pain 11/21-was doing good for a while; just past 2 days a little worse again 01/21-4-5 days a week she has discomfort LTG Duration slight improvement static activity Impairment pain starts after 10 min of standing -06/14 and if stand longer it can get to a 07/15- describes as really uncomfortable-standing at attention/parade rest Sales Forecast Analyst Goal (LTG) Pt will be able to stand at attention or parade rest and at home for extended tiem as needed without inc pain greater than 1/10 07/22-tingling in upper back 3- 07/15 09/17-pain still w/extended standing no chage 11/21-has not had to recently 01/21-can only stand for a couple min before tingling in shoulder blades and tension in LB LTG Duration no change activity Short Term Goal (STG) Pt will report being able to return to long walks w/no more than 1/10 pain in neck and/or thoraic and lumbar region. 07/22-about 2 miles max recently but about 2-310-LB & mid back 09/17-2.5 miles max; average AM walk .5 mile (upper back and SI pain 3-07/15 11/21- she has been doing 3.5 mph w/good incline but gets tingling up/down back but not as signfiicant; did do 4 mile hike and about 1/2way through is when neck and back tightned up 01/21-5-09/14 pain at the end about 2 mile walk STG Duration still painful Halfway Goal (LTG) Pt will be able to return to running and working out without pain in cervical, thoracic or lumbar region w/o pain greater than 2/10 07/22: short distance run ~3/10 ; after [id number]-1-8/10 09/17-interval run about 1 mile (3/10); workouts no pain during mostly, occ crunching in back but sore for several days 11/21-burning and zapping in LB - doing treadmill and some strengthening 3/07/15 01/21-working out painful still; hasn't been running LTG Duration 02/01 ROM Short Term Goal (STG) Pt will have full jaw opening to 40mm w/o feeling of tightness 01/23-tension 03/19-feels okay but still limited 07/22-38 mm tight STG Duration achieved Halfway Goal (LTG) Pt will have full cervical and lumbar ROM w/o feeling of tension or pain to allow pt to do ADls w/o inc pain. 07/22-06/14 (L>R knee pain); back and neck are stiff and can't stand up straight; still limited ROM 09/17-standing on one leg and knee is hurting; bending over for shoes and socks is still difficult 11/21-more tightness today compared to recent days LTG Duration still painful Assessment Summary Assessment Pt did have improved SB to L after manual treatment today. She improves w/mobility after sessions, but does not always maintain gains. She has been doing PT for several months now and has been able to return to more activity, but still does have signifiant pain w/activity which limits her. She is DC d/t end of and plateau in progress at thsi time. She has HEP to work on strength and ROM and pt feels comfortable w/exercises. She does still have limited and painful range. Physical Therapy Plan Discharge Physical Therapy Discharge Reasons Plateau in Progress
== END 2023-01-23 10:28 | disposition home or self-care (01) ==
LOC: PHYS 07:30
PROVIDERS: PCP General Practice; Referring Provider General Practice; Visit Provider General Practice
DX: M26.609 Unspecified temporomandibular joint disorder, unspecified side (principal); M54.2 Cervicalgia; R29.3 Abnormal posture; M62.81 Muscle weakness (generalized); M53.83 Other specified dorsopathies, cervicothoracic region; M54.50 Low back pain, unspecified; M25.559 Pain in unspecified hip
CPT/HCPCS: 95851; 97010; 97110; 97112; 97140; 97162; 97164; 97530; 97535

== ENCOUNTER → 2023-08-28 08:53 | Outpatient (CLI) | payer OTHER, SELFPAY ==
--- NOTE | 2023-08-28 08:54 | DI.US.S_ITS ---
LIMITED ULTRASOUND OF RIGHT BREAST: 08/28/2023 CLINICAL: Patient returns today to evaluate a focal asymmetry in the right breast. Comparison is made to exams dated: 08/28/2023 mammogram - [facility] and 07/30/2023 mammogram - [facility]. Real-time ultrasound of the right breast 7 o'clock region was performed. Gusman scale images of the real-time examination were reviewed. There is a benign 0.9 cm x 0.5 cm x 0.5 cm simple cyst in the right breast at 7 o'clock, 5 cm from the nipple. This correlates with mammography findings. IMPRESSION: BENIGN Right breast 0.9 cm simple cyst at 7 o'clock position is benign. No mammographic or sonographic evidence of malignancy. A 1 year screening mammogram is recommended. Findings and recommendations were conveyed to the patient during today's evaluation. This exam was interpreted at Station ID: [id number]. Electronically Signed By: Lavern Najera M.D., Ph.D. eb/:08/28/2023 10:36:06 letter sent: Normal Exam Ultrasound BI-RADS: 2 Benign
--- NOTE | 2023-08-28 08:54 | DI.US.S_ITS ---
LIMITED ULTRASOUND OF LEFT BREAST: 08/28/2023 CLINICAL: Patient returns today to evaluate a focal asymmetry in the left breast. Comparison is made to exams dated: 08/28/2023 mammogram - [facility] and 07/30/2023 mammogram - [facility]. Color flow and real-time ultrasound of the left breast 2 o'clock region were performed. Gusman scale images of the real-time examination were reviewed. There is a benign lymph node in the left breast at 2 o'clock, 7 cm from the nipple. This correlates with mammography findings. IMPRESSION: BENIGN Left breast benign intramammary lymph node at 2 o'clock position. No mammographic or sonographic evidence of malignancy. A 1 year screening mammogram is recommended. Findings and recommendations were conveyed to the patient during today's evaluation. This exam was interpreted at Station ID: [id number]. Electronically Signed By: Lavern Najera M.D., Ph.D. eb/:08/28/2023 10:38:57 letter sent: Normal Exam Ultrasound BI-RADS: 2 Benign
--- NOTE | 2023-08-28 08:54 | DI.MG.S_ITS ---
BILATERAL DIGITAL DIAGNOSTIC MAMMOGRAM 3D/2D: 08/28/2023 CLINICAL: Additional evaluation requested from prior study. Comparison is made to exam dated: 07/30/2023 mammogram - [facility]. Both breasts are heterogeneously dense, which may obscure small masses (category c / 51-75% glandular tissue). There is a 0.7 cm oval mass with a circumscribed margin in the right breast lower outer quadrant at posterior depth. This corresponds to finding seen on recent outside baseline screening mammogram. There is a 1.0 cm oval mass with a circumscribed margin in the left breast upper outer quadrant at posterior depth. This corresponds to finding seen on recent outside baseline screening mammogram. No other significant masses or calcifications are seen in either breast. IMPRESSION: INCOMPLETE: NEEDS ADDITIONAL IMAGING EVALUATION 1) Right breast 0.7 cm oval mass in the posterior lower outer quadrant. An ultrasound is recommended for further evaluation and is scheduled to immediately follow this examination. 2) Left breast 1.0 cm oval mass in the posterior upper outer quadrant. Finding resembles a lymph node. An ultrasound is recommended for further evaluation and is scheduled to immediately follow this examination. Based on the Tyrer Cuzick model (a risk assessment model) the patient's lifetime risk is 13.8% and her 10 year risk is 1.7%. According to the ACR, ACS, and NCCN guidelines, an annual breast MRI exam along with mammogram is recommended if the patient's lifetime risk is 20% or greater. This exam was interpreted at Station ID: [id number]. NOTE: For mammograms, a report in lay terms will be sent to the patient. Approximately 15% of breast malignancies will not be visualized mammographically. In the management of a palpable breast mass, a negative mammogram must not discourage biopsy of a clinically suspicious lesion. Electronically Signed By: Lavern Najera M.D., Ph.D. eb/:08/28/2023 10:23:24 ACR BI-RADS Category 0: Incomplete [id number]
== END ==
PROVIDERS: Family Provider General Practice; PCP General Practice; Referring Provider General Practice; Visit Provider General Practice
DX: R92.8 Other abnormal and inconclusive findings on diagnostic imaging of breast (principal); N60.01 Solitary cyst of right breast; R59.0 Localized enlarged lymph nodes; R92.333 Mammographic heterogeneous density, bilateral breasts
CPT/HCPCS: 76642; 77066; G0279

== ENCOUNTER 2023-09-02 08:15 | Outpatient (RCR) | payer OTHER, SELFPAY ==
--- NOTE | 2023-08-15 15:45 | OT.OP.EVAL ---
Visit Care Team Role Provider Type Christopher Quevedo MD Family Provider Non-Staff Primary Care Provider Specialty: Family Practice Address: [facility], Fax: Email: Zonia Coleman DO Attending Provider Non-Staff Referring Provider Specialty: Medical Address: [facility] [address] , [place], [address] Fax: Email: Occupational Therapy Initial Evaluation OT Outpatient Adult Evaluation Start: 08/18/23 09:19 Freq: Status: Active Protocol: Document 08/15/23 15:45 [facility] (Rec: 08/18/23 09:53 [facility] [id number]) General Information - Adult Visit Number 1 Plan of Care Dates 08/15/23 - 09/12/23 Insurance Information Prime; *Auth x 12 visits Visit Start Time 13:45 Visit Stop Time 14:25 Treatment Setting Outpatient Care Note Type Initial Evaluation Referring Physician Zonia Coleman MD; Christopher Quevedo MD (PCP) Reason for Referral L hand pain Goals Treatment Initiated HEP. Alf Goals 1. Latanya will be modified independent with execution of home exercise program referring to provided materials as needed. 2. Latanya will verbalize 100% understanding of basic joint protection principles. Assessment/Plan Treatment Assessment Latanya is 38 years-old and right handed. She was referred to OT secondary to L hand pain primarily of the L thumb. Medical history is significant for back pain; fibromyalgia; jaw pain; neck pain; appendectomy (2001); L shoulder labrum repair (2018). L hand x-ray was reportedly completed w/ normal findings. 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 Tried icing without any noteable changes. Whole Body Pain Assessment Grid was completed; indication of 0-5 out of 10 L thumb pain ; 2 out of 10 R shoulder; 3 out of 10 posterior neck pain; 2 out of 10 mid back/thoracic spine/between scapulae; 3-4 out of 10 lower back pain. Hand/Wrist Pain Assessment Grid completed; indication of 4-5 out of 10 radial dorsal MPJ; 7 out of 10 volar/ulnar dorsal MPJ (webspace); 3 out of 10 dorsal IPJ slightly prox and distal to the IPJ. QuickDASH UE Outcome Measure Score = 15.91; QuickDASH UE Work Module Score (majority computer work) = 0.00; QuickDASH Sports/Performing Arts Moduel Score (plays the QR Artist) = 31.25. Able to oppose L thumb to each digit pad without discomfort; able to oppose L thumb to base of each digit without discomfort. (-) exacerbation of symptoms w/ thumb tuck; (-) Bong's Maneuver. Tightness of bilateral thumb add noted; R slightly > L w/ palpation. Dynamometer II Summer Associate Strength testing results w/ elbows in 90 degrees flexion = 80.0# of force L production internship ( compared to 40-44 y.o. female norm 62.3 +/- 13.8) vs 79.0# of force R production internship (compared to 40-44 y.o. female norm 70.4 +/ - 13.5). Dynamometer II Summer Associate Strength Testing results w/ elbows in extension = 76.0# of force L production internship vs 81.0# of force R production internship. Pinchometer Strength testing results = 8.5# of force L lateral molina pinch (compared to 40-44 y.o. female norm 15.8 + /- 3.1) vs 18.0# of force R lateral molina pinch (compared to 40-44 y.o. female norm 16.7 + /- 3.1); 10.0# of force L tip pinch (compared to 40-44 y.o. female norm 11.1 +/- 3.0) vs 13.0# of force R tip pinch ( compared to 40-44 y.o. female norm 11.5 +/- 2.7); 9.0# of force L 3-jaw pinch (compared to 40-44 y.o. female norm 16.6 +/- 3.5) vs 15.0# of force R 3-jaw pinch (compared to 40-44 y.o. female norm 17.0 +/- 3.1 ). Outpatient OT to est HEP and to provide joint protection education. Home Exercise Program 08/15/23 = Provided with firm, blue theraputty for home use ( to work on L pinch strength; instructed to avoid pain/ discomfort). Instructed in care and storage. Instructed in bilateral myofascial thumb add release; hold of 20 -30 sec then switching and repeating. Rec as needed. Length of treatment (weeks) 4 Plan of Care Start Date 08/15/23 Plan of Care End Date 09/12/23 Treatment Frequency Once a Week Therapeutic Contents Active Range of Motion, Functional Activities,Home Exercise Program,Joint Protection,Manual Therapy, Education,Self-Care,Stretching /Flexibility Activities, Therapeutic Activities, Therapeutic Exercises, Modalities Modalities As Needed,As Prescribed Additional Types of Modalities Heat/Ice/Contrast baths/ Paraffin Bath
--- NOTE | 2023-09-02 10:14 | OT.OP.TRT ---
Visit Care Team Role Provider Type Christopher Quevedo MD Family Provider Non-Staff Primary Care Provider Specialty: Family Practice Address: [facility], Fax: Email: Zonia Coleman DO Attending Provider Non-Staff Referring Provider Specialty: Medical Address: [facility] [address] , [place], [address] Fax: Email: Occupational Therapy Treatment Note OT Outpatient Treatment Note - Adult Start: 08/18/23 09:19 Freq: Status: Active Protocol: Document 09/02/23 10:01 [facility] (Rec: 09/02/23 10:14 [facility] [id number]) OT Outpatient Adult Treatment Note Session Time Visit Start Time 08:15 Visit Stop Time 08:45 Visit Information Visit Number 2 Plan of Care Dates 08/15/23 - 09/12/23 Insurance Information Prime; *Auth x 12 visits Setting Treatment Setting Outpatient Care Visit Type Note Type Treatment Note General Information General Information Latanya is 38 years-old and right handed. She was referred to OT secondary to L hand pain primarily of the L thumb. Medical history is significant for back pain; fibromyalgia; jaw pain; neck pain; appendectomy (2000); L shoulder labrum repair (2018). L hand x-ray was reportedly completed w/ normal findings. 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 Tried icing without any noteable changes. - Subjective Identification Type Name Observations Report of having left thumb webspace massage. Has 3 cats. - Objective Objective Measurements Please refer to below for progress towards meeting established OT goals: Shelter Goals 1. Latanya will be modified independent with execution of home exercise program referring to provided materials as needed. 2. Latanya will verbalize 100% understanding of basic joint protection principles. - Treatment 1 Descriptor Ultrasound. x 8 min. 20% duty cycle. 2.0 w/cm2. Dorsal thumb space. Exercises 1 Descriptor Thumb strengthening w/ use of single rubberband. - Assessment Assessment of Improvement Reviewed bilateral thumb add release. Instructed in light thumb strengthening w/ use of single rubberband. (+) tolerance of these exercises. Discussed joint protection principles; avoid repetitive/ resisted pinching and gripping , avoid sustained/prolonged positions, avoid positions of deformity, respect discomfort, take rest breaks, modify activities to protect thumb joints (pushing/pulling items, exclusion of thumb w/ mill platform supervisor when able, use larger surface area to carry items (such as forearms)). Home Exercise Program 09/02/23 = Instructed in thumb abd w/ use of single rubberband; 3 x 10 to 3 x 15. Instructed in thumb ext w/ use of single rubberband; 3 x 10 to 3 x 15 w/ slight IP flex. Instructed to avoid pain w/ execution of exercises ( increase # of rubberbands vs width of rubberband to increase difficulty of exercises). Instructed to position rubberband proximal to MPJ w/ execution of these exercises. Every other day or 3 x a week. 08/15/23 = Provided with firm, blue theraputty for home use ( to work on L pinch strength; instructed to avoid pain/ discomfort). Instructed in care and storage. Instructed in bilateral myofascial thumb add release; hold of 20 -30 sec then switching and repeating. Rec as needed. - Plan Therapy Recommendations Advance per Rehabilitation Protocol
--- NOTE | 2023-10-06 08:52 | OT.OP.DC ---
Visit Care Team Role Provider Type Christopher Quevedo MD Family Provider Non-Staff Primary Care Provider Address: [facility], Email: Zonia Coleman DO Attending Provider Non-Staff Referring Provider Address: [address] , [place], [address] Fax: Email: OT Outpatient OT Outpatient Adult Evaluation Start: 08/18/23 09:19 Freq: Status: Active Protocol: Document 08/15/23 15:45 AMS (Rec: 08/18/23 09:53 AMS [id number]) General Information - Adult Visit Information Visit Number 1 Plan of Care Dates 08/15/23 - 09/12/23 Insurance Information Prime; *Auth x 12 visits Session Time Visit Start Time 13:45 Visit Stop Time 14:25 Setting Treatment Setting Outpatient Care Visit Type Note Type Initial Evaluation Referral Referring Physician Zonia Coleman MD; Christopher Quevedo MD (PCP) Reason for Referral L hand pain Goals Treatment Treatment Initiated HEP. Wool Mixer Goals Mcc Goals 1. Latanya will be modified independent with execution of home exercise program referring to provided materials as needed. 2. Latanya will verbalize 100% understanding of basic joint protection principles. Assessment/Plan Assessment Treatment Assessment Latanya is 38 years-old and right handed. She was referred to OT secondary to L hand pain primarily of the L thumb. Medical history is significant for back pain; fibromyalgia; jaw pain; neck pain; appendectomy (2001); L shoulder labrum repair (2019). L hand x-ray was reportedly completed w/ normal findings. 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 Tried icing without any noteable changes. Whole Body Pain Assessment Grid was completed; indication of 0-5 out of 10 L thumb pain ; 2 out of 10 R shoulder; 3 out of 10 posterior neck pain; 2 out of 10 mid back/thoracic spine/between scapulae; 3-4 out of 10 lower back pain. Hand/Wrist Pain Assessment Grid completed; indication of 4-5 out of 10 radial dorsal MPJ; 7 out of 10 volar/ulnar dorsal MPJ (webspace); 3 out of 10 dorsal IPJ slightly prox and distal to the IPJ. QuickDASH UE Outcome Measure Score = 15.91; QuickDASH UE Work Module Score (majority computer work) = 0.00; QuickDASH Sports/Performing Arts Moduel Score (plays the [employer]) = 31.25. Able to oppose L thumb to each digit pad without discomfort; able to oppose L thumb to base of each digit without discomfort. (-) exacerbation of symptoms w/ thumb tuck; (-) Bong's Maneuver. Tightness of bilateral thumb add noted; R slightly > L w/ palpation. Dynamometer II Director Home Health Strength testing results w/ elbows in 90 degrees flexion = 80.0# of force L process consultant ( compared to 40-44 y.o. female norm 62.3 +/- 13.8) vs 79.0# of force R process consultant (compared to 40-44 y.o. female norm 70.4 +/ - 13.5). Dynamometer II Director Home Health Strength Testing results w/ elbows in extension = 76.0# of force L process consultant vs 81.0# of force R process consultant. Pinchometer Strength testing results = 8.5# of force L lateral molina pinch (compared to 40-44 y.o. female norm 15.8 + /- 3.1) vs 18.0# of force R lateral molina pinch (compared to 40-44 y.o. female norm 16.7 + /- 3.1); 10.0# of force L tip pinch (compared to 40-44 y.o. female norm 11.1 +/- 3.0) vs 13.0# of force R tip pinch ( compared to 40-44 y.o. female norm 11.5 +/- 2.7); 9.0# of force L 3-jaw pinch (compared to 40-44 y.o. female norm 16.6 +/- 3.5) vs 15.0# of force R 3-jaw pinch (compared to 40-44 y.o. female norm 17.0 +/- 3.1 ). Outpatient OT to est HEP and to provide joint protection education. Home Exercise Program 08/15/23 = Provided with firm, blue theraputty for home use ( to work on L pinch strength; instructed to avoid pain/ discomfort). Instructed in care and storage. Instructed in bilateral myofascial thumb add release; hold of 20 -30 sec then switching and repeating. Rec as needed. Plan Length of treatment (weeks) 4 Plan of Care Start Date 08/15/23 Plan of Care End Date 09/12/23 Treatment Frequency Once a Week Therapeutic Contents Active Range of Motion, Functional Activities,Home Exercise Program,Joint Protection,Manual Therapy, Education,Self-Care,Stretching /Flexibility Activities, Therapeutic Activities, Therapeutic Exercises, Modalities Modalities As Needed,As Prescribed Additional Types of Modalities Heat/Ice/Contrast baths/ Paraffin Bath Functional Wrist/Hand Scan Hand Side Sensory Assessment Sensory Profile2 OT Outpatient Treatment Note - Adult Start: 08/18/23 09:19 Freq: Status: Active Protocol: Document 10/06/23 08:50 AMS (Rec: 10/06/23 08:52 AMS [id number]) OT Outpatient Adult Treatment Note Visit Information Visit Number 2 Plan of Care Dates 08/15/23 - 09/12/23 Insurance Information Prime; *Auth x 12 visits Setting Treatment Setting Outpatient Care Visit Type Note Type Discharge Summary - Subjective Observations Latanya has not been seen in the outpatient setting by OT since 09/02/23 and outpatient OT POC on 09/12/23; thus , recommend d/c from outpatient OT and re-evaluate as deemed appropriate with receipt of new referral from PCP. - Objective Objective Measurements Please refer to below for progress towards meeting established OT goals: Mcc Goals ALL GOALS D/C 10/06/23 1. Latanya will be modified independent with execution of home exercise program referring to provided materials as needed. 2. Latanya will verbalize 100% understanding of basic joint protection principles. - - Assessment Assessment of Improvement Latanya has not been seen in the outpatient setting by OT since 09/02/23 and outpatient OT POC on 09/12/23; thus , recommend d/c from outpatient OT and re-evaluate as deemed appropriate with receipt of new referral from PCP. - Plan Therapy Recommendations Discharge from Occupational Therapy
== END 2023-10-14 14:50 | disposition home or self-care (01) ==
LOC: OT 08:15
PROVIDERS: Family Provider General Practice; PCP General Practice; Referring Provider Preventive Medicine Aerospace Medicine; Visit Provider Preventive Medicine Aerospace Medicine
DX: M79.642 Pain in left hand (principal)
CPT/HCPCS: 97035; 97110; 97165

== ENCOUNTER → 2024-05-12 09:06 | Outpatient (CLI) | payer OTHER, SELFPAY ==
--- NOTE | 2024-05-12 09:10 | DI.RAD.S_ITS ---
PROCEDURE: XR FOOT LT 2V INDICATIONS: Unspecified sprain of left foot TECHNIQUE: 3 views of the foot were acquired. COMPARISON: None. FINDINGS: Bones: No fracture identified. 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 Mild hammertoe deformities 2nd through 5th digits. Joints: Mild degenerative changes interphalangeal joints. Soft tissues: Mild forefoot midfoot soft tissue swelling IMPRESSION: Mild forefoot midfoot soft swelling. No fracture Dictated by: Ed Gutierrez M.D. on 05/13/2024 at 17:12 Approved by: Ed Gutierrez M.D. on 05/13/2024 at 17:13
[2024-05-12 10:59] LABS: Alanine Aminotransferase 17 IU/L (<35); Albumin 4.5 g/dL (3.5-5.0); Albumin Globulin Ratio 1.5 (1.0-2.8); Alkaline Phosphatase 47 U/L (38-126); Aspartate Aminotransferase 28 IU/L (14-36); Bilirubin Total 0.3 mg/dL (0.2-1.3); Bilirubin Unconjugated 0.2 mg/dL (0.0-1.1); Globulin 3.1 g/dL (1.7-4.1); HEMOLYSIS < 15 (0-50); Total Protein 7.6 g/dL (6.3-8.2)
== END ==
LOC: RESP 09:09
PROVIDERS: Family Provider General Practice; Referring Provider Chiropractor; Visit Provider Chiropractor
DX: J98.4 Other disorders of lung (principal); R94.5 Abnormal results of liver function studies; M79.89 Other specified soft tissue disorders; S93.602A Unspecified sprain of left foot, initial encounter
CPT/HCPCS: 36415; 73620; 80076; 94060